=== PATIENT | female | born 1950 | race Caucasian/White ===

== ENCOUNTER → 2018-08-09 09:27 | Outpatient (CLI) | payer MEDICARE, OTHER, SELFPAY ==
--- NOTE | 2018-08-09 09:33 | BD_ITS ---
STUDY: DUAL ENERGY X-RAY ABSORPTIOMETRY / DXA REASON FOR EXAM: Female, 68 years old. The patient is postmenopausal. Loss of height. TECHNIQUE: Bone Mineral Density (BMD) measurements of lumbar spine and bilateral hips were obtained. COMPARISON: Comparison is made with prior study dated July 30, 2015. FINDINGS: Lumbar Spine (L1-L4): g/cm2 (0.764) / T-score (-3.5) / Z-score (-1.9) Findings are suggestive of osteoporosis with a high fracture risk. Left Femur Total: g/cm2 (0.790) / T-score (-1.7) / Z-score (-0.5) Left Femoral Neck: g/cm2 (0.792) / T-score (-1.8) / Z-score (-0.3) Right Femur Total: g/cm2 (0.821) / T-score (-1.5) / Z-score (-0.2) Right Femoral Neck: g/cm2 (0.826) / T-score (-1.5) / Z-score (0.0) The T-Scores on the most recent prior examination were: Lumbar Spine (L1-L4): There has been worsening of bone density since the previous examination. Left Femur Total: which represents a worsening of 5.5%. Right Femur Total: which represents an improvement of 0.6%. BD/Dexa Bone Density Study IMPRESSION: The patient is considered osteoporotic as outlined below according to World Neil Organization (WHO) criteria with a high fracture risk. There has been worsening of bone density since the previous examination. Reference Information: The T-score is the number of standard deviations above or below the standard which is normal for young adults at their peak bone mineral density. The World Health Organization (WHO) interprets the T-scores as follows: Above -1 Normal bone density Between -1 and -2.5 Osteopenia Equal to / or below -2.5 Osteoporosis As a practical clinical guideline, osteopenia may be graded as follows: Mild -1 through -1.5 Moderate -1.6 through -2.0 Severe -2.1 through -2.4 The Z-score is the number of standard deviations above or below age-matched controls. A Z-score of less than -1.5 would be considered abnormal. References: 1. NIH Osteoporosis and Related Bone Diseases http://www.osteo.org 2. International Society for Clinical Densitometry http://www.iscd.org 3. National Osteoporosis Foundation http://www.nof.org Electronically Signed: [place] MD at 8:45 EST Tel [phone], Service support ,
--- NOTE | 2018-08-09 09:34 | BI_ITS ---
MAMMOGRAPHY - BILATERAL SCREENING REASON FOR EXAM: Female, 68 years old. Routine annual screening examination. PERTINENT HISTORY: Sister with breast cancer. Grandmother with breast cancer. TECHNIQUE: Digital bilateral breast amelia (3D mammographic acquisition) in the CC and MLO projections. 2-D mediolateral oblique (MLO) and craniocaudad (CC) views of both breasts were obtained. CAD: Full Field Digital Mammography with Computer Added Detection was performed. COMPARISON: Comparison is made with prior study dated August 05, 2017 and August 04, 2016. FINDINGS: Breast Composition: The breasts are heterogeneously dense, which may obscure small masses. There are no dominant masses or suspicious calcifications. Stable appearance of the bilateral axillary lymph nodes. No other significant abnormalities are identified. There has been no significant change since the prior study. BI/SCREENING MAMM (CAD), BILAT IMPRESSION: Stable bilateral screening mammogram. Yearly follow-up mammogram recommended. (A) ASSESSMENT CATEGORY: BIRADS Category 2: Benign. A letter regarding these results will be sent to the patient by the facility within 30 days. Approximately 10% of breast cancers are not detected by mammography. A normal mammogram should not delay biopsy of a clinically suspicious abnormality. [id number] Electronically Signed: Mingo [place] MD at 10:55 EST Tel [phone], Service support ,
== END ==
PROVIDERS: Family Provider Internal Medicine; PCP Internal Medicine; Referring Provider Obstetrics & Gynecology; Visit Provider Obstetrics & Gynecology
DX: Z12.31 Encounter for screening mammogram for malignant neoplasm of breast (principal); M81.0 Age-related osteoporosis without current pathological fracture; Z78.0 Asymptomatic menopausal state
CPT/HCPCS: 77063; 77067; 77080

== ENCOUNTER → 2019-08-15 16:09 | Outpatient (CLI) | payer MEDICARE, OTHER, SELFPAY ==
[2019-08-15 17:29] LABS: Absolute Lymphocyte Count 1.09 X10^3/uL (0.83-4.51); Absolute Neutrophil Count 3.1 X10^3/uL (2.0-7.7); Basophil# 0.03 X10^3/uL; Basophil% 0.6 % (0-1); Eosinophil# 0.07 X10^3/uL; Eosinophils% 1.5 % (0-5); Hemoglobin 14.4 g/dL (12.0-15.0); Lymphocyte # 1.09 X10^3/ul (4.0); Lymphocyte % 22.9 % (19-41); Mean Corp Hgb Conc 33.5 g/dL (32-36); Mean Corpuscular Volume 92.5 fL (81-99); Mean Platelet Vol. 10.8 fl (6.2-12.0); Monocyte# 0.44 X10^3/uL; Monocyte% 9.2 % (0-10); NRBC Flagged by Analyzer 0 % (0-5); Neutrophil # 3.12 X10^3/uL (2.7-7.7); Neutrophil % 65.6 % (47-70); Platelet Count 207 K/mm3 (150-450); RBC Distribution Width CV 12.7 % (11.6-14.6); RBC Distribution Width SD 43.1 fl (35.1-43.9); Red Blood Count 4.65 M/mm3 (4.2-5.4); White Blood Count 4.8 K/mm3 (4.4-11.0)
[2019-08-15 17:41] LABS: Erythrocyte Sedimentation Rate 9 mm/hr (0-30)
[2019-08-15 17:49] LABS: Vitamin B12 531 pg/mL (211-911); Vitamin D,25 Hydroxy 44.4 ng/mL (29.95-100.01)
[2019-08-15 18:01] LABS: ALB/GLOB Ratio 0.8 RATIO (0.9-2.4); AST(SGOT) 82 U/L (15-37); Alanine Aminotransfer ALT/SGPT 144 U/L (13-56); Albumin, Serum 3.8 g/dL (3.2-5.0); Alkaline Phosphatase 58 U/L (45-117); Anion Gap 9 (5-15); BUN 17 mg/dL (7-18); BUN/Creat Ratio 15.6 RATIO (10-20); CRP < 2.90 mg/L (0.0-3.0); Chloride 107 mmol/L (98-107); Cholesterol 177 mg/dL (200); Creatinine, Serum 1.09 mg/dL (0.55-1.02); EST Glomerular Filtration Rate 53 mL/min (>60); Est Glom Filt Rate - Afr Amer 64 mL/min (>60); Ferritin 230 ng/mL (8-252); Globulin 4.6 g/dL (2.2-4.2); Glucose 89 mg/dL (74-106); High Density Lipoprotein 46 mg/dL; Iron 97 ug/dL (50-170); Protein, Total 8.4 g/dL (6.4-8.2); Sodium Level 142 mmol/L (136-145); Triglycerides 143 mg/dL; Very Low Density Lipoprotein 29 mg/dL (5-40)
[2019-08-17 20:50] LABS: ANTINUCLEAR ANTIBODIES DIRECT Negative (Negative)
== END ==
PROVIDERS: Family Provider Family Medicine; PCP Family Medicine; Referring Provider Family Medicine; Visit Provider Family Medicine
DX: R53.83 Other fatigue (principal); I10 Essential (primary) hypertension; L80 Vitiligo
CPT/HCPCS: 36415; 80053; 80061; 82306; 82607; 82728; 83540; 85025; 85652; 86038; 86140

== ENCOUNTER → 2019-08-23 08:04 | Outpatient (CLI) | payer MEDICARE, OTHER, SELFPAY ==
[2019-08-23 10:01] LABS: GGTP 22 U/L (5-55)
[2019-08-23 11:08] LABS: Hepatitis B Surface Antibody Non-Reactive; Hepatitis B Surface Antigen Non-Reactive (Nonreactive); Hepatitis C Antibody Non-Reactive (Nonreactive)
[2019-08-24 09:00] LABS: T4 Free Direct 1.35 ng/dL (0.76-1.46)
[2019-08-25 16:33] LABS: PROELU- Albumin, Urine 43.2 % (.); PROELU- Alpha-1-Globulin,Ur 4.6 % (.); PROELU- Alpha-2-Globulin,Ur 13.9 % (.); PROELU- Beta Globulin, Ur 22.4 % (.); PROELU- Gamma Globulin, Ur 15.9 % (.); Total Protein, Ur 7.9 mg/dL (Not Estab.)
[2019-08-26 12:54] LABS: C-Peptide 4.7 ng/mL (1.1-4.4)
== END ==
PROVIDERS: Family Provider Family Medicine; PCP Family Medicine; Referring Provider Family Medicine; Visit Provider Family Medicine
DX: R53.83 Other fatigue (principal); E03.9 Hypothyroidism, unspecified
CPT/HCPCS: 36415; 82977; 84166; 84439; 84443; 84681; 86706; 86803; 87340

== ENCOUNTER → 2019-09-16 07:36 | Outpatient (CLI) | payer MEDICARE, OTHER, SELFPAY ==
--- NOTE | 2019-09-16 08:03 | MRI_ITS ---
We are attempting to reach an attending provider to discuss findings. An addendum with communication details will be sent when the communication is complete. STUDY: MRI BRAIN WITH AND WITHOUT CONTRAST REASON FOR EXAM: Female, 69 years old. CHANGE IN MENTAL STATUS -- no pain. TECHNIQUE: Standardized multiplanar fat and water weighted pulse sequences were obtained. DOTAREM 13 ML IV was administered for the contrast portion of the examination. COMPARISON: None. FINDINGS: There is approximately 3.2 x 3.5 x 3.6 cm avidly enhancing mass along the olfactory groove involving yared kaden and surrounding the falx. There is dural tail. There is decreased T2 signal with mild restricted signal suggesting meningioma. There is large amount of surrounding vasogenic edema, greater on the right. There is compression of the bilateral anterior horns and posterior displacement of the corpus callosum and there is ventricle. There is midline shift to the left of approximately 1 cm. Normal flow voids within the major intracranial circulation suggesting patency by spin echo criteria. Normal sella turcica, pituitary gland, infundibular stalk, optic chiasm and hypothalamus. Normal tectal plate and pineal gland. Normal midbrain, manpreet and medulla. Normal cerebellum. Normal basal cisterns. 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 Electronically Signed: Mejia Sanchez MD at 9:21 EST Tel , Service support ,
--- NOTE | 2019-09-16 09:13 | US_ITS ---
STUDY: ABDOMINAL ULTRASOUND - RIGHT UPPER QUADRANT REASON FOR VISIT: Female, 69 years old elevated liver function tests TECHNIQUE: Ultrasound evaluation of the right upper quadrant was performed with real-time and static acevedo-scale imaging. TECHNICAL QUALITY: Adequate. COMPARISON: None. FINDINGS: Liver: The liver measures 15.9 cm. There is increased echogenicity of the liver. The bile ducts are within normal limits. There is hepatic color flow. The direction of portal flow is hepatopetal. There is no demonstrated mass lesion. Gallbladder: Normal distended gallbladder. The gallbladder wall measures 2.9 mm. There is a negative sonographic Blevins''s sign. There is no pericholecystic fluid. There are multiple echogenic structures within the gallbladder, consistent with multiple gallstones. Common Bile Duct (C.B.D.): The common bile duct measures 6-7 mm. Pancreas: There is normal echogenicity of the pancreas. There is no demonstrated pancreatic mass or cyst. Right Kidney: Normal size of the right kidney. The right kidney measures 10.0 x 4.0 x 4.0 cm. Normal renal cortex. The right cortex measures 1.2 cm. There is no demonstrated renal mass or cyst. There is no right hydronephrosis. US/Abdomen Limited IMPRESSION: 1. No hepatic mass or intrahepatic bile duct dilation. 2. Increased echogenicity of the liver is nonspecific but most commonly associated with hepatic steatosis. 3. Cholelithiasis. 4. Upper limits of normal CBD for age. Electronically Signed: Manuel Rico MD (Brooks) at 13:00 EST , Service support ,
== END ==
PROVIDERS: Family Provider Family Medicine; PCP Family Medicine; Referring Provider Family Medicine; Visit Provider Family Medicine
DX: R41.82 Altered mental status, unspecified (principal); R94.5 Abnormal results of liver function studies
CPT/HCPCS: 70553; 76705; A9575

== ENCOUNTER 2019-09-16 09:47 | Emergency (ER) | payer MEDICARE, OTHER, SELFPAY ==
[2019-09-16 09:47] VITALS: BP 152/97; PULSE 67; RESP 16; TEMP 37.1; O2SAT 98; BMI 27.6
[2019-09-16 10:31] LABS: Absolute Lymphocyte Count 1.27 X10^3/uL (0.83-4.51); Absolute Neutrophil Count 3.3 X10^3/uL (2.0-7.7); Basophil# 0.02 X10^3/uL; Basophil% 0.4 % (0-1); Eosinophil# 0.09 X10^3/uL; Eosinophils% 1.7 % (0-5); Hemoglobin 14.4 g/dL (12.0-15.0); Lymphocyte # 1.27 X10^3/ul (4.0); Lymphocyte % 24.5 % (19-41); Mean Corp Hgb Conc 34.3 g/dL (32-36); Mean Corpuscular Hgb 30.8 pg (27.0-32.0); Mean Corpuscular Volume 89.7 fL (81-99); Mean Platelet Vol. 9.8 fl (6.2-12.0); Monocyte# 0.51 X10^3/uL; Monocyte% 9.8 % (0-10); NRBC Flagged by Analyzer 0 % (0-5); Neutrophil # 3.28 X10^3/uL (2.7-7.7); Neutrophil % 63.2 % (47-70); Platelet Count 186 K/mm3 (150-450); RBC Distribution Width CV 12.3 % (11.6-14.6); RBC Distribution Width SD 40.5 fl (35.1-43.9); Red Blood Count 4.68 M/mm3 (4.2-5.4); White Blood Count 5.2 K/mm3 (4.4-11.0)
[2019-09-16 10:36] LABS: Prothrombin Time (Protime)PT. 13.4 SECONDS (11.7-14.9)
[2019-09-16 10:37] LABS: Partial Thromboplast Time 28.4 Seconds (24.1-36.2)
[2019-09-16 10:53] LABS: Anion Gap 4 (5-15); BUN 18 mg/dL (7-18); Calcium,Total 8.5 mg/dL (8.5-10.1); Chloride 110 mmol/L (98-107); EST Glomerular Filtration Rate 59 mL/min (>60); Est Glom Filt Rate - Afr Amer 71 mL/min (>60); Estimated Creatinine Clearance 41.19 ml/min; Glucose 92 mg/dL (74-106); Potassium 3.7 mmol/L (3.5-5.1); Sodium Level 141 mmol/L (136-145)
--- NOTE | 2019-09-16 12:00 | ED.DCSUM_ITS ---
History of Present Illness Chief Complaint: Confusion Detail of Chief Complaint: Mass on brain MRI Informant: Patient, Family Narrative: Patient was sent up to the ED from outpatient MRI study revealing a mass and vasogenic edema. Patient has had increased sleepiness for the past several months. states she will have some intermittent confusion such as forgetting where she puts things. Her primary care physician ordered an outpatient MRI today. Patient denies headache or vision change. She is had no nausea or vomiting. She denies seizures. - Past Medical History (1) Hypothyroid Status: Chronic (2) M?ni?re's disease Status: Chronic (3) Hypertension Status: Chronic Past Medical History - Allergies and Home Meds Allergies/Adverse Reactions: Allergies No Known Allergies Allergy (Verified 09/16/19 09:47) Primary Care Physician: Johnathon Delgado MD [Primary Care Provider] - Prior records reviewed: Yes Lives: Spouse/ Significant Other Smoking Status: Never smoker Review of Systems General: Denies: Chills Eyes: Denies: Visual changes - bilaterally ENT: Denies: Bilateral ear pain Cardiovascular: Denies: Chest pain Respiratory: Denies: Dyspnea, Cough Gastrointestinal: Denies: Abdominal pain, Nausea, Vomiting, Diarrhea Musculoskeletal: Denies: Neck pain, Back pain Skin: Denies: Rash Neurological: Denies: Headache Hematologic: Denies: Easy bruising Allergy: Denies: Uticaria Physical Exam Vital Signs/Narrative: Vital Signs Temp Pulse Resp BP Pulse Ox 09/16/19 09:47 98.8 F 67 16 152/97 H 98 Inital Vital Signs reviewed: Yes General: Well nourished, Well developed Head: Normocephalic ENT: Moist mucous membranes Neck: Supple Cardiovascular: Regular rate, Regular rhythm Respiratory: No distress, CTA bilaterally Abdomen: Soft, Nontender Back: Nontender Skin: Normal color, No rash Neurological: Alert, Oriented x3, Normal Strength, Normal Sensation Psychological: Normal affect Diagnostic/Tx/Re-eval MRI performed this morning reveals a 3.6 cm mass in the olfactory groove, likely meningioma with extensive surrounding vasogenic edema and compression along with midline shift of 1 cm. - Medical Decision Making Test results were discussed with patient and at bedside. I advised her that she needs follow-up with neurosurgery and we do not have that capability here. Patient has been accepted at [facility]. She is given 10 mg of IV Decadron. ED Disposition - Plan for ED Patient: Disposition: [facility] Diagnosis: Brain mass Referrals: Johnathon Delgado MD [Primary Care Provider] -
[2019-09-16 12:13] VITALS: BP 168/77; PULSE 71; RESP 16; O2SAT 97
[2019-09-16] MEDS: dexAMETHasone 10 MG/ML Vial IV (12:20)
== END 2019-09-16 12:45 | disposition short-term general hospital (02) ==
PROVIDERS: Emergency Provider Emergency Medicine; Family Provider Family Medicine; PCP Family Medicine
DX: G93.9 Disorder of brain, unspecified (principal); G93.6 Cerebral edema; I10 Essential (primary) hypertension; E03.9 Hypothyroidism, unspecified; R94.5 Abnormal results of liver function studies; Z79.899 Other long term (current) drug therapy
CPT/HCPCS: 70553; 76705; 80048; 85025; 85610; 85730; 96374; 99285; A9575

== ENCOUNTER 2019-09-26 14:47 | Inpatient (IN) | payer MEDICARE, OTHER, SELFPAY ==
[2019-09-26 15:00] VITALS: BP 102/61; PULSE 95; RESP 16; TEMP 36.4; O2SAT 96; BMI 27.5
[2019-09-26] MEDS: Phenytoin Na 100 MG Capsule PO (18:26)
[2019-09-26] MEDS: levETIRAcetam 750 MG Tablet 1500 MG PO (20:29)
[2019-09-26] MEDS: Docusate Sodium 100 MG Capsule PO (20:29)
[2019-09-26 22:00] VITALS: BP 100/56; PULSE 90; RESP 16; TEMP 36.8; O2SAT 95
[2019-09-27] MEDS: Alendronate Sodium 70 MG Tablet PO (05:45)
[2019-09-27] MEDS: Levothyroxine 50 MCG Tablet PO (05:45)
[2019-09-27 06:20] LABS: Absolute Lymphocyte Count 2.24 X10^3/uL (0.83-4.51); Absolute Neutrophil Count 6.3 X10^3/uL (2.0-7.7); Basophil# 0.01 X10^3/uL; Basophil% 0.1 % (0-1); Eosinophil# 0.27 X10^3/uL; Eosinophils% 2.8 % (0-5); Hematocrit 39.3 % (37-47); Hemoglobin 13.3 g/dL (12.0-15.0); Lymphocyte # 2.24 X10^3/ul (4.0); Mean Corp Hgb Conc 33.8 g/dL (32-36); Mean Corpuscular Hgb 31.1 pg (27.0-32.0); Mean Corpuscular Volume 91.8 fL (81-99); Mean Platelet Vol. 10.1 fl (6.2-12.0); Monocyte% 8.2 % (0-10); NRBC Flagged by Analyzer 0 % (0-5); Neutrophil # 6.33 X10^3/uL (2.7-7.7); Neutrophil % 64.9 % (47-70); Platelet Count 182 K/mm3 (150-450); RBC Distribution Width CV 13.4 % (11.6-14.6); RBC Distribution Width SD 44.3 fl (35.1-43.9); Red Blood Count 4.28 M/mm3 (4.2-5.4); White Blood Count 9.8 K/mm3 (4.4-11.0)
[2019-09-27 06:47] LABS: Phenytoin (Dilantin) Level 11.3 mL (10.0-20.0)
[2019-09-27 06:49] LABS: ALB/GLOB Ratio 0.7 RATIO (0.9-2.4); AST(SGOT) 23 U/L (15-37); Alanine Aminotransfer ALT/SGPT 51 U/L (13-56); Albumin, Serum 2.7 g/dL (3.2-5.0); Alkaline Phosphatase 59 U/L (45-117); Anion Gap 5 (5-15); BUN 19 mg/dL (7-18); Calcium,Total 8.3 mg/dL (8.5-10.1); Chloride 110 mmol/L (98-107); Creatinine, Serum 0.76 mg/dL (0.55-1.02); EST Glomerular Filtration Rate 81 mL/min (>60); Est Glom Filt Rate - Afr Amer 98 mL/min (>60); Estimated Creatinine Clearance 41.19 ml/min; Globulin 3.7 g/dL (2.2-4.2); Glucose 88 mg/dL (74-106); Magnesium 2.1 mg/dL (1.6-2.6); Phosphorus 3.7 mg/dL (2.5-4.9); Protein, Total 6.4 g/dL (6.4-8.2); Sodium Level 138 mmol/L (136-145)
[2019-09-27] MEDS: Polyethylene Glycol 3350 17 GM PACKET PO (08:48)
[2019-09-27] MEDS: Losartan Potassium 100 MG Tablet PO (08:49)
[2019-09-27] MEDS: levETIRAcetam 750 MG Tablet 1500 MG PO ×2 (08:49→21:27)
[2019-09-27] MEDS: Multivitamins,Ther W-Minerals Tablet 1 TABLET PO (08:49)
[2019-09-27] MEDS: Calcium Carb/Vitamin D 1 TABLET Tablet PO (08:49)
[2019-09-27] MEDS: Docusate Sodium 100 MG Capsule PO ×2 (08:49→21:30)
[2019-09-27] MEDS: Pantoprazole Sodium 40 MG Tablet PO (08:49)
[2019-09-27] MEDS: Phenytoin Na 100 MG Capsule PO ×3 (08:49→17:29)
[2019-09-27 08:56] VITALS: BP 133/72; PULSE 83; RESP 18; TEMP 36.8; O2SAT 97
[2019-09-27] MEDS: Calcium Carbonate 500 MG Tablet PO (12:23)
--- NOTE | 2019-09-27 13:05 | HP.PCM_ITS ---
Problem List (1) Physical debility Status: Acute (2) S/P resection of meningioma Status: Acute (3) Hypertension Status: Chronic (4) Hypothyroid Status: Chronic (5) M?ni?re's disease Status: Chronic History of Present Illness Date of Admission: 09/26/19 Chief Complaint: weakness due to recent resection of meningioma The pt is a 69-year-old female with a PMH of hypertension, hypothyroidism, M?ni?re's disease and recent resection of a meningioma at [facility] who is admitted to the Inpatient rehab unit at [facility] on 09/26/2019 for debility secondary to resent surgery for greater than 3 hours of therapy daily with a goal of returning home at or near prior level of independence. The patient lives at home with her spouse and has 6 steps to get into her house. It is a two-story house and the bedrooms are on the second floor with a staircase and a rail. She does have a full bathroom on the first floor. The patient was independent with ADL's, mobility and driving prior to hospitalization. She denies WAY, lightheadedness, CP, SOB. She denies dysuria and she had a BM today. She is c/o R calf pain. She was on SCD's and TEDS at [facility] and not anticoagulation to prevent DVT. No seizures since admission. she had status epilepticus at [facility] and is on Keppra and Dilantin. She feels a little disoriented but, this is clearing up. Afebrile since admission. Vital signs are stable She is maintaining appropriate oxygen saturation on room air. Fair oral intake. All lab was personally reviewed. The CBC is unremarkable. The BMP is remarkable for an increased BUN at 19 with a creatinine of 0.76. Potassium is 4.0. LFTs are unremarkable and the phenytoin level is 11.3 but when corrected for hypoalbuminemia the phenytoin level is 13.4 which is within therapeutic range. 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) Hypertension (Chronic) Allergies lisinopril Adverse Reaction (Verified 09/26/19 15:02) Other cough Home Medications: Ambulatory Orders Medication Instructions Recorded Levothyroxine Sodium 50 mcg PO DAILY 09/16/19 Acetaminophen [Tylenol] 650 mg PO Q4H PRN 09/26/19 Alendronate Sodium 1 tab PO WE 09/26/19 Bisacodyl [Dulcolax] 10 mg RECTAL DAILY PRN PRN 09/26/19 Calcium Carbonate 500 mg PO BID PRN 09/26/19 Calcium Carbonate/Vitamin D3 1 tab PO DAILY 09/26/19 [Calcium 600 + Vit D Tablet] Docusate Sodium [Colace] 100 mg PO BID 09/26/19 Levetiracetam [Keppra] 1,500 mg PO BID 09/26/19 Losartan Potassium [Cozaar] 100 mg PO DAILY 09/26/19 Minocycline HCl 50 mg PO DAILY 09/26/19 Multivitamin with Minerals 1 tab PO DAILY 09/26/19 [Multiple Vitamin] Pantoprazole Sodium [Protonix] 40 mg PO DAILY 09/26/19 Phenytoin Na [Dilantin] 100 mg PO TID 09/26/19 Polyethylene Glycol 3350 [Miralax] 17 gm PO DAILY 09/26/19 Senna/Docusate Sodium [Senokot-S, 1 tab PO DAILY PRN 09/26/19 Maame-Colace] Surgical History: - - craniotomy at [facility] 09/20/19 for olfactory groove meningioma Psychiatric History: No pertinent psych hx [employer] History: No pertinent [employer]ER history Lives: Spouse/ Significant Other Smoking Status: Never smoker Tobacco Use: Non-smoker Alcohol: None Drugs: None Review of Systems Constitutional: Reports: Weakness. Denies: Anorexia, Chills, Fever, Weight Change Eyes: Denies: Blurred vision, Eyelid Inflammation HEENT: Denies: Difficulty Swallowing, Eye Pain, Head Aches, Sinus Congestion, Sinus Drainage, Sore Throat Cardiovascular: Denies: Chest Pain, Edema, Light Headedness, Palpitations Respiratory: Denies: Cough, Pleuritic Pain, Shortness of Breath, Shortness of breath at rest, Sputum production Gastrointestinal: Denies: Abdominal Pain, Constipation, Diarrhea, Nausea, Vomiting Genitourinary: Denies: Dysuria Musculoskeletal: Denies: Joint Pain, Joint Tenderness Skin: Denies: Jaundice, Rash, Wounds Neurological: Reports: Balance problems, Seizures - she had status epilepticus while at [facility] but this resolved with Keppra and Dilantin. Denies: Double vision, Change in Speech, Slurred speech, Focal weakness, Numbness, Tingling, Tremor Psychiatric: Denies: Anxiety, Depression, Homicidal Ideations, Suicidal Ideations Endocrine: Denies: Change in Body Habitus Hematologic/ Lymphatic: Denies: Easy Bruising, Easy Bleeding, Hx of blood clot VTE Information - Inpt Only VTE Present on Admission: No VTE Mechan Device Prophylaxis: SCD's, Knee High CHERYL Hose VTE Pharm Prophylaxis ordered?: No Reason prophylaxis not ordered:: Treatment Not Indicated - pt had a recent craniotomy to resect a meningioma in the olfactory groove. Patient Problems: Active and Suspected Problems Physical debility (Acute) S/P resection of meningioma (Acute) - Physical Exam Vitals/I&O's: Vital Signs Temp Pulse Resp BP Pulse Ox 98.3 F 83 18 133/72 H 97 09/27/19 08:56 09/27/19 08:56 09/27/19 08:56 09/27/19 08:56 09/27/19 08:56 Oxygen Delivery Method Room Air Weight: 145 lb 11.609 oz Body Mass Index (BMI) 27.5 Intake and Output for Last 24 Hours 09/25/19 09/26/19 09/27/19 23:59 23:59 23:59 Intake Total 830 / 830 720 / 720 Balance 830 / 830 720 / 720 General: Alert, Oriented x3, Cooperative, No apparent distress, Well developed, Well nourished HEENT: PERRLA, EOMI, Normocephalic, - - She has a long staple line across the frontal bones extending from 1 side to the other from recent craniotomy to remove a meningioma in the olfactory groove. Oral: No Gingival or Mucosal Lesions/ Ulcerations, Dry Mucosa Neck: Supple, No JVD, Negative Carotid Bruits, No Nodes, Trachea Midline Lungs: Clear to auscultation, Normal air movement, No rhonchi, No wheeze, No rales Cardiovascular: Regular rate, Regular Rhythm, Normal S1, Normal S2, No murmurs, No Ectopic Activity, No rub noted, No Gallop Abdomen: Bowel Sounds Present, Soft, Non Tender, Non-Distended Extremities: No clubbing, No cyanosis, No edema, Peripheral Pulses Normal, - - She has calf tenderness on the R side. she has a + Dre sign and winced when I squeezed the R calf. The Radha's on the right was negative. There is no erythema and there is no increased warmth to touch. The left calf is not tender. Skin: No rashes, - - the incision on the skull is intact. There is some dried blood over the jagruti. No dehiscence and no purulent DC. No periwound erythema. Musculoskeletal: No Muscle Wasting Neurological: Cranial nerves II-XII grossly intact, Neuro grossly intact Psych/Mental Status: Normal Affect, Appropriate Laboratory Results 09/27/19 06:10: WBC 9.8, RBC 4.28, Hgb 13.3, Hct 39.3, MCV 91.8, MCH 31.1, MCHC 33.8, RDW Std Deviation 44.3 H, RDW Coeff of Chase 13.4, Plt Count 182, MPV 10.1, Immature Gran % (Auto) 1.000 H, Neut % (Auto) 64.9, Lymph % (Auto) 23.0, Tompkins % (Auto) 8.2, Eos % (Auto) 2.8, Baso % (Auto) 0.1, Absolute Neuts (auto) 6.3, Absolute Lymphs (auto) 2.24, Nucleated RBC % 0 09/27/19 06:10: Sodium 138, Potassium 4.0, Chloride 110 H, Carbon Dioxide 23.0, Anion Gap 5, BUN 19 H, Creatinine 0.76, Estim Creat Clear Calc 41.19, Est GFR (MDRD) Af Amer 98, Est GFR (MDRD) Non-Af 81, BUN/Creatinine Ratio 25.0 H, Glucose 88, Calcium 8.3 L, Phosphorus 3.7, Magnesium 2.1, Total Bilirubin 0.30, AST 23, ALT 51, Alkaline Phosphatase 59, Total Protein 6.4, Albumin 2.7 L, Globulin 3.7, Albumin/Globulin Ratio 0.7 L 09/27/19 06:10: Phenytoin 11.3 Current Medications Acetaminophen (Tylenol) 650 mg PO Q4H PRN PRN Reason: Pain or Fever Alendronate Sodium (Fosamax) 70 mg PO We@0600 [facility] Last Admin: 09/27/19 05:45 Dose: 70 mg Documented by: Bisacodyl (Dulcolax) 10 mg RECTAL .PRN X 1 PRN PRN Reason: Constipation Calcium Carbonate (Tums) 500 mg PO BID PRN PRN Reason: HEART[facility]URN Last Admin: 09/27/19 12:23 Dose: 500 mg Documented by: Calcium/Vitamin D (Os-King 500mg + D) 1 tablet PO DAILYCM [facility] Last Admin: 09/27/19 08:49 Dose: 1 tablet Documented by: Docusate Sodium (Colace) 100 mg PO BID [facility] Last Admin: 09/27/19 08:49 Dose: 100 mg Documented by: Levetiracetam (Keppra Tablet) 1,500 mg PO BID [facility] Last Admin: 09/27/19 08:49 Dose: 1,500 mg Documented by: Levothyroxine Sodium (Synthroid) 50 mcg PO DAILY@0600 [facility] Last Admin: 09/27/19 05:45 Dose: 50 mcg Documented by: Losartan Potassium (Cozaar) 100 mg PO DAILY [facility] Last Admin: 09/27/19 08:49 Dose: 100 mg Documented by: Magnesium Hydroxide (Milk Of Magnesia) 30 ml PO .PRN X 1 PRN PRN Reason: Constipation Minocycline HCl (Minocin) 50 mg PO DAILY [facility] Multivitamins/Minerals (Multivitamin With Minerals) 1 tablet PO DAILY@0800 [facility] Last Admin: 09/27/19 08:49 Dose: 1 tablet Documented by: Nutritional Formula (Lactose Free) (Ensure Enlive) 120 ml PO 4X/DAY [facility] Last Admin: 09/27/19 08:57 Dose: 120 ml Documented by: Pantoprazole Sodium (Protonix) 40 mg PO DAILY [facility] Last Admin: 09/27/19 08:49 Dose: 40 mg Documented by: Phenytoin Sodium (Dilantin) 100 mg PO TIDCM [facility] Last Admin: 09/27/19 12:22 Dose: 100 mg Documented by: Polyethylene Glycol (Miralax) 17 gm PO DAILY [facility] Last Admin: 09/27/19 08:48 Dose: 17 gm Documented by: Assessment/Plan All Active Problems Physical debility (Acute) S/P resection of meningioma (Acute) Impressions 1. 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 2. 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 R calf pain with a + Dre and negative Radha's on the R. No CP and no SOB. Not tachycardic. No services available to [facility] at this time due to the holiday. I suggested to the patient that we could either transfer her to another facility....they may also not have US available today OR we could do the US first thing in the AM. She elected to stay here. She was instructed to notify the nurse immediately if SOB or CP and a CTA of the chest would be ordered. 4. Hypothyroidism-continue home medication 5. Hypertension 6. 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 No seizures since admission. Patient is stable on Keppra and Dilantin. PLAN PT for gait stability OT for ADL's ST for evaluation Analgesics as needed Bowel protocol Fall precautions Assess for Anxiety/Depression GI prophylaxis not necessary DVT prophylaxis with SCDs and CHERYL hose. Hold the SCD on the right lower extremity tonight until an ultrasound can be obtained in the morning. Will apply SCDs to the left lower extremity. Continue CHERYL hose. Follow up with neurosurgery and her PCP following DC from [facility] Will call and speak to her neurosurgeon tomorrow and ask when she can be started on DVT prophylaxis or full dose anticoagulation if the US is positive Code Visit Inpatient E&M: 97581 Init Hosp L3
[2019-09-27 15:10] VITALS: O2SAT 96
--- NOTE | 2019-09-27 16:59 | REHABEVAL_ITS ---
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 Status Changes from Prescreening?: No changes Identified Actual Problem List:: Skin Intergrity, Cognitve Impr/Memory Loss, Mobility Impaired, Self Care Deficit, Alteration-Leisure Activ. Potential Problem List:: DVT, Bleeding, Infection, UTI, Aspiration, Falls, Skin Integrity, Depression Risk of Complications DVT: CHERYL Hose, Sequential Compression Device Bleeding: Monitor Lab Values, Wound, if applicable, to be assessed every shift. Infection: Clinical Staff to Monitor for S/S of infection:, S/S of infection include fever, redness, warmth, etc. Urinary Tract Infection: Monitor for frequency, burning, discomfort, or incontinence., Nursing will obtain urine sample for urinalysis and C&S when ordered. Aspiration: Clinical staff will monitor for coughing, drooling, congestion., Speech will evaluate swallowing and dsyphasia., Nursing will monitor patient swallowing during meals. Falls: Patient will be evaluated for Fall Precautions, Patient will be placed on Fall Precautions as indicated per protocol. Skin Breakdown: Nursing will assess skin daily using assessment tool., Nursing will place on Skin Breakdown Precautions as indicated. Pain: Clinical staff will assess patient's pain level per protocol., Medications will be given, if needed, and the pain level reassessed., Other methods: Massage, distraction, decrease stimulus, etc. used PRN. Plan of Care Patient requires physician specializing in physical medicine and rehab oversight to provide close medical supervision of rehab issues including: Pain Management, Sleep Problems, Bowel and Bladder, Medical and co-morbidity Management, DVT prophylaxis, Rehabilitation Leadership, Coordination of treatment team Patient needs Physical Therapy: For a minimum of 1 hour, At least 5 out of 7 days Patient needs Physical Therapy to improve:: Mobility, Mobility, Mobility, Strengthening, Transfers, Stretching, ROM, Endurance, Stairs, Gait, Balance Patient needs Occupational Therapy: For a minimum of 1 hour, At least 5 out of 7 days Patient needs Occupational Therapy to improve ADL's incl.: Eating, Grooming, Bathing, Dressing, Toileting, Toilet transfers, Community Reintegration, Higher functioning activities, Household tasks, Adaptive Equipment, Splinting, Other activities as determined Patient requires speech therapy: For a minimum of 1 hour, At least 5 out of 7 days Patient requires speech therapy for: Swallowing, Cognition, Language Skills, Compensatory Strategies Patient requires 24/7 Rehabilitation Nursing for: Pain Issues, Identifying and preventing risk factors, Monitoring and reporting current medical conditions, Assisting with ambulation, transfer, and all ADL's, Teaching patients about disease process and medications, Family teaching, Providing safe environment, Bowel and Bladder Issues, Skin integrity, Medication Management Patient needs Sex Offender Treatment Professional/ Case Management for: Discharge Planning, Arranging Home Equipment or Services, Family Interventions Patient needs Dietary and Nutrition Services for: Adequate Nutrition, Nutritional Supplements, Nutritional Education Goals Patient will remain: free from falls, or injury at time of discharge. Patient will perform bed mobility at: MOD I level of assist. Patient will complete transfers from bed to chair at: MOD I level of assist. Patient will ambulate: 100 feet, with MOD I assist, with LRD Patient will complete upper body dressing at: MOD I level of assist. Patient will complete lower body dressing at: MOD I level of assist. Patient will complete toileting at: MOD I level of assist. Patient will perform bathing at: MOD I level of assist. Patient will complete grooming at: MOD I level of assist. Patient will complete home management skills at: MOD I level of assist. Patient will achieve: 12 stairs, at MOD I assist Patient will have pain level of: of 3 or less Patient's skin will: remain intact, free from infection. Patient will receive: adequate nutrition. Discharge Planning Pt Prognosis for Sig. Practical Improv. w/in Reasonable Time: Good Estimated Length of stay (days): 14 Anticipated D/C Destination: Home Was Preadmission Assessment Accurate?: Yes
--- NOTE | 2019-09-27 17:45 | VDLE_ITS ---
Reason For Study: pain RIGHT LEFT GSV is normal. CFV is compressible, spontaneous, phasic, CFV is compressible, spontaneous, phasic, competent, and demonstrates normal competent and demonstrates normal augmentation. augmentation. FV is compressible, spontaneous, phasic, competent and demonstrates normal augmentation. PTV is compressible. POP V is partially compressible with decreased flow. DVT in POP V appears to be loosley attached. T/P Trunk, Peroneal V, and Soleus V are dilated and noncompressible. Procedure Exam performed portable in patient room. The exam was diagnostic. A preliminary report was called and/or faxed to the pt's RN. Interpretation Summary Acute deep vein thrombosis is noted in the right popliteal vein. Acute deep vein thrombosis is noted in the right tibio-peroneal trunk. Acute deep vein thrombosis is noted in the right peroneal vein. Acute deep vein thrombosis is noted in the right soleus vein. The remainder of the right lower extremity deep venous system is patent and compressible. The right common femoral vein and femoral vein are competent. The right great saphenous vein appears patent and compressible segmentally. Ordering Physician: Francy Denny Performed By: Logan Tran RVT
[2019-09-27 18:58] VITALS: BP 128/71; PULSE 105; RESP 18; TEMP 36.7; O2SAT 96
[2019-09-28] MEDS: Levothyroxine 50 MCG Tablet PO (05:17)
[2019-09-28 06:45] VITALS: O2SAT 96
[2019-09-28] MEDS: Multivitamins,Ther W-Minerals Tablet 1 TABLET PO (08:00)
[2019-09-28] MEDS: Phenytoin Na 100 MG Capsule PO ×2 (08:00→18:09)
[2019-09-28] MEDS: Losartan Potassium 100 MG Tablet PO (08:01)
[2019-09-28] MEDS: levETIRAcetam 750 MG Tablet 1500 MG PO ×2 (08:01→20:12)
[2019-09-28] MEDS: Calcium Carb/Vitamin D 1 TABLET Tablet PO (08:01)
[2019-09-28] MEDS: Polyethylene Glycol 3350 17 GM PACKET PO (08:02)
[2019-09-28] MEDS: Pantoprazole Sodium 40 MG Tablet PO (08:02)
[2019-09-28 08:11] VITALS: BP 112/71; PULSE 80; RESP 18; TEMP 36.8; O2SAT 96
--- NOTE | 2019-09-28 10:02 | PCM.PN.BLA ---
Progress Note The preliminary on the Venous US states the POP V on the R is partially compressible with decreased flow. The DVT in the POP V appears to be loosely attached. The T/P Trunk, Peroneal V and the Soleus V are dilated and noncompressible. Pt continues to deny CP or SOB. No hemoptysis. She is 96% saturated on RA and she is not tachypneic or tachycardic. Alert and oriented X 3, NAD Lungs - CTA Heart RRR, No MM, no gallop and no rub No edema of the LE's, TEDS in place, + Dre sign on the Right. Impressions 1. DVT RLE with mobile clot in the POP V which is partially compressible but, with decreased flow. Noncompressible T/P trunk, Peroneal V and Soleus V. I contacted Dr. Sara Dotson's office and explained the situation about the DVT and they do not want to anticoagulate since she is less than 10 days post-op Craniotomy. Dr. Byrd has been consulted and will place an IVC filter today. Pt was made NPO and the procedure has been explained to her. she is agreeable to the procedure. Will need to check with Dr. Dotson when it would be acceptable to start anticoagulation. STROKE Vital Signs/Narrative: Vital Signs Temp Pulse Resp BP Pulse Ox 09/28/19 08:11 98.2 F 80 18 112/71 96 Code Visit Inpatient E&M: 01655 Subs Hosp L2
--- NOTE | 2019-09-28 10:11 | EKG12_ITS ---
Test Reason : PRE-OP Blood Pressure : / mmHG Vent. Rate : 094 BPM Atrial Rate : 094 BPM P-R Int : 148 ms QRS Dur : 088 ms QT Int : 350 ms P-R-T Axes : 069 -07 044 degrees QTc Int : 437 ms Normal sinus rhythm Inferior infarct , age undetermined Abnormal ECG No previous ECGs available Confirmed by RICKEY GOMES ([id number]), writer editor GEENA PATTERSON ([id number]) on 10/03/2019 3:16:39 PM Referred By: ALICIA Confirmed By:RICKEY GOMES
--- NOTE | 2019-09-28 14:50 | NURSING ---
transferred to metallurgy laboratory technician to have IVC filter placement by Dr Byrd. will go to PCU for recovery. Will return to rehab after recovery is complete.
--- NOTE | 2019-09-28 15:28 | PCM.CONS.GEN ---
Problem List (1) Right leg DVT Status: Acute Qualifiers: Affected thrombotic vein of extremity: popliteal Chronicity: acute Qualified Code(s): I82.431 - Acute embolism and thrombosis of right popliteal vein Reason for Consult Date of Consultation: 09/28/19 History of Present Illness: The patient is a 69 year old F been asked to see by for an acute right lower extremity deep venous thrombosis with contraindication to anticoagulation. The patient is status post recent meningioma resection. Neurosurgery does not wish that anticoagulation be given. Patient had right leg swelling. A venous duplex exam suggests loosely adherent right popliteal vein DVT with DVT involving the right tibioperoneal trunk and peroneal vein and soleus vein. I have been asked to assist with placement of a retrievable vena cava filter. Her hemoglobin hematocrit are normal. BUN is 19 and creatinine 0.76 with a GFR of 98 She is on Keppra and levothyroxine and losartan and minocin and phenytoin. She is not allergic to any medications. She has not had a previous indwelling neck vein or subclavian vein device. Her last food was a full breakfast at 7:00 this morning. 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) Hypertension (Chronic) Allergies lisinopril Adverse Reaction (Verified 09/26/19 15:02) Other cough Home Medications: Ambulatory Orders Medication Instructions Recorded Levothyroxine Sodium 50 mcg PO DAILY 09/16/19 Acetaminophen [Tylenol] 650 mg PO Q4H PRN 09/26/19 Alendronate Sodium 1 tab PO WE 09/26/19 Bisacodyl [Dulcolax] 10 mg RECTAL DAILY PRN PRN 09/26/19 Calcium Carbonate 500 mg PO BID PRN 09/26/19 Calcium Carbonate/Vitamin D3 1 tab PO DAILY 09/26/19 [Calcium 600 + Vit D Tablet] Docusate Sodium [Colace] 100 mg PO BID 09/26/19 Levetiracetam [Keppra] 1,500 mg PO BID 09/26/19 Losartan Potassium [Cozaar] 100 mg PO DAILY 09/26/19 Minocycline HCl 50 mg PO DAILY 09/26/19 Multivitamin with Minerals 1 tab PO DAILY 09/26/19 [Multiple Vitamin] Pantoprazole Sodium [Protonix] 40 mg PO DAILY 09/26/19 Phenytoin Na [Dilantin] 100 mg PO TID 09/26/19 Polyethylene Glycol 3350 [Miralax] 17 gm PO DAILY 09/26/19 Senna/Docusate Sodium [Senokot-S, 1 tab PO DAILY PRN 09/26/19 Maame-Colace] Surgical History: - - craniotomy at [facility] 09/20/19 for olfactory groove meningioma Psychiatric History: No pertinent psych hx 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: No pertinent THREAT MONITORING ANALYST history Lives: Spouse/ Significant Other Smoking Status: Never smoker Tobacco Use: Non-smoker Alcohol: None Drugs: None Review of Systems Cardiovascular: Denies: Chest Pain Patient Problems: Active and Suspected Problems Physical debility (Acute) S/P resection of meningioma (Acute) Right leg DVT (Acute) - Physical Exam Vitals/I&O's: Vital Signs Temp Pulse Resp BP Pulse Ox 98.2 F 80 18 112/71 96 09/28/19 08:11 09/28/19 08:11 09/28/19 08:11 09/28/19 08:11 09/28/19 08:11 Oxygen Delivery Method Room Air Weight: 145 lb 11.609 oz Body Mass Index (BMI) 27.5 Intake and Output for Last 24 Hours 09/26/19 09/27/19 09/28/19 23:59 23:59 23:59 Intake Total 830 / 830 720 / 720 240 / 240 Output Total 650 / 650 Balance 830 / 830 70 / 70 240 / 240 General: Alert, No apparent distress Lungs: Clear to auscultation, Normal air movement Cardiovascular: Regular rate, Regular Rhythm Extremities: - - Swollen right lower extremity Current Medications Acetaminophen (Tylenol) 650 mg PO Q4H PRN PRN Reason: Pain or Fever Alendronate Sodium (Fosamax) 70 mg PO We@0600 [facility] Last Admin: 09/27/19 05:45 Dose: 70 mg Documented by: Bisacodyl (Dulcolax) 10 mg RECTAL .PRN X 1 PRN PRN Reason: Constipation Calcium Carbonate (Tums) 500 mg PO BID PRN PRN Reason: HEARTBURN Last Admin: 09/27/19 12:23 Dose: 500 mg Documented by: Calcium/Vitamin D (Os-King 500mg + D) 1 tablet PO DAILYCM [facility] Last Admin: 09/28/19 08:01 Dose: 1 tablet Documented by: Docusate Sodium (Colace) 100 mg PO BID [facility] Last Admin: 09/28/19 09:17 Dose: Not Given Documented by: Levetiracetam (Keppra Tablet) 1,500 mg PO BID [facility] Last Admin: 09/28/19 08:01 Dose: 1,500 mg Documented by: Levothyroxine Sodium (Synthroid) 50 mcg PO DAILY@0600 [facility] Last Admin: 09/28/19 05:17 Dose: 50 mcg Documented by: Losartan Potassium (Cozaar) 100 mg PO DAILY [facility] Last Admin: 09/28/19 08:01 Dose: 100 mg Documented by: Magnesium Hydroxide (Milk Of Magnesia) 30 ml PO .PRN X 1 PRN PRN Reason: Constipation Minocycline HCl (Minocin) 50 mg PO DAILY [facility] Last Admin: 09/28/19 08:01 Dose: 50 mg Documented by: Multivitamins/Minerals (Multivitamin With Minerals) 1 tablet PO DAILY@0800 [facility] Last Admin: 09/28/19 08:00 Dose: 1 tablet Documented by: Nutritional Formula (Lactose Free) (Ensure Enlive) 120 ml PO 4X/DAY [facility] Last Admin: 09/28/19 11:37 Dose: Not Given Documented by: Pantoprazole Sodium (Protonix) 40 mg PO DAILY [facility] Last Admin: 09/28/19 08:02 Dose: 40 mg Documented by: Phenytoin Sodium (Dilantin) 100 mg PO TIDCM [facility] Last Admin: 09/28/19 11:37 Dose: Not Given Documented by: Polyethylene Glycol (Miralax) 17 gm PO DAILY [facility] Last Admin: 09/28/19 08:02 Dose: 17 gm Documented by: Assessment/Plan All Active Problems Physical debility (Acute) S/P resection of meningioma (Acute) Right leg DVT (Acute) I recommended the patient a temporary placement of a inferior vena cava filter. I anticipate a inferior venacavogram with placement of a retrievable filter. In detail I have discussed the technique, benefit, risks, alternatives. I have strongly advised that this is a retrievable filter and that the patient and family members need to be compliant and patient return for removal once cleared by primary care. She has had an opportunity to ask and have questions answered. I anticipate a right internal jugular approach. I otherwise recommend thigh-high support hose for the right lower extremity Scott Byrd M.D., F.A.C.S.
--- NOTE | 2019-09-28 15:57 | PCM.OPRPT ---
Problem List (1) Right leg DVT Status: Acute Qualifiers: Affected thrombotic vein of extremity: popliteal Chronicity: acute Qualified Code(s): I82.431 - Acute embolism and thrombosis of right popliteal vein Report of Operation Date of Procedure: 09/28/19 Pre-Operative Diagnosis: Contraindication to anticoagulation. Right popliteal tibioperoneal trunk peroneal deep venous thrombosis loose clot in the popliteal Post-Operative Diagnosis: Same with normal inferior venacavogram Surgery/Procedure Performed:: Inferior venacavogram with inferior vena cava [facility] filter placement Description of Surgical Findings:: Timeout and informed consent was obtained. 69-year-old female was taken to the special procedure lab placed upon the table in a slight Trendelenburg position. The right neck was sterilely prepped and draped. Because of her history of cerebral meningioma resection I did not give any central acting medications. Under ultrasound I utilized a 30-gauge needle and injected 2% lidocaine. She tolerated that well. I used a micro puncture needle under ultrasound guidance accessed the right internal jugular vein. Seldinger wire technique was used to place a micropuncture sheath and 035 J-wire than of 5 Kisw[place]ili short sheath dilator. I used the J-wire to place a universal flush cath into the right common iliac. Using Visipaque contrast 3 to 15 cc a second with 20 cc I obtained an inferior venacavogram. The inferior venacavogram demonstrated widely patent common iliac on the right. Widely patent inferior vena cava with renal vein patency and position located. I then exchanged out for a 9 Kisw[place]ili sheath to dilate and then the 8 Kisw[place]ili deploying sheath under fluoroscopic control. I placed the jugular approach [facility] filter and positioned it so that the apex would be at the renal vein entrance. The filter deployed straight up with the hook on side view. There were no apparent complications. The deploying device was removed pressure was held for hemostasis. Telfa OpSite dressing applied. She was given activity and wound care instructions. As noted above the patient and family members are instructed on the importance of returning for removal of the device. Scott Byrd M.D., F.A.C.S.
--- NOTE | 2019-09-28 16:01 | DCINST_ITS ---
Additional Instructions: Please return to my office once you were released by your primary physician and neurosurgeon for retrieval of this inferior vena cava filter. I would anticipate a indwelling duration of 3 to 6 months. It is very important that we retrieve the filter at his is not deemed to be a permanent device. Scott Byrd M.D., F.A.C.S. Allergies/Adverse Reactions: Allergies lisinopril Adverse Reaction (Verified 09/26/19 15:02) Other cough Medications to take at Discharge Levothyroxine Sodium 50 mcg PO DAILY 09/16/19 Acetaminophen [Tylenol] 650 mg PO Q4H PRN 09/26/19 Alendronate Sodium 1 tab PO WE 09/26/19 Bisacodyl [Dulcolax] 10 mg RECTAL DAILY PRN PRN 09/26/19 Calcium Carbonate 500 mg PO BID PRN 09/26/19 Calcium Carbonate/Vitamin D3 [Calcium 600 + Vit D Tablet] 1 tab PO DAILY 09/26/19 Docusate Sodium [Colace] 100 mg PO BID 09/26/19 Levetiracetam [Keppra] 1,500 mg PO BID 09/26/19 Losartan Potassium [Cozaar] 100 mg PO DAILY 09/26/19 Minocycline HCl 50 mg PO DAILY 09/26/19 Multivitamin with Minerals [Multiple Vitamin] 1 tab PO DAILY 09/26/19 Pantoprazole Sodium [Protonix] 40 mg PO DAILY 09/26/19 Phenytoin Na [Dilantin] 100 mg PO TID 09/26/19 Polyethylene Glycol 3350 [Miralax] 17 gm PO DAILY 09/26/19 Senna/Docusate Sodium [Senokot-S, Maame-Colace] 1 tab PO DAILY PRN 09/26/19 Primary Care Physician: Johnathon Delgado MD [Primary Care Provider] - Test Results: Test results from this visit will be discussed in further detail at your follow- up appointment, if applicable. Please Follow Up With: Scott Byrd MD - [phone] When: Appointment for filter retrieval when appropriate
--- NOTE | 2019-09-28 18:00 | NURSING ---
returned to unit from PCU . IVC filter recovery competed. VS WNL. Dressing to rt side of neck C/D/I. denies pain or discomfort.
[2019-09-28 20:10] VITALS: BP 139/68; PULSE 109; RESP 18; TEMP 37.4; O2SAT 97
[2019-09-28] MEDS: Acetaminophen 325 MG Tablet 650 MG PO (20:44)
--- NOTE | 2019-09-28 20:47 | NURSING ---
temp earlier 99.4. Currently 99.3 po. c/o low back pain, tylenol given
[2019-09-28 22:42] VITALS: TEMP 37.4
--- NOTE | 2019-09-29 01:04 | NURSING ---
HOB up 45 degrees until 2099; Medicated with Tylenol earlier in jaxon for c/o pain in small of her back; Requested to transfer to chair to sleep- currently back to bed per request. States Tylenol helped the pain. C/O of stiff neck. Dressing to right neck D&I, sight without edema or drainage.
[2019-09-29] MEDS: Acetaminophen 325 MG Tablet 650 MG PO (05:55)
[2019-09-29] MEDS: Levothyroxine 50 MCG Tablet PO (05:56)
[2019-09-29 07:47] VITALS: BP 125/74; PULSE 85; RESP 18; TEMP 36.6; O2SAT 98
[2019-09-29] MEDS: Polyethylene Glycol 3350 17 GM PACKET PO (07:54)
[2019-09-29] MEDS: Losartan Potassium 100 MG Tablet PO (07:56)
[2019-09-29] MEDS: Pantoprazole Sodium 40 MG Tablet PO (07:56)
[2019-09-29] MEDS: levETIRAcetam 750 MG Tablet 1500 MG PO ×2 (07:56→22:35)
[2019-09-29] MEDS: Docusate Sodium 100 MG Capsule PO ×2 (07:56→22:36)
[2019-09-29] MEDS: Calcium Carb/Vitamin D 1 TABLET Tablet PO (07:56)
[2019-09-29] MEDS: Phenytoin Na 100 MG Capsule PO ×3 (07:56→16:32)
[2019-09-29] MEDS: Multivitamins,Ther W-Minerals Tablet 1 TABLET PO (07:56)
--- NOTE | 2019-09-29 14:12 | PN_ITS ---
Progress Note She is AF with stable VSS Maintaining an oxygen saturation of 97 to 98% on room air. No seizures Post operative day #1-status post IVC filter by Dr. Scott Byrd on 09/28/2019. She will follow up with Dr. Byrd in 3 - 6 months for retrieval of the IVC filter. Her only complaint today is she is not sleeping well.....she does not like the b ed and she is having some back discomfort. She is not on anything other than Tylenol for pain. She has no pain in the R neck. There is no redness at the puncture site in the R IJ and no purulent DC Lungs - CTA Heart RRR without MM or gallop or rub abd - soft, NT, ND, normal BS's all quadrants no ankle edema, pain in the R calf is a little better Impressions 1. 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 2. 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 DVT RLE in a pt who is post craniotomy and unable to be anticoagulated at this time. IVC filter inserted 09/28/[address] Byrd 4. Hypothyroidism-continue home medication 5. Hypertension 6. 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 No seizures since admission. Patient is stable on Keppra and Dilantin. Start 30 mg of Codeine at HS for back pain......if she is still unable to sleep will add Trazodone Will call Dr. Dotson's office next week and ask when it would be OK to start anticoagulation? Code Visit Inpatient E&M: 84188 Subs Hosp L2
--- NOTE | 2019-09-29 16:54 | CHAPLAIN ---
Type of Pastoral Visit _x__ Initial Visit ___ Follow-up Visit ___ On-call Visit ___ General Patient Visit ___ Spiritual Assessment ___ Family Conference ___ Bereavement ___ Rapid Response ___ Code Blue ___ Other (describe below) Pastoral Care Referral From _x__ Patient ___ Family ___ Nurse ___ Physician ___ Consulting Practice Manager ___ Renewable Energy Consultant ___ Other (describe below) Sacrament/Intervention _x__ Active listening ___ Anointing ___ Mormonism ___ Bereavement ___ Communion ___ Soni exploration ___ ___ Life review ___ Prayer ___ Reconciliation ___ Sacrament of Sick ___ Supportive presence ___ Wedding ___ Other (describe below) Pastoral Comments patient is open to future visits; at this time spouse of pt was on phone and actively involved in conversation so this solution developer kept this visit brief
[2019-09-29 19:34] VITALS: BP 131/73; PULSE 96; RESP 18; TEMP 36.6; O2SAT 97
[2019-09-30] MEDS: Acetaminophen 325 MG Tablet 650 MG PO (05:59)
[2019-09-30] MEDS: Levothyroxine 50 MCG Tablet PO (06:00)
[2019-09-30] MEDS: Docusate Sodium 100 MG Capsule PO (07:47)
[2019-09-30] MEDS: Polyethylene Glycol 3350 17 GM PACKET PO (07:47)
[2019-09-30] MEDS: Pantoprazole Sodium 40 MG Tablet PO (07:47)
[2019-09-30] MEDS: Calcium Carb/Vitamin D 1 TABLET Tablet PO (07:47)
[2019-09-30] MEDS: Phenytoin Na 100 MG Capsule PO ×3 (07:48→17:38)
[2019-09-30] MEDS: Multivitamins,Ther W-Minerals Tablet 1 TABLET PO (07:48)
[2019-09-30] MEDS: Losartan Potassium 100 MG Tablet PO (07:48)
[2019-09-30 08:12] VITALS: BP 111/66; PULSE 95; RESP 16; TEMP 37.3; O2SAT 95
[2019-09-30 08:50] VITALS: O2SAT 97
[2019-09-30] MEDS: levETIRAcetam 750 MG Tablet 1500 MG PO ×2 (09:35→21:23)
--- NOTE | 2019-09-30 17:50 | PCM.PN.HOSP ---
Patient Problems: Active and Suspected Problems Physical debility (Acute) S/P resection of meningioma (Acute) Right leg DVT (Acute) Reason for Visit: F/U DVT Subjective: No new complaints. Still with swelling in RLE. Vitals/I&O's: Vital Signs Temp Pulse Resp BP Pulse Ox 37.3 C 95 16 111/66 97 09/30/19 08:12 09/30/19 08:12 09/30/19 08:12 09/30/19 08:12 09/30/19 08:50 Oxygen Delivery Method Room Air Weight: 66.1 kg Body Mass Index (BMI) 27.5 Intake and Output for Last 24 Hours 09/28/19 09/29/19 09/30/19 23:59 23:59 23:59 Intake Total 480 / 480 480 / 480 640 / 640 Balance 480 / 480 480 / 480 640 / 640 General: Alert, Cooperative, No apparent distress HEENT: Atraumatic, Normocephalic Extremities: No Calf Tenderness, Edema - RLE Skin: No rashes, No breakdown Psych/Mental Status: Normal Affect, Appropriate Current Medications Acetaminophen (Tylenol) 650 mg PO Q4H PRN PRN Reason: Pain or Fever Last Admin: 09/30/19 05:59 Dose: 650 mg Documented by: Alendronate Sodium (Fosamax) 70 mg PO We@0600 [facility] Last Admin: 09/27/19 05:45 Dose: 70 mg Documented by: Bisacodyl (Dulcolax) 10 mg RECTAL .PRN X 1 PRN PRN Reason: Constipation Calcium Carbonate (Tums) 500 mg PO BID PRN PRN Reason: HEARTBURN Last Admin: 09/27/19 12:23 Dose: 500 mg Documented by: Calcium/Vitamin D (Os-King 500mg + D) [facility] Last Admin: 09/30/19 07:47 Dose: 1 tablet Documented by: Codeine Sulfate (Codeine) 30 mg PO QHS [facility] Last Admin: 09/29/19 22:36 Dose: 30 mg Documented by: Docusate Sodium (Colace) 100 mg PO BID [facility] Last Admin: 09/30/19 07:47 Dose: 100 mg Documented by: Levetiracetam (Keppra Tablet) 1,500 mg PO BID [facility] Last Admin: 09/30/19 09:35 Dose: 1,500 mg Documented by: Levothyroxine Sodium (Synthroid) 50 mcg PO DAILY@0600 [facility] Last Admin: 09/30/19 06:00 Dose: 50 mcg Documented by: Losartan Potassium (Cozaar) 100 mg PO DAILY [facility] Last Admin: 09/30/19 07:48 Dose: 100 mg Documented by: Magnesium Hydroxide (Milk Of Magnesia) 30 ml PO .PRN X 1 PRN PRN Reason: Constipation Minocycline HCl (Minocin) 50 mg PO DAILY [facility] Last Admin: 09/30/19 09:35 Dose: 50 mg Documented by: Multivitamins/Minerals (Multivitamin With Minerals) 1 tablet PO DAILY@0800 [facility] Last Admin: 09/30/19 07:48 Dose: 1 tablet Documented by: Nutritional Formula (Lactose Free) (Ensure Enlive) 120 ml PO 4X/DAY [facility] Last Admin: 09/30/19 17:39 Dose: Not Given Documented by: Pantoprazole Sodium (Protonix) 40 mg PO DAILY [facility] Last Admin: 09/30/19 07:47 Dose: 40 mg Documented by: Phenytoin Sodium (Dilantin) 100 mg PO TIDCM [facility] Last Admin: 09/30/19 17:38 Dose: 100 mg Documented by: Polyethylene Glycol (Miralax) 17 gm PO DAILY [facility] Last Admin: 09/30/19 07:47 Dose: 17 gm Documented by: Medical Necessity - Tobacco Use Smoking Status: Never smoker Tobacco Use: Non-smoker Assessment/Plan All Active Problems Physical debility (Acute) S/P resection of meningioma (Acute) Right leg DVT (Acute) Assessment 1. RLE DVT 2. s/p Meningioma resection 3. Debility Plan 1. Continue IVC filter for 3-6 months, remove during this time 2. Ok for compression stocking on RLE (no SCDs on RLE) Patient's asked me about patient having a compression stocking on her right lower extremity. Totals none aware of any guidelines at supported that treatment but the did not do review and there was some not evidence-based guidelines to support that but just some expert opinion that recommends compression sock stockings with people with DVTs to help with swelling but to avoid any kind of mechanism that may massage the leg as it may cause a clot to propagate. Greater than 35 minutes of which greater than 50% of time was discussing with the patient and her about DVT treatment, SCDs, compression stockings, lack of guideline support for the use of compression stockings in patients with DVTs. Code Visit Inpatient E&M: 46011 Subs Hosp L3
[2019-09-30 18:42] VITALS: BP 112/64; PULSE 102; RESP 16; TEMP 37.1; O2SAT 97
[2019-09-30 22:00] VITALS: PULSE 96; RESP 16; O2SAT 97
[2019-10-01] MEDS: Levothyroxine 50 MCG Tablet PO (05:19)
[2019-10-01] MEDS: Acetaminophen 325 MG Tablet 650 MG PO (05:39)
[2019-10-01] MEDS: Phenytoin Na 100 MG Capsule PO ×3 (08:16→17:04)
[2019-10-01] MEDS: Multivitamins,Ther W-Minerals Tablet 1 TABLET PO (08:16)
[2019-10-01] MEDS: Losartan Potassium 100 MG Tablet PO (08:16)
[2019-10-01] MEDS: Pantoprazole Sodium 40 MG Tablet PO (08:16)
[2019-10-01] MEDS: Calcium Carb/Vitamin D 1 TABLET Tablet PO (08:16)
[2019-10-01 10:00] VITALS: BP 124/82; PULSE 99; RESP 17; TEMP 36.9; O2SAT 98
[2019-10-01] MEDS: levETIRAcetam 750 MG Tablet 1500 MG PO ×2 (10:22→21:10)
[2019-10-01 16:00] VITALS: O2SAT 97
[2019-10-01] MEDS: Calcium Carbonate 500 MG Tablet PO (17:03)
[2019-10-01 18:53] VITALS: BP 154/84; PULSE 112; RESP 18; TEMP 37.1; O2SAT 96
[2019-10-01] MEDS: Docusate Sodium 100 MG Capsule PO (21:10)
[2019-10-01 22:00] VITALS: PULSE 100; RESP 18; O2SAT 96
[2019-10-02] MEDS: Levothyroxine 50 MCG Tablet PO (06:39)
[2019-10-02] MEDS: Acetaminophen 325 MG Tablet 650 MG PO (06:39)
[2019-10-02 07:17] VITALS: BP 140/84; PULSE 99; RESP 17; TEMP 37.1; O2SAT 98
[2019-10-02] MEDS: Pantoprazole Sodium 40 MG Tablet PO (08:38)
[2019-10-02] MEDS: Losartan Potassium 100 MG Tablet PO (08:38)
[2019-10-02] MEDS: Docusate Sodium 100 MG Capsule PO ×2 (08:38→22:09)
[2019-10-02] MEDS: levETIRAcetam 750 MG Tablet 1500 MG PO ×2 (08:38→22:09)
[2019-10-02] MEDS: Multivitamins,Ther W-Minerals Tablet 1 TABLET PO (08:38)
[2019-10-02] MEDS: Calcium Carb/Vitamin D 1 TABLET Tablet PO (08:39)
[2019-10-02] MEDS: Phenytoin Na 100 MG Capsule PO ×3 (08:39→17:03)
--- NOTE | 2019-10-02 12:35 | PCM.PROGNOTE ---
Patient Problems: Active and Suspected Problems Physical debility (Acute) S/P resection of meningioma (Acute) Right leg DVT (Acute) Subjective: Afebrile Vital signs are stable. She has an increased resting heart rate. Blood pressures are stable. She is maintaining an oxygen saturation of 96 to 98% on room air today. Oral intake recorded is poor.....not sure this is accurate. No weight since the She was seen on rounds today with the TEAM and her Ronal was present. She states that the pain in the right leg is intermittent and mild. She has an occasional WAY but they are relieved with Tylenol. She denies any pain in the right neck and denies CP or SOB. - Physical Exam Vitals/I&O's: Vital Signs Temp Pulse Resp BP Pulse Ox 98.7 F 99 17 140/84 H 98 10/02/19 07:17 10/02/19 07:17 10/02/19 07:17 10/02/19 07:17 10/02/19 07:17 Oxygen Delivery Method Room Air Weight: 145 lb 11.609 oz Body Mass Index (BMI) 27.5 Intake and Output for Last 24 Hours 09/30/19 10/01/19 10/02/19 23:59 23:59 23:59 Intake Total 840 / 840 260 / 260 Balance 840 / 840 260 / 260 General: Alert, Oriented x3, Cooperative, No apparent distress, - - Sitting in the recliner at the bedside HEENT: PERRLA, EOMI, - Oral: Dry Mucosa Neck: Supple, No JVD, Trachea Midline Lungs: Clear to auscultation Cardiovascular: Regular Rhythm, Normal S1, Normal S2, No murmurs, No Gallop, Tachycardic - increased resting HR Abdomen: Bowel Sounds Present, Soft, Non Tender, Non-Distended Extremities: No clubbing, No edema - at the ankle, - - calf tenderness on the right, not on the left. No ankle edema on the right. Skin: No rashes, - - The incision/jagruti are intact and there is no carlos-wound erythema and there is no purulent discharge Neurological: Cranial nerves II-XII grossly intact, Neuro grossly intact Psych/Mental Status: Normal Affect, Appropriate Current Medications Acetaminophen (Tylenol) 650 mg PO Q4H PRN PRN Reason: Pain or Fever Last Admin: 10/02/19 06:39 Dose: 650 mg Documented by: Alendronate Sodium (Fosamax) 70 mg PO We@0600 [facility] Last Admin: 09/27/19 05:45 Dose: 70 mg Documented by: Bisacodyl (Dulcolax) 10 mg RECTAL .PRN X 1 PRN PRN Reason: Constipation Calcium Carbonate (Tums) 500 mg PO BID PRN PRN Reason: HEARTBURN Last Admin: 10/01/19 17:03 Dose: 500 mg Documented by: Calcium/Vitamin D (Os-King 500mg + D) 1 tablet PO DAILYCM [facility] Last Admin: 10/02/19 08:39 Dose: 1 tablet Documented by: Codeine Sulfate (Codeine) 30 mg PO QHS [facility] Last Admin: 10/01/19 21:10 Dose: 30 mg Documented by: Docusate Sodium (Colace) 100 mg PO BID [facility] Last Admin: 10/02/19 08:38 Dose: 100 mg Documented by: Levetiracetam (Keppra Tablet) 1,500 mg PO BID [facility] Last Admin: 10/02/19 08:38 Dose: 1,500 mg Documented by: Levothyroxine Sodium (Synthroid) 50 mcg PO DAILY@0600 [facility] Last Admin: 10/02/19 06:39 Dose: 50 mcg Documented by: Losartan Potassium (Cozaar) 100 mg PO DAILY [facility] Last Admin: 10/02/19 08:38 Dose: 100 mg Documented by: Magnesium Hydroxide (Milk Of Magnesia) 30 ml PO .PRN X 1 PRN PRN Reason: Constipation Minocycline HCl (Minocin) 50 mg PO DAILY [facility] Last Admin: 10/02/19 08:39 Dose: 50 mg Documented by: Multivitamins/Minerals (Multivitamin With Minerals) 1 tablet PO DAILY@0800 [facility] Last Admin: 10/02/19 08:38 Dose: 1 tablet Documented by: Nutritional Formula (Lactose Free) (Ensure Enlive) 120 ml PO 4X/DAY [facility] Last Admin: 10/02/19 08:38 Dose: 120 ml Documented by: Pantoprazole Sodium (Protonix) 40 mg PO DAILY [facility] Last Admin: 10/02/19 08:38 Dose: 40 mg Documented by: Phenytoin Sodium (Dilantin) 100 mg PO TIDCM [facility] Last Admin: 10/02/19 12:31 Dose: 100 mg Documented by: Polyethylene Glycol (Miralax) 17 gm PO DAILY [facility] Last Admin: 10/02/19 08:39 Dose: Not Given Documented by: Medical Necessity - Tobacco Use Smoking Status: Never smoker Tobacco Use: Non-smoker Assessment/Plan All Active Problems Physical debility (Acute) S/P resection of meningioma (Acute) Right leg DVT (Acute) Impressions 1. 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 Please see the therapy note 2. 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 RLE DVT - S/P IVC filter. She has an appt with the neurosurgeon on October 11 and will discuss at that time when it would be OK to start anticoagulation. I am concerned with the increased resting HR that she may have had a PE.......this would affect the duration of the anticoagulation so will order a CTA of the chest today. 4. Hypothyroidism-continue home medication 5. Hypertension - adequately controlled 6. 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 No seizures since admission. Patient is stable on Keppra and Dilantin. She is due to be discharged on Wednesday per Medicare. Will recheck lab tomorrow, including a Dilantin level. CHERYL WU continue the SCD's to the LLE No anticoagulation per Neurosurgery Code Visit Inpatient E&M: 70957 Subs Hosp L2
--- NOTE | 2019-10-02 15:45 | NURSING ---
Received call for Dr Dotson's office. OK to started pt on low dose Lovenox. If Pt has any Neuro changes send her to ER. Message left for Dr Denny
--- NOTE | 2019-10-02 16:33 | CASEMGMT ---
Team meeting held on this date with pt and spouse in attendance. Pt is receiving PT/OT/ST and progressing well. Pt plans to return home with her spouse at time of discharge and spouse will be available to assist pt with transportation and with ADLs as needed. Pt made aware that insurance approved 12 days and LCD is 10/07/18 with d/c on 10/08/18. Pt and express understanding and therapy is recommending [facility] PT/OT/ST and pt will need a wheeled walker. SW will follow up to assist with d/c planning. VIRIDIANA Dc
--- NOTE | 2019-10-02 16:35 | CASEMGMT ---
Team meeting held today with pt, son and daughter present. Pt continues to progress with PT/OT/ST. Pt insurance update is due tomorrow and pt and family aware that continued stay is not guaranteed. Family states they plan to speak with the business development recruiter at [facility] today and will call SW after this conversation to discuss terminal press operator placement for pt. Will continue with treatment plan at this time and reteam next week. SW will follow for discharge planning. VIRIDIANA Dc
--- NOTE | 2019-10-02 16:40 | NURSING ---
CT attempted CTA Chest via 20G IV in left AC. Extravasation of Isovue 370 in left AC. JANEL Massey and Janel Landry attempted to obtain 20G IV access in AC, but both attempts in Right AC were unsuccessful. Accuvein was used with no success. Ultrasound obtained from ER to evaluate veins. JANEL Reeves used ultrasound as well and could only find same vein that extravasated which was determined unwise to use. JANEL Landry called Dr. Denny to make her aware and see if there were any further orders that could be put in. Dr. Denny cancelled CTA, no other imaging in it's place. Pt denies pain in L AC. Extravasation paperwork completed.
[2019-10-02 19:43] VITALS: BP 138/78; PULSE 100; RESP 17; TEMP 37; O2SAT 97
[2019-10-02 22:00] VITALS: PULSE 100; RESP 17; O2SAT 95
[2019-10-03 05:52] LABS: Hematocrit 34.9 % (37-47); Hemoglobin 11.8 g/dL (12.0-15.0); Mean Corp Hgb Conc 33.8 g/dL (32-36); Mean Corpuscular Hgb 31.6 pg (27.0-32.0); Mean Corpuscular Volume 93.6 fL (81-99); Mean Platelet Vol. 9.5 fl (6.2-12.0); Platelet Count 143 K/mm3 (150-450); RBC Distribution Width CV 13.7 % (11.6-14.6); RBC Distribution Width SD 46.4 fl (35.1-43.9); Red Blood Count 3.73 M/mm3 (4.2-5.4); White Blood Count 4.5 K/mm3 (4.4-11.0)
[2019-10-03] MEDS: Acetaminophen 325 MG Tablet 650 MG PO (06:19)
[2019-10-03] MEDS: Enoxaparin 40 MG/0.4 ML Syringe SC (06:19)
[2019-10-03] MEDS: Levothyroxine 50 MCG Tablet PO (06:19)
[2019-10-03 06:27] LABS: Anion Gap 6 (5-15); BUN 14 mg/dL (7-18); BUN/Creat Ratio 18.4 RATIO (10-20); Calcium,Total 8.1 mg/dL (8.5-10.1); Chloride 107 mmol/L (98-107); Creatinine, Serum 0.76 mg/dL (0.55-1.02); EST Glomerular Filtration Rate 80 mL/min (>60); Est Glom Filt Rate - Afr Amer 97 mL/min (>60); Estimated Creatinine Clearance 41.19 ml/min; Glucose 85 mg/dL (74-106); Sodium Level 140 mmol/L (136-145)
[2019-10-03 06:33] LABS: Phenytoin (Dilantin) Level 6.7 mL (10.0-20.0)
[2019-10-03 07:50] VITALS: BP 110/65; PULSE 99; RESP 17; TEMP 36.9; O2SAT 96
[2019-10-03] MEDS: Multivitamins,Ther W-Minerals Tablet 1 TABLET PO (08:02)
[2019-10-03] MEDS: Phenytoin Na 100 MG Capsule PO ×2 (08:02→11:22)
[2019-10-03] MEDS: Losartan Potassium 100 MG Tablet PO (08:02)
[2019-10-03] MEDS: Docusate Sodium 100 MG Capsule PO ×2 (08:02→21:11)
[2019-10-03] MEDS: levETIRAcetam 750 MG Tablet 1500 MG PO ×2 (08:02→21:11)
[2019-10-03] MEDS: Calcium Carb/Vitamin D 1 TABLET Tablet PO (08:02)
[2019-10-03] MEDS: Polyethylene Glycol 3350 17 GM PACKET PO (08:02)
[2019-10-03] MEDS: Pantoprazole Sodium 40 MG Tablet PO (08:02)
--- NOTE | 2019-10-03 08:54 | PN_ITS ---
Progress Note Afebrile HR is creeping up and for the past 24 hours has been 99-100. BP is stable. Oxygen saturation is 95 to 97% on room air. Unfortunately radiology was unable to do the CTA because an adequate IV could not be established. All lab was personally reviewed today. BUN has improved and is 14 today, down from 19 at admission. Creatinine is stable at 0.76. Electrolytes are within normal limits. Corrected calcium for hypoalbuminemia is within normal limits. Phenytoin level is 6.7 and the albumin is pending. HGB is 11.8 down from 13.3 at admission but, she is much better hydrated. Denies chest pain or SOB. She is c/o lightheadedness today. Denies WAY. Hydration is better. Alert, oriented, NAD MM are moist Heart - Regular but, tachycardic at rest. no gallop Lungs - CTA today.......no crackles in the bases today and no wheezes Abd - Soft, NT, ND, BS's heard in all four quadrants No ankle edema Impressions 1. resting tachycardia - despite being better hydrated the HR has increased. She is c/o lightheadedness today. HGB is good. No CTA yesterday because radiology was unsuccessful in establishing an IV. I personally examined her today and she has some large veins in the hands and the wrist area faviola look as though they can be accessed with a 20 gauge catheter. I have asked the Nursing tank storage supervisor to assist. If an IV can be established will reorder the CTA and if can not will consider a midline or order a VQ,.......but she would need an IV for this as well. Will also check a TSH and a T4 now. check orthostatics. STROKE Vital Signs/Narrative: Vital Signs Temp Pulse Resp BP Pulse Ox 10/03/19 07:50 98.5 F 99 17 110/65 96 Code Visit Inpatient E&M: 62033 Subs Hosp L2
[2019-10-03 09:55] LABS: Albumin, Serum 2.8 g/dL (3.2-5.0); T4 Free Direct 1.02 ng/dL (0.76-1.46); Thyroid Stim Hormone (TSH) 4.59 uIU/mL (0.358-3.74)
--- NOTE | 2019-10-03 10:25 | CT_ITS ---
STUDY: CTA CHEST REASON FOR EXAM: Female, 69 years old. SUSPECTED PE RADIATION DOSAGE (If Supplied By Facility): CTDIvol = ( 8.04 ) mGy, DLP = ( 284.83 ) mGycm TECHNIQUE: The examination was performed with the intravenous administration of 100ML ISOVUE 370. Post-processing of the angiographic images was performed, with multiplanar reformation and 3D reconstruction. Individualized dose optimization techniques were used for this CT. COMPARISON: None. FINDINGS: Normal enhancement of the main pulmonary artery and right and left pulmonary arteries. Normal enhancement of the bilateral peripheral pulmonary arteries. There is no demonstrated pulmonary embolism. Normal thoracic aorta and visualized great vessels. There is no demonstrated aortic dissection. Normal heart and pericardium. Normal mediastinum. Normal hilar regions. Normal visualized trachea and bronchi. The lungs are well expanded. Scattered small groundglass density throughout both lungs consistent with subsegmental atelectasis or pneumonitis. Normal pleura. Normal chest wall structures. Normal osseous structures. 6 cm exophytic cyst of the midsection of the left kidney. CT/CTA Chest W/WO Contrast IMPRESSION: Normal CTA chest examination, without a demonstrated pulmonary embolism or arterial dissection. Electronically Signed: Kenny Gillespie MD at 11:23 EST Tel , Service support ,
[2019-10-03 11:33] VITALS: BP 123/78; BP 124/60; BP 125/66; PULSE 102; PULSE 103; PULSE 105
[2019-10-03] MEDS: Phenytoin Na 100 MG Capsule 200 MG PO (17:15)
--- NOTE | 2019-10-03 17:28 | CHAPLAIN ---
Type of Pastoral Visit ___ Initial Visit _x__ Follow-up Visit ___ On-call Visit ___ General Patient Visit ___ Spiritual Assessment ___ Family Conference ___ Bereavement ___ Rapid Response ___ Code Blue ___ Other (describe below) Pastoral Care Referral From _x__ Patient ___ Family ___ Nurse ___ Physician ___ Stock And Station Agent ___ Cardiology Teacher ___ Other (describe below) Sacrament/Intervention _x__ Active listening ___ Anointing ___ Oriental Orthodox ___ Bereavement ___ Communion ___ Soni exploration ___ _x__ Life review _x__ Prayer ___ Reconciliation ___ Sacrament of Sick ___ Supportive presence ___ Wedding ___ Other (describe below) Pastoral Comments
[2019-10-03 19:07] VITALS: BP 155/85; PULSE 100; RESP 18; TEMP 36.7; O2SAT 97
[2019-10-03] MEDS: 0.9% NaCl Peripheral Flush Adult/Peds IV (21:19)
[2019-10-04] MEDS: Alendronate Sodium 70 MG Tablet PO (05:56)
[2019-10-04] MEDS: Enoxaparin 40 MG/0.4 ML Syringe SC (05:56)
[2019-10-04] MEDS: Acetaminophen 325 MG Tablet 650 MG PO (06:53)
[2019-10-04] MEDS: Levothyroxine 50 MCG Tablet PO (06:54)
[2019-10-04] MEDS: Docusate Sodium 100 MG Capsule PO (07:46)
[2019-10-04] MEDS: Phenytoin Na 100 MG Capsule 200 MG PO ×2 (07:46→17:15)
[2019-10-04] MEDS: Losartan Potassium 100 MG Tablet PO (07:46)
[2019-10-04] MEDS: Calcium Carb/Vitamin D 1 TABLET Tablet PO (07:46)
[2019-10-04] MEDS: Pantoprazole Sodium 40 MG Tablet PO (07:46)
[2019-10-04] MEDS: levETIRAcetam 750 MG Tablet 1500 MG PO ×2 (07:46→21:41)
[2019-10-04] MEDS: Multivitamins,Ther W-Minerals Tablet 1 TABLET PO (07:46)
[2019-10-04] MEDS: Polyethylene Glycol 3350 17 GM PACKET PO (07:47)
[2019-10-04 08:01] VITALS: BP 139/74; PULSE 108; RESP 18; TEMP 36.6; O2SAT 98
[2019-10-04 22:00] VITALS: BP 143/96; PULSE 105; RESP 18; TEMP 37.2; O2SAT 96
--- NOTE | 2019-10-05 01:39 | NURSING ---
REVIEWED AND AGREE WITH TEST LEAD'S FUNCTIONAL ASSESSMENT AND HANDOFF CHARTING.
[2019-10-05] MEDS: Levothyroxine 50 MCG Tablet PO (06:37)
[2019-10-05] MEDS: Enoxaparin 40 MG/0.4 ML Syringe SC (06:37)
[2019-10-05] MEDS: levETIRAcetam 750 MG Tablet 1500 MG PO ×2 (07:45→21:38)
[2019-10-05] MEDS: Calcium Carb/Vitamin D 1 TABLET Tablet PO (07:46)
[2019-10-05] MEDS: Pantoprazole Sodium 40 MG Tablet PO (07:46)
[2019-10-05] MEDS: Multivitamins,Ther W-Minerals Tablet 1 TABLET PO (07:46)
[2019-10-05] MEDS: Losartan Potassium 100 MG Tablet PO (07:46)
[2019-10-05] MEDS: Phenytoin Na 100 MG Capsule 200 MG PO ×2 (07:47→16:50)
[2019-10-05 07:49] VITALS: BP 113/67; PULSE 92; RESP 16; TEMP 37.1; O2SAT 94
[2019-10-05 10:00] VITALS: PULSE 92
--- NOTE | 2019-10-05 11:14 | PCM.PROGNOTE ---
Patient Problems: Active and Suspected Problems Physical debility (Acute) S/P resection of meningioma (Acute) Right leg DVT (Acute) Subjective: Afebrile Resting heart rate remains elevated in the high 90s and low 100s. Blood pressures are stable She is maintaining an appropriate oxygen saturation of 94 to 96% on room air with a respiratory rate of 16-18. CT of the chest was negative for pulmonary emboli There were small groundglass opacities in both lungs that are more likely than not due to atelectasis......she is AF with a normal WBC and diff. PT/ST/OT notes were reviewed. She gets frustrated when she can not complete a task requiring higher level of cognitive thinking. She is walking well with no assistive devices. - Physical Exam Vitals/I&O's: Vital Signs Temp Pulse Resp BP Pulse Ox 98.8 F 92 16 113/67 94 10/05/19 07:49 10/05/19 07:49 10/05/19 07:49 10/05/19 07:49 10/05/19 07:49 Oxygen Delivery Method Room Air Weight: 145 lb Body Mass Index (BMI) 27.5 Orthostatic Vital Signs Start: 10/03/19 11:33 Freq: Status: Active Protocol: Activity Type Activity Date Activity User E-Sign Co-Sign Detail Recorded Client Recorded Date Recorded By Document 10/03/19 11:33 ALLEN [id number] 10/03/19 11:35 ALLEN 10/03/19 11:33 Orthostatic Vitals Lying -Blood Pressure (90/60-120/80 mm Hg) 124/60 H -Extremity Use Right Arm -Pulse Rate (60-100 beats/min) 102 H Sitting -Blood Pressure (90/60-120/80 mm Hg) 125/66 H -Extremity Use Right Arm -Pulse Rate (60-100 beats/min) 103 H Standing -Blood Pressure (90/60-120/80 mm Hg) 123/78 H -Extremity Use Right Arm -Pulse Rate (60-100 beats/min) 105 H Intake and Output for Last 24 Hours 10/03/19 10/04/19 10/05/19 23:59 23:59 23:59 Intake Total 240 / 240 240 / 240 Balance 240 / 240 240 / 240 General: Alert, Cooperative, No apparent distress, Well developed, Well nourished HEENT: PERRLA, EOMI, Normocephalic Oral: Dry Mucosa Neck: Supple, No Nodes, Trachea Midline Lungs: Clear to auscultation, Normal air movement Cardiovascular: Regular rate, Regular Rhythm, Normal S1, Normal S2, No Gallop Abdomen: Bowel Sounds Present, Soft, Non Tender, Non-Distended Extremities: No clubbing, No cyanosis, No edema Skin: No rashes, No breakdown, - - staple line on the cranium is intact and without erythema or purulent DC Musculoskeletal: No Muscle Wasting Neurological: Cranial nerves II-XII grossly intact, Neuro grossly intact Psych/Mental Status: Normal Affect, Appropriate Current Medications Acetaminophen (Tylenol) 650 mg PO Q4H PRN PRN Reason: Pain or Fever Last Admin: 10/04/19 06:53 Dose: 650 mg Documented by: Alendronate Sodium (Fosamax) 70 mg PO We@0600 [facility] Last Admin: 10/04/19 05:56 Dose: 70 mg Documented by: Bisacodyl (Dulcolax) 10 mg RECTAL .PRN X 1 PRN PRN Reason: Constipation Calcium Carbonate (Tums) 500 mg PO BID PRN PRN Reason: HEARTBURN Last Admin: 10/01/19 17:03 Dose: 500 mg Documented by: Calcium/Vitamin D (Os-King 500mg + D) [facility] Last Admin: 10/05/19 07:46 Dose: 1 tablet Documented by: Codeine Sulfate (Codeine) 30 mg PO QHS [facility] Last Admin: 10/04/19 21:40 Dose: Not Given Documented by: Docusate Sodium (Colace) 100 mg PO BID [facility] Last Admin: 10/05/19 07:43 Dose: Not Given Documented by: Enoxaparin Sodium (Lovenox) 40 mg SC DAILY@0600 [facility] Last Admin: 10/05/19 06:37 Dose: 40 mg Documented by: Levetiracetam (Keppra Tablet) 1,500 mg PO BID [facility] Last Admin: 10/05/19 07:45 Dose: 1,500 mg Documented by: Levothyroxine Sodium (Synthroid) 50 mcg PO DAILY@0600 [facility] Last Admin: 10/05/19 06:37 Dose: 50 mcg Documented by: Losartan Potassium (Cozaar) 100 mg PO DAILY [facility] Last Admin: 10/05/19 07:46 Dose: 100 mg Documented by: Magnesium Hydroxide (Milk Of Magnesia) 30 ml PO .PRN X 1 PRN PRN Reason: Constipation Minocycline HCl (Minocin) 50 mg PO DAILY [facility] Last Admin: 10/05/19 07:45 Dose: 50 mg Documented by: Multivitamins/Minerals (Multivitamin With Minerals) 1 tablet PO DAILY@0800 [facility] Last Admin: 10/05/19 07:46 Dose: 1 tablet Documented by: Nutritional Formula (Lactose Free) (Ensure Enlive) 120 ml PO 4X/DAY [facility] Last Admin: 10/05/19 07:48 Dose: 120 ml Documented by: Pantoprazole Sodium (Protonix) 40 mg PO DAILY [facility] Last Admin: 10/05/19 07:46 Dose: 40 mg Documented by: Phenytoin Sodium (Dilantin) 200 mg PO BIDCM [facility] Last Admin: 10/05/19 07:47 Dose: 200 mg Documented by: Polyethylene Glycol (Miralax) 17 gm PO DAILY [facility] Last Admin: 10/05/19 07:45 Dose: Not Given Documented by: Sodium Chloride () 5 - 15 ml IV UD PRN PRN Reason: SALINE FLUSH Last Admin: 10/03/19 21:19 Dose: 10 ml Documented by: Medical Necessity - Tobacco Use Smoking Status: Never smoker Tobacco Use: Non-smoker Assessment/Plan All Active Problems Physical debility (Acute) S/P resection of meningioma (Acute) Right leg DVT (Acute) Impressions 1. 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 Please see the therapy note 2. 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 RLE DVT - S/P IVC filter. She has an appt with the neurosurgeon on October 11 and will discuss at that time when it would be OK to start full dose anticoagulation. CTA of the chest was negative for PE's. Dr. Dotson OK'd starting DVT prophylactic dose 4. Hypothyroidism-continue home medication 5. Hypertension - adequately controlled 6. 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 No seizures since admission. Patient is stable on Keppra and Dilantin. Recheck the phenytoin level tomorrow Plan DC on Wednesday with [facility] Code Visit Inpatient E&M: 34525 Subs Hosp L2
--- NOTE | 2019-10-05 14:00 | CASEMGMT ---
Addendum entered by Chayo Webber 10/06/19 09:29: Pt chooses to not have FWW - IDT agreeable. Cancelled referral to [employer]. Original Note: Social Work Spoke with patient and to discuss DC plans. Pt is ready to DC home 10/08 and requesting outpatient therapy at [facility]. Referral made for PT/OT/ST. Referral made to [facility] for [facility]WW. Plan: DC home with 10/08 with [facility] PT/OT/ST, FWW Chayo Webber, [employer]
[2019-10-05 19:48] VITALS: BP 140/70; RESP 18; TEMP 37.1; O2SAT 96
[2019-10-06] MEDS: Enoxaparin 40 MG/0.4 ML Syringe SC (05:57)
[2019-10-06] MEDS: Levothyroxine 50 MCG Tablet PO (05:57)
[2019-10-06 06:19] LABS: Phenytoin (Dilantin) Level 9.2 mL (10.0-20.0)
[2019-10-06 07:21] VITALS: BP 114/76; PULSE 98; RESP 20; TEMP 36.9; O2SAT 96
[2019-10-06] MEDS: Pantoprazole Sodium 40 MG Tablet PO (07:44)
[2019-10-06] MEDS: Calcium Carb/Vitamin D 1 TABLET Tablet PO (07:44)
[2019-10-06] MEDS: Multivitamins,Ther W-Minerals Tablet 1 TABLET PO (07:44)
[2019-10-06] MEDS: Losartan Potassium 100 MG Tablet PO (07:44)
[2019-10-06] MEDS: Phenytoin Na 100 MG Capsule 200 MG PO ×2 (07:45→17:07)
[2019-10-06] MEDS: levETIRAcetam 750 MG Tablet 1500 MG PO ×2 (09:32→21:21)
--- NOTE | 2019-10-06 10:40 | DCINST_ITS ---
- Discharge Diagnoses Current Active Problems: Current Active and Chronic Problems Physical debility (Acute) S/P resection of meningioma (Acute) Right leg DVT (Acute) You will use the following diet at home:: Other - low salt diet Your food should be the consistency of: Regular Your liquids should be the consistency of: Regular/Thin Discharge Activity: May Not Drive - You are not allowed to drive for 6 months after a seizure. You will need to follow up with a neurologist. Weight Bearing Status: Full weight bearing Lifting Restrictions: 5-10 lbs Call your doctor if your incision/area has: Continuous Slow Oozing, Sudden Increased Bleeding, Increased Pain/ Swelling, Increased Redness, Foul Smelling Discharge, Swelling at the incision site Call your doctor if you observe: Fever of 101 or Higher, Numbness or Tingling, Inability to urinate, Inability to have a bowel movement, Shortness of breath, Dizziness, Fainting spells, Chest pain, Increased palpitations (irregular heartbeat), Calf discomfort, Uncontrolled pain, - - Call Dr. Delgado and/or the neurosurgeon if you have a seizure Additional Instructions: When you see Dr. Dotson on October 11 make sure to ask her when you can start full dose anticoagulation for the blood clot in the right leg Pending Tests on Discharge: none Allergies/Adverse Reactions: Allergies lisinopril Adverse Reaction (Verified 09/26/19 15:02) Other cough Medications to take at Discharge Levothyroxine Sodium 50 mcg PO DAILY 09/16/19 Acetaminophen [Tylenol] 650 mg PO Q4H PRN 09/26/19 Alendronate Sodium 1 tab PO WE 09/26/19 Bisacodyl [Dulcolax] 10 mg RECTAL DAILY PRN PRN 09/26/19 Calcium Carbonate 500 mg PO BID PRN 09/26/19 Calcium Carbonate/Vitamin D3 [Calcium 600 + Vit D Tablet] 1 tab PO DAILY 09/26/19 Docusate Sodium [Colace] 100 mg PO BID 09/26/19 Losartan Potassium [Cozaar] 100 mg PO DAILY 09/26/19 Minocycline HCl 50 mg PO DAILY 09/26/19 Multivitamin with Minerals [Multiple Vitamin] 1 tab PO DAILY 09/26/19 Pantoprazole Sodium [Protonix] 40 mg PO DAILY 09/26/19 Polyethylene Glycol 3350 [Miralax] 17 gm PO DAILY 09/26/19 Senna/Docusate Sodium [Senokot-S] 1 tab PO DAILY PRN 09/26/19 Codeine 30 mg PO Q4H PRN PRN 7 Days #15 tab 10/06/19 Enoxaparin Sodium [Lovenox] 40 mg SQ DAILY #7 ml 10/06/19 Levetiracetam [Keppra] 1,500 mg PO BID #120 tab 10/06/19 Phenytoin Na [Dilantin] 200 mg PO BIDCM #120 cap 10/06/19 The following prescriptions were given: Codeine 30 mg PO Q4H PRN PRN 7 Days #15 tab PRN Reason: Pain Score 1-07/13 Prescription Printed Phenytoin Na [Dilantin] 200 mg PO BIDCM #120 cap Prescription Printed Levetiracetam [Keppra] 1,500 mg PO BID #120 tab Prescription Printed Primary Care Physician: Johnathon Delgado MD [Primary Care Provider] - Please follow up with your Primary Care Physician in: has an appt Test Results: Test results from this visit will be discussed in further detail at your follow- up appointment, if applicable. Please Follow Up With: Scott Byrd MD When: Appointment for filter retrieval when appropriate Please Follow Up With: Johnathon Delgado MD Please Follow Up With: Sara Dotson When: October 11 Please Follow Up With: Ned Frank MD Proposed Discharge Date: 10/08/19
--- NOTE | 2019-10-06 10:59 | PCM.DC.SUM ---
Discharge Date and Diagnosis - Problem List Patient Problems: Active and Suspected Problems Seizure disorder (Acute) Subtherapeutic serum dilantin level (Acute) DVT (deep venous thrombosis) (Acute) S/P craniotomy (Acute) Physical debility (Acute) S/P resection of meningioma (Acute) Right leg DVT (Acute) Date of Admission: 09/26/19 Date of Discharge: 10/08/19 - Primary Discharge Diagnosis Active and Suspected Problems S/P craniotomy (Acute) S/P resection of meningioma (Acute) Physical debility (Acute)due to craniotomy for meningioma Seizure disorder (Acute) - had status epilepticus post operatively at [facility] Subtherapeutic serum dilantin level (Acute) DVT (deep venous thrombosis) (Acute) - RLE Right leg DVT (Acute) - CTA negative for PE - Secondary Discharge Diagnosis Chronic Problems Hypothyroid (Chronic) M?ni?re's disease (Chronic) Hypertension (Chronic) Hospital Course and Treatment Imaging Results: Clinical Impression(s) from Imaging Studies Chest CTA 10/03/19 10:25 IMPRESSION: Normal CTA chest examination, without a demonstrated pulmonary embolism or arterial dissection. Electronically Signed: Kenny Gillespie MD at 11:23 EST Tel , Service support , Laboratory Tests 10/06/19 10/03/19 10/03/19 Range/Units 05:32 05:10 05:10 WBC (4.4-11.0) K/mm3 RBC (4.2-5.4) M/mm3 Hgb (12.0-15.0) g/dL Hct (37-47) % MCV (81-99) fL MCH (27.0-32.0) pg MCHC (32-36) g/dL RDW Std Deviation (35.1-43.9) fl RDW Coeff of Chase (11.6-14.6) % Plt Count (150-450) K/mm3 MPV (6.2-12.0) fl Immature Gran % (Auto) (0.0-0.9) % Neut % (Auto) (47-70) % Lymph % (Auto) (19-41) % Power % (Auto) (0-10) % Eos % (Auto) (0-5) % Baso % (Auto) (0-1) % Absolute Neuts (auto) (2.0-7.7) X10^3/uL Absolute Lymphs (auto) (0.83-4.51) X10^3/uL Nucleated RBC % (0-5) % Sodium (136-145) mmol/L Potassium (3.5-5.1) mmol/L Chloride (98-107) mmol/L Carbon Dioxide (21.0-32.0) mmol/L Anion Gap (5-15) BUN (7-18) mg/dL Creatinine (0.55-1.02) mg/dL Estim Creat Clear Calc ml/min Est GFR (MDRD) Af Amer (>60) mL/min Est GFR (MDRD) Non-Af (>60) mL/min BUN/Creatinine Ratio (10-20) RATIO Glucose (74-106) mg/dL Calcium (8.5-10.1) mg/dL Phosphorus (2.5-4.9) mg/dL Magnesium (1.6-2.6) mg/dL Total Bilirubin (0.20-1.00) mg/dL AST (15-37) U/L ALT (13-56) U/L Alkaline Phosphatase (45-117) U/L Total Protein (6.4-8.2) g/dL Albumin 2.8 L (3.2-5.0) g/dL Globulin (2.2-4.2) g/dL Albumin/Globulin Ratio (0.9-2.4) RATIO TSH 4.59 H (0.358-3.74) uIU/mL Free T4 1.02 (0.76-1.46) ng/dL Phenytoin 9.2 L 6.7 L (10.0-20.0) mL 10/03/19 10/03/19 09/27/19 Range/Units 05:10 05:10 06:10 WBC 4.5 (4.4-11.0) K/mm3 RBC 3.73 L (4.2-5.4) M/mm3 Hgb 11.8 L (12.0-15.0) g/dL Hct 34.9 L (37-47) % MCV 93.6 (81-99) fL MCH 31.6 (27.0-32.0) pg MCHC 33.8 (32-36) g/dL RDW Std Deviation 46.4 H (35.1-43.9) fl RDW Coeff of Chase 13.7 (11.6-14.6) % Plt Count 143 L (150-450) K/mm3 MPV 9.5 (6.2-12.0) fl Immature Gran % (Auto) (0.0-0.9) % Neut % (Auto) (47-70) % Lymph % (Auto) (19-41) % Power % (Auto) (0-10) % Eos % (Auto) (0-5) % Baso % (Auto) (0-1) % Absolute Neuts (auto) (2.0-7.7) X10^3/uL Absolute Lymphs (auto) (0.83-4.51) X10^3/uL Nucleated RBC % (0-5) % Sodium 140 (136-145) mmol/L Potassium 4.0 (3.5-5.1) mmol/L Chloride 107 (98-107) mmol/L Carbon Dioxide 27.0 (21.0-32.0) mmol/L Anion Gap 6 (5-15) BUN 14 (7-18) mg/dL Creatinine 0.76 (0.55-1.02) mg/dL Estim Creat Clear Calc 41.19 ml/min Est GFR (MDRD) Af Amer 97 (>60) mL/min Est GFR (MDRD) Non-Af 80 (>60) mL/min BUN/Creatinine Ratio 18.4 (10-20) RATIO Glucose 85 (74-106) mg/dL Calcium 8.1 L (8.5-10.1) mg/dL Phosphorus (2.5-4.9) mg/dL Magnesium (1.6-2.6) mg/dL Total Bilirubin (0.20-1.00) mg/dL AST (15-37) U/L ALT (13-56) U/L Alkaline Phosphatase (45-117) U/L Total Protein (6.4-8.2) g/dL Albumin (3.2-5.0) g/dL Globulin (2.2-4.2) g/dL Albumin/Globulin Ratio (0.9-2.4) RATIO TSH (0.358-3.74) uIU/mL Free T4 (0.76-1.46) ng/dL Phenytoin 11.3 (10.0-20.0) mL 09/27/19 09/27/19 Range/Units 06:10 06:10 WBC 9.8 (4.4-11.0) K/mm3 RBC 4.28 (4.2-5.4) M/mm3 Hgb 13.3 (12.0-15.0) g/dL Hct 39.3 (37-47) % MCV 91.8 (81-99) fL MCH 31.1 (27.0-32.0) pg MCHC 33.8 (32-36) g/dL RDW Std Deviation 44.3 H (35.1-43.9) fl RDW Coeff of Chase 13.4 (11.6-14.6) % Plt Count 182 (150-450) K/mm3 MPV 10.1 (6.2-12.0) fl Immature Gran % (Auto) 1.000 H (0.0-0.9) % Neut % (Auto) 64.9 (47-70) % Lymph % (Auto) 23.0 (19-41) % Power % (Auto) 8.2 (0-10) % Eos % (Auto) 2.8 (0-5) % Baso % (Auto) 0.1 (0-1) % Absolute Neuts (auto) 6.3 (2.0-7.7) X10^3/uL Absolute Lymphs (auto) 2.24 (0.83-4.51) X10^3/uL Nucleated RBC % 0 (0-5) % Sodium 138 (136-145) mmol/L Potassium 4.0 (3.5-5.1) mmol/L Chloride 110 H (98-107) mmol/L Carbon Dioxide 23.0 (21.0-32.0) mmol/L Anion Gap 5 (5-15) BUN 19 H (7-18) mg/dL Creatinine 0.76 (0.55-1.02) mg/dL Estim Creat Clear Calc 41.19 ml/min Est GFR (MDRD) Af Amer 98 (>60) mL/min Est GFR (MDRD) Non-Af 81 (>60) mL/min BUN/Creatinine Ratio 25.0 H (10-20) RATIO Glucose 88 (74-106) mg/dL Calcium 8.3 L (8.5-10.1) mg/dL Phosphorus 3.7 (2.5-4.9) mg/dL Magnesium 2.1 (1.6-2.6) mg/dL Total Bilirubin 0.30 (0.20-1.00) mg/dL AST 23 (15-37) U/L ALT 51 (13-56) U/L Alkaline Phosphatase 59 (45-117) U/L Total Protein 6.4 (6.4-8.2) g/dL Albumin 2.7 L (3.2-5.0) g/dL Globulin 3.7 (2.2-4.2) g/dL Albumin/Globulin Ratio 0.7 L (0.9-2.4) RATIO TSH (0.358-3.74) uIU/mL Free T4 (0.76-1.46) ng/dL Phenytoin (10.0-20.0) mL none Operations: None Procedures: None Summary of Care Provided: The pt is a 69-year-old female with a PMH of hypertension, hypothyroidism, M?ni?re's disease and recent resection of a meningioma at [facility] who was admitted to the Inpatient rehab unit at [facility] on 09/26/2019 for debility secondary to recent craniotomy for greater than 3 hours of therapy daily with a goal of returning home at or near prior level of independence. The patient lives at home with her spouse and has 6 steps to get into her house. It is a two-story house and the bedrooms are on the second floor with a staircase and a rail. She does have a full bathroom on the first floor. The patient was independent with ADL's, mobility and driving prior to hospitalization. Lab at admission revealed a normal CBC and the BMP showed an elevated BUN at 19 with a creatinine of 0.76. Calcium corrected for hypoalbuminemia was within normal limits. TSH was mildly increased at 4.59 but the free T4 was within normal limits. Phenytoin level was 11.3 and when corrected for hypoalbuminemia the phenytoin level was 13.4. On PE at admission she was noted to have a + Dre's sign on the right. A venous US showed acute DVT in the R tibio-peroneal trunk, the R peroneal vein, the Soleus vein and the R popliteal vein. We contacted Dr. Dotson's office and inquired about anticoagulation and they stated, no anticoagulants in light of recent craniotomy. Dr. Scott Byrd was consulted and inserted an IVC filter on 09/28/19. She continued to have resting tachycardia and a CTA of the chest was obtained and showed no PE's. It did show atelectasis and the pt was instructed to increase the use of the IS to hourly while awake. Coarse crackles in lungs resolved with more frequent use of the I spirometer. Lab was rechecked on 09/23 and the HGB was 11.8, down from 13.3 at admission but, she was better hydrated and the BUN had decreased to 14 with a creat of 0.76. The Phenytoin level on 09/23 was 6.7 and still subtherapeutic when corrected for hypoalbuminemia. Dilantin was increased from 300 mg daily to 200 mg BID and the level was rechecked on 10/06 and was 9.2 but when corrected for Hypoalbuminemia the level was 10.6. She had no seizures while in the inpt rehab unit. Enoxaparin 40 mg SQ daily was started on 09/23/[address] Dotson's approval. She has had no WAY's, mental status changes or focal neurologic deficits since starting Lovenox. She has an appt with Dr. Sara Dotson on 10/11/2019, an appt with Dr. Delgado on 10/12/2019 and will be scheduled with Dr. Denson to follow her for the seizure disorder. she was instructed that she would not be allowed to drive until she was seizure free for 6 months. She was discharged home on 10/08/2019 on medications previously listed. She was given a RX for Lovenox 40 mg daily for 7 days. She will discuss with Dr. Dotson on 10/11 when it will be safe to start full dose anticoagulation for the DVT in the RLE. She will need anticoagulated for at least 3months. 2 weeks after the anticoagulation is discontinued she should follow up with Dr. Scott Byrd to remove the temporary IVC filter. 10/06/2019 alert and oriented X 3. Ambulating in the halls with SBA only. Lungs after a few deep breaths were CTA, no cough Heart - HR is in the 90's. Normal S1 and S2, no MM's and no gallop abd - soft, NT, ND, normal BS's heard in all 4 quadrants. no peripheral edema CN's II - XII are grossly intact and she has no focal neurologic deficits Skin is warm and dry with no breakdown. This note was generated with Switchboardation software. It may contain incorrect words, spelling, and punctuation that were not noted in checking the note before signing. Patient Problems: Active and Suspected Problems Seizure disorder (Acute) Subtherapeutic serum dilantin level (Acute) DVT (deep venous thrombosis) (Acute) S/P craniotomy (Acute) Physical debility (Acute) S/P resection of meningioma (Acute) Right leg DVT (Acute) - Physical Exam Vitals/I&O's: Vital Signs Temp Pulse Resp BP Pulse Ox 98.5 F 98 20 H 114/76 96 10/06/19 07:21 10/06/19 07:21 10/06/19 07:21 10/06/19 07:21 10/06/19 07:21 Oxygen Delivery Method Room Air Weight: 143 lb 1.28 oz Body Mass Index (BMI) 27.5 Orthostatic Vital Signs Start: 10/03/19 11:33 Freq: Status: Active Protocol: Activity Type Activity Date Activity User E-Sign Co-Sign Detail Recorded Client Recorded Date Recorded By Document 10/03/19 11:33 ALLEN [id number] 10/03/19 11:35 ALLEN 10/03/19 11:33 Orthostatic Vitals Lying -Blood Pressure (90/60-120/80 mm Hg) 124/60 H -Extremity Use Right Arm -Pulse Rate (60-100 beats/min) 102 H Sitting -Blood Pressure (90/60-120/80 mm Hg) 125/66 H -Extremity Use Right Arm -Pulse Rate (60-100 beats/min) 103 H Standing -Blood Pressure (90/60-120/80 mm Hg) 123/78 H -Extremity Use Right Arm -Pulse Rate (60-100 beats/min) 105 H Intake and Output for Last 24 Hours 10/04/19 10/05/19 10/06/19 23:59 23:59 23:59 Intake Total 480 / 480 240 / 240 Balance 480 / 480 240 / 240 Laboratory Results 10/06/19 05:32: Phenytoin 9.2 L Current Medications Acetaminophen (Tylenol) 650 mg PO Q4H PRN PRN Reason: Pain or Fever Last Admin: 10/04/19 06:53 Dose: 650 mg Documented by: Alendronate Sodium (Fosamax) 70 mg PO We@0600 [facility] Last Admin: 10/04/19 05:56 Dose: 70 mg Documented by: Bisacodyl (Dulcolax) 10 mg RECTAL .PRN X 1 PRN PRN Reason: Constipation Calcium Carbonate (Tums) 500 mg PO BID PRN PRN Reason: HEARTBURN Last Admin: 10/01/19 17:03 Dose: 500 mg Documented by: Calcium/Vitamin D (Os-King 500mg + D) [facility] Last Admin: 10/06/19 07:44 Dose: 1 tablet Documented by: Codeine Sulfate (Codeine) 30 mg PO QHS PRN PRN PRN Reason: Pain Score 1-10/10 Docusate Sodium (Colace) 100 mg PO BID [facility] Last Admin: 10/06/19 07:42 Dose: Not Given Documented by: Enoxaparin Sodium (Lovenox) 40 mg SC DAILY@0600 [facility] Last Admin: 10/06/19 05:57 Dose: 40 mg Documented by: Levetiracetam (Keppra Tablet) 1,500 mg PO BID [facility] Last Admin: 10/06/19 09:32 Dose: 1,500 mg Documented by: Levothyroxine Sodium (Synthroid) 50 mcg PO DAILY@0600 [facility] Last Admin: 10/06/19 05:57 Dose: 50 mcg Documented by: Losartan Potassium (Cozaar) 100 mg PO DAILY [facility] Last Admin: 10/06/19 07:44 Dose: 100 mg Documented by: Magnesium Hydroxide (Milk Of Magnesia) 30 ml PO .PRN X 1 PRN PRN Reason: Constipation Minocycline HCl (Minocin) 50 mg PO DAILY [facility] Last Admin: 10/06/19 07:45 Dose: 50 mg Documented by: Multivitamins/Minerals (Multivitamin With Minerals) 1 tablet PO DAILY@0800 [facility] Last Admin: 10/06/19 07:44 Dose: 1 tablet Documented by: Nutritional Formula (Lactose Free) (Ensure Enlive) 120 ml PO 4X/DAY [facility] Last Admin: 10/06/19 07:45 Dose: 120 ml Documented by: Pantoprazole Sodium (Protonix) 40 mg PO DAILY [facility] Last Admin: 10/06/19 07:44 Dose: 40 mg Documented by: Phenytoin Sodium (Dilantin) 200 mg PO BIDCM [facility] Last Admin: 10/06/19 07:45 Dose: 200 mg Documented by: Polyethylene Glycol (Miralax) 17 gm PO DAILY [facility] Last Admin: 10/06/19 07:41 Dose: Not Given Documented by: Sodium Chloride () 5 - 15 ml IV UD PRN PRN Reason: SALINE FLUSH Last Admin: 10/03/19 21:19 Dose: 10 ml Documented by: Discharge Activity: May Not Drive - You are not allowed to drive for 6 months after a seizure. You will need to follow up with a neurologist. Weight Bearing Status: Full weight bearing Call your doctor if your incision/area has: Continuous Slow Oozing, Sudden Increased Bleeding, Increased Pain/ Swelling, Increased Redness, Foul Smelling Discharge, Swelling at the incision site Call your doctor if you observe: Fever of 101 or Higher, Numbness or Tingling, Inability to urinate, Inability to have a bowel movement, Shortness of breath, Dizziness, Fainting spells, Chest pain, Increased palpitations (irregular heartbeat), Calf discomfort, Uncontrolled pain, - - Call Dr. Delgado and/or the neurosurgeon if you have a seizure Home Medications: Medications to take at Discharge Levothyroxine Sodium 50 mcg PO DAILY 09/16/19 Acetaminophen [Tylenol] 650 mg PO Q4H PRN 09/26/19 Alendronate Sodium 1 tab PO WE 09/26/19 Bisacodyl [Dulcolax] 10 mg RECTAL DAILY PRN PRN 09/26/19 Calcium Carbonate 500 mg PO BID PRN 09/26/19 Calcium Carbonate/Vitamin D3 [Calcium 600 + Vit D Tablet] 1 tab PO DAILY 09/26/19 Docusate Sodium [Colace] 100 mg PO BID 09/26/19 Losartan Potassium [Cozaar] 100 mg PO DAILY 09/26/19 Minocycline HCl 50 mg PO DAILY 09/26/19 Multivitamin with Minerals [Multiple Vitamin] 1 tab PO DAILY 09/26/19 Pantoprazole Sodium [Protonix] 40 mg PO DAILY 09/26/19 Polyethylene Glycol 3350 [Miralax] 17 gm PO DAILY 09/26/19 Senna/Docusate Sodium [Senokot-S] 1 tab PO DAILY PRN 09/26/19 Codeine 30 mg PO Q4H PRN PRN 7 Days #15 tab 10/06/19 Enoxaparin Sodium [Lovenox] 40 mg SQ DAILY #7 ml 10/06/19 Levetiracetam [Keppra] 1,500 mg PO BID #120 tab 10/06/19 Phenytoin Na [Dilantin] 200 mg PO BIDCM #120 cap 10/06/19 Following Prescrptions Were Given to Patient: Codeine 30 mg PO Q4H PRN PRN 7 Days #15 tab PRN Reason: Pain Score 1-1010 Prescription Printed Phenytoin Na [Dilantin] 200 mg PO BIDCM #120 cap Prescription Printed Levetiracetam [Keppra] 1,500 mg PO BID #120 tab Prescription Printed Enoxaparin Sodium [Lovenox] 40 mg SQ DAILY #7 ml Prescription Printed Primary Care Physician: Johnathon Delgado MD [Primary Care Provider] - Please follow up with your Primary Care Physician in: has an appt Please Follow Up With: Scott Byrd MD When: Appointment for filter retrieval when appropriate Please Follow Up With: Johnathon Delgado MD Please Follow Up With: Sara Dotson When: October 11 Please Follow Up With: Ned Frank MD Additional Instructions: Please return to my office once you were released by your primary physician and neurosurgeon for retrieval of this inferior vena cava filter. I would anticipate a indwelling duration of 3 to 6 months. It is very important that we retrieve the filter at his is not deemed to be a permanent device. Scott Byrd M.D., F.A.C.S. Minutes spent on discharge:: 40 Medical Necessity - Tobacco Use Smoking Status: Never smoker Tobacco Use: Non-smoker Meaningful Use Info Meaningful Use Diagnoses (Choose all that apply): None applicable Code Visit Inpatient E&M: 05049 Disch Hosp
[2019-10-06] MEDS: Acetaminophen 325 MG Tablet 650 MG PO (14:57)
[2019-10-06] MEDS: 0.9% NaCl Peripheral Flush Adult/Peds IV (21:23)
[2019-10-06 21:41] VITALS: BP 143/74; PULSE 103; RESP 18; TEMP 36.7; O2SAT 93
--- NOTE | 2019-10-07 02:30 | NURSING ---
Reviewed and agree with [employer] documentation and charting.
[2019-10-07] MEDS: Levothyroxine 50 MCG Tablet PO (05:42)
[2019-10-07 07:39] VITALS: BP 117/68; PULSE 96; RESP 16; TEMP 36.8; O2SAT 98
[2019-10-07] MEDS: levETIRAcetam 750 MG Tablet 1500 MG PO ×2 (08:26→21:14)
[2019-10-07] MEDS: Pantoprazole Sodium 40 MG Tablet PO (08:26)
[2019-10-07] MEDS: Calcium Carb/Vitamin D 1 TABLET Tablet PO (08:26)
[2019-10-07] MEDS: Losartan Potassium 100 MG Tablet PO (08:26)
[2019-10-07] MEDS: Multivitamins,Ther W-Minerals Tablet 1 TABLET PO (08:27)
[2019-10-07] MEDS: Docusate Sodium 100 MG Capsule PO ×2 (08:27→21:14)
[2019-10-07] MEDS: Phenytoin Na 100 MG Capsule 200 MG PO ×2 (08:27→16:51)
[2019-10-07] MEDS: Enoxaparin 40 MG/0.4 ML Syringe SC (10:03)
--- NOTE | 2019-10-07 14:52 | PN_ITS ---
Progress Note Afebile VSS Maintaining appropriate oxygen saturation on RA Oral intake is good Discussed with nursing - no problems that need addressed Reviewed the PT/OT/ST notes Medication list reviewed. I met with the patient and her Bill in her room. We went over the discharge instructions and I answered their questions. I reviewed the signs and sx of depression and related that if depression is untreated it will delay progress in therapy. she does not feel that she is depressed and neither does her . She is frustrated with her inability to perform tasks requiring higher executive function like she was prior to the surgery. We talked about the fact that she had status epilepticus after the surgery and that she is now on 2 AED's. She had no recollection of this. I told her that she would need to follow up with a neurologist and she is willing to do this. I recommended Dr. Brian Denson and she is ok with this. I told her she must be seizure free for 6 months prior to being allowed to drive. she asked about anticoagulation and I told her it would be at least 3 months from the time Dr. Dotson feels it is OK to start full dose anticoagulation. After 3 months I would obtain a repeat venous US of the RLE and if it negative DC the anticoagulation and follow up with Dr. Byrd 2 weeks after that to remove the temporary IVC filter. She is going to follow up at [facility] for therapy. She is only doing the IS twice a day. No cough and no SOB. Alert and oriented X3, NAD, sitting in the recliner in her room Lungs - coarse crackles in the bases that cleared after several deep breaths....I reminded her she needs to do the IS every hour for 10 breaths while awake for at least 7 more days. Her says that he will remind her. Heart - still with increased resting HR, no gallop, regular abd-soft, NT, ND, normal BS's in all quadrants the jagruti in the scalp are intact and there is no erythema or DC present The RLE is swollen and it is painful with PT at times........still with a + David's sign. Await the OK from Dr. Dotson to start full dose anticoagulation. Impressions 1. atelectasis - reminded to continue sing the IS after DC 2. 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 Status Epilepticus post operatively - no seizures since admission to the rehab unit. Continue Keppra and Phenytoin. Follow up with Dr. Denson going forward. 4. Follow up with Dr. oDtson on 10/11/19.....ask about anticoagulation at that time. 5. DVT of the RLE present at admission to the RU. She is S/P temporary IVC filter and is now on a prophylactic dose of Lovenox and TEDS. Plan DC tomorrow. All questions were answered and the pt and her were instructed to call the rehab unit if they have additional questions post DC. Code Visit Inpatient E&M: 51396 Subs Hosp L2
[2019-10-07 21:45] VITALS: BP 143/71; PULSE 115; RESP 18; TEMP 36.7; O2SAT 96
[2019-10-08] MEDS: Levothyroxine 50 MCG Tablet PO (05:43)
[2019-10-08 07:43] VITALS: BP 145/80; PULSE 97; RESP 16; TEMP 36.7; O2SAT 99
[2019-10-08] MEDS: Calcium Carbonate 500 MG Tablet PO (09:12)
[2019-10-08] MEDS: Phenytoin Na 100 MG Capsule 200 MG PO (09:12)
[2019-10-08] MEDS: Multivitamins,Ther W-Minerals Tablet 1 TABLET PO (09:12)
[2019-10-08] MEDS: Calcium Carb/Vitamin D 1 TABLET Tablet PO (09:13)
[2019-10-08] MEDS: Losartan Potassium 100 MG Tablet PO (09:13)
[2019-10-08] MEDS: levETIRAcetam 750 MG Tablet 1500 MG PO (09:13)
[2019-10-08] MEDS: Pantoprazole Sodium 40 MG Tablet PO (09:13)
[2019-10-08 10:40] VITALS: BP 145/80; PULSE 97; RESP 16; TEMP 36.7; O2SAT 99
--- NOTE | 2019-10-08 10:40 | NURSING ---
Patient and family aware of discharge instructions and verbalized understanding. properly demonstrated Lovenox injection.
[2019-10-08] MEDS: Enoxaparin 40 MG/0.4 ML Syringe SC (10:52)
== END 2019-10-08 10:40 | disposition home or self-care (01) | DRG 940 ==
PROVIDERS: Admitting Provider Internal Medicine; Family Provider Family Medicine; PCP Family Medicine
DX: Z48.811 Encounter for surgical aftercare following surgery on the nervous system (principal); I82.431 Acute embolism and thrombosis of right popliteal vein; Z86.011 Personal history of benign neoplasm of the brain; E03.9 Hypothyroidism, unspecified; I10 Essential (primary) hypertension; G40.901 Epilepsy, unspecified, not intractable, with status epilepticus; H81.09 Meniere's disease, unspecified ear
CPT/HCPCS: 36415; 37191; 71275; 76937; 80048; 80053; 80185; 82040; 83735; 84100; 84439; 84443; 85025; 85027; 92507; 92523; 93005; 93971; 97110; 97116; 97162; 97165; 97530; 97535; 97802; Q9967; A4216; C1769; C1880

== ENCOUNTER 2019-09-28 16:15 | Day surgery (SDC) | payer MEDICARE, OTHER, SELFPAY ==
[2019-09-26 15:00] VITALS: BMI 27.5
[2019-09-28 16:15] VITALS: BP 122/66; PULSE 94; RESP 16; TEMP 36.8; O2SAT 100
[2019-09-28 16:30] VITALS: BP 117/72; PULSE 95; RESP 16; O2SAT 99
[2019-09-28 16:45] VITALS: BP 120/64; PULSE 94; RESP 16; O2SAT 99
[2019-09-28 17:00] VITALS: BP 107/76; PULSE 83; RESP 16; O2SAT 99
--- NOTE | 2019-09-28 17:08 | NURSING ---
Called report to Natasha MCCABE in rehab
== END 2019-09-28 17:20 | disposition skilled nursing facility (03) ==
LOC: PCU 09-29 07:22 → PCUOUT 09-29 07:22
PROVIDERS: Family Provider Family Medicine; PCP Family Medicine; Referring Provider Internal Medicine; Visit Provider Internal Medicine
DX: I82.431 Acute embolism and thrombosis of right popliteal vein (principal)

== ENCOUNTER → 2019-10-12 11:24 | Outpatient (CLI) | payer MEDICARE, OTHER, SELFPAY ==
[2019-09-26 15:00] VITALS: BMI 27.5
[2019-10-12 14:46] LABS: Phenytoin (Dilantin) Level 11.3 mL (10.0-20.0)
== END ==
PROVIDERS: Family Provider Family Medicine; PCP Family Medicine; Referring Provider Family Medicine; Visit Provider Nurse Practitioner Family
DX: R56.9 Unspecified convulsions (principal)
CPT/HCPCS: 36415; 80185

== ENCOUNTER → 2019-11-23 09:40 | Outpatient (CLI) | payer MEDICARE, OTHER, SELFPAY ==
[2019-09-26 15:00] VITALS: BMI 27.5
[2019-11-23 10:44] LABS: Hematocrit 42.1 % (37-47); Hemoglobin 14.3 g/dL (12.0-15.0); Mean Corpuscular Hgb 30.9 pg (27.0-32.0); Mean Corpuscular Volume 90.9 fL (81-99); Mean Platelet Vol. 10.1 fl (6.2-12.0); Platelet Count 274 K/mm3 (150-450); RBC Distribution Width CV 14.6 % (11.6-14.6); RBC Distribution Width SD 48.5 fl (35.1-43.9); Red Blood Count 4.63 M/mm3 (4.2-5.4); White Blood Count 8.2 K/mm3 (4.4-11.0)
[2019-11-23 11:12] LABS: Phenytoin (Dilantin) Level 9.9 mL (10.0-20.0)
[2019-11-23 11:14] LABS: AST(SGOT) 104 U/L (15-37); Alanine Aminotransfer ALT/SGPT 230 U/L (13-56); Albumin, Serum 3.6 g/dL (3.2-5.0); Alkaline Phosphatase 81 U/L (45-117); Anion Gap 10 (5-15); BUN 16 mg/dL (7-18); BUN/Creat Ratio 17.5 RATIO (10-20); Calcium,Total 8.6 mg/dL (8.5-10.1); Chloride 95 mmol/L (98-107); Creatinine, Serum 0.91 mg/dL (0.55-1.02); EST Glomerular Filtration Rate 65 mL/min (>60); Est Glom Filt Rate - Afr Amer 79 mL/min (>60); Globulin 3.7 g/dL (2.2-4.2); Glucose 108 mg/dL (74-106); Potassium 3.1 mmol/L (3.5-5.1); Protein, Total 7.3 g/dL (6.4-8.2); Sodium Level 128 mmol/L (136-145)
[2019-11-29 11:35] LABS: KEPPRA (LEVETIRACETAM) 84.8 ug/mL (10.0-40.0)
== END ==
PROVIDERS: PCP Family Medicine
DX: R56.9 Unspecified convulsions (principal); Z98.890 Other specified postprocedural states; Z86.018 Personal history of other benign neoplasm
CPT/HCPCS: 36415; 80053; 80177; 80185; 80186; 85027

== ENCOUNTER 2019-11-24 09:00 | Outpatient (RCR) | payer MEDICARE, OTHER, SELFPAY ==
[2019-09-26 15:00] VITALS: BMI 27.5
--- NOTE | 2019-10-16 15:03 | HP.PTEVAL_ITS ---
Patient's Visit Information JAMIN AU is a 69 year old F referred to Physical Therapy by Francy Denny DO with a diagnosis of DEBILITY. Date of Evaluation: 10/16/19 Physical Therapist: Paul Do, PT, Cert MDT, OCS - Visit Plan Frequency: 2x /Week Duration: 4 Weeks Plan: PT INTERVENTIONS PROGRESSIVE BALANCE PROGRAM,ENDURANCE PROGRAM,STRENGTH BLE,. FUNCTIONAL STRENGTHENING - Subjective Findings: This 69 y/o female presents to physical therapy with debility.Patient was c/o being fatgue tired ,sleeping alot. 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 Post surgery developed DVT ,brain seizures. Patient was transferred to Rehab on 10/27/18 ,then d/c 10/08/19 to home. D/C to home without device. Patient has some memory deficits. Pateint has no pain. Patient major c/o weakness and fatigue.Patient has endurance deficits. Patient condition affects function with ADL'S ,housework tasks ,stairs . Patient condition affects QOL. Home Situation: 1story 10/05 with stairs. Patient Independant with ADLS' ,dressing ,bathing,mu-ism friends bringing in food. SOCAIL: . VOCATION: - Objective POSTURE: mild foward posture. GAIT: reciprocal pattern mild unsteady few time dragged left foot. NEURO: denies parathesia/tingling ,reflexes L3-4,L4-5,L5-S1 2/3. SKIN: inscion well approximate top of cranium. BALANCE: good -. STAIRS: one step at time with rail. MMT: QUADS/HAMS/HIP 4-/5 ANKLE 4/5. FLEXABLITY: hams mild tight - Balance Scores Functional Gait Assessment Score: 15 % Disability: 50.0000 CATSIB Score (Max score 120 seconds): 65 - Goals Goal 1:: Independant with HEP. Goal Time Frame: 4-6 Weeks Goal 2:: Improve functional endurance for activity to good -. Goal Time Frame: 4-6 Weeks Goal 3:: Patient increase strength BLE/UE to 4/5 to improve function. Goal Time Frame: 4-6 Weeks Goal 4:: Patient improve functional gait assessment score by 5-10 points or > to improve QOL. Goal Time Frame: 4-6 Weeks Goal 5:: Patient to improve LFES acore by 5-10 points or > to improve QOL. Goal Time Frame: 4-6 Weeks - Rehabilitation Potential Physical Therapy Diagnosis: This 69 y/o female presents to physical therapy with craniotomy remove benign brain tumor with impairments with decrease strength ,balance and decrease endurance for ADL'S. Rehabilitation Potential: Good - Anticipated Interventions Patient/Client Instruction: Educate patient on: Condition, Plan of Care For the Purpose of:: To decrease pain, To increase ROM, To improve muscle performance and motor function, To improve ability to perform ADL's, To increase tolerance to activity/condition/position, To improve ability of physical actions for home/community/work/leisure, To improve health of tissue, To decrease soft tissue restriction, To increase flexibility/ROM, To improve ability to perform tasks related to life management Therapeutic Exercise to Include: Strength training, Endurance training, Balance training, Flexibilty training, Gait and locomotor training Comment: BLE For the Purpose of:: To decrease pain, To improve muscle performance and motor function, To improve ability to perform ADL's, To increase tolerance to activity/condition/position, To improve ability of physical actions for home/community/work/leisure, To improve gait and locomotor functions, To improve endurance, To improve balance, To improve safety with gait, To improve ability to perform tasks related to life management Thank you for the opportunity to evaluate your patient. For Medicare and Medicare HMO plans, please review the plan of care and approve it. It will need to be FAXED BACK to us at [phone] for Medicare purposes. For Medicare only, by signing this I certify the plan of care. Please let me know if there are questions or concerns regarding this plan of care. Physician Signature: ____Date:
--- NOTE | 2019-10-18 09:59 | HP.OTEVAL_ITS ---
Patient's Visit Information JAMIN AU is a 69 year old F, referred to Occupational Therapy by Francy Denny DO, with a diagnosis of Debility. Date of Evaluation: 10/16/19 Occupational Therapist: Bhavani Giron, SERENA/Zulma, CHT - Subjective Subjective: This 69 y/o female presents to OT with dx of debility.Patient was c/o being fatgue tired ,sleeping alot. 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 Post surgery developed DVT ,brain seizures. Patient was transferred to Rehab on 10/27/18 ,then d/c 10/08/19 to home. D/C to home without device. Patient has some memory deficits and was eval by speech therapy- Pateint has no pain. Patient major c/o weakness and fatigue.Patient has endurance deficits. Pt and spouse has friends assisting with meals at this time. Pt and spouse has concerns with functonal balance and ambulation for ADLs and IADLs. SOCAIL: . VOCATION: retired. pt and spouse state their main concern is balance and ambulation. PT and soupse states they are not having issues with pt performing ADLs or IADLs at this time. - ADLs Comments: Currently pt is MIKHAIL with ADLs (using shower chair) no other ad. eq. has done little IADLs at this time due to recent release from [facility] rehab. - ROM ROM Comments: pt demo all ROM WNL - Strength Shoulder: right 4/5 left 4/5 Elbow: right 4/5 left 4/5 Tool Maintenance Worker: right 30# left 50# Lateral Pinch: right 10# left 10# Tripod Pinch: right 10# left 9# Strength Comments: pt demo functional strength - Sensation Sensation Comments: denies - Quick DASH-Disab of Arm,Shoulder& Hand Quick DASH Score: 23.3325 - Rehabilitation General Assessment: This 69 year old female demo BUE ROM and strength WFL. ed. pt that her right hand was weaker than left- pt states she does not notice with daily tasks. Both pt and spouse report no concerns with ADLS or ad. eq. at this time. Pt and spouse have concerns with ambulation and balance- Pt was evaluated by Physical therapy and further discussion to address pts concerns pt will cont with physical therapy and speech therapy at this time. OT advised pt and spouse if any changes and they feel need OT to let us know and we will asses pt at that time. Both pt and spouse agree to POC. - Visit Plan General Plan: At this time pt does not demo need for skilled OT services- Pt will intitiate services with physical therapy to focus on pts main concerns of balance and ambulation. TEXT: Thank you for the opportunity to evaluate your patient. For Medicare and Medicare HMO plans, please review the plan of care and approve it. It will need to be FAXED BACK to us at [phone] for Medicare purposes. Please let me know if there are questions or concerns regarding this plan of care. Physician Sig nature: Date:
--- NOTE | 2019-10-18 15:36 | HP.SP.AD_ITS ---
History - History Date of Eval: 10/16/19 Other Relevant Medical History/Diagnoses/Surgery: Pt with MRI 09/16/19 which revealed a benign tumor resulting in craniotomy 09/19/19 followed by an inpatient rehabilitation stay at [facility]. 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 The CLQT is to assess strength and weaknesses in five cognitive domains. Severity ratings are within normal limits, mild, moderate, severe deficits. The subtests are as follows: Date: 10/18/19 - Attention Attention: Mild - Memory Memory: WNL - Executive Functions Executive Functions: Mild - Language Language: WNL - Visuospatial Skills Visuospatial Skills: Mild - Composite Severity Rating Composite Severity Rating: Mild - Clock Drawing Severity Rating Clock Drawing Severity Rating: WNL - CLQT Comments Previous Administration Xi was previously administered this test in the Rehabilitation Unit and achieved the following scores on 10/02/2019: Cognitive Domain Scores. ?Personal Facts (memory and language ability): 05/11. ?Symbol Cancellation (nonlinguistic task of visual attention and perception, integrity of the upper/lower quadrants of the left/right visual hernandez): 08/15. ?Confrontation Naming (aphasia, perseveration, verbosity): 07/13. ?Clock Drawing (screening of all cognitive domains): 09/15. ?Story Retelling (memory and comprehension, arousal, attention, storage capacity, narrative skills): 04/12. ?Symbol Trails (nonlinguistic task to assess planning, self-monitoring, working memory, and visual attention, and impulsivity): 07/13. ?Generative Naming (word retrieval skills, perseveration): 01/10 with a perseveration ratio of 0.06 %. ?Design Memory (nonlinguistic task to assess visual discrimination & analysis, attention, and visual memory, impulsivity, perseveration): 5/6. ?Mazes (planning, mental flexibility, self-monitoring, visual discrimination, and impulsivity): 0/8. ?Design Generation (nonlinguistic task of creativity and mental flexibility): 02/13. Severity Rating. ?Attention: Cognitive Domain Score = 158; MILD IMPAIRMENT. ?Memory: Cognitive Domain Score = 152; MILD IMPAIRMENT. ?Executive Functioning: Cognitive Domain Score = 19; MODERATE IMPAIRMENT. ?Language: Cognitive Domain Score = 29; WNL. ?Visuospatial Skills: Cognitive Domain Score = 67; MILD IMPAIRMENT. ?Clock Drawing: Score = 12; WNL. Composite Severity Ratin.0; MILD IMPAIRMENT. Pt therefore demonstrated minimal but present improvement in several domains. Other Impressions - Comments Cognitive-Linguistic Functioning -: Overall, pt presents with mild deficits in cognitive-linguistic functioning characterized by decreased processing speed/efficiency and intermittent anomia likely associated with impairments of attention. Deficits are further complica vale by reported increased intense fatigue following craniotomy, especially in sensory rich environments. The pt does demonstrate excellent insight into deficits as well as reports effective baseline compensatory/organizational strategies, which, paired with family support, suggest an excellent prognosis for improvement. Plan - Plan Plan: Skilled speech-language therapy is thereby warranted to improve the pt's cognitive-linguistic skills in order to achieve her highest level of safe, independent functioning across environments. - Recommendations Treatment Warranted: Yes - Frequency Frequency: 1x/Week Duration: 2 Months - Prognosis Prognosis: Excellent - Goals that are Established: Determination:: Goals will be added/modified as deemed necessary and appropriate. Therapy will be discontinued when results of re-evaluation indicate therapy is no longer needed or lack of progress has been documented. - Goal #1-5 Goal #1: The pt will independently utilize targeted attention/memory/executive functioning compensatory strategies to accurately complete cognitive tasks of increasing complexity with 90% accuracy across 3 consecutive sessions. Goal #2: The pt will independently complete medication administration tasks with 90% accuracy across 3 consecutive sessions. Goal #3: The pt will independently complete financial compliance examiner tasks with 90% accuracy across 3 consecutive sessions. Education - Patient has Indicated that the Following Identified Educational Needs: None The Patient has indicated that they have no educational or learning abilities that may effect their care.: Yes - Patient Instruction Patient Education: Diagnosis, Treatment Plan, Goals Person Taught: Patient, Significant Other
--- NOTE | 2019-11-17 10:10 | HP.PTREVAL ---
Johnathon Delgado MD, It has been my pleasure to treat JAMIN AU over the last 7 visits for DEBILITY. Please see the progress note below for an update on the physical therapy plan of care! Subjective: Patient conts to to have problem with faitigue and motIvation. Seen surgeon Darion Nichole happy with progress Objective/Function: POSTURE: mild foward posture. GAIT: reciprocal pattern impro jessica ryan. MMT: quads/hams/hip 4/5. BALANCE:good-. STAIRS: alterante with steps and rails Plan Plan: CONT WITH POC 2X FOR 4WEEKS PT INTERVENTIONS PROGRESSIVE BALANCE PROGRAM,ENDURANCE PROGRAM,STRENGTH BLE,. FUNCTIONAL STRENGTHENING Goals Goal 1:: Independant with HEP. Goal Time Frame: 4-6 Weeks Goal Progress: Progressing Goal 2:: Improve functional endurance for activity to good -. Goal Time Frame: 4-6 Weeks Goal Progress: Progressing Goal 3:: Patient increase strength BLE/UE to 4/5 to improve function. Goal Time Frame: 4-6 Weeks Goal Progress: Goal Met Goal 4:: Patient improve functional gait assessment score by 5-10 points or > to improve QOL. Goal Time Frame: 4-6 Weeks Goal Progress: Progressing Goal 5:: Patient to improve LFES acore by 5-10 points or > to improve QOL. Goal Time Frame: 4-6 Weeks Goal Progress: Progressing Anticipated Interventions Patient/Client Instruction: Educate patient on: Condition, Plan of Care For the Purpose of:: To decrease pain, To increase ROM, To improve muscle performance and motor function, To improve ability to perform ADL's, To increase tolerance to activity/condition/position, To improve ability of physical actions for home/community/work/leisure, To improve health of tissue, To decrease soft tissue restriction, To increase flexibility/ROM, To improve ability to perform tasks related to life management Therapeutic Exercise to Include: Strength training, Endurance training, Balance training, Flexibilty training, Gait and locomotor training Comment: BLE For the Purpose of:: To decrease pain, To improve muscle performance and motor function, To improve ability to perform ADL's, To increase tolerance to activity/condition/position, To improve ability of physical actions for home/community/work/leisure, To improve gait and locomotor functions, To improve endurance, To improve balance, To improve safety with gait, To improve ability to perform tasks related to life management Please do not hesitate to contact me at [phone] by phone or if you have questions or concerns regarding this new plan of care! Sincerely, Paul Do, PT, Cert MDT, OCS
--- NOTE | 2020-01-29 15:37 | HP.PTDCSUM ---
It has been my pleasure to treat JAMIN BAUTISTAER referred by Dr. Johnathon Delgado MD, with the diagnosis of DEBILITY for a total of 9 visit(s). Discharge Date: Please see the following information for a summary of their discharge status. Subjective: Feeling no motivated ,enegy is less. Spouse may call DR sleeps all day % Improvement: 70 Objective/Function: [place] WELL BUT SLOW TO MOVE FATIGUES EASY ,CHALLANGED WITH BALANCE ACTIVITEIS Goal 1:: Independant with HEP. Goal Progress: Progressing Goal 2:: Improve functional endurance for activity to good -. Goal Progress: Progressing Goal 3:: Patient increase strength BLE/UE to 4/5 to improve function. Goal Progress: Goal Met Goal 4:: Patient improve functional gait assessment score by 5-10 points or > to improve QOL. Goal Progress: Progressing Goal 5:: Patient to improve LFES acore by 5-10 points or > to improve QOL. Goal Progress: Progressing Plan: CONT WITH POC 2X FOR 4WEEKS PT INTERVENTIONS PROGRESSIVE BALANCE PROGRAM,ENDURANCE PROGRAM,STRENGTH BLE,. FUNCTIONAL STRENGTHENING If there are questions or concerns regarding this patient's physical therapy, please feel free to call me at [phone]. Thank you for the referral of this patient. Sincerely, Paul Do, PT, Cert MDT, OCS
== END 2019-11-24 19:00 | disposition home or self-care (01) ==
LOC: PT 09:00
PROVIDERS: Family Provider Family Medicine; PCP Family Medicine; Visit Provider Family Medicine
DX: R41.841 Cognitive communication deficit (principal); R53.81 Other malaise
CPT/HCPCS: 92507; 92523; 97110; 97162; 97166

== ENCOUNTER 2019-12-01 16:20 | Inpatient (IN) | payer MEDICARE, OTHER, SELFPAY ==
[2019-09-26 15:00] VITALS: BMI 27.5
[2019-12-01 16:43] VITALS: BMI 23.9; BMI 24.0
[2019-12-01 17:05] VITALS: BP 166/81; PULSE 122; RESP 24; TEMP 37.1; O2SAT 99
--- NOTE | 2019-12-01 18:23 | PCA ---
Asked pt at arrival of admission if pt had ate at the other hospital where she came from or if she would like dinner here on our unit, pt's informed me that she had eaten at other hospital and was not going to need dinner.
[2019-12-01] MEDS: Phenytoin Na 100 MG Capsule 200 MG PO (19:50)
[2019-12-01] MEDS: levETIRAcetam 750 MG Tablet 1500 MG PO (19:51)
[2019-12-01] MEDS: APIXABAN 5 MG TABLET PO (19:51)
--- NOTE | 2019-12-01 20:10 | PCM.HP.STD ---
Problem List (1) Debility Status: Acute (2) Encephalopathy Status: Acute (3) Dehydration Status: Acute (4) Hyponatremia Status: Acute (5) Atypical pneumonia Status: Acute (6) Cholelithiasis Status: Chronic (7) Osteoporosis Status: Chronic (8) Fatty liver Status: Chronic (9) Appetite loss Status: Acute (10) Meningioma Status: Chronic (11) Seizure disorder Status: Acute (12) DVT (deep venous thrombosis) Status: Chronic (13) Hypothyroid Status: Chronic (14) M?ni?re's disease Status: Chronic (15) Hypertension Status: Chronic History of Present Illness Date of Admission: 12/01/19 Chief Complaint: Here for rehabilitation, strengthening, prior to discharge home with . The patient is a 69 year old Female with below past medical history with followin11/26/2019 Admit to [facility]. Weakness, rhinorrhea, chills, confusion. Recent meningioma resection. Rapid flu test negative. IV Azithromycin, Duoneb for atypical pneumonia. Ceftriaxone stopped due to rash. PT/OT for debility. Hold diuretics for hyponatremia. CT head showed no acute abnormality. CTA chest negative for pulmonary embolism, but suboptimal test. 11/28/2019 Neurology consulted for possible side effect from Keppra suppressing appetite. Thought anorexia not related to Keppra. 11/28/2019 Marinol started for appetite stimulation. Hydrochlorothiazide stopped for risk of dehydration. Amlodipine increased to improve blood pressure control. 11/29/2019 [facility] Hyponatremia, Dehydration improved with IV fluids. Finish Zithromax 5 day course for atypical pneumonia. Encephalopathy not secondary to Keppra. 12/01/2019 Admit to TCU with debility, here for rehabilitation, strengthening, prior to discharge home with . Past Medical History Past Medical History (Chronic Problems): Chronic Problems Cholelithiasis (Chronic) Osteoporosis (Chronic) Fatty liver (Chronic) Meningioma (Chronic) DVT (deep venous thrombosis) (Chronic) Hypothyroid (Chronic) M?ni?re's disease (Chronic) Hypertension (Chronic) Allergies lisinopril Adverse Reaction (Verified 09/26/19 15:02) Other cough Home Medications: Ambulatory Orders Medication Instructions Recorded Levothyroxine Sodium 50 mcg PO DAILY 09/16/19 Acetaminophen [Tylenol] 650 mg PO Q4H PRN 09/26/19 Alendronate Sodium 1 tab PO WE 09/26/19 Losartan Potassium [Cozaar] 100 mg PO DAILY 09/26/19 Multivitamin with Minerals 1 tab PO DAILY 09/26/19 [Multiple Vitamin] Levetiracetam [Keppra] 1,500 mg PO BID #120 tab 10/06/19 Amlodipine [Norvasc] 10 mg PO DAILY 12/01/19 Apixaban [Eliquis] 5 mg PO BID 12/01/19 Azithromycin 500 mg PO DAILY 12/01/19 Guaifenesin Dm [Robitussin Dm] 5 ml PO Q12H PRN PRN 12/01/19 Lactobacillus Rhamnosus GG 1 ea PO BID 12/01/19 [Culturelle] Phenytoin Na [Dilantin] 200 mg PO BIDCM 12/01/19 Saliva Substitute Combo No.9 15 ml MM TID 12/01/19 [Biotene] Surgical History: - - 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 Paternal History Items: Heart Disease, - - Congestive heart failure. Review of Systems Constitutional: Denies: Chills, Fever, Weight Change HEENT: Denies: Head Aches, Sinus Congestion, Sinus Drainage Cardiovascular: Denies: Chest Pain, Palpitations Respiratory: Denies: Cough, Shortness of breath at rest, Sputum production Gastrointestinal: Denies: Abdominal Pain, Nausea, Vomiting Genitourinary: Denies: Dysuria Musculoskeletal: Denies: Joint Pain, Joint Tenderness Skin: Denies: Rash, Wounds Neurological: Denies: Numbness, Tingling, Focal weakness Psychiatric: Denies: Anxiety, Depression, Homicidal Ideations, Suicidal Ideations Hematologic/ Lymphatic: Denies: Easy Bruising, Easy Bleeding VTE Information - Inpt Only VTE Present on Admission: No VTE Mechan Device Prophylaxis: Knee High CHERYL Hose VTE Pharm Prophylaxis ordered?: No Reason prophylaxis not ordered:: Medical Contraindication Patient Problems: Active and Suspected Problems Debility (Acute) Encephalopathy (Acute) Dehydration (Acute) Hyponatremia (Acute) Atypical pneumonia (Acute) Appetite loss (Acute) - Physical Exam Vitals/I&O's: Vital Signs Temp Pulse Resp BP Pulse Ox 98.7 F 122 H 24 H 166/81 H 99 12/01/19 17:05 12/01/19 17:05 12/01/19 17:05 12/01/19 17:05 12/01/19 17:05 Oxygen Delivery Method Room Air Weight: 59.421 kg Body Mass Index (BMI) 23.9 General: Alert, Oriented x3, Cooperative HEENT: Atraumatic, PERRLA, EOMI, Normocephalic Neck: Supple, No JVD, Negative Carotid Bruits Lungs: Clear to auscultation, Normal air movement Cardiovascular: Regular rate, No murmurs Abdomen: Bowel Sounds Present, Soft, Non Tender Extremities: No edema, Capillary Refill Less than 3 Seconds Skin: No rashes, No breakdown Musculoskeletal: No Tenderness to Palpation of Joints or Extremities Neurological: Cranial nerves II-XII grossly intact Psych/Mental Status: Normal Affect, Appropriate Current Medications Acetaminophen (Tylenol) 650 mg PO Q4H PRN PRN Reason: Pain 1-10/10 or Fever Alendronate Sodium (Fosamax) 70 mg PO [facility] Amlodipine Besylate (Norvasc) 10 mg PO DAILY [facility] Apixaban (Eliquis) 5 mg PO BID [facility] Last Admin: 12/01/19 19:51 Dose: 5 mg Documented by: Azithromycin (Zithromax) 500 mg PO X1 ONE Stop: 12/02/19 06:01 Guaifenesin (Robitussin Dm) 5 ml PO Q12H PRN PRN PRN Reason: COUGH Lactobacillus Acidophilus (Acidophilus) 1 tablet PO BID [facility] Last Admin: 12/01/19 19:50 Dose: 1 tablet Documented by: Levetiracetam (Keppra Tablet) 1,500 mg PO BID [facility] Last Admin: 12/01/19 19:51 Dose: 1,500 mg Documented by: Levothyroxine Sodium (Synthroid) 50 mcg PO DAILY [facility] Losartan Potassium (Cozaar) 100 mg PO DAILY [facility] Multivitamins/Minerals (Multivitamin With Minerals (Bkc)) 1 tablet PO DAILY@0800 [facility]toin [facility]in) [facility] Last Admin: 12/01/19 19:50 Dose: 200 mg Documented by: Saliva Substitute (Biotene) 15 ml MM TID JUVENAL Tuberculin PPD (Tubersol, Aplisol, Ppd) 5 tu ID X1 ONE Stop: 12/02/19 10:01 Tuberculin PPD (Tubersol, Aplisol, Ppd) 5 tu ID [id number] ONE Stop: 12/09/19 10:01 Assessment/Plan All Active Problems Debility (Acute) Encephalopathy (Acute) Dehydration (Acute) Hyponatremia (Acute) Atypical pneumonia (Acute) Appetite loss (Acute) Seizure disorder (Acute) Subtherapeutic serum dilantin level (Acute) S/P craniotomy (Acute) Physical debility (Acute) S/P resection of meningioma (Acute) Right leg DVT (Acute) 69 year old female with below past medical history significant for recent craniotomy for olfactory groove meningioma, hospitalized for atypical pneumonia, complicated by hyponatremia, dehydration, encephalopathy, admitted to TCU with debility, here for rehabilitation, strengthening, prior to discharge home with . Debility - PT/OT. Pain - Tylenol 650MG Q4H PRN pain (1-10) Bowel - Miralax 17GM daily, Senna/colace 1 tablet BID, Dulcolax 10MG daily PRN. Adult immunization - Administer Prevnar 13, Pneumovax 23, Fluzone as appropriate. DVT prophylaxis - Not necessary, already on Eliquis. Osteoporosis - Fosamax 70MG every week. Hypertension - Losartan 100MG daily, Amlodipine 10MG daily. DVT - Eliquis 5MG BID. Atypical Pneumonia - Finish treatment Azithromycin 500MG PO x 1 dose. Cough - Robitussin DM 5ML Q12H PRN. GI prophylaxis - Lactobacillus 1 tablet twice daily. Seizure disorder - Keppra 1500MG twice daily, Dilantin 200MG twice daily with food, schedule appointment with Dr. Denson. would like resident on lower doses or off antiseizure medications. Hypothyroidism - Levothyroxine 50MCG daily. Nutrition - MVI daily. Dry Mouth - Biotene 15ML TID. Appetite loss - Mirtazapine 7.5MG at bedtime.
[2019-12-01] MEDS: Saliva Substitute 237 ML BOTTLE 15 ML MM (21:32)
[2019-12-01] MEDS: Mirtazapine 15 MG Tablet 7.5 MG PO (21:32)
[2019-12-02] MEDS: levETIRAcetam 750 MG Tablet 1500 MG PO ×2 (06:07→17:17)
[2019-12-02] MEDS: amLODIPine 10 MG Tablet PO (06:07)
[2019-12-02] MEDS: Azithromycin 250 MG Tablet 500 MG PO (06:07)
[2019-12-02] MEDS: APIXABAN 5 MG TABLET PO ×2 (06:07→17:18)
[2019-12-02] MEDS: Losartan Potassium 100 MG Tablet PO (06:07)
[2019-12-02] MEDS: Levothyroxine 50 MCG Tablet PO (06:07)
[2019-12-02] MEDS: Saliva Substitute 237 ML BOTTLE 15 ML MM ×3 (06:07→21:57)
[2019-12-02 07:38] LABS: Absolute Lymphocyte Count 0.61 X10^3/uL (0.83-4.51); Absolute Neutrophil Count 3.4 X10^3/uL (2.0-7.7); Basophil# 0.05 X10^3/uL; Basophil% 0.9 % (0-1); Eosinophils% 17.8 % (0-5); Hematocrit 35.1 % (37-47); Hemoglobin 11.8 g/dL (12.0-15.0); Lymphocyte # 0.61 X10^3/ul (4.0); Lymphocyte % 10.9 % (19-41); Mean Corp Hgb Conc 33.6 g/dL (32-36); Mean Corpuscular Hgb 30.3 pg (27.0-32.0); Mean Corpuscular Volume 90.2 fL (81-99); Monocyte# 0.54 X10^3/uL; Monocyte% 9.6 % (0-10); NRBC Flagged by Analyzer 0 % (0-5); Neutrophil # 3.41 X10^3/uL (2.7-7.7); Neutrophil % 60.6 % (47-70); Platelet Count 314 K/mm3 (150-450); RBC Distribution Width CV 14.9 % (11.6-14.6); RBC Distribution Width SD 49.1 fl (35.1-43.9); Red Blood Count 3.89 M/mm3 (4.2-5.4); White Blood Count 5.6 K/mm3 (4.4-11.0)
[2019-12-02 07:59] LABS: Anion Gap 6 (5-15); BUN 10 mg/dL (7-18); BUN/Creat Ratio 15.7 RATIO (10-20); Calcium,Total 8.2 mg/dL (8.5-10.1); Chloride 107 mmol/L (98-107); Creatinine, Serum 0.64 mg/dL (0.55-1.02); EST Glomerular Filtration Rate 99 mL/min (>60); Est Glom Filt Rate - Afr Amer 119 mL/min (>60); Estimated Creatinine Clearance 43.18 ml/min; Glucose 144 mg/dL (74-106); Potassium 3.4 mmol/L (3.5-5.1); Sodium Level 138 mmol/L (136-145)
[2019-12-02] MEDS: Multivitamins,Ther W-Minerals Tablet 1 TABLET PO (09:58)
[2019-12-02] MEDS: Phenytoin Na 100 MG Capsule 200 MG PO ×2 (09:58→17:16)
[2019-12-02] MEDS: Tuberculin,Purif.prot.deriv. 50 TU/ML Vial 5 ML ID (11:20)
[2019-12-02 14:38] VITALS: BP 152/77; PULSE 112; RESP 16; TEMP 36.9; O2SAT 98
[2019-12-02] MEDS: Mirtazapine 15 MG Tablet 7.5 MG PO (22:00)
[2019-12-03 00:16] VITALS: RESP 16
[2019-12-03] MEDS: amLODIPine 10 MG Tablet PO ×2 (05:31)
[2019-12-03] MEDS: Levothyroxine 50 MCG Tablet PO (05:31)
[2019-12-03] MEDS: Losartan Potassium 100 MG Tablet PO (05:31)
[2019-12-03] MEDS: levETIRAcetam 750 MG Tablet 1500 MG PO ×2 (05:31→17:46)
[2019-12-03] MEDS: APIXABAN 5 MG TABLET PO ×2 (05:32→17:46)
[2019-12-03] MEDS: Saliva Substitute 237 ML BOTTLE 15 ML MM ×3 (05:40→21:01)
[2019-12-03] MEDS: Phenytoin Na 100 MG Capsule 200 MG PO ×2 (09:23→17:46)
[2019-12-03] MEDS: Multivitamins,Ther W-Minerals Tablet 1 TABLET PO (09:23)
[2019-12-03 14:23] VITALS: BP 121/68; PULSE 112; RESP 18; TEMP 36.3; O2SAT 97
[2019-12-03] MEDS: Mirtazapine 15 MG Tablet 7.5 MG PO (21:00)
[2019-12-04 06:32] LABS: Anion Gap 8 (5-15); BUN 15 mg/dL (7-18); BUN/Creat Ratio 18.2 RATIO (10-20); Calcium,Total 8.7 mg/dL (8.5-10.1); Chloride 104 mmol/L (98-107); Creatinine, Serum 0.82 mg/dL (0.55-1.02); EST Glomerular Filtration Rate 74 mL/min (>60); Est Glom Filt Rate - Afr Amer 89 mL/min (>60); Estimated Creatinine Clearance 52.65 ml/min; Glucose 95 mg/dL (74-106); Potassium 4.2 mmol/L (3.5-5.1); Sodium Level 140 mmol/L (136-145)
[2019-12-04] MEDS: APIXABAN 5 MG TABLET PO ×2 (06:50→18:23)
[2019-12-04] MEDS: Losartan Potassium 100 MG Tablet PO (06:51)
[2019-12-04] MEDS: Levothyroxine 50 MCG Tablet PO (06:51)
[2019-12-04] MEDS: levETIRAcetam 750 MG Tablet 1500 MG PO (06:51)
[2019-12-04] MEDS: Saliva Substitute 237 ML BOTTLE 15 ML MM ×3 (06:53→20:21)
[2019-12-04] MEDS: Phenytoin Na 100 MG Capsule 200 MG PO (08:07)
[2019-12-04] MEDS: Multivitamins,Ther W-Minerals Tablet 1 TABLET PO (08:07)
[2019-12-04 09:03] LABS: AST(SGOT) 67 U/L (15-37); Alanine Aminotransfer ALT/SGPT 248 U/L (13-56); Albumin, Serum 3.3 g/dL (3.2-5.0); Alkaline Phosphatase 88 U/L (45-117); Bilirubin, Direct 0.15 mg/dL (0.00-0.30); Protein, Total 6.3 g/dL (6.4-8.2)
--- NOTE | 2019-12-04 13:09 | NURSING ---
Addendum entered by Francy Jewell 12/04/19 18:13: DR BAJWA SPOKE WITH REGARDING ANTISEIZURE MEDS. NEW ORDERS ENTERED. Original Note: AT DESK REQUESTING PT ADVOCATE, ASKED HIM IF I COULD HELP HIM WITH ANYTHING. HE STATED HE WOULD LIKE NEUROLOGIST NOTIFIED REGARDING SEIZURE MEDICATIONS. FEELS SHE IS ON TOO MUCH. MESSAGE LEFT AT [facility] FOR A RETURN CALL WITH NEW ORDERS. AWAITING RETURN CALL. UPDATED . WILL UPDATE DR BAJWA WELL. THERE IS A PT APPT SCHEDULED ON 12/11/19 9AM AT THAT OFFICE. CODY CLAYTON.
[2019-12-04 15:22] VITALS: BP 146/80; PULSE 102; RESP 18; TEMP 37.1; O2SAT 97
--- NOTE | 2019-12-04 16:21 | CASEMGMT ---
Social Work Reviewed and agreed with social work finance intern documentation on this date. Chayo Webber, MARKETING [employer] INTERN [employer] ASSEMBLER
[2019-12-04] MEDS: Phenytoin Na 100 MG Capsule PO (18:25)
--- NOTE | 2019-12-04 19:29 | PN_ITS ---
Subjective: Resident seen in room today, lying in bed. She is awake, alert, but appears mildly sedated. is present. Nursing staff concerned with jaundice, CMP was ordered today. Vitals/I&O's: Vital Signs Temp Pulse Resp BP Pulse Ox 98.8 F 102 H 18 146/80 H 97 12/04/19 15:22 12/04/19 15:22 12/04/19 15:22 12/04/19 15:22 12/04/19 15:22 Oxygen Delivery Method Room Air Weight: 59.421 kg Body Mass Index (BMI) 23.9 Intake and Output for Last 24 Hours 12/02/19 12/03/19 12/04/19 23:59 23:59 23:59 Intake Total 400 / 400 840 / 840 240 / 240 Balance 400 / 400 840 / 840 240 / 240 Laboratory Results 12/04/19 05:32: Total Bilirubin 0.40, Direct Bilirubin 0.15, AST 67 H, ALT 248 H , Alkaline Phosphatase 88, Total Protein 6.3 L, Albumin 3.3, Globulin 3.0 12/04/19 05:40: Sodium 140, Potassium 4.2, Chloride 104, Carbon Dioxide 28.0, Anion Gap 8, BUN 15, Creatinine 0.82, Estim Creat Clear Calc 52.65, Est GFR (MDRD) Af Amer 89, Est GFR (MDRD) Non-Af 74, BUN/Creatinine Ratio 18.2, Glucose 95, Calcium 8.7 Past Medical History Past Medical History (Chronic Problems): Chronic Problems Cholelithiasis (Chronic) Osteoporosis (Chronic) Fatty liver (Chronic) Meningioma (Chronic) DVT (deep venous thrombosis) (Chronic) Hypothyroid (Chronic) M?ni?re's disease (Chronic) Hypertension (Chronic) Allergies ceftriaxone Adverse Reaction (Verified 12/01/19 22:40) Rash cephalexin [From Keflex] Adverse Reaction (Verified 12/01/19 22:40) Rash lisinopril Adverse Reaction (Verified 09/26/19 15:02) Other cough Home Medications: Ambulatory Orders Medication Instructions Recorded Levothyroxine Sodium 50 mcg PO DAILY 09/16/19 Acetaminophen [Tylenol] 650 mg PO Q4H PRN 09/26/19 Alendronate Sodium 1 tab PO WE 09/26/19 Losartan Potassium [Cozaar] 100 mg PO DAILY 09/26/19 Multivitamin with Minerals 1 tab PO DAILY 09/26/19 [Multiple Vitamin] Levetiracetam [Keppra] 1,500 mg PO BID #120 tab 10/06/19 Amlodipine [Norvasc] 10 mg PO DAILY 12/01/19 Apixaban [Eliquis] 5 mg PO BID 12/01/19 Azithromycin 500 mg PO DAILY 12/01/19 Guaifenesin Dm [Robitussin Dm] 5 ml PO Q12H PRN PRN 12/01/19 Lactobacillus Rhamnosus GG 1 ea PO BID 12/01/19 [Culturelle] Phenytoin Na [Dilantin] 200 mg PO BIDCM 12/01/19 Saliva Substitute Combo No.9 15 ml MM TID 12/01/19 [Biotene] Surgical History: - - 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 Paternal History Items: Heart Disease, - - Congestive heart failure. Capacity - Capacity Assessment Tool Can the patient make a choice & communicate that choice?: No Can the patient understand benefits, risks and alternatives?: No Can the patient make a logical, rational choice?: No Is the choice the patient makes consistent w/ their values?: No Is there an impending, emergent risk to the patient?: No Does the patient have an Advance Directive?: No Is there a Surrogate Available?: Yes i.e. HCPOA: Yes i.e. close relative (spouse, child, parent, sibling)?: Yes Review of Systems Constitutional: Denies: Chills, Fever, Weight Change HEENT: Denies: Head Aches, Sinus Congestion, Sinus Drainage Cardiovascular: Denies: Chest Pain, Palpitations Respiratory: Denies: Cough, Shortness of breath at rest, Sputum production Gastrointestinal: Denies: Abdominal Pain, Nausea, Vomiting Genitourinary: Denies: Dysuria Musculoskeletal: Denies: Joint Pain, Joint Tenderness Skin: Denies: Rash, Wounds Neurological: Denies: Numbness, Tingling, Focal weakness Psychiatric: Denies: Anxiety, Depression, Homicidal Ideations, Suicidal Ideations Hematologic/ Lymphatic: Denies: Easy Bruising, Easy Bleeding Patient Problems: Active and Suspected Problems Debility (Acute) Encephalopathy (Acute) Dehydration (Acute) Hyponatremia (Acute) Atypical pneumonia (Acute) Appetite loss (Acute) - Physical Exam Vitals/I&O's: Vital Signs Temp Pulse Resp BP Pulse Ox 98.8 F 102 H 18 146/80 H 97 12/04/19 15:22 12/04/19 15:22 12/04/19 15:22 12/04/19 15:22 12/04/19 15:22 Oxygen Delivery Method Room Air Weight: 59.421 kg Body Mass Index (BMI) 23.9 Intake and Output for Last 24 Hours 12/02/19 12/03/19 12/04/19 23:59 23:59 23:59 Intake Total 400 / 400 840 / 840 240 / 240 Balance 400 / 400 840 / 840 240 / 240 General: Alert, Oriented x3, Cooperative HEENT: Atraumatic, PERRLA, EOMI, Normocephalic Neck: Supple, No JVD, Negative Carotid Bruits Lungs: Clear to auscultation, Normal air movement Cardiovascular: Regular rate, No murmurs Abdomen: Bowel Sounds Present, Soft, Non Tender Extremities: No edema, Capillary Refill Less than 3 Seconds Skin: No rashes, No breakdown Musculoskeletal: No Tenderness to Palpation of Joints or Extremities Neurological: Cranial nerves II-XII grossly intact Psych/Mental Status: Normal Affect, Appropriate Laboratory Results 12/04/19 05:32: Total Bilirubin 0.40, Direct Bilirubin 0.15, AST 67 H, ALT 248 H , Alkaline Phosphatase 88, Total Protein 6.3 L, Albumin 3.3, Globulin 3.0 12/04/19 05:40: Sodium 140, Potassium 4.2, Chloride 104, Carbon Dioxide 28.0, Anion Gap 8, BUN 15, Creatinine 0.82, Estim Creat Clear Calc 52.65, Est GFR (MDRD) Af Amer 89, Est GFR (MDRD) Non-Af 74, BUN/Creatinine Ratio 18.2, Glucose 95, Calcium 8.7 Current Medications Acetaminophen (Tylenol) 650 mg PO Q4H PRN PRN Reason: Pain 1-10/10 or Fever Alendronate Sodium (Fosamax) 70 mg PO WE JUVENAL Amlodipine Besylate (Norvasc) 10 mg PO DAILY [facility] Last Admin: 12/03/19 05:31 Dose: 10 mg Documented by: Apixaban (Eliquis) 5 mg PO BID [facility] Last Admin: 12/04/19 18:23 Dose: 5 mg Documented by: Bisacodyl (Dulcolax) 10 mg PO DAILY PRN PRN Reason: Constipation Emollient Ointment (Eucerin Intensive Repair) 1 applic TOPICAL 2200,0600 [facility]; Protocol Last Admin: 12/04/19 06:53 Dose: 1 applicatio Documented by: Guaifenesin (Robitussin Dm) 5 ml PO Q12H PRN PRN PRN Reason: COUGH Hydrocortisone (Hytone) 1 applic TOPICAL BID PRN PRN; Protocol PRN Reason: ITCHING Lactobacillus Acidophilus (Acidophilus) 1 tablet PO BID [facility] Last Admin: 12/04/19 18:23 Dose: 1 tablet Documented by: Levetiracetam (Keppra Tablet) 500 mg PO BID [facility] Levothyroxine Sodium (Synthroid) 50 mcg PO DAILY [facility] Last Admin: 12/04/19 06:51 Dose: 50 mcg Documented by: Losartan Potassium (Cozaar) 100 mg PO DAILY [facility] Last Admin: 12/04/19 06:51 Dose: 100 mg Documented by: Mirtazapine (Remeron) 7.5 mg PO QHS [facility] Last Admin: 12/03/19 21:00 Dose: 7.5 mg Documented by: Multivitamins/Minerals (Multivitamin With Minerals (Bkc)) 1 tablet PO DAILY@0800 [facility] Last Admin: 12/04/19 08:07 Dose: 1 tablet Documented by: Nutritional Formula (Lactose Free) (Ensure Enlive) 120 ml PO 4X/DAY [facility] Last Admin: 12/04/19 17:33 Dose: 120 ml Documented by: [facility]) [facility] Last Admin: 12/04/19 18:25 Dose: 100 mg Documented by: Polyethylene Glycol (Miralax) 17 gm PO DAILY [facility] Last Admin: 12/04/19 06:50 Dose: Not Given Documented by: Potassium Chloride (K-Dur) [facility] Last Admin: 12/04/19 08:12 Dose: 20 meq Documented by: Saliva Substitute (Biotene) 15 ml MM TID [facility] Last Admin: 12/04/19 14:09 Dose: 15 ml Documented by: Senna/Docusate Sodium (Senokot-S, Maame-Colace) 1 tablet PO BID [facility] Last Admin: 12/04/19 17:34 Dose: Not Given Documented by: Tuberculin PPD (Tubersol, Aplisol, Ppd) 5 tu ID [id number] Stop: 12/09/19 10:01 Assessment/Plan All Active Problems Debility (Acute) Encephalopathy (Acute) Dehydration (Acute) Hyponatremia (Acute) Atypical pneumonia (Acute) Appetite loss (Acute) Seizure disorder (Acute) Subtherapeutic serum dilantin level (Acute) S/P craniotomy (Acute) Physical debility (Acute) S/P resection of meningioma (Acute) Right leg DVT (Acute) 69 year old female with below past medical history significant for recent craniotomy for olfactory groove meningioma, hospitalized for atypical pneumonia, complicated by hyponatremia, dehydration, encephalopathy, admitted to TCU with debility, here for rehabilitation, strengthening, prior to discharge home with . * Encephalopathy - Slowly improving, continues to feel her personality is not at baseline. * Jaundice - CMP ordered. * LFT's abnormal - ALT, AST, Alkaline phosphatase all abnormal, I believe from her seizure medications. Repeat CMP in 1 week after lower doses of seizure medications. * Seizure prophylaxis - Due to her recent craniotomy, resident on seizure medications, she has appt with Dr. Denson in 1 week, lower Keppra from 1500MG twice daily to 500MG twice daily, Lower Dilantin 200MG twice daily to 100MG twice daily. * Hypertension - Blood pressure controlled, Losartan 100MG daily, Amlodipine 10MG daily. * Appetite loss - Mirtazapine 7.5MG daily, she ate breakfast, lunch fair, but refused dinner, should continue to improve as seizure medications lowered.
[2019-12-04] MEDS: levETIRAcetam 500 MG Tablet PO (20:15)
[2019-12-04] MEDS: Mirtazapine 15 MG Tablet 7.5 MG PO (20:18)
[2019-12-04] MEDS: Hydrocortisone 2.5% Crm 1 APPLIC TOPICAL (20:22)
[2019-12-05] MEDS: Saliva Substitute 237 ML BOTTLE 15 ML MM ×3 (05:08→19:59)
[2019-12-05] MEDS: Losartan Potassium 100 MG Tablet PO (05:08)
[2019-12-05] MEDS: Levothyroxine 50 MCG Tablet PO (05:08)
[2019-12-05] MEDS: amLODIPine 10 MG Tablet PO (05:08)
[2019-12-05] MEDS: APIXABAN 5 MG TABLET PO ×2 (05:08→17:35)
[2019-12-05] MEDS: levETIRAcetam 500 MG Tablet PO ×2 (05:08→17:35)
[2019-12-05] MEDS: Phenytoin Na 100 MG Capsule PO ×2 (08:07→17:35)
[2019-12-05] MEDS: Multivitamins,Ther W-Minerals Tablet 1 TABLET PO (08:07)
[2019-12-05 14:51] VITALS: BP 151/83; PULSE 115; RESP 18; TEMP 36.7; O2SAT 96
--- NOTE | 2019-12-05 15:03 | NURSING ---
speech therapy order placed d/t cognition. pt very flat affect, alert and oriented. states she is not herself.
--- NOTE | 2019-12-05 15:07 | NURSING ---
Addendum entered by Francy Jewell 12/05/19 16:32: here, updated him on appt date/time. He has directions that this nurse printed out for him per his request. Original Note: dr gomez office returned call today and wants pt to come in [place] for appt, appt rescheduled with TRUMAN Guerrero 12/05 @ 1:15. Tried reaching no answer and no return call yet.
[2019-12-05] MEDS: Mirtazapine 15 MG Tablet 7.5 MG PO (19:58)
[2019-12-05] MEDS: Hydrocortisone 2.5% Crm 1 APPLIC TOPICAL (21:35)
[2019-12-06] MEDS: Senna/Docusate Sodium 1 Tablet PO (05:04)
[2019-12-06] MEDS: levETIRAcetam 500 MG Tablet PO ×2 (05:04→16:37)
[2019-12-06] MEDS: Alendronate Sodium 70 MG Tablet PO (05:04)
[2019-12-06] MEDS: Polyethylene Glycol 3350 17 GM PACKET PO (05:05)
[2019-12-06] MEDS: Losartan Potassium 100 MG Tablet PO (05:05)
[2019-12-06] MEDS: amLODIPine 10 MG Tablet PO (05:05)
[2019-12-06] MEDS: Levothyroxine 50 MCG Tablet PO (05:05)
[2019-12-06] MEDS: Saliva Substitute 237 ML BOTTLE 15 ML MM ×3 (05:06→20:39)
[2019-12-06] MEDS: APIXABAN 5 MG TABLET PO ×2 (05:06→16:34)
[2019-12-06] MEDS: Multivitamins,Ther W-Minerals Tablet 1 TABLET PO (08:02)
[2019-12-06] MEDS: Phenytoin Na 100 MG Capsule PO ×2 (08:02→16:34)
--- NOTE | 2019-12-06 09:33 | CASEMGMT ---
Social Work IDT met with pt and for care plan meeting. Pt is CGA-min assist for walking and transfers, SBA-CGA all ADLs. Pt is walking 40ft with FWW, PT to work on steps as pt has 4 steps to enter and 5 inside the home. Therapy invited pt to come in for family training. Pt is on regular diet with smaller portions and is drinking ensure, but has lost a pound since admission. ST identified moderate severity of cognition issues and will work on memory, executive functioning, problem solving and recall. ST recommending OP therapy after DC. Explained medicare benefits and asked pt to bring POA paperwork in. Will continue to follow. Lindsey Ye, social work music intern Chayo Webber, [employer] PROGRAM SPECIALIST JEWELRY MAKING INSTRUCTOR
[2019-12-06 09:45] VITALS: PULSE 108; RESP 16
--- NOTE | 2019-12-06 14:56 | PHA.CONS_ITS ---
<EddieJustina - Last Filed: 12/06/19 14:56> Progress Note - Pharmacy Subjective: TCU Admission Objective: Allergies ceftriaxone Adverse Reaction (Verified 12/01/19 22:40) Rash cephalexin [From Keflex] Adverse Reaction (Verified 12/01/19 22:40) Rash lisinopril Adverse Reaction (Verified 09/26/19 15:02) Other cough Current Medications Generic Name Dose Route Start Last Admin Trade Name Freq PRN Reason Stop Dose Admin Acetaminophen 650 mg 12/01/19 16:56 Tylenol PO Q4H PRN Pain 1-07/13 or Fever Alendronate Sodium 70 mg 12/06/19 06:00 12/06/19 05:04 Fosamax PO 70 mg WE JUVENAL Administration Amlodipine Besylate 10 mg 12/02/19 06:00 12/06/19 05:05 Norvasc PO 10 mg DAILY JUVENAL Administration Apixaban 5 mg 12/01/19 18:00 12/06/19 05:06 Eliquis PO 5 mg BID JUVENAL Administration Bisacodyl 10 mg 12/01/19 20:28 Dulcolax PO DAILY PRN Constipation Emollient Ointment 1 applic 12/02/19 06:00 12/06/19 05:07 Eucerin Intensive Repair TOPICAL 1 applicatio 2200,0600 JUVENAL Administration Protocol Guaifenesin 5 ml 12/01/19 16:56 Robitussin Dm PO Q12H PRN PRN COUGH Hydrocortisone 1 applic 12/04/19 08:18 12/05/19 21:35 Hytone TOPICAL 1 applicatio BID PRN PRN Administration ITCHING Protocol Lactobacillus Acidophilus 1 tablet 12/01/19 18:00 12/06/19 05:04 Acidophilus PO 1 tablet BID JUVENAL Administration Levetiracetam 500 mg 12/04/19 18:00 12/06/19 05:04 Keppra Tablet PO 500 mg BID JUVENAL Administration Levothyroxine Sodium 50 mcg 12/02/19 06:00 12/06/19 05:05 Synthroid PO 50 mcg DAILY JUVENAL Administration Losartan Potassium 100 mg 12/02/19 06:00 12/06/19 05:05 Cozaar PO 100 mg DAILY JUVENAL Administration Mirtazapine 7.5 mg 12/01/19 22:00 12/05/19 19:58 Remeron PO 7.5 mg QHS JUVENAL Administration Multivitamins/Minerals 1 tablet 12/02/19 08:00 12/06/19 08:02 Multivitamin With Minerals (Bkc) PO 1 tablet DAILY@0800 JUVENAL Administration Nutritional Formula (Lactose Free) 120 ml 12/01/19 22:00 12/06/19 11:48 Ensure Enlive PO 120 ml 4X/DAY JUVENAL Administration Phenytoin Sodium 100 mg 12/05/19 08:00 12/06/19 08:02 Dilantin PO 100 mg BIDCM JUVENAL Administration Polyethylene Glycol 17 gm 12/02/19 06:00 12/06/19 05:05 Miralax PO 17 gm DAILY JUVENAL Administration Potassium Chloride 20 meq 12/03/19 08:00 12/06/19 08:02 K-Dur PO 20 meq DAILYCM JUVENAL Administration Saliva Substitute 15 ml 12/01/19 22:00 12/06/19 05:06 Biotene MM 15 ml TID JUVENAL Administration Senna/Docusate Sodium 1 tablet 12/02/19 06:00 12/06/19 05:04 Senokot-S, Maame-Colace PO 1 tablet BID JUVENAL Administration Tuberculin PPD 5 tu 12/09/19 10:00 Tubersol, Aplisol, Ppd ID 12/09/19 10:01 X1 ONE Problem List Debility (Acute) Encephalopathy (Acute) Dehydration (Acute) Hyponatremia (Acute) Atypical pneumonia (Acute) Cholelithiasis (Chronic) Osteoporosis (Chronic) Fatty liver (Chronic) Appetite loss (Acute) Meningioma (Chronic) Vital Signs Temp Pulse Resp BP Pulse Ox 98.1 F 108 H 16 151/83 H 96 12/05/19 14:51 12/06/19 09:45 12/06/19 09:45 12/05/19 14:51 12/05/19 14:51 Oxygen Delivery Method Room Air Weight: 58.967 kg Body Mass Index (BMI) 23.9 Sodium 140 mmol/L (136-145) 12/04/19 05:40 Potassium 4.2 mmol/L (3.5-5.1) 12/04/19 05:40 Chloride 104 mmol/L (98-107) 12/04/19 05:40 Carbon Dioxide 28.0 mmol/L (21.0-32.0) 12/04/19 05:40 Anion Gap 8 (5-15) 12/04/19 05:40 BUN 15 mg/dL (7-18) 12/04/19 05:40 Creatinine 0.82 mg/dL (0.55-1.02) 12/04/19 05:40 Est GFR (MDRD) Af Amer 89 mL/min (>60) 12/04/19 05:40 Est GFR (MDRD) Non-Af 74 mL/min (>60) 12/04/19 05:40 BUN/Creatinine Ratio 18.2 RATIO (10-20) 12/04/19 05:40 Glucose 95 mg/dL (74-106) 12/04/19 05:40 Assessment/Plan: 1. Pain: acetaminophen 650mg PO Q4H PRN pain -07/13 or fever. Please continue to monitor for increased pain, fever, and PRN usage. 2. Seizure disorder: levetiracetam 50mcg PO daily and phenytoin 100mg PO BIDCM. Please continue to monitor for S/S of toxicity and seizures. 3. Hypertension: losartan 100mg PO daily and amlodipine 10mg PO daily. Please continue to monitor blood pressure and renal function. 4. DVT: apixaban 5mg PO BID. Please continue to monitor for S/S of bleeding and renal function. 5. Hypothyroidism: levothyroxine 50mcg PO daily. TSH up to date. Please continue to monitor for S/S of hypo/hyperthyroidism. 6. Hypokalemia: potassium chloride 20mEq PO DAILYCM. Please continue to monitor potassium levels. 7. Osteoporosis: alendronate 70mg PO once weekly on Wednesdays. Please continue to monitor for GI side effects. Patient must remain upright for 30 mins after dose is given. Take on an empty stomach. 8. Cough: guaifenesin liquid 5mL PO Q12H PRN cough. Please continue to monitor for cough and PRN usage. 9. Overall nutrition/GI prophylaxis: lactobacillus 1T PO BID and multivitamin with minerals 1T PO DAILYCM. Please continue to monitor. Psychotropic Medications: 1. Appetite: mirtazapine 7.5mg PO QHS. GDR not appropriate. Patient recently started on medication. Please continue to monitor for improvement in appetite. Unnecessary Medications: None *Bowel Regimen: Miralax 17gm PO daily, senna/docusate 1T PO BID, and bisacodyl 10mg PO daily PRN. Patient has refused 4/5 Miralax doses and 8/9 senna/docusate doses. Please consider changing from scheduled to PRN constipation. Thanks. Please continue to monitor for constipation and PRN usage. Date of Note:: 12/06/19 - Provider Comments Provider responsibility: Provider responsible to enter orders to implement recommendations <Bernaeb Lao Chi - Last Filed: 12/06/19 17:07> Progress Note - Pharmacy Subjective: [] Objective: Allergies ceftriaxone Adverse Reaction (Verified 12/01/19 22:40) Rash cephalexin [From Keflex] Adverse Reaction (Verified 12/01/19 22:40) Rash lisinopril Adverse Reaction (Verified 09/26/19 15:02) Other cough Current Medications Generic Name Dose Route Start Last Admin Trade Name Freq PRN Reason Stop Dose Admin Acetaminophen 650 mg 12/01/19 16:56 Tylenol PO Q4H PRN Pain 1-1010 or Fever Alendronate Sodium 70 mg 12/06/19 06:00 12/06/19 05:04 Fosamax PO 70 mg WE JUVENAL Administration Amlodipine Besylate 10 mg 12/02/19 06:00 12/06/19 05:05 Norvasc PO 10 mg DAILY JUVENAL Administration Apixaban 5 mg 12/01/19 18:00 12/06/19 16:34 Eliquis PO 5 mg BID JUVENAL Administration Bisacodyl 10 mg 12/01/19 20:28 Dulcolax PO DAILY PRN Constipation Emollient Ointment 1 applic 12/02/19 06:00 12/06/19 05:07 Eucerin Intensive Repair TOPICAL 1 applicatio 2200,0600 JUVENAL Administration Protocol Guaifenesin 5 ml 12/01/19 16:56 Robitussin Dm PO Q12H PRN PRN COUGH Hydrocortisone 1 applic 12/04/19 08:18 12/05/19 21:35 Hytone TOPICAL 1 applicatio BID PRN PRN Administration ITCHING Protocol Lactobacillus Acidophilus 1 tablet 12/01/19 18:00 12/06/19 16:32 Acidophilus PO 1 tablet BID JUVENAL Administration Levetiracetam 500 mg 12/04/19 18:00 12/06/19 16:37 Keppra Tablet PO 500 mg BID JUVENAL Administration Levothyroxine Sodium 50 mcg 12/02/19 06:00 12/06/19 05:05 Synthroid PO 50 mcg DAILY JUVENAL Administration Losartan Potassium 100 mg 12/02/19 06:00 12/06/19 05:05 Cozaar PO 100 mg DAILY UJVENAL Administration Mirtazapine 7.5 mg 12/01/19 22:00 12/05/19 19:58 Remeron PO 7.5 mg QHS JUVENAL Administration Multivitamins/Minerals 1 tablet 12/02/19 08:00 12/06/19 08:02 Multivitamin With Minerals (Bkc) PO 1 tablet DAILY@0800 JUVENAL Administration Nutritional Formula (Lactose Free) 120 ml 12/01/19 22:00 12/06/19 16:31 Ensure Enlive PO 120 ml 4X/DAY JUVENAL Administration Phenytoin Sodium 100 mg 12/05/19 08:00 12/06/19 16:34 Dilantin PO 100 mg BIDCM JUVENAL Administration Polyethylene Glycol 17 gm 12/02/19 06:00 12/06/19 05:05 Miralax PO 17 gm DAILY JUVENAL Administration Potassium Chloride 20 meq 12/03/19 08:00 12/06/19 08:02 K-Dur PO 20 meq DAILYCM JUVENAL Administration Saliva Substitute 15 ml 12/01/19 22:00 12/06/19 16:30 Biotene MM 15 ml TID JUVENAL Administration Senna/Docusate Sodium 1 tablet 12/02/19 06:00 12/06/19 16:37 Senokot-S, Maame-Colace PO Not Given BID [facility] Tuberculin PPD 5 tu 12/09/19 10:00 Tubersol, Aplisol, Ppd ID 12/09/19 10:01 X1 ONE Problem List Debility (Acute) Encephalopathy (Acute) Dehydration (Acute) Hyponatremia (Acute) Atypical pneumonia (Acute) Cholelithiasis (Chronic) Osteoporosis (Chronic) Fatty liver (Chronic) Appetite loss (Acute) Meningioma (Chronic) Vital Signs Temp Pulse Resp BP Pulse Ox 98.1 F 108 H 16 151/83 H 96 12/05/19 14:51 12/06/19 09:45 12/06/19 09:45 12/05/19 14:51 12/05/19 14:51 Oxygen Delivery Method Room Air Weight: 58.967 kg Body Mass Index (BMI) 23.9 Sodium 140 mmol/L (136-145) 12/04/19 05:40 Potassium 4.2 mmol/L (3.5-5.1) 12/04/19 05:40 Chloride 104 mmol/L (98-107) 12/04/19 05:40 Carbon Dioxide 28.0 mmol/L (21.0-32.0) 12/04/19 05:40 Anion Gap 8 (5-15) 12/04/19 05:40 BUN 15 mg/dL (7-18) 12/04/19 05:40 Creatinine 0.82 mg/dL (0.55-1.02) 12/04/19 05:40 Est GFR (MDRD) Af Amer 89 mL/min (>60) 12/04/19 05:40 Est GFR (MDRD) Non-Af 74 mL/min (>60) 12/04/19 05:40 BUN/Creatinine Ratio 18.2 RATIO (10-20) 12/04/19 05:40 Glucose 95 mg/dL (74-106) 12/04/19 05:40 Assessment/Plan: Psychotropic Medications: Unnecessary Medications: Bowel Regimen: - Provider Comments Provider responsibility: Provider responsible to enter orders to implement recommendations Provider Comments to Recommendations by Pharmacy: Agree
--- NOTE | 2019-12-06 15:24 | NURSING ---
Addendum entered by Francy Jewell 12/07/19 16:29: return call & OK for labs on Wednesday as ordered. Original Note: Patient returned from Dr. oakley. New orders received, for labs. Called doctors office to see if CMP and CBC + DIFF ordered for Wednesday would be expectable. Waiting for return call.
[2019-12-06 16:00] VITALS: BP 148/79; PULSE 110; RESP 18; TEMP 36.8; O2SAT 98
[2019-12-06] MEDS: Mirtazapine 15 MG Tablet 7.5 MG PO (20:40)
[2019-12-07] MEDS: Polyethylene Glycol 3350 17 GM PACKET PO (06:16)
[2019-12-07] MEDS: APIXABAN 5 MG TABLET PO ×2 (06:17→17:37)
[2019-12-07] MEDS: Saliva Substitute 237 ML BOTTLE 15 ML MM ×3 (06:17→22:23)
[2019-12-07] MEDS: Senna/Docusate Sodium 1 Tablet PO ×2 (06:17→17:38)
[2019-12-07] MEDS: Levothyroxine 50 MCG Tablet PO (06:17)
[2019-12-07] MEDS: amLODIPine 10 MG Tablet PO (06:18)
[2019-12-07] MEDS: levETIRAcetam 500 MG Tablet PO ×2 (06:18→17:37)
[2019-12-07] MEDS: Losartan Potassium 100 MG Tablet PO (06:18)
[2019-12-07] MEDS: Phenytoin Na 100 MG Capsule PO ×2 (07:42→17:37)
[2019-12-07] MEDS: Multivitamins,Ther W-Minerals Tablet 1 TABLET PO (07:43)
--- NOTE | 2019-12-07 09:36 | MDS.RN ---
Pain interview for martha 12/08/19 completed.
[2019-12-07 10:36] VITALS: PULSE 98; RESP 16; O2SAT 99
[2019-12-07 15:13] VITALS: BP 150/71; PULSE 111; RESP 16; TEMP 36.6; O2SAT 99
[2019-12-07] MEDS: Mirtazapine 15 MG Tablet 7.5 MG PO (22:24)
[2019-12-08] MEDS: Saliva Substitute 237 ML BOTTLE 15 ML MM ×3 (05:13→20:22)
[2019-12-08] MEDS: APIXABAN 5 MG TABLET PO ×2 (05:14→17:00)
[2019-12-08] MEDS: Losartan Potassium 100 MG Tablet PO (05:14)
[2019-12-08 05:15] VITALS: BP 151/88; PULSE 98; RESP 18; O2SAT 98
[2019-12-08] MEDS: levETIRAcetam 500 MG Tablet PO ×2 (05:15→17:00)
[2019-12-08] MEDS: Levothyroxine 50 MCG Tablet PO (05:15)
[2019-12-08] MEDS: amLODIPine 10 MG Tablet PO (05:16)
[2019-12-08] MEDS: Multivitamins,Ther W-Minerals Tablet 1 TABLET PO (08:02)
[2019-12-08] MEDS: Phenytoin Na 100 MG Capsule PO ×2 (08:02→17:00)
--- NOTE | 2019-12-08 08:03 | NURSING ---
id band would not scan.
[2019-12-08 14:24] VITALS: BP 143/82; PULSE 120; RESP 18; TEMP 37; O2SAT 97
[2019-12-08] MEDS: Mirtazapine 15 MG Tablet 7.5 MG PO (20:22)
[2019-12-09] MEDS: amLODIPine 10 MG Tablet PO (05:39)
[2019-12-09] MEDS: Levothyroxine 50 MCG Tablet PO (05:39)
[2019-12-09] MEDS: Losartan Potassium 100 MG Tablet PO (05:39)
[2019-12-09] MEDS: levETIRAcetam 500 MG Tablet PO ×2 (05:39→17:26)
[2019-12-09] MEDS: Saliva Substitute 237 ML BOTTLE 15 ML MM ×3 (05:39→21:33)
[2019-12-09] MEDS: APIXABAN 5 MG TABLET PO ×2 (05:39→17:26)
[2019-12-09 07:45] LABS: Absolute Lymphocyte Count 0.91 X10^3/uL (0.83-4.51); Absolute Neutrophil Count 4.1 X10^3/uL (2.0-7.7); Basophil# 0.05 X10^3/uL; Basophil% 0.8 % (0-1); Eosinophil# 0.68 X10^3/uL; Eosinophils% 10.5 % (0-5); Hematocrit 37.4 % (37-47); Hemoglobin 12.3 g/dL (12.0-15.0); Lymphocyte # 0.91 X10^3/ul (4.0); Mean Corp Hgb Conc 32.9 g/dL (32-36); Mean Corpuscular Hgb 30.2 pg (27.0-32.0); Mean Corpuscular Volume 91.9 fL (81-99); Mean Platelet Vol. 9.1 fl (6.2-12.0); Monocyte# 0.69 X10^3/uL; Monocyte% 10.6 % (0-10); NRBC Flagged by Analyzer 0 % (0-5); Neutrophil # 4.14 X10^3/uL (2.7-7.7); Neutrophil % 63.8 % (47-70); Platelet Count 251 K/mm3 (150-450); RBC Distribution Width CV 15.2 % (11.6-14.6); RBC Distribution Width SD 50.9 fl (35.1-43.9); Red Blood Count 4.07 M/mm3 (4.2-5.4); White Blood Count 6.5 K/mm3 (4.4-11.0)
[2019-12-09 08:00] LABS: Anion Gap 5 (5-15); BUN 15 mg/dL (7-18); BUN/Creat Ratio 24.5 RATIO (10-20); Calcium,Total 8.4 mg/dL (8.5-10.1); Chloride 105 mmol/L (98-107); Creatinine, Serum 0.61 mg/dL (0.55-1.02); EST Glomerular Filtration Rate 103 mL/min (>60); Est Glom Filt Rate - Afr Amer 125 mL/min (>60); Estimated Creatinine Clearance 43.18 ml/min; Glucose 114 mg/dL (74-106); Sodium Level 138 mmol/L (136-145)
[2019-12-09] MEDS: Phenytoin Na 100 MG Capsule PO ×2 (08:18→17:27)
[2019-12-09] MEDS: Multivitamins,Ther W-Minerals Tablet 1 TABLET PO (08:18)
[2019-12-09] MEDS: Tuberculin,Purif.prot.deriv. 50 TU/ML Vial 5 ML ID (11:16)
[2019-12-09 13:51] VITALS: BP 132/62; PULSE 114; RESP 16; TEMP 35.8; O2SAT 98
[2019-12-09] MEDS: Mirtazapine 15 MG Tablet 7.5 MG PO (21:33)
[2019-12-10] MEDS: Losartan Potassium 100 MG Tablet PO (04:56)
[2019-12-10] MEDS: Levothyroxine 50 MCG Tablet PO (04:57)
[2019-12-10] MEDS: amLODIPine 10 MG Tablet PO (04:57)
[2019-12-10] MEDS: levETIRAcetam 500 MG Tablet PO ×2 (04:57→17:22)
[2019-12-10] MEDS: APIXABAN 5 MG TABLET PO ×2 (04:57→17:22)
[2019-12-10] MEDS: Saliva Substitute 237 ML BOTTLE 15 ML MM ×3 (04:58→20:04)
[2019-12-10] MEDS: Multivitamins,Ther W-Minerals Tablet 1 TABLET PO (07:42)
[2019-12-10] MEDS: Phenytoin Na 100 MG Capsule PO ×2 (07:42→17:22)
[2019-12-10 10:00] VITALS: PULSE 108; RESP 16; O2SAT 99
[2019-12-10 13:14] VITALS: BP 134/77; PULSE 113; RESP 16; TEMP 37.2; O2SAT 99
[2019-12-10] MEDS: Senna/Docusate Sodium 1 Tablet PO (17:22)
[2019-12-10] MEDS: Mirtazapine 15 MG Tablet 7.5 MG PO (20:05)
[2019-12-11] MEDS: APIXABAN 5 MG TABLET PO ×2 (04:06→17:42)
[2019-12-11] MEDS: Losartan Potassium 100 MG Tablet PO (04:06)
[2019-12-11] MEDS: levETIRAcetam 500 MG Tablet PO ×2 (04:06→17:41)
[2019-12-11] MEDS: amLODIPine 10 MG Tablet PO (04:06)
[2019-12-11] MEDS: Levothyroxine 50 MCG Tablet PO (04:06)
[2019-12-11] MEDS: Saliva Substitute 237 ML BOTTLE 15 ML MM ×3 (04:09→21:16)
[2019-12-11 06:49] LABS: Phenytoin (Dilantin) Level 2.7 mL (10.0-20.0)
[2019-12-11 06:54] LABS: ALB/GLOB Ratio 1.1 RATIO (0.9-2.4); AST(SGOT) 32 U/L (15-37); Alanine Aminotransfer ALT/SGPT 158 U/L (13-56); Albumin, Serum 2.9 g/dL (3.2-5.0); Alkaline Phosphatase 67 U/L (45-117); Anion Gap 5 (5-15); BUN 11 mg/dL (7-18); BUN/Creat Ratio 18.9 RATIO (10-20); Calcium,Total 8.7 mg/dL (8.5-10.1); Chloride 109 mmol/L (98-107); Creatinine, Serum 0.58 mg/dL (0.55-1.02); EST Glomerular Filtration Rate 110 mL/min (>60); Est Glom Filt Rate - Afr Amer 133 mL/min (>60); Estimated Creatinine Clearance 43.18 ml/min; Globulin 2.7 g/dL (2.2-4.2); Glucose 123 mg/dL (74-106); Potassium 3.8 mmol/L (3.5-5.1); Protein, Total 5.6 g/dL (6.4-8.2); Sodium Level 139 mmol/L (136-145)
[2019-12-11] MEDS: Phenytoin Na 100 MG Capsule PO ×2 (08:01→17:41)
[2019-12-11] MEDS: Multivitamins,Ther W-Minerals Tablet 1 TABLET PO (08:01)
--- NOTE | 2019-12-11 08:22 | RAD_ITS ---
STUDY: X-RAY CHEST REASON FOR EXAM: Female, 69 years old. PNEUMONIA, WEAKNESS TECHNIQUE: PA and lateral views of the chest. COMPARISON: None. FINDINGS: The lungs are clear and expanded. Scattered calcified granulomas. There is no demonstrated pleural abnormality. Normal size heart. Normal mediastinum and jarocho. Normal visualized pulmonary arteries. Normal visualized aortic arch and descending thoracic aorta. Normal visualized thoracic spine. Normal visualized ribs, clavicles, and shoulders. There is no demonstrated abnormality of the visualized soft tissue structures of the upper abdomen. RAD/Chest PA and Lateral IMPRESSION: Normal x-ray examination of the chest. Electronically Signed: [place], at 14:02 EDT , Service support ,
--- NOTE | 2019-12-11 12:24 | NURSING ---
second shift supervisor reported increased confusion, urinary frequency at times. Dr clarke updated, new order for UA & culture. sent via st cath, 450cc clear yellow urine w/out odor.
[2019-12-11 12:30] LABS: Bacteria 0 SEEN /hpf (None Seen); Mucous, Urine 0 SEEN /hpf (<or=2+); Red Blood Cells-Urine 0 SEEN /hpf (0-5); White Blood Cells 0 SEEN /hpf (0-5)
--- NOTE | 2019-12-11 12:36 | NURSING ---
pt more talkative today, last week not so much. pleasant and cooperative. no confusion noted today.
[2019-12-11 12:44] LABS: Color, Urine Yellow (Yellow); Glucose, Dipstick Normal (Normal); Ketone-Dipstick Negative (Negative); Leukocyte Esterase-Dipstick Negative /ul (Negative); Nitrite-Dipstick Negative (Negative); Occult Blood-Urine Negative /ul (Negative); Protein-Dipstick Negative (Negative); Urine Bilirubin Dipstick Negative (Negative); Urine Clarity Sl. Cloudy (Clear); Urine Urobilinogen Normal (Normal)
[2019-12-11 12:55] LABS: Squamous Epithelial Cells - UA 0-5 SEEN /hpf (5-10)
[2019-12-11 13:32] VITALS: BP 139/79; PULSE 109; RESP 16; TEMP 36.9; O2SAT 96
[2019-12-11] MEDS: Mirtazapine 15 MG Tablet 7.5 MG PO (21:16)
[2019-12-11 21:20] VITALS: BP 113/60; PULSE 106; RESP 16; TEMP 36.9; O2SAT 96
[2019-12-12] MEDS: Losartan Potassium 100 MG Tablet PO (04:41)
[2019-12-12] MEDS: levETIRAcetam 500 MG Tablet PO ×2 (04:41→17:10)
[2019-12-12] MEDS: amLODIPine 10 MG Tablet PO (04:42)
[2019-12-12] MEDS: Levothyroxine 50 MCG Tablet PO (04:42)
[2019-12-12] MEDS: APIXABAN 5 MG TABLET PO ×2 (04:42→17:10)
[2019-12-12] MEDS: Senna/Docusate Sodium 1 Tablet PO (04:42)
[2019-12-12] MEDS: Saliva Substitute 237 ML BOTTLE 15 ML MM ×3 (04:42→20:16)
[2019-12-12] MEDS: Polyethylene Glycol 3350 17 GM PACKET PO (04:51)
[2019-12-12] MEDS: Phenytoin Na 100 MG Capsule PO ×2 (08:10→17:10)
[2019-12-12] MEDS: Multivitamins,Ther W-Minerals Tablet 1 TABLET PO (08:10)
[2019-12-12 10:09] VITALS: PULSE 105; RESP 18; O2SAT 97
--- NOTE | 2019-12-12 13:53 | NURSING ---
Dr Lao aware of dilantin level 2.7, ketrentonra pending.
[2019-12-12 14:16] VITALS: BP 133/71; PULSE 85; RESP 17; TEMP 37.2; O2SAT 99
[2019-12-12] MEDS: Mirtazapine 15 MG Tablet 7.5 MG PO (20:16)
[2019-12-13] MEDS: amLODIPine 10 MG Tablet PO (05:04)
[2019-12-13] MEDS: APIXABAN 5 MG TABLET PO ×2 (05:04→17:57)
[2019-12-13] MEDS: levETIRAcetam 500 MG Tablet PO ×2 (05:04→17:57)
[2019-12-13] MEDS: Levothyroxine 50 MCG Tablet PO (05:04)
[2019-12-13] MEDS: Losartan Potassium 100 MG Tablet PO (05:04)
[2019-12-13] MEDS: Alendronate Sodium 70 MG Tablet PO (05:04)
[2019-12-13] MEDS: Saliva Substitute 237 ML BOTTLE 15 ML MM ×2 (05:05→19:43)
[2019-12-13] MEDS: Phenytoin Na 100 MG Capsule PO ×2 (09:38→17:57)
[2019-12-13] MEDS: Multivitamins,Ther W-Minerals Tablet 1 TABLET PO (09:38)
[2019-12-13 13:12] LABS: KEPPRA (LEVETIRACETAM) 25.9 ug/mL (10.0-40.0)
--- NOTE | 2019-12-13 13:26 | MDS.RN ---
Information for the mds was obtained from review of the clinical record, interview of resident, staff, and direct observation of resident's care.
[2019-12-13 13:51] VITALS: BP 138/74; PULSE 105; RESP 18; TEMP 36.6; O2SAT 100
[2019-12-13] MEDS: Mirtazapine 15 MG Tablet 7.5 MG PO (19:43)
[2019-12-13 22:41] VITALS: TEMP 37
[2019-12-14 06:23] VITALS: BP 130/75; PULSE 105; O2SAT 98
[2019-12-14] MEDS: APIXABAN 5 MG TABLET PO ×2 (06:26→16:45)
[2019-12-14] MEDS: levETIRAcetam 500 MG Tablet PO ×2 (06:26→16:45)
[2019-12-14] MEDS: amLODIPine 10 MG Tablet PO (06:26)
[2019-12-14] MEDS: Levothyroxine 50 MCG Tablet PO (06:27)
[2019-12-14] MEDS: Losartan Potassium 100 MG Tablet PO (06:27)
[2019-12-14] MEDS: Saliva Substitute 237 ML BOTTLE 15 ML MM ×3 (06:29→21:21)
[2019-12-14] MEDS: Phenytoin Na 100 MG Capsule PO ×2 (08:18→16:44)
[2019-12-14] MEDS: Multivitamins,Ther W-Minerals Tablet 1 TABLET PO (08:18)
--- NOTE | 2019-12-14 13:49 | NURSING ---
Back from appointment. Spouse at bedside. They state no new orders from appointment but the doctor would like them to follow up with a seizure specialist in regards to medication management.
[2019-12-14 14:06] VITALS: BP 132/70; PULSE 114; RESP 16; TEMP 37.1; O2SAT 99
[2019-12-14] MEDS: Mirtazapine 15 MG Tablet 7.5 MG PO (21:22)
[2019-12-15] MEDS: Saliva Substitute 237 ML BOTTLE 15 ML MM ×3 (05:37→21:01)
[2019-12-15] MEDS: Levothyroxine 50 MCG Tablet PO (05:37)
[2019-12-15] MEDS: Senna/Docusate Sodium 1 Tablet PO ×2 (05:37→18:17)
[2019-12-15] MEDS: APIXABAN 5 MG TABLET PO ×2 (05:37→18:17)
[2019-12-15] MEDS: Losartan Potassium 100 MG Tablet PO (05:37)
[2019-12-15] MEDS: amLODIPine 10 MG Tablet PO (05:38)
[2019-12-15] MEDS: levETIRAcetam 500 MG Tablet PO ×2 (05:38→18:17)
[2019-12-15] MEDS: Phenytoin Na 100 MG Capsule PO ×2 (08:02→18:17)
[2019-12-15] MEDS: Multivitamins,Ther W-Minerals Tablet 1 TABLET PO (08:02)
[2019-12-15 13:37] VITALS: BP 151/89; PULSE 101; RESP 18; TEMP 36.9; O2SAT 100
[2019-12-15] MEDS: Mirtazapine 15 MG Tablet 7.5 MG PO (21:00)
[2019-12-16 05:14] VITALS: BP 120/76; PULSE 89
[2019-12-16] MEDS: Levothyroxine 50 MCG Tablet PO (05:15)
[2019-12-16] MEDS: Senna/Docusate Sodium 1 Tablet PO ×2 (05:15→17:02)
[2019-12-16] MEDS: APIXABAN 5 MG TABLET PO ×2 (05:15→17:02)
[2019-12-16] MEDS: levETIRAcetam 500 MG Tablet PO ×2 (05:16→17:02)
[2019-12-16] MEDS: Losartan Potassium 100 MG Tablet PO (05:17)
[2019-12-16] MEDS: amLODIPine 10 MG Tablet PO (05:18)
[2019-12-16] MEDS: Saliva Substitute 237 ML BOTTLE 15 ML MM ×3 (05:22→22:21)
[2019-12-16 07:56] LABS: Absolute Neutrophil Count 3.4 X10^3/uL (2.0-7.7); Basophil# 0.04 X10^3/uL; Basophil% 0.7 % (0-1); Eosinophil# 0.35 X10^3/uL; Eosinophils% 6.3 % (0-5); Hematocrit 39.9 % (37-47); Hemoglobin 13.2 g/dL (12.0-15.0); Lymphocyte % 18.1 % (19-41); Mean Corp Hgb Conc 33.1 g/dL (32-36); Mean Corpuscular Volume 93.7 fL (81-99); Mean Platelet Vol. 9.9 fl (6.2-12.0); Monocyte# 0.73 X10^3/uL; Monocyte% 13.2 % (0-10); NRBC Flagged by Analyzer 0 % (0-5); Neutrophil # 3.41 X10^3/uL (2.7-7.7); Neutrophil % 61.5 % (47-70); Platelet Count 229 K/mm3 (150-450); RBC Distribution Width CV 15.5 % (11.6-14.6); RBC Distribution Width SD 53.2 fl (35.1-43.9); Red Blood Count 4.26 M/mm3 (4.2-5.4); White Blood Count 5.5 K/mm3 (4.4-11.0)
[2019-12-16] MEDS: Phenytoin Na 100 MG Capsule PO ×2 (08:01→16:59)
[2019-12-16] MEDS: Multivitamins,Ther W-Minerals Tablet 1 TABLET PO (08:01)
[2019-12-16 08:11] LABS: Anion Gap 6 (5-15); BUN 12 mg/dL (7-18); BUN/Creat Ratio 17.3 RATIO (10-20); Calcium,Total 8.9 mg/dL (8.5-10.1); Chloride 108 mmol/L (98-107); Creatinine, Serum 0.69 mg/dL (0.55-1.02); EST Glomerular Filtration Rate 90 mL/min (>60); Est Glom Filt Rate - Afr Amer 108 mL/min (>60); Estimated Creatinine Clearance 43.18 ml/min; Glucose 92 mg/dL (74-106); Potassium 3.8 mmol/L (3.5-5.1); Sodium Level 140 mmol/L (136-145)
[2019-12-16 13:40] VITALS: BP 135/75; PULSE 100; RESP 16; TEMP 36.9; O2SAT 97
[2019-12-16] MEDS: Menthol/Lanolin/Calamine/Znox 113 GM Tube 1 APPLIC TOPICAL (22:20)
[2019-12-16] MEDS: Mirtazapine 15 MG Tablet 7.5 MG PO (22:21)
[2019-12-17] MEDS: APIXABAN 5 MG TABLET PO ×2 (05:53→17:15)
[2019-12-17] MEDS: Saliva Substitute 237 ML BOTTLE 15 ML MM ×3 (05:54→19:39)
[2019-12-17] MEDS: Levothyroxine 50 MCG Tablet PO (05:54)
[2019-12-17] MEDS: Menthol/Lanolin/Calamine/Znox 113 GM Tube 1 APPLIC TOPICAL ×2 (05:54→19:40)
[2019-12-17] MEDS: levETIRAcetam 500 MG Tablet PO ×2 (05:54→17:14)
[2019-12-17] MEDS: Losartan Potassium 100 MG Tablet PO (05:54)
[2019-12-17] MEDS: amLODIPine 10 MG Tablet PO (05:54)
[2019-12-17] MEDS: Senna/Docusate Sodium 1 Tablet PO ×2 (05:54→17:17)
[2019-12-17] MEDS: Multivitamins,Ther W-Minerals Tablet 1 TABLET PO (07:58)
[2019-12-17] MEDS: Phenytoin Na 100 MG Capsule PO ×2 (07:58→17:14)
[2019-12-17 13:54] VITALS: BP 141/75; PULSE 104; RESP 16; TEMP 36.6; O2SAT 99
--- NOTE | 2019-12-17 15:19 | NURSING ---
Awware of Vital Signs that were taken today at 1354.
[2019-12-17] MEDS: Mirtazapine 15 MG Tablet 7.5 MG PO (19:41)
[2019-12-18] MEDS: Levothyroxine 50 MCG Tablet PO (05:59)
[2019-12-18] MEDS: Saliva Substitute 237 ML BOTTLE 15 ML MM ×3 (05:59→21:04)
[2019-12-18] MEDS: levETIRAcetam 500 MG Tablet PO ×2 (05:59→18:06)
[2019-12-18] MEDS: APIXABAN 5 MG TABLET PO ×2 (05:59→18:06)
[2019-12-18] MEDS: Senna/Docusate Sodium 1 Tablet PO ×2 (05:59→18:07)
[2019-12-18] MEDS: Losartan Potassium 100 MG Tablet PO (05:59)
[2019-12-18] MEDS: amLODIPine 10 MG Tablet PO (05:59)
[2019-12-18] MEDS: Menthol/Lanolin/Calamine/Znox 113 GM Tube 1 APPLIC TOPICAL ×2 (06:01→21:08)
[2019-12-18] MEDS: Multivitamins,Ther W-Minerals Tablet 1 TABLET PO (07:52)
[2019-12-18] MEDS: Phenytoin Na 100 MG Capsule PO ×2 (11:38→18:05)
[2019-12-18 14:31] VITALS: BP 119/68; PULSE 111; RESP 16; TEMP 36.9; O2SAT 99
--- NOTE | 2019-12-18 15:15 | CASEMGMT ---
Social Work Spoke with patient about DC plans. Pt requesting to DC home with 12/19 with outpatient therapy at [facility]. Referral made for PT/OT/ST. NO DME needs. Chayo Webber MSW PLASTICS SCIENTIST
--- NOTE | 2019-12-18 20:01 | DCINST_ITS ---
- Discharge Diagnoses Current Active Problems: Current Active and Chronic Problems Debility (Acute) Encephalopathy (Acute) Dehydration (Acute) Hyponatremia (Acute) Atypical pneumonia (Acute) Cholelithiasis (Chronic) Osteoporosis (Chronic) Fatty liver (Chronic) Appetite loss (Acute) Meningioma (Chronic) You will use the following diet at home:: No restrictions, Regular Your food should be the consistency of: Regular Your liquids should be the consistency of: Regular/Thin Discharge Activity: Return to Normal Activity, May Shower, Use Walker Weight Bearing Status: Weight bearing as tolerated Call your doctor if you observe: Fever of 101 or Higher, Inability to urinate, Inability to have a bowel movement, Shortness of breath, Chest pain, Uncontrolled pain Allergies/Adverse Reactions: Allergies ceftriaxone Adverse Reaction (Verified 12/01/19 22:40) Rash cephalexin [From Keflex] Adverse Reaction (Verified 12/01/19 22:40) Rash lisinopril Adverse Reaction (Verified 09/26/19 15:02) Other cough Medications to take at Discharge Levothyroxine Sodium 50 mcg PO DAILY 09/16/19 Acetaminophen [Tylenol] 650 mg PO Q4H PRN 09/26/19 Losartan Potassium [Cozaar] 100 mg PO DAILY 09/26/19 Multivitamin with Minerals [Multiple Vitamin] 1 tab PO DAILY 09/26/19 Lactobacillus Rhamnosus GG [Culturelle] 1 ea PO BID 12/01/19 Saliva Substitute Combo No.9 [Biotene] 15 ml MM TID 12/01/19 Alendronate Sodium 1 tab PO WE #4 tab 12/18/19 Amlodipine [Norvasc] 10 mg PO DAILY #30 tab 12/18/19 Apixaban [Eliquis] 5 mg PO BID #60 tab 12/18/19 Emollient Combination No.72 [Eucerin Intensive Repair] 1 applic TOPICAL 2200,0600 lotion 12/18/19 Menthol/Lanolin/Calamine/Znox [Calmoseptine Ointment] 1 applic TOPICAL BID@0600,2200 tube 12/18/19 Mirtazapine [Remeron] 7.5 mg PO QHS #30 tab 12/18/19 Phenytoin Na [Dilantin] 100 mg PO BIDCM #60 cap 12/18/19 Potassium Chloride [K-Dur] 20 meq PO DAILYCM #30 tab 12/18/19 levETIRAcetam tablet [Keppra tablet] 500 mg PO BID #60 tab 12/18/19 The following prescriptions were given: Alendronate Sodium 1 tab PO WE #4 tab Transmission Status: [facility] Phenytoin Na [Dilantin] 100 mg PO BIDCM #60 cap Transmission Status: [facility] Apixaban [Eliquis] 5 mg PO BID #60 tab Transmission Status: [facility] Potassium Chloride [K-Dur] 20 meq PO DAILYCM #30 tab Transmission Status: [facility] levETIRAcetam tablet [Keppra tablet] 500 mg PO BID #60 tab Transmission Status: [facility] Amlodipine [Norvasc] 10 mg PO DAILY #30 tab Transmission Status: [facility] Mirtazapine [Remeron] 7.5 mg PO QHS #30 tab Transmission Status: [facility] Primary Care Physician: Johnathon Delgado MD [Primary Care Provider] - Please follow up with your Primary Care Physician in: 1 week. Test Results: Test results from this visit will be discussed in further detail at your follow- up appointment, if applicable. Please Follow Up With: TRUMAN Guerrero to Dr Denson (neurologist) When: SEEing Yolanda LAUGHLIN 12/10 Please Follow Up With: Johnathon Delgado MD When: after DC from [facility] Please Follow Up With: Brian Denson When: [phone] Please Follow Up With: JUAN C Allen Neur/spine- Sara Dotson Please Follow Up With: Sara Dotson Proposed Discharge Date: 12/20/19
--- NOTE | 2019-12-18 20:02 | DS.PCM_ITS ---
Discharge Date and Diagnosis - Problem List Patient Problems: Active and Suspected Problems Debility (Acute) Encephalopathy (Acute) Dehydration (Acute) Hyponatremia (Acute) Atypical pneumonia (Acute) Appetite loss (Acute) Date of Admission: 12/01/19 Date of Discharge: 12/20/19 - Primary Discharge Diagnosis Active and Suspected Problems Debility (Acute) Encephalopathy (Acute) Dehydration (Acute) Hyponatremia (Acute) Atypical pneumonia (Acute) Appetite loss (Acute) - Secondary Discharge Diagnosis Chronic Problems Cholelithiasis (Chronic) Osteoporosis (Chronic) Fatty liver (Chronic) Meningioma (Chronic) DVT (deep venous thrombosis) (Chronic) Hypothyroid (Chronic) 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 Electronically Signed: [place], at 14:02 EDT , Service support , Operations: None Procedures: None Summary of Care Provided: The patient is a 69 year old Female with below past medical history significant for recent craniotomy for olfactory groove meningioma, hospitalized for atypical pneumonia, complicated by hyponatremia, dehydration, encephalopathy, admitted to TCU with debility, here for rehabilitation, strengthening, prior to discharge home with . Seizures controlled with Keppra, Dilantin. Potassium added for hypokalemia, monitor and stop as outpatient. Eliquis added for DVT, consider discontinuation 03/2020. Mirtazapine added for appetite loss, consider stopping as outpatient. Discharge home with , outpatient PT/OT/ST at [facility]. Patient Problems: Active and Suspected Problems Debility (Acute) Encephalopathy (Acute) Dehydration (Acute) Hyponatremia (Acute) Atypical pneumonia (Acute) Appetite loss (Acute) - Physical Exam Vitals/I&O's: Vital Signs Temp Pulse Resp BP Pulse Ox 98.5 F 111 H 16 119/68 99 12/18/19 14:31 12/18/19 14:31 12/18/19 14:31 12/18/19 14:31 12/18/19 14:31 Oxygen Delivery Method Room Air Weight: 58.655 kg Body Mass Index (BMI) 23.9 Intake and Output for Last 24 Hours 12/16/19 12/17/19 12/18/19 23:59 23:59 23:59 Intake Total 840 / 840 720 / 720 480 / 480 Balance 840 / 840 720 / 720 480 / 480 Current Medications Acetaminophen (Tylenol) 650 mg PO Q4H PRN PRN Reason: Pain -07/13 or Fever Alendronate Sodium (Fosamax) 70 mg PO WE [facility] Last Admin: 12/13/19 05:04 Dose: 70 mg Documented by: Amlodipine Besylate (Norvasc) 10 mg PO DAILY [facility] Last Admin: 12/18/19 05:59 Dose: 10 mg Documented by: Apixaban (Eliquis) 5 mg PO BID [facility] Last Admin: 12/18/19 18:06 Dose: 5 mg Documented by: Bisacodyl (Dulcolax) 10 mg PO DAILY PRN PRN Reason: Constipation Calamine/Phenol (Calmoseptine Ointment) 1 applic TOPICAL BID@0600,2200 [facility]; Protocol Last Admin: 12/18/19 06:01 Dose: 1 applicatio Documented by: Emollient Ointment (Eucerin Intensive Repair) 1 applic TOPICAL 2200,0600 [facility]; Protocol Last Admin: 12/18/19 06:01 Dose: 1 applicatio Documented by: Guaifenesin (Robitussin Dm) 5 ml PO Q12H PRN PRN PRN Reason: COUGH Hydrocortisone (Hytone) 1 applic TOPICAL BID PRN PRN; Protocol PRN Reason: ITCHING Last Admin: 12/05/19 21:35 Dose: 1 applicatio Documented by: Lactobacillus Acidophilus (Acidophilus) 1 tablet PO BID [facility] Last Admin: 12/18/19 18:06 Dose: 1 tablet Documented by: Levetiracetam (Keppra Tablet) 500 mg PO BID [facility] Last Admin: 12/18/19 18:06 Dose: 500 mg Documented by: Levothyroxine Sodium (Synthroid) 50 mcg PO DAILY [facility] Last Admin: 12/18/19 05:59 Dose: 50 mcg Documented by: Losartan Potassium (Cozaar) 100 mg PO DAILY [facility] Last Admin: 12/18/19 05:59 Dose: 100 mg Documented by: Mirtazapine (Remeron) 7.5 mg PO QHS [facility] Last Admin: 12/17/19 19:41 Dose: 7.5 mg Documented by: Multivitamins/Minerals (Multivitamin With Minerals (Bkc)) 1 tablet PO DAILY@0800 [facility] Last Admin: 12/18/19 07:52 Dose: 1 tablet Documented by: Nutritional Formula (Lactose Free) (Ensure Enlive) 120 ml PO 4X/DAY [facility] Last Admin: 12/18/19 18:08 Dose: 120 ml Documented by: [facility]in) [facility] Admin: 12/18/19 18:05 Dose: 100 mg Documented by: Polyethylene Glycol (Miralax) 17 gm PO DAILY [facility] Last Admin: 12/18/19 06:02 Dose: Not Given Documented by: Potassium Chloride (K-Dur) [facility] Admin: 12/18/19 07:52 Dose: 20 meq Documented by: Saliva Substitute (Biotene) 15 ml MM TID [facility] Last Admin: 12/18/19 14:33 Dose: 15 ml Documented by: Senna/Docusate Sodium (Senokot-S, Maame-Colace) 1 tablet PO BID [facility] Last Admin: 12/18/19 18:07 Dose: 1 tablet Documented by: Discharge Diet: No Restrictions Discharge Activity: Return to Normal Activity, May Shower, Use Walker Weight Bearing Status: Weight bearing as tolerated Call your doctor if you observe: Fever of 101 or Higher, Inability to urinate, Inability to have a bowel movement, Shortness of breath, Chest pain, Uncontrolled pain Home Medications: Medications to take at Discharge Levothyroxine Sodium 50 mcg PO DAILY 09/16/19 Acetaminophen [Tylenol] 650 mg PO Q4H PRN 09/26/19 Losartan Potassium [Cozaar] 100 mg PO DAILY 09/26/19 Multivitamin with Minerals [Multiple Vitamin] 1 tab PO DAILY 09/26/19 Lactobacillus Rhamnosus GG [Culturelle] 1 ea PO BID 12/01/19 Saliva Substitute Combo No.9 [Biotene] 15 ml MM TID 12/01/19 Alendronate Sodium 1 tab PO WE #4 tab 12/18/19 Amlodipine [Norvasc] 10 mg PO DAILY #30 tab 12/18/19 Apixaban [Eliquis] 5 mg PO BID #60 tab 12/18/19 Emollient Combination No.72 [Eucerin Intensive Repair] 1 applic TOPICAL 2200,0600 lotion 12/18/19 Menthol/Lanolin/Calamine/Znox [Calmoseptine Ointment] 1 applic TOPICAL BID@0600,2200 tube 12/18/19 Mirtazapine [Remeron] 7.5 mg PO QHS #30 tab 12/18/19 Phenytoin Na [Dilantin] 100 mg PO BIDCM #60 cap 12/18/19 Potassium Chloride [K-Dur] 20 meq PO DAILYCM #30 tab 12/18/19 levETIRAcetam tablet [Keppra tablet] 500 mg PO BID #60 tab 12/18/19 Following Prescrptions Were Given to Patient: Alendronate Sodium 1 tab PO WE #4 tab Transmission Status: [facility] Phenytoin Na [Dilantin] 100 mg PO BIDCM #60 cap Transmission Status: [facility] Apixaban [Eliquis] 5 mg PO BID #60 tab Transmission Status: [facility] Potassium Chloride [K-Dur] 20 meq PO DAILYCM #30 tab Transmission Status: [facility] levETIRAcetam tablet [Keppra tablet] 500 mg PO BID #60 tab Transmission Status: [facility] Amlodipine [Norvasc] 10 mg PO DAILY #30 tab Transmission Status: [facility] Mirtazapine [Remeron] 7.5 mg PO QHS #30 tab Transmission Status: [facility] Primary Care Physician: Johnathon Delgado MD [Primary Care Provider] - Please follow up with your Primary Care Physician in: 1 week. Please Follow Up With: TRUMAN Guerrero to Dr Denson (neurologist) When: SEEing Yolanda LAUGHLIN 12/10 Please Follow Up With: Johnathon Delgado MD When: after DC from [facility] Please Follow Up With: Brian Denson When: [phone] Please Follow Up With: [facility] [place] Neur/spine- Sara Dotson Please Follow Up With: Sara Dotson Disposition: Home Minutes spent on discharge:: 30 Patient Condition:: Stable Medical Necessity - Tobacco Use Smoking Status: Never smoker Tobacco Use: Non-smoker Meaningful Use Info Meaningful Use Diagnoses (Choose all that apply): None applicable
[2019-12-18] MEDS: Mirtazapine 15 MG Tablet 7.5 MG PO (21:04)
[2019-12-19] MEDS: Losartan Potassium 100 MG Tablet PO (05:42)
[2019-12-19] MEDS: levETIRAcetam 500 MG Tablet PO ×2 (05:42→17:16)
[2019-12-19] MEDS: APIXABAN 5 MG TABLET PO ×2 (05:42→17:16)
[2019-12-19] MEDS: amLODIPine 10 MG Tablet PO (05:43)
[2019-12-19] MEDS: Levothyroxine 50 MCG Tablet PO (05:43)
[2019-12-19] MEDS: Menthol/Lanolin/Calamine/Znox 113 GM Tube 1 APPLIC TOPICAL ×2 (05:43→20:28)
[2019-12-19] MEDS: Senna/Docusate Sodium 1 Tablet PO (05:43)
[2019-12-19] MEDS: Multivitamins,Ther W-Minerals Tablet 1 TABLET PO (08:14)
[2019-12-19] MEDS: Phenytoin Na 100 MG Capsule PO ×2 (08:14→17:15)
[2019-12-19 14:06] VITALS: BP 139/65; PULSE 107; RESP 14; TEMP 36.7; O2SAT 96
[2019-12-20] MEDS: Levothyroxine 50 MCG Tablet PO (05:09)
[2019-12-20] MEDS: amLODIPine 10 MG Tablet PO (05:09)
[2019-12-20] MEDS: Losartan Potassium 100 MG Tablet PO (05:09)
[2019-12-20] MEDS: APIXABAN 5 MG TABLET PO (05:09)
[2019-12-20] MEDS: levETIRAcetam 500 MG Tablet PO (05:09)
[2019-12-20] MEDS: Alendronate Sodium 70 MG Tablet PO (05:10)
[2019-12-20] MEDS: Menthol/Lanolin/Calamine/Znox 113 GM Tube 1 APPLIC TOPICAL (05:13)
[2019-12-20] MEDS: Multivitamins,Ther W-Minerals Tablet 1 TABLET PO (07:51)
[2019-12-20] MEDS: Phenytoin Na 100 MG Capsule PO (07:51)
[2019-12-20 07:54] VITALS: PULSE 98; RESP 16; O2SAT 98
[2019-12-20 11:08] VITALS: BP 131/71; PULSE 102; RESP 16; TEMP 36.8; O2SAT 98
--- NOTE | 2019-12-20 16:19 | CASEMGMT ---
Social Work Reviewed and agreed with social work quality assurance intern documentation on this date. Chayo Webber, EMISSION SPECIALIST ARMATURE TESTER
--- NOTE | 2019-12-21 16:13 | CASEMGMT ---
Social Work Reviewed and agreed with social work journalism internship documentation on this date. Chayo Webber, PORTER BATH TRANSVERSE ABDOMINAL MUSCLE SURGEON
== END 2019-12-20 13:00 | disposition home or self-care (01) | DRG 949 ==
PROVIDERS: Admitting Provider Family Medicine Geriatric Medicine; PCP Family Medicine; Referring Provider Family Medicine Geriatric Medicine; Visit Provider Family Medicine Geriatric Medicine
DX: Z48.3 Aftercare following surgery for neoplasm (principal); J18.9 Pneumonia, unspecified organism; G93.40 Encephalopathy, unspecified; I10 Essential (primary) hypertension; M81.0 Age-related osteoporosis without current pathological fracture; E03.9 Hypothyroidism, unspecified; G40.909 Epilepsy, unspecified, not intractable, without status epilepticus; Z86.718 Personal history of other venous thrombosis and embolism; Z86.011 Personal history of benign neoplasm of the brain
CPT/HCPCS: 36415; 71046; 80048; 80053; 80076; 80177; 80185; 81001; 85025; 87086; 92507; 92523; 97110; 97116; 97162; 97166; 97530; 97535; 97802

== ENCOUNTER → 2019-12-22 07:20 | Outpatient (CLI) | payer MEDICARE, OTHER, SELFPAY ==
[2019-09-26 15:00] VITALS: BMI 27.5
[2019-12-01 16:43] VITALS: BMI 23.9
== END ==
PROVIDERS: PCP Family Medicine
DX: R56.9 Unspecified convulsions (principal); Z98.890 Other specified postprocedural states; Z86.018 Personal history of other benign neoplasm
CPT/HCPCS: 95819

== ENCOUNTER → 2019-12-25 15:41 | Outpatient (CLI) | payer MEDICARE, OTHER, SELFPAY ==
[2019-12-01 16:43] VITALS: BMI 23.9
[2019-12-25 18:15] LABS: ALB/GLOB Ratio 1.2 RATIO (0.9-2.4); AST(SGOT) 19 U/L (15-37); Alanine Aminotransfer ALT/SGPT 48 U/L (13-56); Albumin, Serum 3.9 g/dL (3.2-5.0); Alkaline Phosphatase 79 U/L (45-117); Anion Gap 9 (5-15); BUN 10 mg/dL (7-18); BUN/Creat Ratio 12.6 RATIO (10-20); Calcium,Total 9.2 mg/dL (8.5-10.1); Chloride 103 mmol/L (98-107); Creatinine, Serum 0.79 mg/dL (0.55-1.02); EST Glomerular Filtration Rate 77 mL/min (>60); Est Glom Filt Rate - Afr Amer 93 mL/min (>60); Globulin 3.3 g/dL (2.2-4.2); Glucose 83 mg/dL (74-106); Potassium 3.7 mmol/L (3.5-5.1); Protein, Total 7.2 g/dL (6.4-8.2); Sodium Level 140 mmol/L (136-145)
== END ==
PROVIDERS: PCP Family Medicine; Referring Provider Family Medicine; Visit Provider Family Medicine
DX: R94.5 Abnormal results of liver function studies (principal)
CPT/HCPCS: 36415; 80053

== ENCOUNTER → 2020-02-23 08:44 | Outpatient (CLI) | payer MEDICARE, OTHER, SELFPAY ==
[2020-02-15 09:05] VITALS: BMI 24.4
[2020-02-23 10:20] LABS: T4 Free Direct 1.06 ng/dL (0.76-1.46); Thyroid Stim Hormone (TSH) 2.06 uIU/mL (0.358-3.74)
== END ==
PROVIDERS: PCP Family Medicine; Referring Provider Family Medicine; Visit Provider Family Medicine
DX: E03.9 Hypothyroidism, unspecified (principal)
CPT/HCPCS: 36415; 80048; 84439; 84443; 85027

== ENCOUNTER 2020-02-29 09:24 | Day surgery (SDC) | payer MEDICARE, OTHER, SELFPAY ==
[2020-02-15 09:05] VITALS: BMI 24.4
--- NOTE | 2020-02-15 09:31 | HP_ITS ---
Intake Vital Signs 02/15/20 Height 5 ft 1 in 02/15/20 Weight: 129 lb 4 oz 02/15/20 BMI 24.4 02/15/20 BP 153/79 H 02/15/20 Blood Pressure Location Rt brachial 02/15/20 Position Sitting 02/15/20 Respiration 18 02/15/20 Pulse 86 02/15/20 Pulse Oximetry (%) 99 Intake Visit Reasons: IVC REMOVAL Chief Complaint: IVC removal Wheel Worker Required: No Is patient in pain?: No Allergies ceftriaxone Adverse Reaction (Verified 02/15/20 09:03) Rash cephalexin [From Keflex] Adverse Reaction (Verified 02/15/20 09:03) Rash lisinopril Adverse Reaction (Verified 02/15/20 09:03) Other Medications Levothyroxine Sodium 50 mcg PO DAILY 09/16/19 [History Confirmed 02/15/20] Acetaminophen [Tylenol] 650 mg PO Q4H PRN 09/26/19 [History Confirmed 02/15/20] Losartan Potassium [Cozaar] 100 mg PO DAILY 09/26/19 [History Confirmed 02/15/20] Multivitamin with Minerals [Multiple Vitamin] 1 tab PO DAILY 09/26/19 [History Confirmed 02/15/20] Lactobacillus Rhamnosus GG [Culturelle] 1 ea PO BID 12/01/19 [History Confirmed 02/15/20] Saliva Substitute Combo No.9 [Biotene] 15 ml MM TID 12/01/19 [History Confirmed 02/15/20] Alendronate Sodium 1 tab PO WE #4 tab 12/18/19 [Rx Confirmed 02/15/20] Amlodipine [Norvasc] 10 mg PO DAILY #30 tab 12/18/19 [Rx Confirmed 02/15/20] Phenytoin Na [Dilantin] 100 mg PO BIDCM #60 cap 12/18/19 [Rx Confirmed 02/15/20] levETIRAcetam tablet [Keppra tablet] 500 mg PO BID #60 tab 12/18/19 [Rx Confirmed 02/15/20] Is last menstrual period known: No Post menopausal: Yes Patient : No PFSH Medical History (Updated 02/15/20 @ 09:[address] 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 Scott Byrd MD) Smoking Status: Never smoker HPI HPI HPI: JAMIN AU, is a 69 F who presents to the office today for HPI HPI Surgical H&P: Yes HPI: JAMIN AU, is a 69 F who presents to the office today for surgical consultation for removal of an inferior vena cava filter. It is of note that on September 28, 2019 I placed a right internal jugular [place] vena cava filter because of patient's right lower extremity deep venous thrombosis and contraindication to anticoagulation because of a recent stroke. She has now been cleared by her technical sales advisor Dr. Serrano for removal of her filter. She has 4 days of Eliquis remaining. She had a recent duplex exam of the right lower extremity on January 19, 2020 at the [facility] which was negative for DVT. She does have some mild swelling of the right lower extremity but she is going to reinstitute wearing support hose. She otherwise has been in stable health since her discharge. ROS General General: Yes weight change; no appetite, fatigue, colon cancer, breast cancer or weakness HEENT HEENT: No difficulty swallowing, eye injury, eye surgery, swollen glands or hoarseness Endo Endocrine: Yes thyroid disease; no diabetes mellitus, thyroid cancer, Hair loss, heat intolerance or cold intolerance Musc Musculoskeletal: Yes arthritis; no back problems, rheumatoid arthritis, gout or joint pain Cardio Cardiovascular: Yes high blood pressure; no murmur, pacemaker, heart disease, atrial fibrillation, heart attack, heart stent, palpitations, shortness of breat with exertion or chest pain Psych Psychiatric: No depression, anxiety or hearing voices Resp Respiratory: No shortness of breath, No sleep apnea, No cough, No COPD, No asthma, No emphysema, No wheezing Gastro Gastrointestinal: No abdominal pain, No nausea or vomiting, No diarrhea, No constipation, No blood in stool, No acid reflux, No hemorrhoids, No ulcers, No gallbladder problem, No black,tarry stools [place] Hematologic: Yes blood thinners, No blood disorders, No bleeding, No anemia, No blood clots Neuro Neurologic: No weakness Exam Const General: cooperative, comfortable, no acute distress Nutritional Appearance: average body habitus Orientation: alert, awake HENMA Head: normal to inspection Neck Neck: normal visual inspection Other: Supple, well-healed access site for placement of the filter. Chest Chest palpation & inspection: normal inspection of the chest Resp Effort & Inspection: normal respiratory effort Auscultation: clear to auscultation bilaterally Cardio Rate: regular rate Rhythm: regular rhythm Heart Sounds: no murmurs GI Palpation: soft Extrem Other: Mild swelling right lower extremity. Nontender. No pitting. Psych Affect: normal affect Assessment & Plan Problems 1. Presence of vena cava filter Z95.828 Plan The patient is in the office today with her present. I propose for her a inferior vena cava filter retrieval with inferior venacavogram via a right internal jugular approach performed under mild IV sedation and local anesthetic. In detail I discussed the technique, benefit, risk and alternatives. No guarantees of success have been offered. She is aware that additional efforts at removal including right femoral approach could be required. She has had an opportunity to ask and have questions answered. She does remember pressure at the placement of the filter but no actual pain. We also discussed the current Covid-19 pandemic. The [facility] administration has advised as of a low local incidence. The patient and have had an opportunity to ask and have questions answered. Risk benefits would suggest appropriateness of removing the filter for her. As noted she has 4 more days of Eliquis. We will schedule and proceed at her discretion. I very much appreciate the kind opportunity of continue to assist with her surgical care. Cc: Dr. Ramakrishna Moseley and Dr. Faisal Byrd M.D., F.A.C.S. Coding Level of Care Code Off vis,est,level 2 Diagnoses Presence of vena cava filter [id number] <Electronically signed by Scott west MD> Date _ Scott Byrd MD
[2020-02-23 10:00] LABS: Hematocrit 41.3 % (37-47); Hemoglobin 13.9 g/dL (12.0-15.0); Mean Corp Hgb Conc 33.7 g/dL (32-36); Mean Corpuscular Hgb 31.6 pg (27.0-32.0); Mean Corpuscular Volume 93.9 fL (81-99); Mean Platelet Vol. 10.1 fl (6.2-12.0); Platelet Count 245 K/mm3 (150-450); RBC Distribution Width CV 12.2 % (11.6-14.6); RBC Distribution Width SD 42.2 fl (35.1-43.9); White Blood Count 4.4 K/mm3 (4.4-11.0)
[2020-02-23 13:13] LABS: Anion Gap 6 (5-15); BUN 14 mg/dL (7-18); BUN/Creat Ratio 17.2 RATIO (10-20); Calcium,Total 9.1 mg/dL (8.5-10.1); Chloride 111 mmol/L (98-107); Creatinine, Serum 0.82 mg/dL (0.55-1.02); EST Glomerular Filtration Rate 74 mL/min (>60); Est Glom Filt Rate - Afr Amer 90 mL/min (>60); Glucose 78 mg/dL (74-106); Potassium 3.9 mmol/L (3.5-5.1); Sodium Level 143 mmol/L (136-145)
[2020-02-28 10:42] VITALS: BMI 24.3
--- NOTE | 2020-02-29 10:51 | HP.PCM_ITS ---
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: No Is patient in pain?: No Allergies ceftriaxone Adverse Reaction (Verified 02/15/20 09:03) Rash cephalexin [From Keflex] Adverse Reaction (Verified 02/15/20 09:03) Rash lisinopril Adverse Reaction (Verified 02/15/20 09:03) Other Medications Levothyroxine Sodium 50 mcg PO DAILY 09/16/19 [History Confirmed 02/15/20] Acetaminophen [Tylenol] 650 mg PO Q4H PRN 09/26/19 [History Confirmed 02/15/20] Losartan Potassium [Cozaar] 100 mg PO DAILY 09/26/19 [History Confirmed 02/15/20] Multivitamin with Minerals [Multiple Vitamin] 1 tab PO DAILY 09/26/19 [History Confirmed 02/15/20] Lactobacillus Rhamnosus GG [Culturelle] 1 ea PO BID 12/01/19 [History Confirmed 02/15/20] Saliva Substitute Combo No.9 [Biotene] 15 ml MM TID 12/01/19 [History Confirmed 02/15/20] Alendronate Sodium 1 tab PO WE #4 tab 12/18/19 [Rx Confirmed 02/15/20] Amlodipine [Norvasc] 10 mg PO DAILY #30 tab 12/18/19 [Rx Confirmed 02/15/20] Phenytoin Na [Dilantin] 100 mg PO BIDCM #60 cap 12/18/19 [Rx Confirmed 02/15/20] levETIRAcetam tablet [Keppra tablet] 500 mg PO BID #60 tab 12/18/19 [Rx Confirmed 02/15/20] Is last menstrual period known: No Post menopausal: Yes Patient : No PFSH Medical History (Updated 02/15/20 @ 09:[address] 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 Scott Byrd MD) Smoking Status: Never smoker HPI HPI HPI: JAMIN AU, is a 69 F who presents to the office today for HPI HPI Surgical H&P: Yes HPI: JAMIN AU, is a 69 F who presents to the office today for surgical consultation for removal of an inferior vena cava filter. It is of note that on September 28, 2019 I placed a right internal jugular Ghazal vena cava filter because of patient's right lower extremity deep venous thrombosis and contraindication to anticoagulation because of a recent stroke. She has now been cleared by her statistics professor Dr. Serrano for removal of her filter. She has 4 days of Eliquis remaining. She had a recent duplex exam of the right lower extremity on January 19, 2020 at the [facility] which was negative for DVT. She does have some mild swelling of the right lower extremity but she is going to reinstitute wearing support hose. She otherwise has been in stable health since her discharge. ROS General General: Yes weight change; no appetite, fatigue, colon cancer, breast cancer or weakness HEENT HEENT: No difficulty swallowing, eye injury, eye surgery, swollen glands or hoarseness Endo Endocrine: Yes thyroid disease; no diabetes mellitus, thyroid cancer, Hair loss, heat intolerance or cold in tolerance Musc Musculoskeletal: Yes arthritis; no back problems, rheumatoid arthritis, gout or joint pain Cardio Cardiovascular: Yes high blood pressure; no murmur, pacemaker, heart disease, atrial fibrillation, heart attack, heart stent, palpitations, shortness of breat with exertion or chest pain Psych Psychiatric: No depression, anxiety or hearing voices Resp Respiratory: No shortness of breath, No sleep apnea, No cough, No COPD, No asthma, No emphysema, No wheezing Gastro Gastrointestinal: No abdominal pain, No nausea or vomiting, No diarrhea, No constipation, No blood in stool, No acid reflux, No hemorrhoids, No ulcers, No gallbladder problem, No black,tarry stools [place] Hematologic: Yes blood thinners, No blood disorders, No bleeding, No anemia, No blood clots Neuro Neurologic: No weakness Exam Const General: cooperative, comfortable, no acute distress Nutritional Appearance: average body habitus Orientation: alert, awake [facility] Head: normal to inspection Neck Neck: normal visual inspection Other: Supple, well-healed access site for placement of the filter. Chest Chest palpation & inspection: normal inspection of the chest Resp Effort & Inspection: normal respiratory effort Auscultation: clear to auscultation bilaterally Cardio Rate: regular rate Rhythm: regular rhythm Heart Sounds: no murmurs GI Palpation: soft Extrem Other: Mild swelling right lower extremity. Nontender. No pitting. Psych Affect: normal affect Assessment & Plan Problems 1. Presence of vena cava filter Z95.828 Plan The patient is in the office today with her present. I propose for her a inferior vena cava filter retrieval with inferior venacavogram via a right internal jugular approach performed under mild IV sedation and local anesthetic. In detail I discussed the technique, benefit, risk and alternatives. No guarantees of success have been offered. She is aware that additional efforts at removal including right femoral approach could be required. She has had an opportunity to ask and have questions answered. She does remember pressure at the placement of the filter but no actual pain. We also discussed the current Covid-19 pandemic. The [facility] administration has advised as of a low local incidence. The patient and have had an opportunity to ask and have questions answered. Risk benefits would suggest appropriateness of removing the filter for her. As noted she has 4 more days of Eliquis. We will schedule and proceed at her discretion. I very much appreciate the kind opportunity of continue to assist with her surgical care. Cc: Dr. Ramakrishna Moseley and Dr. Faisal Byrd M.D., F.A.C.S. Coding Level of Care Code Off vis,est,level 2 Diagnoses Presence of vena cava filter Z95.828 I have re-examined the patient. There are no clinical changes since date of exam. Procedure Criteria Procedure Type: Elective COVID Risk Discussion: The surgeon/proceduralist and patient have discussed in detail the risk of exposure to and/or potential harm posed by the COVID-19 virus with having a surgery/procedure at this time versus the risk of delaying the surgery/procedure. It is not possible to know either the risk of delaying the surgery or procedure or chance of getting an infection with perfect accuracy, but a joint decision was made between the patient and the surgeon/proceduralist to proceed at this time with the scheduled surgery/procedure as indicated on the consent form.
--- NOTE | 2020-02-29 11:38 | OP.PCM_ITS ---
Problem List (1) Presence of vena cava filter Status: Acute Report of Operation Date of Procedure: 02/29/20 Pre-Operative Diagnosis: Presence of inferior vena cava Ghazal filter Post-Operative Diagnosis: Correctly positioned inferior vena cava Lehigh filter with no evidence of vena caval thrombus. Successful retrieval Surgery/Procedure Performed:: Inferior venacavogram with inferior vena cava filter retrieval Description of Surgical Findings:: Timeout and informed consent was obtained. 69-year-old female was taken to the special procedures lab and placed supine on the table. Slight Trendelenburg position was utilized. The right neck was sterilely prepped and draped. 50 mcg of fentanyl and 1 mg Versed were given see intravenous sedation. The right neck was sterilely prepped draped. Ultrasound was used to identify the right internal jugular vein. Under ultrasound guidance 2% lidocaine was instilled as a local anesthetic. A total of 6 cc was used. Under ultrasound guidance a micropuncture needle was inserted into the right internal jugular vein followed by Seldinger wire advancement. Micropuncture sheath inserted. 035 J-wire was inserted. A 5 Upper Sorbian short sheath was inserted. Using an 035 J-wire a 5 Upper Sorbian universal flush catheter was placed in the left common iliac vein distal to the filter. Using Isovue contrast at the rate of 15 cc a second for 20 cc an inferior venacavogram was obtained. This demonstrated that the inferior vena cava appeared to be widely patent. The filter was in position distal to the renal veins. There was no evidence of thrombus. Subsequently over a J-wire the flush catheter was removed and I predilated with a 9 Upper Sorbian sheath and then placed the 8 Upper Sorbian retrieval system. A single snare was used to secure the apical Hawk and the external sheath and internal sheath were both used in combination to help collapse the filter. After two thirds collapse the filter was carefully withdrawn from the vena cava. It was then withdrawn back through the external sheath. The filter was inspected and had a slight amount of vena cava intima but otherwise was completely intact. The patient had remained completely asymptomatic during the entire retrieval. No current complaints. The external sheath was removed pressure was held for hemostasis sterile dressings were applied blood loss was minimal there were no apparent com plications and she was taken back to holding area in satisfactory condition. Impression normal inferior vena cava with presence of filter. Successful filter retrieval. Scott Byrd M.D., F.A.C.S. Type of Anesthesia:: IV Sedation, Local
== END 2020-02-29 12:39 | disposition home or self-care (01) ==
LOC: CLSP 09:27
PROVIDERS: PCP Family Medicine; Referring Provider Surgery; Visit Provider Surgery
DX: Z45.2 Encounter for adjustment and management of vascular access device (principal); Z86.718 Personal history of other venous thrombosis and embolism; Z95.828 Presence of other vascular implants and grafts; G40.909 Epilepsy, unspecified, not intractable, without status epilepticus; I10 Essential (primary) hypertension; E03.9 Hypothyroidism, unspecified; Z78.0 Asymptomatic menopausal state; Z88.1 Allergy status to other antibiotic agents; Z79.899 Other long term (current) drug therapy; Z86.73 Personal history of transient ischemic attack (TIA), and cerebral infarction without residual deficits
CPT/HCPCS: 36415; 37193; 76937; 80048; 85027; 99152; C1773; J7040; Q9967; C1769

== ENCOUNTER → 2020-05-27 08:59 | Outpatient (CLI) | payer MEDICARE, OTHER, SELFPAY ==
[2020-02-28 10:42] VITALS: BMI 24.3
[2020-05-27 09:44] LABS: Absolute Lymphocyte Count 1.07 X10^3/uL (0.83-4.51); Absolute Neutrophil Count 3.1 X10^3/uL (2.0-7.7); Basophil# 0.03 X10^3/uL; Basophil% 0.6 % (0-1); Eosinophil# 0.13 X10^3/uL; Eosinophils% 2.7 % (0-5); Hematocrit 40.8 % (37-47); Hemoglobin 13.9 g/dL (12.0-15.0); Lymphocyte # 1.07 X10^3/ul (4.0); Lymphocyte % 22.1 % (19-41); Mean Corp Hgb Conc 34.1 g/dL (32-36); Mean Corpuscular Hgb 31.7 pg (27.0-32.0); Mean Corpuscular Volume 93.2 fL (81-99); Mean Platelet Vol. 10.3 fl (6.2-12.0); Monocyte# 0.52 X10^3/uL; Monocyte% 10.7 % (0-10); NRBC Flagged by Analyzer 0 % (0-5); Neutrophil # 3.08 X10^3/uL (2.7-7.7); Neutrophil % 63.7 % (47-70); Platelet Count 218 K/mm3 (150-450); RBC Distribution Width CV 12.6 % (11.6-14.6); RBC Distribution Width SD 42.8 fl (35.1-43.9); Red Blood Count 4.38 M/mm3 (4.2-5.4); White Blood Count 4.8 K/mm3 (4.4-11.0)
[2020-05-27 10:07] LABS: ALB/GLOB Ratio 1.1 RATIO (0.9-2.4); AST(SGOT) 22 U/L (15-37); Alanine Aminotransfer ALT/SGPT 29 U/L (13-56); Alkaline Phosphatase 65 U/L (45-117); Anion Gap 5 (5-15); BUN 15 mg/dL (7-18); BUN/Creat Ratio 17.4 RATIO (10-20); Calcium,Total 9.4 mg/dL (8.5-10.1); Chloride 107 mmol/L (98-107); Cholesterol 208 mg/dL (200); Creatinine, Serum 0.86 mg/dL (0.55-1.02); EST Glomerular Filtration Rate 69 mL/min (>60); Est Glom Filt Rate - Afr Amer 84 mL/min (>60); Globulin 3.6 g/dL (2.2-4.2); Glucose 93 mg/dL (74-106); High Density Lipoprotein 78 mg/dL; Potassium 4.3 mmol/L (3.5-5.1); Protein, Total 7.6 g/dL (6.4-8.2); Sodium Level 141 mmol/L (136-145); T4 Free Direct 1.33 ng/dL (0.76-1.46); Thyroid Stim Hormone (TSH) 1.41 uIU/mL (0.358-3.74); Triglycerides 120 mg/dL; Very Low Density Lipoprotein 24 mg/dL (5-40)
[2020-05-27 11:10] LABS: Vitamin D,25 Hydroxy 63.4 ng/mL
== END ==
PROVIDERS: PCP Family Medicine; Referring Provider Family Medicine; Visit Provider Family Medicine
DX: G40.909 Epilepsy, unspecified, not intractable, without status epilepticus (principal); E03.9 Hypothyroidism, unspecified; M81.0 Age-related osteoporosis without current pathological fracture; I10 Essential (primary) hypertension
CPT/HCPCS: 36415; 80053; 80061; 82306; 84439; 84443; 85025

== ENCOUNTER → 2020-08-13 14:33 | Outpatient (CLI) | payer MEDICARE, OTHER, SELFPAY ==
[2020-02-28 10:42] VITALS: BMI 24.3
--- NOTE | 2020-08-13 14:35 | BI_ITS ---
MAMMOGRAPHY - BILATERAL SCREENING REASON FOR EXAM: Female, 70 years old. Routine annual screening examination. PERTINENT HISTORY: Sister with breast cancer. Grandmother with breast cancer. TECHNIQUE: Digital bilateral breast raudel (3D mammographic acquisition) in the CC and MLO projections. 2-D mediolateral oblique (MLO) and craniocaudad (CC) views of both breasts were obtained. CAD: Full Field Digital Mammography with Computer Added Detection was performed. COMPARISON: Comparison is made with prior study dated 08/09/2018 and 08/05/2017. FINDINGS: Breast Composition: The breasts are heterogeneously dense, which may obscure small masses. There are no dominant masses or suspicious calcifications. Stable benign appearing small bilateral axillary lymph nodes. No other significant abnormalities are identified. There has been no significant change since the prior study. BI/SCREEN MAMM (CAD) W/RAUDEL BILAT IMPRESSION: Stable bilateral screening mammogram. Yearly follow-up mammogram recommended. (A) ASSESSMENT CATEGORY: BIRADS Category 2: Benign. A letter regarding these results will be sent to the patient by the facility within 30 days. Approximately 10% of breast cancers are not detected by mammography. A normal mammogram should not delay biopsy of a clinically suspicious abnormality. [id number] Electronically Signed: [place], at 15:45 EST , Service support ,
== END ==
PROVIDERS: PCP Family Medicine; Referring Provider Family Medicine; Visit Provider Family Medicine
DX: Z12.31 Encounter for screening mammogram for malignant neoplasm of breast (principal); Z80.3 Family history of malignant neoplasm of breast
CPT/HCPCS: 77063; 77067

== ENCOUNTER → 2021-05-28 09:22 | Outpatient (CLI) | payer MEDICARE, OTHER, SELFPAY ==
[2021-05-28 12:11] LABS: Absolute Lymphocyte Count 1.19 X10^3/uL (0.83-4.51); Absolute Neutrophil Count 2.7 X10^3/uL (2.0-7.7); Basophil# 0.03 X10^3/uL; Basophil% 0.7 % (0-1); Eosinophil# 0.12 X10^3/uL; Eosinophils% 2.7 % (0-5); Hematocrit 38.3 % (37-47); Lymphocyte # 1.19 X10^3/ul (0.83-4.51); Lymphocyte % 26.7 % (19-41); Mean Corp Hgb Conc 33.9 g/dL (32-36); Mean Corpuscular Hgb 30.2 pg (27.0-32.0); Mean Corpuscular Volume 89.1 fL (81-99); Mean Platelet Vol. 10.8 fl (6.2-12.0); Monocyte# 0.44 X10^3/uL; Monocyte% 9.9 % (0-10); NRBC Flagged by Analyzer 0 % (0-5); Neutrophil # 2.67 X10^3/uL (2.7-7.7); Neutrophil % 59.8 % (47-70); Platelet Count 223 K/mm3 (150-450); RBC Distribution Width SD 42.5 fl (35.1-43.9); White Blood Count 4.5 K/mm3 (4.4-11.0)
[2021-05-28 12:42] LABS: ALB/GLOB Ratio 1.1 RATIO (0.9-2.4); AST(SGOT) 19 U/L (15-37); Alanine Aminotransfer ALT/SGPT 29 U/L (13-56); Albumin, Serum 3.9 g/dL (3.2-5.0); Alkaline Phosphatase 64 U/L (45-117); Anion Gap 3 (5-15); BUN 18 mg/dL (7-18); BUN/Creat Ratio 22.8 RATIO (10-20); Calcium,Total 8.9 mg/dL (8.5-10.1); Chloride 111 mmol/L (98-107); Cholesterol 177 mg/dL (200); Creatinine, Serum 0.79 mg/dL (0.55-1.02); EST Glomerular Filtration Rate 77 mL/min (>60); Est Glom Filt Rate - Afr Amer 93 mL/min (>60); Globulin 3.6 g/dL (2.2-4.2); Glucose 86 mg/dL (74-106); High Density Lipoprotein 71 mg/dL; Potassium 3.9 mmol/L (3.5-5.1); Protein, Total 7.5 g/dL (6.4-8.2); Sodium Level 141 mmol/L (136-145); T4 Free Direct 1.23 ng/dL (0.76-1.46); Thyroid Stim Hormone (TSH) 1.79 uIU/mL (0.358-3.74); Triglycerides 108 mg/dL; Very Low Density Lipoprotein 22 mg/dL (5-40)
== END ==
PROVIDERS: PCP Family Medicine; Referring Provider Family Medicine; Visit Provider Family Medicine
DX: E03.9 Hypothyroidism, unspecified (principal); I10 Essential (primary) hypertension; R56.9 Unspecified convulsions
CPT/HCPCS: 36415; 80053; 80061; 84439; 84443; 85025

== ENCOUNTER → 2021-08-22 08:29 | Outpatient (CLI) | payer MEDICARE, OTHER, SELFPAY ==
--- NOTE | 2021-08-22 08:40 | BI_ITS ---
MAMMOGRAPHY - BILATERAL SCREENING REASON FOR EXAM: Female, 71 years old. Routine annual screening examination. PERTINENT HISTORY: Sister with breast cancer. Grandmother with breast cancer. TECHNIQUE: Digital bilateral breast raudel (3D mammographic acquisition) in the CC and MLO projections. 2-D mediolateral oblique (MLO) and craniocaudad (CC) views of both breasts were obtained. CAD: Full Field Digital Mammography with Computer Added Detection was performed. COMPARISON: Comparison is made with prior study dated 08/13/2020 and 08/09/2018. FINDINGS: Breast Composition: The breasts are heterogeneously dense, which may obscure small masses. There are no dominant masses or suspicious calcifications. Stable benign-appearing left axillary lymph nodes. No other significant abnormalities are identified. There has been no significant change since the prior study. BI/SCRN MAMM (CAD)W/RAUDEL BILAT IMPRESSION: Stable bilateral screening mammogram. Yearly follow-up mammogram recommended. (A) ASSESSMENT CATEGORY: BIRADS Category 2: Benign. A letter regarding these results will be sent to the patient by the facility within 30 days. Approximately 10% of breast cancers are not detected by mammography. A normal mammogram should not delay biopsy of a clinically suspicious abnormality. [id number] Electronically Signed: [place] MD at 9:18 EST , Service support ,
== END ==
PROVIDERS: PCP Family Medicine; Referring Provider Family Medicine; Visit Provider Family Medicine
DX: Z12.31 Encounter for screening mammogram for malignant neoplasm of breast (principal); Z80.3 Family history of malignant neoplasm of breast
CPT/HCPCS: 77063; 77067

== ENCOUNTER 2022-05-26 09:51 | Outpatient (CLI) | payer MEDICARE, OTHER, SELFPAY | END 2022-05-26 23:59 | disposition home or self-care (01) | PROVIDERS: PCP Family Medicine; Referring Provider Family Medicine; Visit Provider Family Medicine | DX: Z00.00 Encounter for general adult medical examination without abnormal findings (principal) ==

== ENCOUNTER → 2022-05-26 | Outpatient (CLI) | payer MEDICARE, OTHER, SELFPAY ==
[2022-05-26 12:15] LABS: Absolute Lymphocyte Count 1.11 X10^3/uL (0.83-4.51); Absolute Neutrophil Count 2.6 X10^3/uL (2.0-7.7); Basophil# 0.03 X10^3/uL; Basophil% 0.7 % (0-1); Eosinophils% 2.4 % (0-5); Hematocrit 39.1 % (37-47); Hemoglobin 13.6 g/dL (12.0-15.0); Lymphocyte # 1.11 X10^3/ul (0.83-4.51); Lymphocyte % 26.3 % (19-41); Mean Corp Hgb Conc 34.8 g/dL (32-36); Mean Corpuscular Hgb 31.5 pg (27.0-32.0); Mean Corpuscular Volume 90.5 fL (81-99); Mean Platelet Vol. 10.4 fl (6.2-12.0); Monocyte# 0.36 X10^3/uL; Monocyte% 8.5 % (0-10); NRBC Flagged by Analyzer 0 % (0-5); Neutrophil # 2.61 X10^3/uL (2.7-7.7); Neutrophil % 61.9 % (47-70); Platelet Count 245 K/mm3 (150-450); RBC Distribution Width CV 12.8 % (11.6-14.6); RBC Distribution Width SD 41.9 fl (35.1-43.9); Red Blood Count 4.32 M/mm3 (4.2-5.4); White Blood Count 4.2 K/mm3 (4.4-11.0)
[2022-05-26 13:05] LABS: PTHIN 33.6 pg/mL (18.4-80.1)
[2022-05-26 13:08] LABS: Vitamin D,25 Hydroxy 55.1 ng/mL
[2022-05-26 13:30] LABS: ALB/GLOB Ratio 0.9 RATIO (0.9-2.4); AST(SGOT) 22 U/L (15-37); Alanine Aminotransfer ALT/SGPT 25 U/L (13-56); Albumin, Serum 3.7 g/dL (3.2-5.0); Alkaline Phosphatase 62 U/L (45-117); Anion Gap 6 (5-15); BUN 17 mg/dL (7-18); BUN/Creat Ratio 19.3 RATIO (10-20); Calcium,Total 8.8 mg/dL (8.5-10.1); Chloride 110 mmol/L (98-107); Cholesterol 177 mg/dL (200); Creatinine, Serum 0.88 mg/dL (0.55-1.02); EST Glomerular Filtration Rate 68 mL/min (>60); Est Glom Filt Rate - Afr Amer 82 mL/min (>60); Glucose 83 mg/dL (74-106); High Density Lipoprotein 68 mg/dL; Protein, Total 7.7 g/dL (6.4-8.2); Sodium Level 142 mmol/L (136-145); Thyroid Stim Hormone (TSH) 1.98 uIU/mL (0.358-3.74); Triglycerides 95 mg/dL; Very Low Density Lipoprotein 19 mg/dL (5-40)
== END | disposition home or self-care (01) ==
PROVIDERS: PCP Family Medicine; Visit Provider Family Medicine
DX: I10 Essential (primary) hypertension (principal); M81.0 Age-related osteoporosis without current pathological fracture; E03.9 Hypothyroidism, unspecified
CPT/HCPCS: 36415; 80053; 80061; 82306; 82330; 83970; 84443; 85025

== ENCOUNTER → 2022-08-24 | Outpatient (CLI) | payer MEDICARE, OTHER, SELFPAY ==
--- NOTE | 2022-08-24 10:38 | BI_ITS ---
MAMMOGRAPHY - BILATERAL SCREENING REASON FOR EXAM: Female, 72 years old. Routine annual screening examination. PERTINENT HISTORY: Sister with breast cancer. Grandmother with breast cancer. TECHNIQUE: Digital bilateral breast raudel (3D mammographic acquisition) in the CC and MLO projections. 2-D mediolateral oblique (MLO) and craniocaudad (CC) views of both breasts were obtained. CAD: Full Field Digital Mammography with Computer Added Detection was performed. COMPARISON: 08/22/2021, 08/13/2020. FINDINGS: Breast Composition: The breasts are heterogeneously dense, which may obscure small masses. There are no dominant masses or suspicious calcifications. Small benign-appearing axillary lymph nodes. No other significant abnormalities are identified. There has been no significant change since the prior study. BI/SCRN MAMM (CAD)W/RAUDEL BILAT IMPRESSION: Stable bilateral screening mammogram. Yearly follow-up mammogram recommended. (A) ASSESSMENT CATEGORY: BIRADS Category 2: Benign. A letter regarding these results will be sent to the patient by the facility within 30 days. Approximately 10% of breast cancers are not detected by mammography. A normal mammogram should not delay biopsy of a clinically suspicious abnormality. Electronically Signed: Tj Lao, at 8:59 EST ,
== END | disposition home or self-care (01) ==
LOC: OPBI 10:37
PROVIDERS: PCP Family Medicine; Visit Provider Family Medicine
DX: Z12.31 Encounter for screening mammogram for malignant neoplasm of breast (principal); Z80.3 Family history of malignant neoplasm of breast
CPT/HCPCS: 77063; 77067

== ENCOUNTER → 2023-08-31 | Outpatient (CLI) | payer MEDICARE, OTHER, SELFPAY ==
--- NOTE | 2023-08-31 09:09 | BI_ITS ---
MAMMOGRAPHY - BILATERAL SCREENING REASON FOR EXAM: Female, 73 years old. Routine annual screening examination. PERTINENT HISTORY: Sister with breast cancer. Grandmother with breast cancer. TECHNIQUE: Digital bilateral breast raudel (3D mammographic acquisition) in the CC and MLO projections. 2-D mediolateral oblique (MLO) and craniocaudad (CC) views of both breasts were obtained. CAD: Full Field Digital Mammography with Computer Added Detection was performed. COMPARISON: Comparison is made with prior study of August 24, 2022 and August 22, 2021. FINDINGS: Breast Composition: The breasts are heterogeneously dense, which may obscure small masses. There are no dominant masses or suspicious calcifications. Stable small bilateral axillary lymph nodes. No other significant abnormalities are identified. There has been no significant change since the prior study. BI/SCRN MAMM (CAD)W/RAUDEL BILAT IMPRESSION: Stable bilateral screening mammogram. Yearly follow-up mammogram recommended. (A) ASSESSMENT CATEGORY: BIRADS Category 2: Benign. A letter regarding these results will be sent to the patient by the facility within 30 days. Approximately 10% of breast cancers are not detected by mammography. A normal mammogram should not delay biopsy of a clinically suspicious abnormality. [id number] Electronically Signed: [place] MD at 14:37 EST ,
--- NOTE | 2023-08-31 09:14 | BD_ITS ---
STUDY: DUAL ENERGY X-RAY ABSORPTIOMETRY / DXA REASON FOR EXAM: Female, 73 years old. [id number] TECHNIQUE: Bone Mineral Density (BMD) measurements of lumbar spine and bilateral hips were obtained. COMPARISON: Comparison is made with prior study dated August 09, 2018. FINDINGS: Lumbar Spine (L1-L4): g/cm2 (0.556) / T-score (-5.0) / Z-score (-2.7) Findings are suggestive of osteoporosis with a high fracture risk. Left Femur Total: g/cm2 (0.700) / T-score (-2.0) / Z-score (-0.4) Left Femoral Neck: g/cm2 (0.598) / T-score (-2.3) / Z-score (-0.4) Right Femur Total: g/cm2 (0.721) / T-score (-1.8) / Z-score (-0.2) Right Femoral Neck: g/cm2 (0.638) / T-score (-1.9) / Z-score (0.0) The T-Scores on the most recent prior examination were: Lumbar Spine (L1-L4): There has been worsening of bone density since the previous examination. Left Femur Total: which represents a worsening of 4.1%. Right Femur Total: which represents a worsening of 5.1%. BD/Dexa Bone Density Study IMPRESSION: The patient is considered osteoporotic as outlined below according to World Neil Organization (WHO) criteria with a high fracture risk. There has been worsening of bone density since the previous examination. Reference Information: The T-score is the number of standard deviations above or below the standard which is normal for young adults at their peak bone mineral density. The World Health Organization (WHO) interprets the T-scores as follows: Above -1 Normal bone density Between -1 and -2.5 Osteopenia Equal to / or below -2.5 Osteoporosis As a practical clinical guideline, osteopenia may be graded as follows: Mild -1 through -1.5 Moderate -1.6 through -2.0 Severe -2.1 through -2.4 The Z-score is the number of standard deviations above or below age-matched controls. A Z-score of less than -1.5 would be considered abnormal. References: 1. NIH Osteoporosis and Related Bone Diseases www osteo.org 2. International Society for Clinical Densitometry www iscd.org 3. National Osteoporosis Foundation www nof.org Electronically Signed: [place] MD at 10:09 EST ,
== END | disposition home or self-care (01) ==
LOC: OPBD 09:07
PROVIDERS: PCP Family Medicine; Referring Provider Family Medicine; Visit Provider Family Medicine
DX: Z12.31 Encounter for screening mammogram for malignant neoplasm of breast (principal); Z80.3 Family history of malignant neoplasm of breast; M81.0 Age-related osteoporosis without current pathological fracture
CPT/HCPCS: 77063; 77067; 77080

== ENCOUNTER → 2023-09-21 | Outpatient (CLI) | payer MEDICARE, OTHER, SELFPAY ==
[2023-09-21 18:01] LABS: Ionized Calcium 5.13 mg/dL (4.36-5.20)
[2023-09-21 18:05] LABS: Vitamin D,25 Hydroxy 60.5 ng/mL
[2023-09-21 18:06] LABS: Anion Gap 7 (5-15); BUN 15 mg/dL (7-18); Calcium,Total 9.6 mg/dL (8.5-10.1); Chloride 109 mmol/L (98-107); Creatinine, Serum 0.83 mg/dL (0.55-1.02); EST Glomerular Filtration Rate 72 mL/min (>60); Est Glom Filt Rate - Afr Amer 87 mL/min (>60); Glucose 79 mg/dL (74-106); Magnesium 2.5 mg/dL (1.6-2.6); Phosphorus 3.4 mg/dL (2.5-4.9); Sodium Level 143 mmol/L (136-145); Thyroid Stim Hormone (TSH) 1.69 uIU/mL (0.358-3.74)
[2023-09-21 22:50] LABS: Ionized Calcium Order ORDER TUBE
[2023-09-22 08:29] LABS: PTHIN 22.8 pg/mL (18.4-80.1)
== END | disposition home or self-care (01) ==
LOC: MFPLAB 14:43
PROVIDERS: PCP Family Medicine; Visit Provider Family Medicine
DX: M81.0 Age-related osteoporosis without current pathological fracture (principal); E03.9 Hypothyroidism, unspecified
CPT/HCPCS: 36415; 80048; 82306; 82330; 83735; 83970; 84100; 84443

== ENCOUNTER → 2023-12-09 | Outpatient (CLI) | payer MEDICARE, OTHER, SELFPAY ==
--- NOTE | 2023-12-09 12:41 | US_ITS ---
INDICATION: AUB EXAMINATION: Ultrasound US Pelvis Non OB Complete With Transvaginal Imaging TECHNIQUE: Transabdominal and transvaginal pelvic ultrasound was performed. Grayscale, spectral waveform, and color flow Doppler evaluation of the adnexa. COMPARISON: No relevant prior comparison study available FINDINGS: UTERUS: Retroverted. The uterus measures 7.8 x 4.7 x 4.9 cm. There is no uterine mass. The endometrial stripe measures 25 mm in AP diameter which is thickened for postmenopausal patient. There is a complex cystic solid components structure/mass within the endometrial cavity. RIGHT OVARY: 1.6 x 1.3 x 0.8 cm. Non-enlarged, normal echogenicity. There is normal arterial inflow and venous outflow present in the right ovary. LEFT OVARY: Not visualized. FREE FLUID: None. US/Pelvic w/ Transvaginal IMPRESSION: Abnormal thickening of the endometrium with probable complex cystic mass within the endometrial cavity. KICK PRESS OPERATOR consult is recommended. Electronically Signed: Daryn Parra MD at 14:24 EST ,
--- OUTSIDE RECORDS SUMMARY | 2023-12-09 13:41 | XMS RPT_ITS | CCD ---
Author Name Unknown Address [address] [place] [address] Organization [facility] Care Team Providers Care Trim Setter Name Role Phone Krista Delgado MD Primary Care Provider LAURA BOWMAN Attending Unavailable KRISTA DELGADO Primary Care ALIVIA Montiel Attending Unavailable PAULA DOTSON Referring Unavailable KRISTA DELGADO Primary Care ALIVIA Montiel Referring Unavailable KRISTA DELGADO Primary Care Unavailjanine Almanza MD, Leticia Primary Care Provider [phone] Loree Ramos RN Unavailable Krista Delgado MD Primary Care Provider Allergies Allergy Classification Reported Allergen(s) Allergy Type Date of Onset Reaction(s) Facility (8 sources) cefTRIAXone; Translations: [CEFTRIAXONE] Drug Allergy 11-27-[address] [facility] Work Phone: (8 sources) Cephalexin; Translations: [CEPHALEXIN] Drug Allergy 11-10-2019 [facility] Work Phone: (8 sources) Lisinopril; Translations: [LISINOPRIL] Drug Allergy 08-08-2013 C[facility] Work Phone: (8 sources) Seasonal allergy; Translations: [SEASONAL ALLERGIES] Propensity to adverse reactions 03-22-2009 [facility] Work Phone: Medications Current Medications Medication Drug Class(es) Dates Sig (Normalized) Sig (Original) iv contrast (will be provided with radiology test) (7 sources) Start: 07-12-2023 End: 07-13-2023 inject 1 dose intravenously once iv contrast (will be provided with radiology test) MRI Brain Inject, intravenously, once for 1 dose.No IV access, insert saline lock prior to beginning of sedation, infusion, injection of imaging exam.Discontinue saline lock post exam. If Pt. has a central line or IVAD, may access for administration according to line specific nursing protocol.Once exam is complete flush line and de-access according to line specific nursing protocol in the MR contrast administration guidelines link 1 Each 0 07/12/2023 07/13/2023 Active Completed/Discontinued Medications Medication Drug Class(es) Dates Sig (Normalized) Sig (Original) alendronic acid 70 mg oral tablet (1 source) Bisphosphonate Start: 08-21-2016 End: 08-28-2019 take 1 tablet by mouth every week alendronate (FOSAMAX) 70 mg tablet Indications: Osteoporosis Take 1 tablet by mouth once each week. Take with a full glass of water, on an empty stomach; do NOT lie down for 30minutes. 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] Onset: 11-27-2019 11-29-2019 Chronic Nutritional deficiencies (6 sources) Malnutrition (calorie); Translations: [Moderate protein-calorie malnutrition] Onset: 12-01-2019 12-01-2019 Chronic Osteoporosis (6 sources) Osteoporosis; Translations: [Age-related osteoporosis without current pathological fracture] 09-29-2021 Chronic Other and unspecified benign neoplasm (6 sources) Neoplasm of meninges; Translations: [Benign neoplasm of meninges, unspecified] Onset: 09-20-2019 12-14-2019 Chronic Other and unspecified benign neoplasm (3 sources) Benign neoplasm of meninges; Translations: [Benign neoplasm of meninges, unspecified] 07-12-2023 Chronic Other and unspecified benign neoplasm (1 source) Benign neoplasm of meninges, unspecified; Translations: [Benign neoplasm of meninges (HCC)] Onset: 08-02-2023 Chronic Other liver diseases (6 sources) Steatosis of liver; Translations: [Fatty (change of) liver, not elsewhere classified] Onset: 09-25-2009 09-29-2021 Chronic Other nervous system disorders (6 sources) Bilateral carpal tunnel syndrome; Translations: [Carpal tunnel syndrome, bilateral upper limbs] Onset: 07-02-2016 09-30-2021 Chronic Other nervous system disorders (6 sources) Mass lesion of brain; Translations: [Other specified disorders of brain] Onset: 09-16-2019 09-26-2019 Chronic Other nervous system disorders (6 sources) Edema; Translations: [Cerebral edema] Onset: 09-20-2019 09-20-2019 Chronic Phlebitis; thrombophlebitis and thromboembolism (18 sources) H/O: Deep vein thrombosis; Translations: [Personal history of other venous thrombosis and embolism] Onset: 11-26-2019 11-29-2019 Episodic Retinal detachments; defects; vascular occlusion; and retinopathy (6 sources) Retinal disorder; Translations: [Unspecified retinal disorder] Onset: 03-09-2018 03-09-2018 Chronic Thyroid disorders (7 sources) Hypothyroidism; Translations: [Hypothyroidism, unspecified] Onset: 11-26-2019 11-29-2019 Chronic Past or Other Problems Problem Classification Problem Date Documented Date Episodic/Chronic Anxiety disorders (6 sources) Indifference; Translations: [Demoralization and apathy] Onset: 11-27-2019 11-29-2019 Episodic Epilepsy; convulsions (7 sources) Seizure; Translations: [Unspecified convulsions] Onset: 11-26-2019 Episodic Hemorrhoids (6 sources) Internal hemorrhoids; Translations: [Other hemorrhoids] Onset: 02-22-2012 02-22-2012 Episodic Inflammation; infection of eye (except that caused by tuberculosis or sexually transmitteddisease) (6 sources) Blepharitis of left eyelid; Translations: [Unspecified blepharitis left eye, unspecified eyelid] Onset: 09-08-2017 09-08-2017 Episodic Malaise and fatigue (12 sources) Asthenia; Translations: [Weakness] Onset: 10-21-2019 11-29-2019 Episodic Other aftercare (6 sources) Drug therapy finding; Translations: [Encounter for therapeutic drug level monitoring] Onset: 03-09-2018 03-09-2018 Episodic Other and unspecified benign neoplasm (6 sources) Hemangioma of liver; Translations: [Hemangioma of intra-abdominal structures] Onset: 09-26-2009 11-29-2019 Episodic Other and unspecified benign neoplasm (6 sources) Polyp of colon; Translations: [Polyp of colon] Onset: 08-08-2013 09-29-2021 Episodic Other nervous system disorders (6 sources) Reduced mobility; Translations: [Other abnormalities of gait and mobility] Onset: 11-27-2019 11-29-2019 Episodic Other nutritional; endocrine; and metabolic disorders (6 sources) Loss of appetite; Translations: [Anorexia] Onset: 11-27-2019 11-29-2019 Episodic Pneumonia (except that caused by tuberculosis or sexually transmitted disease) (12 sources) Pneumonia; Translations: [Pneumonia, unspecified organism] Onset: 11-26-2019 11-29-2019 Episodic Spondylosis; intervertebral disc disorders; other back problems (6 sources) Thoracic and lumbosacral neuritis; Translations: [Thoracic or lumbosacral neuritis or radiculitis, unspecified] Onset: 08-21-2014 08-21-2014 Episodic Results Test Name Value Interpretation Reference Range Facil ity Vital Signs Date Time Vital Sign Value Performing Clinician Avril valiente 08-02-2023 12:08-0400 Body weight 59.8 kg Alivia Natarajan MD Work Phone: [facility] 08-02-2023 12:08-0400 Diastolic blood pressure 70 mm[Hg] Alivia Natarajan MD Work Phone: [facility] 08-02-2023 12:08-0400 Heart rate 73 /min Alivia Natarajan MD Work Phone: [facility] 08-02-2023 12:08-0400 Respiratory rate 16 /min Alivia Natarjaan MD Work Phone: [facility] 08-02-2023 12:08-0400 SaO2% (BldA) [Mass fraction] 99 % Alivia Natarajan MD Work Phone: [facility] 08-02-2023 12:08-0400 Systolic blood pressure 118 mm[Hg] Alivia Natarajan MD Work Phone: [facility] Encounters Encounter Date Encounter Type Care Provider Facility Start: 08-05-2023 End: 08-05-2023 ambulatory LAURA BOWMAN Facility:[facility] Start: 08-02-2023 End: 08-02-2023 ambulatory ALIVIA NATARAJAN Facility:[facility] Start: 08-02-2023 End: 08-02-2023 Patient encounter procedure Alivia Natarajan MD Work Phone: [facility] Procedures Date Procedure Procedure Detail Performing Clinician Start: 08-09-2018 Mammography Paola Guillermo DO Work Phone: Start: 07-17-2016 Lipid 1996 panel - S alexandria or Plasma Alivia Natarajan MD Work Phone: Start: 07-01-2015 Colonoscopy Paola Guillermo DO Work Phone: Plan of Treatment Date Care Activity Detail Author Start: 06-04-2032 Urine microalbumin profile DTaP,Tdap,Td Vaccine (3 - Td or Tdap) [facility] Start: 08-02-2024 BP Controlled (<130/80) BP Controlled (<130/80) [facility] Start: 10-04-2023 Advance Directive Discussion Advance Directive Discussion [facility] Start: 10-04-2023 Depression Assessment Depression Assessment [facility] Start: 06-04-2023 Covid-19 Vaccine ( season) Covid-19 Vaccine ( season) [facility] Start: 06-04-2023 Influenza vaccination Influenza Vaccine (#1) [facility] Start: 11-30-2022 DIABETES SCREEN DIABETES SCREEN [facility] Start: 11-30-2022 Diabetes Screening Diabetes Screening [facility] Start: 10-04-2022 ADVANCE DIRECTIVE DISCUSSION ADVANCE DIRECTIVE DISCUSSION [facility] Start: 10-04-2022 DEPRESSION ASSESSMENT DEPRESSION ASSESSMENT [facility] Start: 06-04-2022 Influenza vaccination INFLUENZA (#1) [facility] Start: 12-12-2021 COVID-19 VACCINE (4 - Booster for Pfizer series) COVID-19 VACCINE (4 - Booster for Pfizer series) [facility] Start: 12-12-2021 Covid-19 Vaccine (4 - Pfizer series) Covid-19 Vaccine (4 - Pfizer series) [facility] Start: 07-17-2021 Lipid 1996 panel - Serum or Plasma Lipid Screening [facility] Start: 07-17-2021 Lipid panel Lipid Screening [facility] Start: 07-17-2021 LIPID SCREEN LIPID SCREEN [facility] Start: 03-10-2021 Urine microalbumin profile [facility] Start: 07-01-2020 Colonoscopy COLONOSCOPY [facility] Start: 07-01-2020 COLORECTAL CANCER SCREENING COLORECTAL CANCER SCREENING [facility] Start: 07-01-2020 Screening for malignant neoplasm of colon [facility] Start: 05-28-2020 PAP TESTING PAP TESTING [facility] Start: 05-28-2020 Screening for malignant neoplasm of cervix Pap Testing [facility] Start: 11-15-2019 ANNUAL PCP TEAM CHRONIC DISEASE VISIT ANNUAL PCP TEAM CHRONIC DISEASE VISIT [facility] Start: 08-09-2019 Mammography [facility] Start: 08-09-2019 Screening for malignant neoplasm of breast Mammogram Screening [facility] Start: 03-09-2019 Pneumococcal Vaccine: 65+ (2 - PPSV23 or PCV20) Pneumococcal Vaccine: 65+ (2 - PPSV23 or PCV20) [facility] Start: 03-09-2019 PNEUMOCOCCAL: 65+ (2 - PPSV23 if available, else PCV20) PNEUMOCOCCAL: 65+ (2 - PPSV23 if available, else PCV20) [facility] Start: 2012 RSV Vaccine (1 - 1-dose 60+ series) RSV Vaccine (1 - 1-dose 60+ series) [facility] Start: 2002 SHINGRIX VACCINE (1 of 2) SHINGRIX VACCINE (1 of 2) [facility] Start: 1997 COLOGUARD (FIT-DNA) COLOGUARD (FIT-DNA) [facility] Start: [address] COLONOGRAPHY [facility] Start: 1997 FECAL OCCULT BLOOD FECAL OCCULT BLOOD [facility] Start: 1997 Screening for malignant neoplasm of colon [facility] Start: 1997 SIGMOIDOSCOPY SIGMOIDOSCOPY [facility] Start: 1970 Annual PCP Team Chronic Disease Visit Annual PCP Team Chronic Disease Visit [facility] Start: 1970 BP CONTROLLED (<130/80) BP CONTROLLED (<130/80) [facility] End: 08-10-2024 Mri brain brain stem w/o w/contrast material MRI BRAIN WO/W IVCON Radiology Routine Benign neoplasm of meninges (HCC) 1 Occurrences starting 07/12/2023 until 08/10/2024 [facility] Work Phone: Immunizations Immunization Date Immunization Notes Care Provider Fa cility 08-01-2021 influenza virus vaccine, unspecified formulation Alivia Natarajan MD Work Phone: [facility] 03-09-2018 pneumococcal conjuga te vaccine, 13 valent Paola Foldvary Guillermo DO Work Phone: [facility] Work Phone: 07-19-2013 influenza virus vaccine, unspecified formulation Paola Foldvary Guillermo DO Work Phone: [facility] Work Phone: 08-02-2012 influenza virus vaccine, unspecified formulation Paola Foldvary Guillermo DO Work Phone: [facility] Work Phone: 03-10-2011 tetanus toxoid, reduced diphtheria toxoid, and acellular pertussis vaccine, adsorbed Paoal Foldvary Guillermo DO Work Phone: [facility] 07-29-2007 influenza virus vaccine, unspecified formulation Paola Foldvary Guillermo DO Work Phone: [facility] 07-30-2006 influenza virus vaccine, unspecified formulation Paola Foldvary Guillermo DO Work Phone: [facility] Work Phone: Payers Date Payer Category Payer Medicare [id number] 2018 Medicare MEDICARE MEDICAR E A AND B [id number] 2018-Present [phone] [place] [address] Medicare [id number] 2018 Medicare [id number] 2018 Unknown [id number] Social History Date Type Detail Facility [facility]: [facility] Start: 03-10-2011 Tobacco use and exposure Smokeless tobacco non-user [facility] Start: 03-09-2018 End: 09-08-2021 Alcohol intake Current non-drinker of alcohol (finding) [facility] Start: 11-27-2019 History SDOH Financial 5 [facility] Start: 11-27-2019 History SDOH Food Worry 1 [facility] Start: 11-27-2019 History SDOH Transpo rt Med 2 [facility] Start: 1950 Sex Assigned At Female [facility] Start: 09-08-2021 End: 08-02-2023 History of Social function [facility] Work Phone: Start: 09-08-2021 End: 08-02-2023 Tobacco use panel [facility] Work Phone: How hard is it for y ou to pay for the very basics like food, housing, medical care, and heating Not hard at all [facility] Work Phone: (I/We) worried wheth er (my/our) food would run out before (I/we) got money to buy more. Never true [facility] Work Phone: Start: 09-03-2020 Gender identity Identifies as female gender (finding) [facility] Start: 06-13-2020 Sexual orientation Heterosexual (ryan duron) [facility] Start: 08-09-2021 End: 09-08-2021 Exposure to SARS-CoV-2 (event) Not sure [facility] Medical Equipment Procedure Code Equipment Code Equipment Origin al Text Equipment Identifier Dates Cover Orlin Hole Craniofacial 14mmx.6mm Dome Nonsterile - [id number] Start: 09-19-2019 Screw Bone Unive rsal Neuro 3 4mm 1.5mm Self Drill Axial Stability Latex - [id number] Start: 09-19-2019 Clinical Notes 07-25-2018 to 08-05-2023 Alivia Natarajan MD - 08/02/2023 1:00 PM Graciela Erazo RT(R) - 08/02/2023 11:15 AM EDTTelephone Encounter - Karen Reyes MA - 07/12/2023 12:00 PM EDT Note Date & Type Note Facility 08-05-2023 Note HNO ID: [id number] Author: Laura Bowman APRN.RV SERVICER Service: ? Author Type: Nurse Practitioner Type: Progress Notes Filed: 08/05/2023 5:42 PM Note Text: [facility] VIRTUAL VISIT I have communicated my name and active licensure. The patient's identity and physical location were verified at the time of this visit. Either the patient or their legal novelties sales representative has been informed of the risks and benefits of -- and alternatives to -- treatment through a remote evaluation and consents to proceed with the evaluation remotely. Patient on video by herself. Lives in [place], [place]. HISTORY OF PRESENT ILLNESS: Xi Oconnor is a 73 year old RHF who is diagnosed with seizures, and presents today for annual visit. They are an established patient of Dr. Mcclellan and was last seen on 12/10/2021. 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 AED's: Keppra 500mg, 1 BID None. In other health, Covid in May. Occupation: retired. Lives with . Driving: yes Mood: good Memory: good CURRENT OUTPATIENT MEDICATIONS: Current Outpatient Medications Medication Sig gabapentin (NEURONTIN) 100 mg capsule PLEASE SEE ATTACHED FOR DETAILED DIRECTIONS doxycycline (VIBRAMYCIN) 50 mg capsule Take 1 capsule by mouth every afternoon. levETIRAcetam (KEPPRA) 500 mg tablet Take 1 tablet by mouth two times a day. iv contrast (will be provided with radiology test) MRI Brain Inject, intravenously, once for 1 dose.No IV access, insert saline lock prior to beginning of sedation, infusion, injection of imaging exam.Discontinue saline lock post exam. If Pt. has a central line or IVAD, may access for administration according to line specific nursing protocol.Once exam is complete flush line and de-access according to line specific nursing protocol in the MR contrast administration guidelines link calcium carbonate/vitamin D3 (CALTRATE-600 PLUS VITAMIN D3 ORAL) amLODIPine (NORVASC) 10 mg tablet Take 1 tablet by mouth once daily. levothyroxine (LEVOXYL) 50 mcg tablet Take 1 tablet by mouth once daily. Take on empty stomach. For Thyroid losartan (COZAAR) 100 mg tablet Take 1 tablet by mouth once daily. multivitamin ORAL tablet Take 1 tablet by mouth once daily. No current facility-administered medications for this visit. PAST MEDICAL HISTORY Diagnosis Date Acute deep vein thrombosis (DVT) of femoral vein of right lower extremity (HCC) Acute deep vein thrombosis (DVT) of right lower extremity (HCC) Benign neoplasm of colon 02/22/2012 Cholelithiasis 09/17/2009 Diverticulosis of colon (without mention of hemorrhage) Osteoporosis, unspecified Personality change 11/27/2019 Scapula fracture 03/2012 left - Dr. Antoine, [facility] Unspecified essential hypertension 2007 PAST SURGICAL HISTORY Procedure Laterality Date COLONOSCOPY FLX DX W/COLLJ SPEC WHEN PFRMD 02/22/2012 Colonoscopy repeat 3 years COLONOSCOPY FLX DX W/COLLJ SPEC WHEN PFRMD 07/01/15 Colonoscopy FAMILY HISTORY Problem Relation Age of Onset Coronary Artery Disease Father ? 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 Seizure free. Remains on Keppra. Driving and doing well.. Recent MRI was negative. No other health issues. Continue plan on meds. PLAN: - LABS: LEV - Medications: -Keppra 500mg BID -continue with all other daily medications Follow all seizure precautions - Consults: none - Follow up: August 2024 I spent 15 minutes during this encounter counseling on risks of recurrent events, medications, safety, lifestyle change, documentaion.. Laura Bowman, LACE ROLLER OPERATOR.RV SERVICER August 05, 2023 [facility] 08-02-2023 Note HNO ID: [id number] Author: Alivia Natarajan MD Service: ? Author Type: Physician Type: Progress Notes Filed: 08/06/2023 8:24 AM Note Text: NEUROSURGERY FOLLOW UP OFFICE NOTE Alivia Natarajan MD Date of visit: August 02, 2023 Patient Name: Ms.Phyllis Chilango Oconnor Date of : 1950 Current Age: [age] year old Sex: female MRN/E# [id number] Last Office Visit: September 08, 2021 CLINICAL SUMMARY: * S/p olfactory groove meningioma resection with Dr Dotson on 08/20/2019 - path: meningioma, transitional type with psammoma bodies, WHO Grade 1 * Seizures on EEG monitoring, on Keppra 750 mg BID Epilepsy: Foldvary Guillermo, Paola DO HPI: The patient presents for a follow up with imaging (MRI B) for evaluation. This is a 73-year-old female with a PMHx of DVT, HTN, and meningioma. She was initially seen for consult on 09/16/[address] Paula Dotson after presenting with a 2-month history of increasing lethargy and confusion. 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 MRI was completed and showed significant brain edema. She was placed on oral steroids with recommendation to undergo surgical resection. This was completed on 09/19/2019 as noted below. Pathology demonstrated a meningioma WHO gr 1. Following surgical resection she was diagnosed with pneumonia and a right lower extremity DVT for which a [place] IVC filter was placed. (Removed February 2020) and was placed on Eliquis. She was seen in the office routinely for evaluation with imaging and overall did well. She was last seen on 09/08/[address] Paula Dotson. At that time she was overall doing well and reported no new neurological symptoms. She had lost her sense of smell and taste but this was gradually improving. She also had episodes of intermittent forgetfulness and some recall difficulties remembering names but this was stable. Otherwise she denied any headache, dizziness, seizure activity, visual changes, speech deficits, motor or sensory deficits. MRI was reviewed and showed postsurgical changes. There was note of dural thickening and enhancement at the surgical site which was unchanged from 11/08/2019 likely representing postsurgical changes and/or small volume of residual meningioma tissue. Given that there were no signs of growth and MRI appeared stable recommendation was to follow-up in 2 years with repeat MRI prompting her visit today. She presents today with MRI imaging. She states that since last visit she states that she has been doing well. She continues with some decreased smell. This had improved since surgery, but she continues to struggle to smell sweet things. Her taste is back to normal. She still has issues with short term memory and recalling names, stable since surgery. Denies headaches, vision changes, weakness, numbness, tingling, dizziness, nausea, and vomiting. She continues to take Keppra 500 mg BID. She presents for image review, evaluation and plan of care. SYMPTOMS: Decreased sense of smell, memory issues PREVIOUS CONSERVATIVE TREATMENTS: Keppra 500 mg PO BID PREVIOUS SURGERY: SURGERY #1: Bicoronal craniotomy for resection of olfactory groove tumor on 09/19/[address] Paula Dotson and Dr. Richardson. FINAL DIAGNOSIS: A AND B) EXCISIONAL BIOPSY OF BRAIN - MENINGIOMA, WHO GRADE 1. SURGICAL RISK: Smoker: Never Diabetic: No Anticoagulants / Antiplatelets: No PAIN EVALUATION No data found in the last 1 encounters. PAST MEDICAL HISTORY Diagnosis Date Acute deep vein thrombosis (DVT) of femoral vein of right lower extremity (HCC) Acute deep vein thrombosis (DVT) of right lower extremity (HCC) Benign neoplasm of colon 02/22/2012 Cholelithiasis 09/17/2009 Diverticulosis of colon (without mention of hemorrhage) Osteoporosis, unspecified Personality change 11/27/2019 Scapula fracture 03/2012 left - Dr. Antoine, [facility] Unspecified essential hypertension 2007 PAST SURGICAL HISTORY Procedure Laterality Date COLONOSCOPY FLX DX W/COLLJ SPEC WHEN PFRMD 02/22/2012 Colonoscopy repeat 3 years COLONOSCOPY FLX DX W/COLLJ SPEC WHEN PFRMD 07/01/15 Colonoscopy FAMILY HISTORY Problem Relation Age of Onset Coronary Artery Disease Father ? CHF 60s Thyroid Mother Hypertension Mother ALLERGIES Allergen Reactions Ceftriaxone Rash Keflex [Cephalexin] Rash Lisinopril Cough Seasonal Allergies Current Outpatient Medications Medication Sig Dispense Refill gabapentin (NEURONTIN) 100 mg capsule PLEASE SEE ATTACHED FOR DETAILED DIRECTIONS doxycycline (VIBRAMYCIN) 50 mg capsule Take 1 capsule by mouth every afternoon. levETIRAcetam (KEPPRA) 500 mg tablet Take 1 tablet by mouth two times a day. 180 tablet 0 iv contrast (will be provided with radiology test) MRI Brain Inject, intravenously, once for 1 dose.No IV access, insert saline lock prior to beginning of sedation, infusion, injection of imaging exam.Discontinue saline lock post (more content not included)... [facility] 08-02-2023 Note HNO ID: [id number] Author: Graciela Moore RT(R) Service: Radiology Author Type: Technologist Type: Progress Notes Filed: 08/02/2023 11:47 AM Note Text: Radiology Service Progress Note DATE OF SERVICE: August 02, 2023 TIME: 11:47 AM PATIENT IDENTITY VERIFICATION COMPLETED USING TWO (2) STANDARD IDENTIFIERS: Name and Date of confirmed by patient verbally. FALL SCREENING: Has the patient had 2 falls in the last year or 1 fall with injury or currently using an Ambulatory Assistive Device (Walker, Cane, Wheelchair, Crutches, etc.)? No PATIENT GENDER DATA: Female. status: : No status: NO. PATIENT RELEVANT IMPLANT DATA REVIEWED: Not Applicable ALLERGIES: Reviewed and unchanged CONTRAST ALLERGY: NO. EXAM: MRI - CONTRAST TYPE: GROUP II PERIPHERAL IV DATA: Ambulatory: A peripheral IV was started in the Left antecubital site with a Butterfly: 25 gauge. 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 This is a 73-year-old female with a PMHx of DVT, HTN, and meningioma. She was initially seen for consult on 09/16/[address] Paula Dotson after presenting with a 2-month history of increasing lethargy and confusion. 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 MRI was completed and showed significant brain edema. She was placed on oral steroids with recommendation to undergo surgical resection. This was completed on 09/19/2019 as noted below. Pathology demonstrated a meningioma WHO gr 1. Following surgical resection she was diagnosed with pneumonia and a right lower extremity DVT for which a Geri IVC filter was placed. (Removed February 2020) and was placed on Eliquis. She was seen in the office routinely for evaluation with imaging and overall did well. She was last seen on 09/08/[address] Paula Dotson. At that time she was overall doing well and reported no new neurological symptoms. She had lost her sense of smell and taste but this was gradually improving. She also had episodes of intermittent forgetfulness and some recall difficulties remembering names but this was stable. Otherwise she denied any headache, dizziness, seizure activity, visual changes, speech deficits, motor or sensory deficits. MRI was reviewed and showed postsurgical changes. There was note of dural thickening and enhancement at the surgical site which was unchanged from 11/08/2019 likely representing postsurgical changes and/or small volume of residual meningioma tissue. Given that there were no signs of growth and MRI appeared stable recommendation was to follow-up in 2 years with repeat MRI prompting her visit today. She presents today with MRI imaging. She states that since last visit she states that she has been doing well. She continues with some decreased smell. This had improved since surgery, but she continues to struggle to smell sweet things. Her taste is back to normal. She still has issues with short term memory and recalling names, stable since surgery. Denies headaches, vision changes, weakness, numbness, tingling, dizziness, nausea, and vomiting. She continues to take Keppra 500 mg BID. She presents for image review, evaluation and plan of care. SYMPTOMS: Decreased sense of smell, memory issues PREVIOUS CONSERVATIVE TREATMENTS: Keppra 500 mg PO BID PREVIOUS SURGERY: SURGERY #1: Bicoronal craniotomy for resection of olfactory groove tumor on 09/19/[address] Paula Dotson and Dr. Richardson. FINAL DIAGNOSIS: A & B) EXCISIONAL BIOPSY OF BRAIN - MENINGIOMA, WHO GRADE 1. SURGICAL RISK: Smoker: Never Diabetic: No Anticoagulants / Antiplatelets: No PAIN EVALUATION No data found in the last 1 encounters. PAST MEDICAL HISTORY Diagnosis Date Acute deep vein thrombosis (DVT) of femoral vein of right lower extremity (HCC) Acute deep vein thrombosis (DVT) of right lower extremity (HCC) Benign neoplasm of colon 02/22/2012 Cholelithiasis 09/17/2009 Diverticulosis of colon (without mention of hemorrhage) Osteoporosis, unspecified Personality change 11/27/2019 Scapula fracture 03/2012 left - [facility] Unspecified essential hypertension 2007 PAST SURGICAL HISTORY Procedure Laterality Date COLONOSCOPY FLX DX W/COLLJ SPEC WHEN PFRMD 02/22/2012 Colonoscopy repeat 3 years COLONOSCOPY FLX DX W/COLLJ SPEC WHEN PFRMD 07/01/15 Colonoscopy FAMILY HISTORY Problem Relation Age of Onset Coronary Artery Disease Father ? CHF 60s Thyroid Mother Hypertension Mother ALLERGIES Allergen Reactions Ceftriaxone Rash Keflex [Cephalexin] Rash Lisinopril Cough Seasonal Allergies Current Outpatient Medications Medication Sig Dispense Refill gabapentin (NEURONTIN) 100 mg capsule PLEASE SEE ATTACHED FOR DETAILED DIRECTIONS doxycycline (VIBRAMYCIN) 50 mg capsule Take 1 capsule by mouth every afternoon. levETIRAcetam (KEPPRA) 500 mg tablet Take 1 tablet by mouth two times a day. 180 tablet 0 iv contrast (will be provided with radiology test) MRI Brain Inject, intravenously, once for 1 dose.No IV access, insert saline lock prior to beginning of sedation, infusion, injection of imaging exam.Discontinue saline lock post exam. If Pt. has a central line or IVAD, may access for administration according to line specific nursing protocol.Once exam is complete flush line and de-access according to line specific nursing protocol in the MR contrast administration guidelines link 1 Each 0 calcium carbonate/vitamin D3 (CALTRATE-600 PLUS VITAMIN D3 ORAL) amLODIPine (NORVASC) 10 mg tablet Take 1 tablet by mouth once daily. levothyroxine (LEVOXYL) 50 mcg tablet Take 1 tablet by mouth once daily. Take on empty stomach. For Thyroid 30 tablet 11 losartan (COZAAR) 100 mg tablet Take 1 tablet by mouth once daily. 90 tablet 3 multivitamin ORAL tablet Take 1 tablet by mouth once daily. 0 No current facility-administered medications for this visit. REVIEW OF SYSTEMS: Review of Systems Constitutional: Negative for chills, diaphoresis and fever. HENT: Negative for sinus pressure, sinus pain and trouble swallowing. Eyes: Negative for pain, redness and visual disturbance. Respiratory: Negative for cough, shortness of breath and wheezing. Cardiovascular: Negative for chest pain, palpitations and leg swelling. Gastrointestinal: Negative for constipation, diarrhea and nausea. Endocrine: Negative for cold intolerance and heat intolerance. Genitourinary: Negative for difficulty urinating, frequency and urgency. Musculoskeletal: Negative for back pain, gait problem and neck pain. Skin: Negative for color change, pallor and rash. Allergic/Immunologic: Negative for environmental allergies, food allergies and immunocompromised state. Neurological: Negative for weakness, numbness and headaches. Hematological: Does not bruise/bleed easily. Psychiatric/Behavioral: Negative for agitation, behavioral problems and confusion. OBJECTIVE: BP 118/70 Pulse 73 Resp 16 Wt 131 lb 13.4 oz (59.8kg) SpO2 99% PHYSICAL EXAM: Mental Status Awake, alert and oriented to person, place and time. Speech is normal. Language is fluent with no aphasia. Attention and concentration are normal. Cranial Nerves CN II: Visual acuity is normal. Visual hernandez full to confrontation. CN III, IV, : Extraocular movements intact bilaterally. Normal lids and orbits bilaterally. Pupils equal round and reactive to light bilaterally. CN V: Facial sensation is normal. CN VII: Full and symmetric facial movement. CN XI: Shoulder shrug strength is normal. Sensory: Normal sensation in upper and lower extremities and trunk to touch Motor: Normal muscle tone. No spasticity or tremor. No evidence of pronator drift. Full strength in upper and lower extremities Coordination: [id number] normal. Rapid alternating movement normal. Gait: Normal casual gait. Normal toe walking. Normal heel walking. Normal tandem gait. Romberg is absent. DATA REVIEW: IMAGING STUDIES: MRI Brain WO/W IVCON performed today 08/02/23 demonstrates: Report pending Images independently reviewed The following portions of the patient's history were reviewed, confirmed, updated as necessary: allergies, current medications, past family history, past medical history, past social history, past surgical history, problem list, HPI and ROS obtained by others. The clinical and radiographic findings as well as the risks, benefits, and alternatives of treatment have been reviewed in detail with the patient. ASSESSMENT/PLAN 1. Benign neoplasm of meninges (HCC) Doing well. Fills the incision is thinned out. MRI brain reviewed today - Stable postoperative changes - will continue to monitor with repeat MRI brain in 2 yrs - f/up in office to review results - Encouraged patient to contact our office should there be any further questions, concerns, or change in symptoms. Addendum 08/06/23: - reviewed MRI report: Minimally increased thickness of small enhancing planum sphenoidale mass, currently measuring 10 x 3. - images reviewed, the difference with the prior MRI is too negligible to justify earlier f/up - no change in plan with f/up MRI brain in 2 yrs Patient expressed understanding and is in agreement with plan. Some elements may have been copied from a previous note and have been updated/reviewed where appropriate. All portions reflect current medical decision making from today. Alivia Natarajan MD I spent a total of 30 minutes on the date of the service which included preparing to see the patient, [id number] patient care, completing clinical documentation, obtaining and/or reviewing separately obtained history, performing a medically appropriate examination, counseling and educating the patient/family/caregiver, ordering medications, tests, or procedures, independently interpreting results (not separately reported), and communicating results to the patient/family/caregiver. documented in this encounter [facility] 08-02-2023 History of Presen t illness Narrative Radiology Service Progress Note DATE OF SERVICE: August 02, 2023 TIME: 11:47 AM PATIENT IDENTITY VERIFICATION COMPLETED USING TWO (2) STANDARD IDENTIFIERS: Name and Date of confirmed by patient verbally. FALL SCREENING: Has the patient had 2 falls in the last year or 1 fall with injury or currently using an Ambulatory Assistive Device (Walker, Cane, Wheelchair, Crutches, etc.)? No PATIENT GENDER DATA: Female. status: : No status: NO. PATIENT RELEVANT IMPLANT DATA REVIEWED: Not Applicable ALLERGIES: Reviewed and unchanged CONTRAST ALLERGY: NO. EXAM: MRI - CONTRAST TYPE: GROUP II PERIPHERAL IV DATA: Ambulatory: A peripheral IV was started in the Left antecubital site with a Butterfly: 25 gauge. RADIOLOGY DEPARTMENT: MR; Exam(s) Completed: Head: Routine Brain SIGNATURE: RT Bennett(R) PATIENT NAME: Xi Oconnor DATE: August 02, 2023 TIME: 11:47 AM documented in this encounter [facility] 07-12-2023 Miscellaneous Notes Spoke with patient informed her that Dr. Paula Dotson is only seeing patient in [place], she is no longer at the [place] location. So I scheduled the patient for an MRI Brain w/wo in office and than she will follow up with Dr. Natarajan. Scheduled on 08/02/2023 @ 11:15 MRI and appt. At 1:00pm. She was ok with this date and time. Patient is calling, ended up with the [facility] phone line. Requesting a repeat MRI and a follow up visit with Dr. Paula Dotson. The f/u appt can be in person if done on the same day as the MRI test, if the mri is on a separate day a virtual visit would be fine per the patient. Please call the patient back per her request with an update. Tumor removal in 2019 was mentioned. P: [phone] documented in this encounter [facility] 12-10-2022 Miscellaneous Notes The following approved medication requests have been transmitted electronically. Requested Prescriptions Signed Prescriptions Disp Refills levETIRAcetam (KEPPRA) 500 mg tablet 180 tablet 0 Sig: Take 1 tablet by mouth twice daily. Authorizing Provider: JT REAL PA-C Prescription Refill: Requested by: pharmacy Please E-Scribe Caller Contact Number: Pharmacy Name: [facility] Pharmacy Number: [phone] Generic/ brand: 30 or 90 day supply requested: 90 Last appointment: 12/10/21 Next Appointment: none Patient of Dr. Worley documented in this encounter [facility] documented as of this encounter (statuses as of 12/10/2022) [facility] History of Past illness Narrative* Problem Noted Date Diagnosed Date Resolved Date Hypokalemia 11/27/2019 11/29/2019 Dehydration 11/27/2019 11/29/2019 Drug rash 11/27/2019 11/29/2019 Hyponatremia 11/26/2019 11/29/2019 Deep vein thrombosis (DVT) o f femoral vein of right lower extremity 10/28/2019 01/19/2020 Overview: Eliquis x 3 months No thrombophilia workup indicated Weakness 10/21/2019 10/27/2019 Allergic rhinitis 08/08/2013 11/29/2019 Overview: Allergy injections per Benign neoplasm of colon 02/22/201202/2013 Cholelithiasis 09/17/2009 08/08/2013 documented as of this encounter (statuses as of 07/12/2023) [facility] History of Past illness Narrative* Problem Noted Date Diagnosed Date Resolved Date Hypokalemia 11/27/2019 11/29/2019 Dehydration 11/27/2019 11/29/2019 Drug rash 11/27/2019 11/29/2019 Hyponatremia 11/26/2019 11/29/2019 Deep vein thrombosis (DVT) o f femoral vein of right lower extremity 10/28/2019 01/19/2020 Overview: Eliquis x 3 months No thrombophilia workup indicated Weakness 10/21/2019 10/27/2019 Allergic rhinitis 08/08/2013 11/29/2019 Overview: Allergy injections per Benign neoplasm of colon 02/22/201202/2013 Cholelithiasis 09/17/2009 08/08/2013 documented as of this encounter (statuses as of 07/13/2023) [facility] History of Past illness Narrative* Problem Noted Date Diagnosed Date Resolved Date Hypokalemia 11/27/2019 11/29/2019 Dehydration 11/27/2019 11/29/2019 Drug rash 11/27/2019 11/29/2019 Hyponatremia 11/26/2019 11/29/2019 Deep vein thrombosis (DVT) o f femoral vein of right lower extremity 10/28/2019 01/19/2020 Overview: Eliquis x 3 months No thrombophilia workup indicated Weakness 10/21/2019 10/27/2019 Allergic rhinitis 08/08/2013 11/29/2019 Overview: Allergy injections per Benign neoplasm of colon 02/22/201202/2013 Cholelithiasis 09/17/2009 08/08/2013 documented as of this encounter (statuses as of 08/03/2023) [facility] of Past illness Narrative* Problem Noted Date Diagnosed Date Resolved Date Hypokalemia 11/27/2019 11/29/2019 Dehydration 11/27/2019 11/29/2019 Drug rash 11/27/2019 11/29/2019 Hyponatremia 11/26/2019 11/29/2019 Deep vein thrombosis (DVT) o f femoral vein of right lower extremity 10/28/2019 01/19/2020 Overview: Eliquis x 3 months No thrombophilia workup indicated Weakness 10/21/2019 10/27/2019 Allergic rhinitis 08/08/2013 11/29/2019 Overview: Allergy injections per Benign neoplasm of colon 02/22/201202/2013 Cholelithiasis 09/17/2009 08/08/2013 documented as of this encounter (statuses as of 08/06/2023) [facility] of Past [facility] Narrative* Problem Noted Date Diagnosed Date Resolved Date Hypokalemia 11/27/2019 11/29/2019 Dehydration 11/27/2019 11/29/2019 Drug rash 11/27/2019 11/29/2019 Hyponatremia 11/26/2019 11/29/2019 Deep vein thrombosis (DVT) o f femoral vein of right lower extremity 10/28/2019 01/19/2020 Overview: Eliquis x 3 months No thrombophilia workup indicated Weakness 10/21/2019 10/27/2019 Allergic rhinitis 08/08/2013 11/29/2019 Overview: Allergy injections per Benign neoplasm of colon 02/22/201202/2013 Cholelithiasis 09/17/2009 08/08/2013 documented as of this encounter (statuses as of 11/19/2023) [facility] Miscellaneous Notes* Telephone Encounter - Emily Sandoval Ma - 07/25/2018 1:21 PM EDT Patient notified. * Telephone Encounter - Leticia Almanza - 07/25/2018 1:03 PM EDT The patient was started on levothyroxine at 50 mcgs, will recheck in [address] titrate order place please ask patient to come in to get lab work done. Needs to take on any empty stomach. Will discuss further in the upcoming appointment * Telephone Encounter - Ramirez Jackson (Rn), RN - 07/21/2018 12:02 PM EDT Patient returned call and states she does not take thyroid medication, but is willing to start. Symptoms fatigue, weight gain, hair loss. [facility] if pcp wants to prescribe medication. Advised if prescribed med, will need to recheck labs 6 to 8 weeks after starting. * Telephone Encounter - Elizabeth Medel (Den) - 07/21/2018 10:51 AM EDT Images from the original note were not included. Results TSH BLD (Order [id number]) Patient Info Patient Name Sex Xi Peng ([id number]) Female 1950 07/19/2018 5:07 PM - [facility], [facility] In Component Results Component Value Range & Units Status Performing Lab TSH 6.660 (H) 0.400 - 5.500 uU/mL Final CCM Lab and Collection TSH BLD (Order #[id number]) on 07/19/2018 - Lab and Collection Information Result History TSH BLD (Order #[id number]) on 07/19/2018 - Order Result History Report Collection Information BLOOD Collected: 07/19/2018 7:41 AM Resulting Agency: [facility] Result Information Flag: Abnormal Status: Final result (Resulted: 07/19/2018 5:07 PM) Provider Status: Reviewed Result Notes Notes recorded by Leticia Almanza on 07/21/2018 at 7:26 AM EDT Please tell him that thyroid is a little high. Is she taking the her medication on a regular basis? If so we need to increase the medication Phoned patient and left message to return call and ask to speak to a nurse. [facility] [place] [facility]* Diagnosis Seizure (HCC)- Primary Other convulsions documented in this encounter [facility]* Diagnosis Benign neoplasm of meninges (HCC)- Primary Benign neoplasm of cerebral meninges documented in this encounter [facility] note* Diagnosis Benign neoplasm of meninges (HCC) Benign neoplasm of cerebral meninges documented in this encounter [facility] note* Diagnosis Benign neoplasm of meninges (HCC)- Primary Benign neoplasm of cerebral meninges documented in this encounter [facility] note* Diagnosis Acquired hypothyroidism- Primary Unspecified hypothyroidism documented in this [facility] Summary Purpose Family History No Family History Records FoundNo Family History Records FoundNo Family History Records Found Advance Directives No Advanced Directives Records FoundNo Advanced Directives Records FoundNo Advanced Directives Records Found Reason for Referral Specialty Diagnoses / Procedures Referred By Contac t Referred To Contact MR IMAGING Diagnoses Benign neoplasm of meninges (HCC) Procedures MRI BRAIN WO/W IVCON MRI BRAIN BRAIN STEM W/O W/CONTRAST MATERIAL Alivia Natarajan MD [address] [facility] [place] [address] [place] [address] Referral ID Status Reason Start Date Expiration Date Visits Requested Visits Authorized [id number] Authorized Auto-Generat ed Referral 07/12/2023 08/10/2024 1 1 Additional Source Comments INFORMATION SOURCE (unrecogn ized section and content) DATE CREATED AUTHOR AUTHOR'S ORGANIZ ATION 08/07/2023 [facility] DATE CREATED AUTHOR AUTHOR'S ORGANIZ ATION 08/07/2023 [facility] Source Comments (unrecognize d section and content) In the event this informatio n is protected by the Federal Confidentiality of Alcohol and Drug Abuse Patient Records regulations: The Federal rules restrict any use of the information to criminally investigate or prosecute any alcohol or drug abuse patient.[facility] Hospital[facility] the event this information is protected by the Federal Confidentiality of Alcohol and Drug Abuse Patient Records regulations: The Federal rules restrict any use of the information to criminally investigate or prosecute any alcohol or drug abuse patient.[facility] HospitalIn the event this information is protected by the Federal Confidentiality of Alcohol and Drug Abuse Patient Records regulations: The Federal rules restrict any use of the information to criminally investigate or prosecute any alcohol or drug abuse patient.[facility] HospitalIn the event this information is protected by the Federal Confidentiality of Alcohol and Drug Abuse Patient Records regulations: The Federal rules restrict any use of the information to criminally investigate or prosecute any alcohol or drug abuse patient.[facility] Hospital[facility] the event this information is protected by the Federal Confidentiality of Alcohol and Drug Abuse Patient Records regulations: The Federal rules restrict any use of the information to criminally investigate or prosecute any alcohol or drug abuse patient.[facility] HospitalIn the event this information is protected by the Federal Confidentiality of Alcohol and Drug Abuse Patient Records regulations: The Federal rules restrict any use of the information to criminally investigate or prosecute any alcohol or drug abuse patient.[facility] Reason for Visit (unrecogniz ed section and content) Reason Comments Orders Specialty Diagnoses / Procedures Referred By Contac t Referred To Contact MR IMAGING Diagnoses Benign neoplasm of meninges (HCC) Procedures MRI BRAIN WO/W IVCON MRI BRAIN BRAIN STEM W/O W/CONTRAST MATERIAL Alivia Natarajan MD [address] [place] [address] [place] [address] Referral ID Status Reason Start Date Expiration Date V isits Requested Visits Authorized [id number] Closed Auto-Generate d Referral 07/12/2023 08/10/2024 1 1 Reason Comments Established Patient Care Teams (unrecognized sec tion and content) Trim Setter Relationship Specialty Start Date End Date Krista Delgado MD [address] [place] [address] PCP - General Family Medicine 10/30/19 Trim Setter Relationship Specialty Start Date End Date Krista Delgado MD [address], [place] [address] PCP - General Family Medicine 10/30/19 Trim Setter Relationship Specialty Start Date End Date Leticia Almanza MD [address], [place] [id number] PCP - General Internal Medicine 07/07/16 10/29/19 Krista Delgado MD [address], [place] [address] PCP - General Family Medicine 10/30/19 Loree Ramos, ESTELLE [address] [id number] Primary Care [employer] Production Supervisor Internal Medicine 10/30/19 10/30/19 FOR RECORDS PERTAINING TO PATIENTS WHO ARE OR HAVE BEEN ENROLLED IN A CHEMICAL DEPENDENCY/SUBSTANCEABUSE PROGRAM, SOME INFORMATION MAY BE OMITTED. This clinical summary was aggregated from multiple sources. Caution should be exercised in using it in the provision of clinical care. This summary normalizes information from multiple sources, and as a consequence, information in this document may materially change the coding, format and clinical context of patient data. In addition, data may be omitted in some cases. CLINICAL DECISIONS SHOULD BE BASED ON THE PRIMARY CLINICAL RECORDS. [facility]. provides no warranty or guarantee of the accuracy or completeness of information in this document.
== END | disposition home or self-care (01) ==
LOC: US 12:40
PROVIDERS: PCP Family Medicine; Referring Provider Family Medicine; Visit Provider Family Medicine
DX: N93.8 Other specified abnormal uterine and vaginal bleeding (principal)
CPT/HCPCS: 76830; 76856

== ENCOUNTER → 2024-01-05 | Outpatient (CLI) | payer MEDICARE, OTHER, SELFPAY ==
--- NOTE | 2024-01-05 | IMM_PTH ---
PATIENT: JAMIN AU LOC: BI U#:[id number] AGE/SX: 73/F ROOM: RE01/05/[address]: KADEEM Ross : 1950 BED: DIS: 01/05/2024 SPEC #: [id number] RECD: 01/06/24 16:08 STATUS: CARY REQ #: [id number] CORKY: 01/05/24 00:[address]: Mitzi Childs NP DEPT: IMMUNOHISTOCHEMISTRY RECD BY: Ryan Eldridge ENTERED: 01/06/24 16:09 SP TYPE: IMMUNO OTHR DR: Dr. Ramakrishna Delgado MD Tissues: Endometrium, NOS Procedures: MSH2 (add) MLH-1 (add) MSH6 (add) Anti-PMS2 (add) KI-67 (add) P53 (add) HER-2-BRIT (initial) PHYSICIAN & INSTITUTION [place] [id number] SPECIMEN INFORMATION: Tissue Source: Endometrial lining Clinical Info: Abnormal uterine bleeding Specimen Number: [id number] CPT code: 86900,43102h5 METHODOLOGY: Deparaffinized sections of prefer/formalin-fixed tissue or PAP/DQ stained slides are incubated with monoclonal/polyclonal antibodies/oligonucleotide probes. Localization is made via biotin free immunoperoxidase method. Appropriate controls are performed and reacted as expected. Results on target cell population are indicated in the following table: RESULTS: ANTIBODY / CLONE RESULT Her-2neu (CB11) negative, (0) MLH-1 (M1) positive MSH2 (25D12) positive MSH6 (44) positive PMS2 (OCK4548) positive Ki-67 (30-9) positive, high P53 (DO-7) positive, ( Missense mutation pattern) These tests were developed and their performance characteristics determined by [facility]. They may not have been cleared or approved by the [place]. Food and Drug Administration. The FDA has determined that such clearance or approval is not necessary. The above immunohistochemical/dualISH markers are ordered and reviewed by the Pathologist. INTERPRETATION: Endometrial biopsy: Papillary serous carcinoma Result of Microsatellite Instability Study: Negative (no loss of mismatch protein; no microsatellite instability detected). BRAYAN/mr 01/07/24
--- NOTE | 2024-01-05 11:25 | EMB_PTH ---
PATIENT: JAMIN AU LOC: BI U#:[id number] AGE/SX: 73/F ROOM: RE01/05/[address]: KADEEM Ross : 1950 BED: DIS: 01/05/2024 SPEC #: [id number] RECD: 01/05/24 12:05 STATUS: CARY RERyan #: [id number] CORKY: 01/05/24 11:[address]: Mitzi Childs NP DEPT: SURGICAL PATHOLOGY RECD BY: Evelina Noe ENTERED: 01/05/24 14:01 SP TYPE: ENDOM BX/C SHLOMO DR: Dr. Ramakrishna Delgado MD Tissues: Endometrium, NOS Procedures: Surgery Specimen Level IV HEADER OPERATION: Endometrial biopsy PRE-OP DIAGNOSIS: Abnormal uterine bleeding TISSUE SUBMITTED: Endometrial lining MICROSCOPIC DIAGNOSIS Endometrial biopsy: Papillary serous adenocarcinoma, FIGO grade III. See comment. BRAYAN/ 01/06/24 COMMENT Immunohistochemistry ([id number]) for microsatellite instability (mismatch repair of protein) will be performed and the results will be reported separately. Case has been reviewed in consultation with Dr. Bhatia who concurs with the above diagnosis. IDC:AM MICROSCOPIC DESCRIPTION Slides are reviewed. GROSS DESCRIPTION Received is one container labeled with the patient's name and not further designated. The specimen consists of multiple irregular fragments of polanco-pink soft tissue mixed with blood clot that in aggregate measure 5.0 x 3.0 x 0.6 cm. The entire specimen is submitted in four cassettes. BRAYAN/ 01/05/24 TC:0 CPT: 26662
[2024-01-11 19:15] LABS: HPV Reflexed? NOT INDICATED
== END | disposition home or self-care (01) ==
PROVIDERS: PCP Family Medicine; Referring Provider Nurse Practitioner Women's Health; Visit Provider Nurse Practitioner Women's Health
DX: Z12.4 Encounter for screening for malignant neoplasm of cervix (principal); C54.1 Malignant neoplasm of endometrium
CPT/HCPCS: 88175; 88305; 88341; 88342; G0145

== ENCOUNTER → 2024-01-27 | Outpatient (CLI) | payer MEDICARE, OTHER, SELFPAY ==
--- NOTE | 2024-01-27 14:21 | CT_ITS ---
STUDY: CT CHEST, ABDOMEN T PELVIS WITH CONTRAST REASON FOR EXAM: Female, 73 years old. UTERINE/CERVICAL CA STAGING. The patient is status post total abdominal hysterectomy and bilateral salpingooophorectomy. RADIATION DOSAGE (If Supplied By Facility): CTDIvol = ( 10.31 ) mGy, DLP = ( 804.60 ) mGycm TECHNIQUE: Transaxial imaging was performed following intravenous administration of Oral and amp;amp;amp; IV Readi-CAT and amp;amp;amp; 100mL Isovue-300. Multiplanar coronal and sagittal images were reformatted. Individualized dose optimization techniques were used for this CT. COMPARISON: Comparison is made with prior CT of the thorax dated October 03, 2019. FINDINGS: CHEST The lungs are normal. There is no demonstrated pleural abnormality. Normal heart and pericardium. No coronary calcification is seen. Normal mediastinum. Normal hilar regions. Normal unenhanced pulmonary arteries. Normal aorta arch and descending thoracic aorta. There are multi-level degenerative changes of the thoracic spine. ABDOMEN There is decreased attenuation of the liver consistent with steatosis. There is a 1.6 x 1.2 cm well-defined hypodensity in the anterior aspect of the left lobe of the liver. This is not a typical cyst. This is essentially unchanged from prior examination. There is a 1.3 cm x 0.7 cm focal area of enhancement in the inferior lateral aspect of the right lobe of the liver. Correlation with ultrasound is recommended for further evaluation. There are multiple gallstones. Normal spleen. Normal pancreas. Normal bilateral adrenal glands. Normal right kidney. Left renal cyst. This measures 6.8 cm x 5.9 cm. There is a small hiatal hernia. Normal small intestine. Moderate amount of fecal material is seen in the colon. There is non-visualization of the appendix. Normal abdominal aorta. Normal inferior vena cava. Normal retroperitoneum. Normal abdominal wall. 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 PELVIS Normal urinary bladder. Patient is status post hysterectomy. A small amount of free fluid is seen in the pelvis most likely secondary to the recent surgical procedure. There is no pelvic lymphadenopathy or mass lesion. Normal visualized pelvic arteries. CT/CT Chest, Abd, Pel w/Contrast IMPRESSION: 1.6 cm x 1.2 cm well-defined hypodensity in the anterior aspect of the left lobe of liver. There is also evidence of a 1.3 cm x 0.7 cm focal area of enhancement in the inferior lateral aspect of the right lobe of the liver. Correlation with ultrasound is recommended. Left renal cyst. Electronically Signed: [place] MD at 15:47 EDT ,
[2024-01-27 14:50] LABS: CREATININE FINGERSTICK < 1.0 mg/dL (0.55-1.02)
== END | disposition home or self-care (01) ==
PROVIDERS: PCP Family Medicine; Referring Provider Obstetrics & Gynecology; Visit Provider Obstetrics & Gynecology
DX: C54.1 Malignant neoplasm of endometrium (principal)
CPT/HCPCS: 71260; 74177; Q9967; A4216

== ENCOUNTER → 2024-02-14 | Outpatient (CLI) | payer MEDICARE, OTHER, SELFPAY ==
--- NOTE | 2024-02-14 09:17 | US_ITS ---
INDICATION: LIVER CYST EXAMINATION: Ultrasound US Abdomen Limited (quadrant) TECHNIQUE: Gray scale and color doppler imaging was performed of the right upper quadrant. COMPARISON: CT scan of the chest, abdomen and pelvis of 01/27/2024. FINDINGS: LIVER: There is moderate increased echogenicity. There is a hypoechoic lesion in the left lobe of the liver measuring about 1.5 x 1.8 x 1.5 cm corresponding to the CT abnormality most consistent with hemangioma. There is a small hyperechoic lesion in the posterior segment of the right lobe of the liver corresponding to the CT abnormality measuring about 9 x 9 x 8 mm again likely due to hemangioma. There is no free fluid. GALLBLADDER AND BILIARY TREE: Multiple gallstones are seen, the largest measures about 2 cm. The gallbladder wall measures about 3 mm. The proximal common bile duct measures 10 mm, which is dilated. Sonographic Blevins''s sign: Negative. PANCREAS: No focal abnormality is demonstrated in the pancreas. No pancreatic ductal dilatation. Right kidney: The right kidney measures about 10 cm in length. The renal cortex measures 1.2 cm. No evidence of hydronephrosis. US/Liver IMPRESSION: 1. Liver lesions as described above likely due to hemangiomas. Repeat liver ultrasound in 6 months is recommended. 2. Hepatic steatosis. 3. Multiple gallstones with dilated common bile duct. MRCP might be further value. Electronically Signed: Daryn Parra MD at 11:37 EDT ,
== END | disposition home or self-care (01) ==
LOC: US 09:12
PROVIDERS: PCP Family Medicine; Referring Provider Nurse Practitioner Gerontology; Visit Provider Nurse Practitioner Gerontology
DX: K76.89 Other specified diseases of liver (principal)
CPT/HCPCS: 76705

== ENCOUNTER → 2024-05-15 | Outpatient (CLI) | payer MEDICARE, OTHER, SELFPAY ==
[2024-05-17 04:07] LABS: Cancer Antigen 125 12.5 U/mL (0.0-38.1)
== END | disposition home or self-care (01) ==
LOC: LAB 14:12
PROVIDERS: PCP Family Medicine; Referring Provider Nurse Practitioner Primary Care; Visit Provider Nurse Practitioner Primary Care
DX: C54.1 Malignant neoplasm of endometrium (principal)
CPT/HCPCS: 36415; 86304

== ENCOUNTER → 2024-09-01 | Outpatient (CLI) | payer MEDICARE, OTHER, SELFPAY | END | disposition home or self-care (01) | LOC: OPBI 09:00 | PROVIDERS: PCP Family Medicine; Referring Provider Family Medicine; Visit Provider Family Medicine | DX: Z12.31 Encounter for screening mammogram for malignant neoplasm of breast (principal) | CPT/HCPCS: 77063; 77067 ==

== ENCOUNTER → 2024-09-11 | Outpatient (CLI) | payer MEDICARE, OTHER, SELFPAY | END | disposition home or self-care (01) | LOC: LAB 11:13 | PROVIDERS: PCP Family Medicine; Referring Provider Obstetrics & Gynecology; Visit Provider Obstetrics & Gynecology | DX: C54.1 Malignant neoplasm of endometrium (principal) | CPT/HCPCS: 36415; 86304 ==

== ENCOUNTER → 2024-12-11 | Outpatient (CLI) | payer MEDICARE, OTHER, SELFPAY ==
[2024-12-11 11:40] LABS: PTHIN 49 pg/mL (11-61)
[2024-12-11 15:34] LABS: EST Glomerular Filtration Rate 69 (>60)
[2024-12-11 19:55] LABS: Cholesterol 191 mg/dL (<=200); High Density Lipoprotein 66 mg/dL; Low Density Lipoprotein Calc. 94 mg/dL; Triglycerides 157 mg/dL; Very Low Density Lipoprotein 31 mg/dL (5-40); Vitamin D,25 Hydroxy 51.4 ng/mL (30-100)
[2024-12-11 19:58] LABS: ALB/GLOB Ratio 1.2 RATIO (0.9-2.4); AST(SGOT) 30 U/L (<=31); Alanine Aminotransfer ALT/SGPT 27 U/L (<=34); Albumin, Serum 4.3 g/dL (3.4-4.8); Alkaline Phosphatase 48 U/L (35-104); Anion Gap 14 (5-15); BUN 20 mg/dL (4-19); BUN/Creat Ratio 22.4 RATIO (10-20); Calcium,Total 9.2 mg/dL (7.6-11.0); Carbon Dioxide 20.3 mmol/L (21.0-32.0); Chloride 105 mmol/L (98-108); Creatinine, Serum 0.89 mg/dL (0.70-1.20); Globulin 3.6 g/dL (2.2-4.2); Glucose 89 mg/dL (70-99); Protein, Total 7.9 g/dL (5.9-8.4); Sodium Level 140 mmol/L (133-145); Total Bilirubin 0.46 mg/dL (0.00-1.30)
== END | disposition home or self-care (01) ==
LOC: MFPLAB 08:20
PROVIDERS: PCP Family Medicine; Visit Provider Family Medicine
DX: I10 Essential (primary) hypertension (principal); M81.0 Age-related osteoporosis without current pathological fracture; E03.9 Hypothyroidism, unspecified
CPT/HCPCS: 36415; 80053; 80061; 82306; 83970; 84439; 84443

== ENCOUNTER → 2024-12-19 | Outpatient (CLI) | payer MEDICARE, OTHER, SELFPAY ==
[2024-12-20 06:20] LABS: Cancer Antigen 125 13.2 U/mL (0.0-38.1)
== END | disposition home or self-care (01) ==
LOC: LAB 10:40
PROVIDERS: PCP Family Medicine; Referring Provider Obstetrics & Gynecology; Visit Provider Obstetrics & Gynecology
DX: C54.1 Malignant neoplasm of endometrium (principal)
CPT/HCPCS: 36415; 86304

== ENCOUNTER → 2025-03-06 | Outpatient (CLI) | payer MEDICARE, OTHER, SELFPAY ==
--- OUTSIDE RECORDS SUMMARY | 2025-03-06 19:58 | XMS RPT_ITS | CCD ---
Author Organization [facility] Care Team Providers Care Bobcat Operator Name Role Phone Krista Delgado MD Primary Care Provider WALKER HERNANDEZ Attending Unavailable KRISTA DELGADO Primary Care UnavailALIVIA Dupree Attending Unavailable SARA MARTÍNEZ Referring Unavailable KRISTA DELGADO Primary Care UnavailALIVIA Dupree Referring Unavailable KRISTA DELGADO Primary Care Unavailjanine Almanza MD, Leticia Primary Care Provider Loree Ramos RN Unavailable Krista Delgado MD Primary Care Provider Dr. Krista Delgado Primary Care Provider [phone] Dr. Krista Delgado Referring Provider [phone] Naz DIGITAL STRATEGY DIRECTOR, KADEEM Cartagena Attending Provider Costa ABEL, Katya A Unavailable Krista Delgado Primary Care Provider Rogerio FINANCIAL AID OFFICER - CREATIVE DIRECTORDioniYaritza Unavailable [phone] Lolly FINANCIAL AID OFFICER - CREATIVE DIRECTOR, Serena Unavailable Krista Delgado Primary Care Unavailable Katya Gorman Attending Unavailable Vern Gormanin Referring Unavailable Krista Delgado Attending Unavailable Krista Delgado Referring Unavailable Krista Delgado Primary Care Unavailable Krista Delgado Primary Care Unavailable Serena Harris Attending Unavailable Goran Harrisen Referring Unavailable YARITZA LY Attending Unavailable DIONI LYIMEE Referring Unavailable Krista Delgado Primary Care Unavailable Vern Gormanin Attending Unavailable Laskey, Katya Referring Unavailable [facility] [place] [place] [facility] Un[facility] Naz DIGITAL STRATEGY DIRECTOR, Joe Attending Unavailable Naz DIGITAL STRATEGY DIRECTOR, Joe Referring Unavailable [facility], [facility] Unavailable Laskey, Katya Attending Unavailable Laskey, Katya Referring Unavailable [place], [facility] [place] Primary [facility] Unavailable Naz DIGITAL STRATEGY DIRECTOR, Joe Attending Unavailable Ranney, Christopher Referring Unavailable Ranney, Christopher Attending Unavailable [place], [facility] Unavailable Danny ABEL, Dr. Durbin Primary Care Provider Danny ABEL, Dr. Durbin Attending Provider Danny ABEL, Dr. Durbin Referring Provider Vita ABEL, Dr. Mejía Attending Provider Vita ABEL, Dr. Mejía Referring Provider [phone] LASKEY-JOBKAR, KATYA Attending Unavailable LASKEY-JOBKAR, KATYA Admitting Unavailable [facility] [place] Primary Care Unavailable LASKEY-JOBKAR, KATYA Attending Unavailable [facility], [facility] Primary [facility] Unavailable LASKEY-JOBKAR, KATYA Attending Unavailable RANARCO, [facility] Primary Care Unavailable SERENA HARRIS Attending Unavailable [place], [place] Primary Care Unavailable LASKEY-JOBKAR, KATYA Attending Unavailable NAZ, JOE Referring Unavailable RANNEY, [facility] Primary Care Unavailable LASKEY-JOBKAR, KATYA Attending Unavailable [place]AN[place], [place] Primary Care Unavailable RANNEY, [facility] Primary Care Unavailable LASKEY-JOBKAR, KATYA Attending Unavailable [place], [place] Primary Care Unavailable Allergies Allergy Classification Reported Allergen(s) Allergy Type Date of Onset Reaction(s) Facility (20 sources) cefTRIAXone; Translations: [CEFTRIAXONE] Drug Allergy 0 Rash [facility] Work Phone: (20 sources) Cephalexin; Translations: [CEPHALEXIN] Drug Allergy 0 Rash [facility] Work Phone: (15 sources) Lisinopril; Translations: [LISINOPRIL] Drug Allergy 3 Cough [facility] Work Phone: Comment on above: cough (8 sources) Seasonal allergy; Translations: [SEASONAL ALLERGIES] Propensity to adverse reactions 9 [facility] Work Phone: (16 sources) Lisinopril Propensity to adverse reactions 4 Other [facility] (1 source) cefTRIAXone Drug Allergy 4 [facility] (1 source) Cephalexin Drug Allergy 4 [facility] (1 source) Lisinopril Drug Allergy 4 [facility] Medications Current Medications Medication Drug Class(es) Dates Sig (Normalized) Sig (Original) acetaminophen 500 mg oral tablet (15 sources) Start: 01-18-2024 End: 01-28-2024 take 2 tablets by mouth every six hours as needed for pain acetaminophen (Tylenol Extra Strength) 500 MG tablet Take 2 tablets (1,000 mg) by mouth every 6 hours as needed for mild pain (1-3) for up to 10 days. 60 tablet 0 01/18/2024 01/28/2024 Active Start: 01-17-2024 End: 01-18-2024 take 1 tablet by mouth every eight hours 1,000 mg, Oral, Every 8 hours, First dose on Wed01/17/24 at 1800, Phase II/On Unit, Maximum dose of acetaminophen is 4000 mg from all sources in 24 hours. Alternate ibuprofen and acetaminophen every 4 hours. Start: 09-26-2019 take 2 tablets by mo uth every four hours as needed for pain Acetaminophen 325 MG tablet Active 650 mg PO Q4H as needed for Pain Or Fever September 26, 2019 1:00am Start: 09-26-2019 take 650 mg by mouth every four hours Acetaminophen Active 650 MG PO Q4H September 26, 2019 1:00am End: 01-14-2024 acetaminophen (Tylenol) 325 MG capsule Take by mouth every 6 hours as needed for mild pain (1-3). 0 01/14/2024 Discontinued alendronic acid 70 mg oral tablet (16 sources) Bisphosphonate Start: 12-18-2019 Alendronate 70 MG tablet Active 1 {tbl} PO WE December 18, 2019 8:00pm Start: 09-26-2019 End: 12-18-2019 Alendronate 70 MG tablet Discontinued 1 NMA PO WE September 26, 2019 1:00am December 18, 2019 8:00pm Start: 09-26-2019 End: 12-18-2019 Alendronate Active 1 TABLET PO WE 4 December 18, 2019 8:00pm Start: 08-21-2016 End: 08-28-2019 take 1 tablet by mouth every week alendronate (FOSAMAX) 70 mg tablet Indications: Osteoporosis Take 1 tablet by mouth once each week. Take with a full glass of water, on an empty stomach; do NOT lie down for 30minutes. 12 tablet 3 08/21/2016 08/28/2019 Discontinued (Course of therapy completed) End: 01-13-2024 take 1 tablet by mouth in the morning alendronate (Fosamax) 70 MG tablet Take 70 mg by mouth every 7 days. Take in the morning with a full glass of water, on an empty stomach, and do not take anything else by mouth or lie down for the next 30 min. 0 01/13/2024 Discontinued (Therapy completed) Comment on above: Take 1 tablet by adrien once each week. Take with a full glass of water, on an empty stomach; do NOT lie down for 30minutes. calcium carbonate 500 mg oral tablet (14 sources) calcium carbonat e (Os-King) 1250 (500 Ca) MG tablet Take by mouth daily. Active denosumab (16 sources) RANK Ligand Inhibitor Denosumab (PROLIA SC) Inject 1 Dose under the skin every 6 (six) months. Due in April Active Denosumab (PROLI A SC) Inject 1 Dose under the skin every 6 (six) months. Due in April 0 Active doxycycline hyclate 100 mg oral capsule (20 sources) Tetracycline-class Drug Start: 01-05-2024 take 1 capsule by mouth once daily Doxycycline Hyclate 100 mg capsule Active 100 mg PO DAILY January 05, 2024 12:00am Start: 07-09-2023 take 1 capsule by mouth once d oxycycline (VIBRAMYCIN) 50 mg capsule Take 1 capsule by mouth every afternoon. 0 07/09/2023 Active take 1 tablet by adrien once daily doxycycline (Adoxa) 100 MG tablet Take 100 mg by mouth daily. Take with a full glass of water and do not lie down for at least 30 minutes after Active Comment on above: Take 1 capsule by mo [facility] every afternoon. hydroCHLOROthiazide 25 mg / losartan potassium 100 mg oral tablet (16 sources) Thiazide Diuretic, Angiotensin 2 Receptor Malathi take 1 tablet by mouth once daily losartan-hydroCHLOR Othiazide (Hyzaar) 100-25 MG tablet Take 1 tablet by mouth daily. Active iv contrast (will be provided with radiology test) (7 sources) Start: 2022 End: 2022 inject 1 dose intravenously once iv contrast [...] link 1 Each 0 07/12/2023 07/13/2023 Active Start: 09-08-2021 inject 1 dose intravenously on ce iv contrast (will be provided with radiology [...] contrast administration guidelines link 1 Each 0 09/08/2021 Active Comment on above: MRI Brain Inject, in travenously, once for 1 dose.No IV access, insert saline lock prior to beginning of sedation, infusion, injection of imaging exam.Discontinue saline lock post exam. If Pt. has a central line or IVAD, may access for administration according to line specific nursing protocol.Once exam is complete flush line and de-access according to line specific nursing protocol in the MR contrast administration guidelines link lactobacillus rhamnosus gg [id number] unt oral capsule (7 sources) Start: 12-01-2019 Lactobacillus Rhamnosus Gg 1 EACH capsule Active 1 NMA PO TWICE A DAY December 01, 2019 1:00am Start: 12-01-2019 Lactobacillus Rhamnosus Gg Active 1 EACH PO TWICE A DAY December 01, 2019 1:00am levothyroxine sodium 0.05 mg oral tablet (20 sources) l-Thyroxine Start: 01-24-2019 End: 01-18-2024 take 1 tablet by mouth once daily Levothyroxine 50 MCG tablet Active 50 ug PO DAILY September 16, 2019 1:00am Start: 07-25-2018 End: 10-19-2018 take 1 tablet by mouth once daily for thyroid dysfunction levothyroxine (LEVOXYL) 50 mcg tablet Take 1 tablet by mouth once daily. Take on empty stomach. For Thyroid 30 tablet 2 07/25/2018 10/19/2018 Discontinued Comment on above: Take 1 tablet by adrien th once daily. Take on empty stomach. For Thyroid losartan potassium 100 mg oral tablet (13 sources) Angiotensin 2 Receptor Malathi Start: 09-26-2019 take 1 tablet by mouth once daily Losartan 100 MG tablet Active 100 mg PO DAILY September 26, 2019 1:00am Start: 08-17-2017 End: 09-08-2018 take 100 mg by mouth once daily Losartan Active 100 MG PO DAILY September 26, 2019 12:00am Comment on above: Take 1 tablet by adrien th once daily. Take 1 tablet by adrien th once daily. Patient needs appointment meloxicam 7.5 mg oral tablet (3 sources) Nonsteroidal Anti-inflammatory Drug Start: 4 take 1 tablet by mouth once daily at mealtime meloxicam (Mobic) 7.5 MG tablet Take 7.5 mg by mouth daily. Take with food 09/13/2024 Active End: 08-28-2019 take 1 tablet by mouth once daily meloxicam (MOBIC) 15 mg tablet Indications: Carpal tunnel syndrome, bilateral Take 15 mg by mouth once daily. 0 08/28/2019 Discontinued (Course of therapy completed) Comment on above: Take 15 mg by mouth once daily. multivitamin (Theragran) tablet (16 sources) take 1 tablet by mouth once daily multivitamin (Theragran) tablet Take 1 tablet by mouth daily. Active take 1 tablet by mouth once guerda y multivitamin (Theragran) tablet Take 1 tablet by mouth daily. 0 Active Multivitamin With Minerals (5 sources) Start: 09-26-2019 take 1 tablet by mouth once daily Multivitamin With Minerals Active 1 TABLET PO DAILY September 26, 2019 12:00am Start: 09-26-2019 take 1 tablet by adrien th once daily Multivitamin With Minerals Active 1 TABLET PO DAILY September 26, 2019 1:00am Multivitamin With Minerals 1 EACH tablet (2 sources) Start: 09-26-2019 take 1 tablet by mouth once daily Multivitamin With Minerals 1 EACH tablet Active 1 {tbl} PO DAILY September 26, 2019 1:00am oxyCODONE hydrochloride 5 mg oral tablet (4 sources) Opioid Agonist Start: 01-18-2024 End: 01-23-2024 take 1 tablet by mouth every six hours as needed for pain oxyCODONE (Roxicodone) 5 MG immediate release tablet Indications: Postoperative pain Take 1 tablet (5 mg) by mouth every 6 hours as needed for severe pain (7-10) for up to 5 days. 15 tablet 0 01/18/2024 01/23/2024 Active Start: 01-17-2024 End: 01-18-2024 take 1 tablet by mouth every four hours as needed for pain oxyCODONE (Roxicodone) immediate release tablet 5 mg phenytoin sodium 100 mg extended release oral capsule (20 sources) Anti-epileptic Agent Start: 12-18-2019 take 1 capsule by mouth twice daily at mealtime Phenytoin Sodium Extended 100 MG capsule Active 100 mg PO TWICE DAILY WITH MEALS 60 December 18, 2019 12:00am Start: 10-06-2019 End: 12-18-2019 take 2 capsules by mouth twice daily at mealtime Phenytoin Sodium Extended 100 MG capsule Discontinued 200 mg PO TWICE DAILY WITH MEALS December 01, 2019 5:55pm December 18, 2019 7:59pm Start: 10-06-2019 End: 12-18-2019 take 200 mg by mouth twice daily at mealtime Phenytoin Sodium Extended Discontinued 200 MG PO TWICE DAILY WITH MEALS December 01, 2019 5:55pm December 18, 2019 7:59pm Start: 09-26-2019 End: 01-14-2024 take 1 capsule by mouth three times daily Phenytoin Sodium Extended 100 MG capsule Discontinued 100 mg PO THREE TIMES A DAY September 26, 2019 1:00am October 06, 2019 11:38am Saliva Substitute Combo No.9 (5 sources) Start: 12-01-2019 Saliva Substit standing rock Combo No.9 Active 15 ML MM THREE TIMES A DAY December 01, 2019 12:00am Start: 12-01-2019 Saliva Substit standing rock Combo No.9 Active 15 ML MM THREE TIMES A DAY December 01, 2019 1:00am Saliva Substitute Combo No.9 473 ML mouthwash (2 sources) Start: 12-01-2019 Saliva Substit standing rock Combo No.9 473 ML mouthwash Active 15 mL MM THREE TIMES A DAY December 01, 2019 1:00am Completed/Discontinued Medications Medication Drug Class(es) Dates Sig (Normalized) Sig (Original) amLODIPine 10 mg oral tablet (20 sources) Dihydropyridine Calcium Channel Malathi Start: 11-30-2019 End: 01-18-2024 take 1 tablet by mouth once daily Amlodipine 10 MG tablet Discontinued 10 mg PO DAILY December 01, 2019 1:00am December 18, 2019 8:00pm Comment on above: Take 1 tablet by adrien th once daily. apixaban 2.5 mg oral tablet (20 sources) Factor Xa Inhibitor Start: 01-18-2024 End: 07-06-2024 take 1 tablet by mouth twice daily apixaban (Eliquis) 2.5 MG tablet Take 1 tablet (2.5 mg) by mouth 2 times daily for 14 days. 28 tablet 01/18/2024 07/06/2024 Discontinued (Therapy completed) Start: 12-01-2019 End: 02-15-2020 take 1 tablet by mouth twice daily Apixaban 5 MG tablet Discontinued 5 mg PO TWICE A DAY 60 December 18, 2019 8:00pm February 15, 2020 9:05am azithromycin 500 mg oral tablet (7 sources) Macrolide Antimicrobial Start: 12-01-2019 End: 12-18-2019 take 1 tablet by mouth once daily Azithromycin 500 MG tablet Discontinued 500 mg PO DAILY December 01, 2019 1:00am December 18, 2019 8:00pm x1 dose only calcium carbonate 1500 mg / cholecalciferol 200 unt oral tablet (1 source) Vitamin D Start: 07-30-2006 End: 11-10-2019 CALCIUM + D 600 MG-200 UNIT TAB Take one(1) tablet daily. 0 07/30/2006 11/10/2019 Discontinued (Changing Therapy/Dosage Form) Comment on above: Take one(1) tablet d aily. Calcium Carbonate / vitamin D3 (5 sources) calcium carbonate/vitamin D3 (CALTRATE-600 PLUS VITAMIN D3 ORAL) calcium chloride 0.0014 meq/ml / potassium chloride 0.004 meq/ml / sodium chloride 0.103 meq/ml / sodium lactate 0.028 meq/ml injectable solution (2 sources) Start: 01-17-2024 End: 01-17-2024 lactated Ringer's (LR) infusion codeine sulfate 30 mg oral tablet (7 sources) Opioid Agonist Start: 10-06-2019 End: 10-13-2019 take 1 tablet by mouth every four hours as needed for pain Codeine Sulfate 30 MG tablet Discontinued 30 mg PO EVERY 4 HOURS NEEDED as needed for Pain Score 1-10/10 15 7 October 06, 2019 October 12, 2019 1:00am October 13, 2019 1:09am dextromethorphan hydrobromide 2 mg/ml / guaiFENesin 20 mg/ml oral solution (7 sources) Uncompetitive M-viknpx-E-aspartat e Receptor Antagonist, Sigma-1 Agonist Start: 12-01-2019 End: 12-18-2019 take 1 mL by mouth every twelve hours as needed for cough Dextromethorphan- Guaifenesin 10 ML syrup Discontinued 5 mL PO EVERY 12 HOURS NEEDED as needed for Cough December 01, 2019 1:00am December 18, 2019 7:59pm Start: 12-01-2019 End: 12-18-2019 take 1 mL by mouth every twelve hours as needed Dextromethorphan-Guaifenesin Discontinue d 5 ML PO EVERY 12 HOURS NEEDED December 01, 2019 1:00am December 18, 2019 7:59pm docusate sodium 50 mg / sennosides, retirement 8.6 mg oral tablet (10 sources) Start: 01-18-2024 End: 01-17-2025 take 1 tablet by mouth once daily senna-docusate sodium (Senokot-S) 8.6-50 MG tablet Take 1 tablet by mouth daily. 30 tablet 11 01/18/2024 07/06/2024 Discontinued (Therapy completed) Emollient Combination No.72 (Eucerin Intensive Repair) 1 APPLIC lotion (7 sources) Start: 12-18-2019 End: 02-15-2020 Emollient Combination No.72 (Eucerin Intensive Repair) 1 APPLIC lotion Discontinued 1 NMA TOPICAL 2200,0600 December 18, 2019 12:00am February 15, 2020 9:04am Please contact the information source for Protocol details. Start: 12-18-2019 End: 02-15-2020 Emollient Combination No.72 (Eucerin Intensive Repair) 1 APPLIC lotion Discontinued 1 APPLIC TOPICAL 2200,0600 December 17, 2019 11:00pm February 15, 2020 8:04am Start: 12-18-2019 End: 02-15-2020 Emollient Combination No.72 (Eucerin Intensive Repair) 1 APPLIC lotion Discontinued 1 APPLIC TOPICAL 2200,0600 December 18, 2019 12:00am February 15, 2020 9:04am gabapentin 100 mg oral capsule (18 sources) Anti-epileptic Agent Start: 07-23-2023 End: 01-18-2024 take 1 capsule by mouth every twenty-four hours as needed 100 mg, Oral, Daily PRN, nerve pain, Starting on Wed01/17/24 at 1748 Start: 05-12-2018 End: 09-20-2019 take 1 capsule by mouth once daily at bedtime gabapentin (NEURONTIN) 300 mg capsule Take 1 capsule by mouth daily at bedtime for 90 days. 90 capsule 2 05/12/2018 09/20/2019 Discontinued Comment on above: PLEASE SEE ATTACHED FOR DETAILED DIRECTIONS Take 1 capsule by mo [facility] daily at bedtime for 90 days. hydroCHLOROthiazide 25 mg oral tablet (1 source) Thiazide Diuretic Star t: 10-23 17 End: 03-23 18 take 1 tablet by mouth once daily hydroCHLOROthiazide (HYDRODIURIL, ESIDRIX) 25 mg tablet Take 1 tablet by mouth once daily. 90 tablet 3 09/03/2017 09/08/2018 Discontinued Comment on above: Take 1 tablet by [facility] once daily. 1 ml HYDROmorphone hydrochloride 1 mg/ml cartridge (2 sources) Opioid Agonist Star t: 01-02 End: 01-02 HYDROmorphone (Dilaudid) injection 0.5 mg 1 ml ketorolac tromethamine 30 mg/ml cartridge (2 sources) Nonsteroidal Anti-inflammatory Drug, Cyclooxygenase Inhibitor Star t: 01-02 End: 01-02 take 30 mg intravenously every six hours 30 mg, IntraVENous, Every 6 hours, First dose on Wed01/17/24 at 1800, For 4 doses, Phase II/On Unit, Discontinue when able to take PO ibuprofen. Lactobacillus (2 sources) End: 01-02 LACTOBACILLUS PO Take by mouth. 0 01/14/2024 Discontinued levETIRAcetam 500 mg oral tablet (20 sources) Star t: 01-02 End: 01-02 take 500 mg by mouth once daily 500 mg, Oral, Daily, First dose on Wed01/18/24 at 0900, Do not crush or chew. Start: 12-18-2019 End: 10-07-2023 take 1 tablet by mouth twice daily Levetiracetam 500 MG tablet Active 500 mg PO TWICE A DAY 60 December 18, 2019 12:00am Start: 09-26-2019 End: 12-18-2019 take 2 tablets by mouth twice daily Levetiracetam 750 MG tablet Discontinued 1500 mg PO TWICE A DAY 120 October 06, 2019 11:39am December 18, 2019 7:59pm Start: 09-26-2019 End: 12-18-2019 take 1500 mg by mouth twice daily Levetiracetam Discontinued 1500 MG PO TWICE A DAY 120 October 06, 2019 11:39am December 18, 2019 7:59pm Comment on above: Take 1 tablet by adrien th twice daily. Take 1 tablet by adrien th two times a day. menthol 0.0044 mg/mg / zinc oxide 0.206 mg/mg topical ointment (7 sources) Start: 12-18-2019 End: 02-15-2020 Menthol-Zinc Oxide 1 APPLIC ointment Discontinued 1 NMA TOPICAL BID@0600,0 December 18, 2019 12:00am February 15, 2020 9:04am Please contact the information source for Protocol details. Start: 12-18-2019 End: 02-15-2020 Menthol-Zinc Oxide Discontin ued 1 APPLIC TOPICAL BID@0600,0 December 18, 2019 12:00am February 15, 2020 9:04am minocycline 50 mg oral tablet (1 source) Tetracycline-class Drug Start: 09-20-2015 End: 10-29-2019 take 1 tablet by mouth once daily Minocycline HCl 50 mg tablet Indications: Rosacea Take 50 mg by mouth once daily. 0 09/20/2015 10/29/2019 Discontinued Comment on above: Take 50 mg by mouth once daily. mirtazapine 15 mg oral tablet (7 sources) Start: 12-18-2019 End: 02-15-2020 take 7.5 mg by mouth at bedtime Mirtazapine 15 MG tablet Discontinued 7.5 mg PO AT BEDTIME December 18, 2019 12:00am February 15, 2020 9:04am Start: 12-18-2019 End: 02-15-2020 take 7.5 mg by mouth at bedtime Mirtazapine Discontinu ed 7.5 MG PO AT BEDTIME December 18, 2019 12:00am February 15, 2020 9:04am multivitamin ORAL tablet (6 sources) Start: 12-21-2011 take 1 tablet by mouth once daily multivitamin ORAL tablet Take 1 tablet by mouth once daily. 0 12/21/2011 Active Comment on above: Take 1 tablet by adrien th once daily. 1 ml naloxone hydrochloride 0.4 mg/ml injection (2 sources) Opioid Antagonist Start: 01-18-2024 End: 01-18-2024 naloxone (Narcan) injection 0.4 mg ondansetron ODT (Zofran-ODT) disintegrating tablet 4 mg (2 sources) Start: 01-17-2024 End: 01-18-2024 take 1 tablet by mouth every eight hours as needed for nausea and vomiting ondansetron ODT (Zofran-ODT) disintegrating tablet 4 mg polyethylene glycol [id number] mg powder for oral solution (2 sources) Osmotic Laxative Start: 01-17-2024 End: 01-18-2024 take 17 g by mouth every twenty-four hours as needed for constipation 17 g, Oral, Daily PRN, constipation, Starting on Wed01/17/24 at 1748, Phase II/On Unit, 1st line for treatment of constipation - give scheduled if no bowel movement in past 24 hours. microencapsulated potassium chloride 20 meq extended release oral tablet (7 sources) Start: 12-18-2019 End: 02-15-2020 take 1 tablet by mouth once daily at mealtime Potassium Chloride 20 MEQ tablet Discontinued 20 meq PO DAILY WITH MEALS December 18, 2019 12:00am February 15, 2020 9:04am Prochlorperazine (2 sources) Phenothiazine Start: 01-17-2024 End: 01-18-2024 take 1 tablet by mouth every six hours as needed for nausea and vomiting prochlorperazine (Compazine) tablet 10 mg 5 ml sodium chloride 9 mg/ml injection (6 sources) Start: 01-17-2024 End: 01-18-2024 10 mL, IntraVENous, Every 12 hours scheduled (2 times per day), First dose on Wed01/17/24 at 2100, Phase II/On Unit Start: 01-17-2024 End: 01-18-2024 take 100 mL intravenously every hour as needed, then take 20 mL intravenously every hour as needed 5-250 mL/hr, IntraVENous, PRN, if patient receiving piggyback infusions and maintenance fluids are not ordered OR KVO fluids to protect IV site / prevent frequent line interruptions/ long duration, Starting on Wed01/17/24 at 1748, Phase II/On Unit, For piggyback infusion, administer at same rate as piggyback for a total of 25 mL. Enter 25 mL into dose field and piggyback rate into rate field of order. If piggyback is infusing at a rate less than 100 mL/hr, enter 25 mL into dose field and 100 mL/hr into rate field of order. For KVO fluids, enter rate of 20 mL/hr or less into rate field of order. Start: 01-17-2024 End: 01-18-2024 take 10 mL intravenously once as needed 10 mL, IntraVENous, PRN, line care, Starting on Wed01/17/24 at 1748, Phase II/On Unit, After every IV line use Problems Active Problems Problem Classification Problem Date Documented Da te Episodic/Chronic Biliary tract disease (7 sources) Biliary calculus; Translations: [Calculus of gallbladder without cholecystitis without obstruction] 02-29-2020 Episodic Cancer of uterus (19 sources) Adenocarcinoma of endometrium; Translations: [Malignant neoplasm of endometrium] Onset: 01-17-2024 01-13-2024 Chronic Comment on above: Planned robotic hyst erectomy, BSO at [facility] w/Dr Gorman Conditions associated with dizziness or vertigo (7 sources) Meniere's disease; Translations: [Meniere's disease, unspecified ear] 02-15-2020 Chronic Epilepsy; convulsions (13 sources) Seizure disorder; Translations: [Epilepsy, unspecified, not intractable, without status epilepticus] Onset: 09-22-2019 09-22-2019 Chronic Essential hypertension (14 sources) Hypertensive disorder; Translations: [Essential (primary) hypertension] Onset: 12-20-2024 11-29-2019 Chronic Fluid and electrolyte disorders (14 sources) Hyponatremia; Translations: [Hypo-osmolality and hyponatremia] 02-29-2020 Episodic Malaise and fatigue (20 sources) Asthenia; Translations: [Other malaise] Onset: 10-21-2019 11-29-2019 Episodic Menopausal disorders (3 sources) Postmenopausal bleeding; Translations: [Postmenopausal bleeding] Onset: 01-05-2024 01-05-2024 Chronic Miscellaneous mental health disorders (6 sources) 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; 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] Onset: 11-27-2019 11-29-2019 Chronic Nutritional deficiencies (6 sources) Malnutrition (calorie); Translations: [Moderate protein-calorie malnutrition] Onset: 12-01-2019 12-01-2019 Chronic Osteoporosis (13 sources) Osteoporosis; Translations: [Age-related osteoporosis without current pathological fracture] 09-29-2021 Chronic Other and unspecified benign neoplasm (13 sources) Neoplasm of meninges; Translations: [Benign neoplasm of meninges, unspecified] Onset: 09-20-2019 12-14-2019 Chronic Other and unspecified benign neoplasm (3 sources) Benign neoplasm of meninges; Translations: [Benign neoplasm of meninges, unspecified] 07-12-2023 Chronic Other and unspecified benign neoplasm (1 source) Benign neoplasm of meninges, unspecified; Translations: [Benign neoplasm of meninges (HCC)] Onset: 08-02-2023 Chronic Other circulatory disease (7 sources) Device in situ; Translations: [Presence of other vascular implants and grafts] 02-15-2020 Chronic Other female genital disorders (1 source) Abnormal uterine and vaginal bleeding, unspecified; Translations: [Abnormal uterine and vaginal bleeding, unspecified] Onset: 01-05-2024 Chronic Other liver diseases (13 sources) Steatosis of liver; Translations: [Fatty (change of) liver, not elsewhere classified] Onset: 09-25-2009 09-29-2021 Chronic Other liver diseases (2 sources) Liver cyst; Translations: [Other specified diseases of liver] 01-28-2024 Chronic Other liver diseases (1 source) Other specified diseases of liver; Translations: [Other specified diseases of liver] Onset: 02-23-2024 Chronic Other nervous system disorders (7 sources) Disorder of brain; Translations: [Encephalopathy, unspecified] 02-29-2020 Chronic Other nervous system disorders (13 sources) Mass lesion of brain; Translations: [Other specified disorders of brain] Onset: 09-16-2019 09-26-2019 Chronic Other nervous system disorders (6 sources) Bilateral carpal tunnel syndrome; Translations: [Carpal tunnel syndrome, bilateral upper limbs] Onset: 07-02-2016 09-30-2021 Chronic Other nervous system disorders (6 sources) Edema; Translations: [Cerebral edema] Onset: 09-20-2019 09-20-2019 Chronic Other nervous system disorders (2 sources) Postoperative pain ; Translations: [Other acute postprocedural pain] 01-18-2024 Episodic Other nutritional; endocrine; and metabolic disorders (13 sources) Loss of appetite; Translations: [Anorexia] Onset: 11-27-2019 11-29-2019 Episodic Other screening for suspected conditions (not mental disorders or infectious disease) (5 sources) Endometrium thickened; Translations: [Abnormal findings on diagnostic imaging of other specified body structures] Onset: 01-05-2024 01-05-2024 Chronic Comment on above: 25mm Phlebitis; thrombophlebitis and thromboembolism (20 sources) Deep venous thrombosis; Translations: [Acute embolism and thrombosis of unspecified deep veins of unspecified lower extremity] Onset: 11-26-2019 11-29-2019 Episodic Pneumonia (except that caused by tuberculosis or sexually transmitted disease) (19 sources) Atypical pneumonia; Translations: [Pneumonia, unspecified organism] Onset: 11-26-2019 11-29-2019 Episodic Residual codes; unclassified (7 sources) History of craniotomy; Translations: [Other specified postprocedural states] 02-15-2020 Episodic Retinal detachments; defects; vascular occlusion; and retinopathy (6 sources) Retinal disorder; Translations: [Unspecified retinal disorder] Onset: 03-09-2018 03-09-2018 Chronic Thyroid disorders (14 sources) Hypothyroidism; Translations: [Hypothyroidism, unspecified] Onset: 11-26-2019 [...] eye, unspecified eyelid] Onset: 09-08-2017 09-08-2017 Episodic Other aftercare (6 sources) Drug therapy [...] and mobility] Onset: 11-27-2019 11-29-2019 Episodic Other nervous system disorders (2 sources) Other acute postprocedural pain; Translations: [Other acute postprocedural pain] Onset: 01-17-2024 Episodic Other screening for suspected conditions (not mental disorders or infectious disease) (9 sources) Finding of other specified substances, not normally found in blood; Translations: [Subtherapeutic serum phenytoin level] Onset: 01-10-2024 02-15-2020 Episodic Residual codes; unclassified (20 sources) Postoperative state; Translations: [Other specified postprocedural states] Onset: 01-17-2024 01-17-2024 Episodic Residual codes; unclassified (2 sources) Other specified postprocedural states; Translations: [Other specified postprocedural states] Onset: 01-17-2024 Episodic Spondylosis; intervertebral disc disorders; other back problems (6 sources) Thoracic and lumbosacral neuritis; Translations: [Thoracic or lumbosacral neuritis or radiculitis, unspecified] Onset: 08-21-2014 08-21-2014 Episodic Results Test Name Value Interpretation Reference Range Facility Office Visiton 01-05-2025 Follow-up visit [id number] Mattie Au 1950 F Date Provider Department Center 01/05/2025 [id number] SKELTON*[facility] None Family History Problem Relation Age of Onset Hypertension Mother Coronary artery disease Father Family Status - Relation Status Age at Mother Father Level of Service:[id number] ID OFFICE/OUTPATIENT ESTABLISHED [facility] 10 MIN Reason for Visit and Comments: Endometrial Cancer [562] - Uterine serous carcinoma-surveillance of disease [facility] Progress Noteon 01-05-2025 Progress Note Chief Complaint Patient presents with Endometrial Cancer Uterine serous carcinoma-surveillance of disease History of the Present Illness: Xi Au is a 74 y.o. 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 Pelvic washings were negative. Proficient mismatch repair protein, HER2 negative. She underwent robotic endometrial cancer staging on 01/17/2024. We discussed NCCN guidelines which would include vaginal brachytherapy plus or minus systemic therapy versus observation. The risks and benefits of each option were discussed. The patient declined adjuvant treatment. CA125 was normal. A CT of the chest, abdomen and pelvis showed a 1.6 x 1.2 cm well-defined hypodensity in the anterior aspect of the left lobe of the liver that was not a typical cyst. It was essentially unchanged from prior examination. Additionally, there was a 1.3 x 0.7 cm focal area of enhancement in the inferior lateral aspect of the right lobe of the liver. Interval History: Since her last visit, the patient has been doing well and is without complaints. She denies headache, vision changes, chest pain, shortness of breath, nausea, vomiting, bloating, abdominal distension. Denies vaginal bleeding or discharge. Signed up for [employer]. 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 Encephalopathy Hypertension Hypothyroid Meniere's disease Meningioma (HCC) Osteoporosis Pneumonia Seizure (HCC) Past Surgical History: Procedure Laterality Date COLONOSCOPY 2015 CRANIOTOMY 2019 IR INTERVENTION FILTER PLACEMENT IVC FILTER REMOVAL (HISTORICAL) Social History Tobacco Use Smoking status: Never Smokeless tobacco: Never Vaping Use Vaping status: Never Used Substance Use Topics Alcohol use: Never Drug use: Never Family History Problem Relation Name Age of Onset Hypertension Mother Coronary artery disease Father Current Outpatient Medications on File Prior to Visit Medication Sig Dispense Refill amLODIPine (Norvasc) 10 MG tablet Take by mouth daily. calcium carbonate (Os-King) 1250 (500 Ca) MG tablet Take by mouth daily. Denosumab (PROLIA SC) Inject 1 Dose under the skin every 6 (six) months. Due in April doxycycline (Adoxa) 100 MG tablet Take 100 mg by mouth daily. Take with a full glass of water and do not lie down for at least 30 minutes after gabapentin (Neurontin) 100 MG capsule Take by mouth as needed. levETIRAcetam (Keppra) 500 MG tablet Take by mouth. levothyroxine (Synthroid, Levoxyl) 50 MCG tablet Take by mouth every morning (before breakfast). losartan-hydroCHLOROthiazid e (Hyzaar) 100-25 MG tablet Take 1 tablet by mouth daily. meloxicam (Mobic) 7.5 MG tablet Take 7.5 mg by mouth daily. Take with food multivitamin (Theragran) tablet Take 1 tablet by mouth daily. No current facility-administered medications on file prior to visit. Allergies Allergen Reactions Lisinopril Other Developed cough Ceftriaxone Rash Cephalexin Rash Review of Systems: A 12 point review of systems was performed and is as per the history of the present illness, all other systems were reviewed and are negative. Vitals: 01/05/25 1306 BP: 134/85 Pulse: 71 Body mass index is 25.7 kg/m?. Physical Exam Vitals reviewed. Constitutional: General: She is not in acute distress. Appearance: Normal appearance. She is not ill-appearing, toxic-appearing or diaphoretic. HENT: Head: Normocephalic and atraumatic. Eyes: General: No scleral icterus. Extraocular Movements: Extraocular movements intact. Cardiovascular: Rate and Rhythm: Normal rate. Pulmonary: Effort: Pulmonary effort is normal. No respiratory distress. Abdominal: General: There is no distension. Palpations: Abdomen is soft. There is no mass. Tenderness: There is no abdominal tenderness. There is no guarding or rebound. Comments: Incision well healed without hernia or recurrence. Genitourinary: Comments: Uterus, cervix, bilateral adnexa surgically absent. No lesions or nodularity of the vaginal cuff or rectovaginal septum. Musculoskeletal: General: Normal range of motion. Right lower leg: No edema. Left lower leg: No edema. Skin: General: Skin is warm and dry. Coloration: Skin is not jaundiced or pale. Neurological: General: No focal deficit present. Mental Status: She is alert. Motor: No weakness. Coordination: Coordination normal. Psychiatric: Mood and Affect: Mood normal. Behavior: Behavior normal. Assessment/Plan: Diagnosis Plan 1. Papillary serous endometrial adenocarcinoma (HCC) Xi Au is a 74 y.o. 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 We discussed NCCN guidelines which would include vaginal brachytherapy plus or minus systemic therapy versus observation. The risks and benefits of each option were discussed. The patient declin (more content not included)... Normal [facility] 36on 12-21-2024 36 Spoke with patient chilango nd gave her CA results Normal [facility] Cancer Antigen 125on 025 CA 125 13.2 U/mL Normal 0.0-38.1 [facility] Comment on above: Result Comment: [employer] [employer] Electrochemiluminescence Immunoassay (ECLIA) Values obtained with different assay methods or kits cannot be used interchangeably. Results cannot be interpreted as absolute evidence of the presence or absence of malignant disease. Performed at: [facility] [address], [place] [id number] Hospice Plan Administrator: Jorge Babcock PhD, Phone: [phone] Performed By: #### L 3100.5000 ####[facility] [address] [place], [address] Cancer antigen 125 (CA-125) measurementOrdered By: Katya Gorman on 12-19-2024 CA 125 Antigen 13.2 U/mL 0.0-38.1 [facility] Comment on above: [facility] [employer] El ectrochemiluminescence Immunoassay(ECLIA)Values obtained with different assay methods or kits cannotbe used interchangeably. Results cannot be interpreted asabsolute evidence of the presence or absence of malignantdisease.Performed at: [facility] [id number] Director: Jorge Babcock PhD, Phone: [phone] Anion gap in Serum or Plasma Ordered By: Krista Delgado on 12-11-2024 Anion gap [Moles/Vol] 14 mmol/L - [facility] Comment on above: Previous reported re sult: 12 Edited by: TWAN on 12/11/24:1957 AMENDED REPORT 12/11/241957 GAP previously reported as: 12 BUN/creatinine ratioOrdered By: Krista Delgado on 12-11-2024 Urea nitrogen/Creatinine [Mass ratio] 22.4 mg/mg High 07-23 [facility] Comment on above: Previous reported re sult: 23.6 RATIOEdited by: TWAN on 12/11/24:1957 AMENDED REPORT 12/11/241957 BUN/CRE previously reported as: 23.6 H RATIO Bilirubin, totalOrdered By: Krista Delgado on 12-11-2024 Bilirubin [Mass/Vol] 0.46 mg/dL 0.00-1.30 [facility] Comment on above: Previous reported re sult: 0.48 mg/dLEdited by: TWAN on 12/11/24:1957 AMENDED REPORT 12/11/241957 T BILI previously reported as: 0.48 mg/dL Calculated very low density lipoprotein (VLDL) cholesterol measurementOrdered By: Krista Delgado on 12-11-2024 VLDL Cholesterol 31 mg/dL [facility] Carbon dioxide, total [Moles /volume] in Central venous bloodOrdered By: Krista Delgado on 12-11-2024 CO2 [Moles/Vol] 20.3 mmol/L Low 21.0-32.0 [facility] Comment on above: Previous reported re sult: 23.0 mmol/LEdited by: TWAN on 12/11/24:1957 AMENDED REPORT 12/11/241957 CO2 previously reported as: 23.0 mmol/L Chloride assayOrdered By: Rubio Delgado on 12-11-2024 Chloride [Moles/Vol] 105 mmol/L 98-108 [facility] Comment on above: Previous reported re sult: 107 mmol/LEdited by: TWAN on 12/11/24:1957 AMENDED REPORT 12/11/241957 CL previously reported as: 107 mmol/L Comprehensive Metabolic Prof ilon 12-11-2024 Albumin [Mass/Vol] 4.3 g/dL Normal 3.4-4.8 [facility] Comment on above: Order Comment: Order Date: 06/12/24 Order Info: 86-1 - CMP Order Info: 10203-0 - LIPID Order Info: 3015-3 - TSH Order Info: 3024-7 - T4F Performed By: #### L 506.0400, L509.1000, L500.4050, L500.4100, L501.9520 #### [facility] [address] [place], [address] Albumin/Globulin [Mass ratio] 1.2 {ratio} Normal 0.9-2.4 [facility] Comment on above: Order Comment: Order Date: 06/12/24 Order Info: 785- - CMP Order Info: - LIPID Order Info: 3 - TSH Order Info: 3024-7 - T4F Performed By: #### L 506.0400, L509.1000, L500.4050, L500.4100, L501.9520 #### [facility] [address] [place], [address] ALK PHOS 48 U/L Normal 35-104 [facility] Comment on above: Order Comment: Order Date: 06/12/24 Order Info: 785- - CMP Order Info: - LIPID Order Info: 3 - TSH Order Info: 3024-7 - T4F Performed By: #### L 506.0400, L509.1000, L500.4050, L500.4100, L501.9520 #### [facility] [address] [place], [address] ALT [Catalytic activity/Vol] 27 U/L Normal <=34 [facility] Comment on above: Order Comment: Order Date: 06/12/24 Order Info: 785-1 - CMP Order Info: [id number] - LIPID Order Info: 3 - TSH Order Info: 3024-7 - T4F Result Comment: AMENDED REPORT 12/11/241957 ALT previously reported as: 26 U/L Performed By: #### L 506.0400, L509.1000, L500.4050, L500.4100, L501.9520 #### [facility] [address] [place], [address] AST [Catalytic activity/Vol] 30 U/L Normal <=31 [facility] Comment on above: Order Comment: Order Date: 06/12/24 Order Info: 86-1 - CMP Order Info: [id number] - LIPID Order Info: 3016-3 - TSH Order Info: 3023-7 - T4F Result Comment: AMENDED REPORT 12/11/241957 AST previously reported as: 27 U/L Performed By: #### L 506.0400, L509.1000, L500.4050, L500.4100, L501.9520 #### [facility] [address] [place], [address] Bilirubin [Mass/Vol] 0.46 mg/dL Normal 0.00-1.30 [facility] Comment on above: Order Comment: Order Date: 06/12/24 Order Info: 86-1 - CMP Order Info: 84626-1 - LIPID Order Info: 3016-3 - TSH Order Info: 3023-7 - T4F Result Comment: AMENDED REPORT 12/11/241957 T BILI previously reported as: 0.48 mg/dL Performed By: #### L 506.0400, L509.1000, L500.4050, L500.4100, L501.9520 #### [facility] [address] [place], [address] BUN/CRE 22.4 RATIO High 10-20 [facility] Comment on above: Order Comment: Order Date: 06/12/24 Order Info: 86-1 - CMP Order Info: 60947-5 - LIPID Order Info: 3016-3 - TSH Order Info: 3024-7 - T4F Result Comment: AMENDED REPORT 12/11/241957 BUN/CRE previously reported as: 23.6 H RATIO Performed By: #### L 506.0400, L509.1000, L500.4050, L500.4100, L501.9520 #### [facility] [address] [place], [address] Calcium [Mass/Vol] 9.2 mg/dL Normal 7.6-11.0 [facility] Comment on above: Order Comment: Order Date: 06/12/24 Order Info: 86-1 - CMP Order Info: [id number] - LIPID Order Info: 3015-3 - TSH Order Info: 7 - T4F Performed By: #### L 506.0400, L509.1000, L500.4050, L500.4100, L501.9520 #### [facility] [address] [place], [address] Chloride [Moles/Vol] 105 mmol/L Normal 98-108 [facility] Comment on above: Order Comment: Order Date: 06/12/24 Order Info: 785-1 - CMP Order Info: 60328-4 - LIPID Order Info: 3 - TSH Order Info: 7 - T4F Result Comment: AMENDED REPORT 12/11/241957 CL previously reported as: 107 mmol/L Performed By: #### L 506.0400, L509.1000, L500.4050, L500.4100, L501.9520 #### [facility] [address] [place], [address] CO2 [Moles/Vol] 20.3 mmol/L Low 21.0-32.0 [facility] Comment on above: Order Comment: Order Date: 06/12/24 Order Info: 0786-1 - CMP Order Info: 70013-4 - LIPID Order Info: 3016-3 - TSH Order Info: 3027 - T4F Result Comment: AMENDED REPORT 12/11/241957 CO2 previously reported as: 23.0 mmol/L Performed By: #### L 506.0400, L509.1000, L500.4050, L500.4100, L501.9520 #### [facility] [address] [place], [address] Creatinine [Mass/Vol] 0.89 mg/dL Normal 0.70-1.20 [facility] Comment on above: Order Comment: Order Date: 06/12/24 Order Info: 86-1 - CMP Order Info: [id number] - LIPID Order Info: 3015-3 - TSH Order Info: 7 - T4F Performed By: #### L 506.0400, L509.1000, L500.4050, L500.4100, L501.9520 #### [facility] [address] [place], [address] GAP 14 Normal 5-15 [facility] Comment on above: Order Comment: Order Date: 06/12/24 Order Info: 785-10 - CMP Order Info: [id number] - LIPID Order Info: 3 - TSH Order Info: 7 - T4F Result Comment: AMENDED REPORT 12/11/241957 GAP previously reported as: 12 Performed By: #### L 506.0400, L509.1000, L500.4050, L500.4100, L501.9520 #### [facility] [address] [place], [address] Globulin (S) [Mass/Vol] 3.6 g/dL Normal 2.2-4.2 [facility] Comment on above: Order Comment: Order Date: 06/12/24 Order Info: 0786-1 - CMP Order Info: [id number] - LIPID Order Info: 3016-3 - TSH Order Info: 3024-7 - T4F Performed By: #### L 506.0400, L509.1000, L500.4050, L500.4100, L501.9520 #### [facility] [address] [place], [address] Glucose [Mass/Vol] 89 mg/dL Normal 70-99 [facility] Comment on above: Order Comment: Order Date: 06/12/24 Order Info: 0786-1 - CMP Order Info: [id number] - LIPID Order Info: 3016-3 - TSH Order Info: 3024-7 - T4F Result Comment: AMENDED REPORT 12/11/241957 GLU previously reported as: 91 mg/dL Performed By: #### L 506.0400, L509.1000, L500.4050, L500.4100, L501.9520 #### [facility] [address] [place], [address] Potassium [Moles/Vol] 4.0 mmol/L Normal 3.3-5.1 [facility] Comment on above: Order Comment: Order Date: 06/12/24 Order Info: 0786-1 - CMP Order Info: [id number] - LIPID Order Info: 6-3 - TSH Order Info: 4-7 - T4F Performed By: #### L 506.0400, L509.1000, L500.4050, L500.4100, L501.9520 #### [facility] [address] [place], [address] Sodium [Moles/Vol] 140 mmol/L Normal 133-145 [facility] Comment on above: Order Comment: Order Date: 06/12/24 Order Info: 0786-1 - CMP Order Info: 38956-8 - LIPID Order Info: 3016-3 - TSH Order Info: 3024-7 - T4F Result Comment: AMENDED REPORT 12/11/241957 NA previously reported as: 141 mmol/L Performed By: #### L 506.0400, L509.1000, L500.4050, L500.4100, L501.9520 #### [facility] [address] [place], [address] T PROT 7.9 g/dL Normal 5.9-8.4 [facility] Comment on above: Order Comment: Order Date: 06/12/24 Order Info: 785- - CMP Order Info: - LIPID Order Info: 3015-12 - TSH Order Info: 3024-04 - T4F Performed By: #### L 506.0400, L509.1000, L500.4050, L500.4100, L501.9520 #### [facility] [address] [place], [address] Urea nitrogen [Mass/Vol] 20 mg/dL High 4-19 [facility] Comment on above: Order Comment: Order Date: 06/12/24 Order Info: 785-10 - CMP Order Info: - LIPID Order Info: 3015-12 - TSH Order Info: 3024-04 - T4F Result Comment: AMENDED REPORT 12/11/241957 BUN previously reported as: 21 H mg/dL Performed By: #### L 506.0400, L509.1000, L500.4050, L500.4100, L501.9520 #### [facility] [address] [place], [address] GFR/1.73 sq M.predicted astrid g non-blacks MDRD (S/P/Bld) [Vol rate/Area]Ordered By: Krista Delgado on 12-11-2024 Estimated GFR (MDRD) Non-Af Amer 69 >60 [facility] Comment on above: mL/min/1.73m2 CKD-EP I Creatinine Equation (2020) L506.1001on 12-11-2024 Vitamin D 25-OH 51.4 ng/mL Normal 30-100 [facility] Comment on above: Order Comment: Order Date: 06/12/24 Order Info: 07 - CMP Order Info: - LIPID Order Info: 3015-12 - TSH Order Info: 3024-04 - T4F Result Comment: Inocencia min D Status Deficiency: <20 ng/mL (50nmol/L) Insufficiency: 20-30 ng/mL (50-75 nmol/L) Sufficiency: 30-100 ng/mL (75-250 nmol/L) Toxicity: >100 ng/mL (>250 nmol/L) Performed By: #### L 506.1001 #### [facility] [address] [place], [place], [address] LDL calc ser/plasOrdered By: Krista Delgado on 12-11-2024 LDL Cholesterol, Calculated 94 mg/dL [facility] Comment on above: Vdwhqxeoem=826-836 m g/dL & Higher Ghxv=540 mg/dL or greater Laboratory - Chemistry and C hemistry - challengeOrdered By: Krista Delgado on 12-11-2024 AST [Catalytic activity/Vol] 30 U/L <32 [facility] Comment on above: Previous reported re sult: 27 U/LEdited by: TWAN on 12/11/24:1957 AMENDED REPORT 12/11/241957 AST previously reported as: 27 U/L Lipid Profileon 12-11-2024 CHOL:HDL 2.90 Normal [facility] Comment on above: Order Comment: Order Date: 06/12/24 Order Info: 0786-1 - CMP Order Info: [id number] - LIPID Order Info: 3016-3 - TSH Order Info: 3024-7 - T4F Performed By: #### L 506.0400, L509.1000, L500.4050, L500.4100, L501.9520 #### [facility] [address] [place], [place], [address] Cholesterol [Mass/Vol] 191 mg/dL Normal <=200 [facility] Comment on above: Order Comment: Order Date: 06/12/24 Order Info: 0786-1 - CMP Order Info: 73975-8 - LIPID Order Info: 3016-3 - TSH Order Info: 3024-7 - T4F Result Comment: Chol esterol level, Desirable <200 mg/dL Borderline high cholesterol 200-239 mg/dL High cholesterol >=240 mg/dL Recommendations of the NCEP Adult Treatment Panel for the following risk-cutoff thresholds for the [place] population. Performed By: #### L 506.0400, L509.1000, L500.4050, L500.4100, L501.9520 #### [facility] [address] [place], [address] Cholesterol in HDL [Mass/Vol] 66 mg/dL Normal [facility] Comment on above: Order Comment: Order Date: 06/12/24 Order Info: 785- - CMP Order Info: - LIPID Order Info: 3015-12 - TSH Order Info: 3024-04 - T4F Result Comment: Aaliyah onal Cholesterol Education Program (NCEP) guidelines: <40 mg/dL: Low HDL-cholesterol (major risk factor for CHD) >= 60 mg/dL: High HDL-cholesterol (negative risk factor for CHD) HDL-cholesterol is affected by a number of factors, e.g. smoking, exercise, hormones, sex and age. Performed By: #### L 506.0400, L509.1000, L500.4050, L500.4100, L501.9520 #### [facility] [address] [place], [address] Cholesterol in LDL [Mass/Vol] 94 mg/dL Normal [facility] Comment on above: Order Comment: Order Date: 06/12/24 Order Info: 785-10 - CMP Order Info: - LIPID Order Info: 3015-12 - TSH Order Info: 3024-04 - T4F Result Comment: Bord ottsht=111-467 mg/dL Higher Orvh=015 mg/dL or greater Performed By: #### L 506.0400, L509.1000, L500.4050, L500.4100, L501.9520 #### [facility] [address] [place], [address] Cholesterol in VLDL [Mass/Vol] 31 mg/dL Normal 5-40 [facility] Comment on above: Order Comment: Order Date: 06/12/24 Order Info: 785-10 - CMP Order Info: - LIPID Order Info: 3015-12 - TSH Order Info: 3024-04 - T4F Performed By: #### L 506.0400, L509.1000, L500.4050, L500.4100, L501.9520 #### [facility] [address] [place], [address] Triglyceride [Mass/Vol] 157 mg/dL Normal [facility] Comment on above: Order Comment: Order Date: 06/12/24 Order Info: 0786-1 - CMP Order Info: [id number] - LIPID Order Info: [id number] - TSH Order Info: 3024-7 - T4F Result Comment: The drugs N-Acetylcysteine and Metamizole may falsely depress this assay. Normal range: <150 mg/dL Borderline High: 150-199 mg/dL High: 200-499 mg/dL Very High: >500 mg/dL Performed By: #### L 506.0400, L509.1000, L500.4050, L500.4100, L501.9520 #### [facility] [address] [place], [address] PTH intactOrdered By: Jeyson Delgado on 12-11-2024 Parathyroid Hormone (Intact) 49 pg/mL [facility] PTHINon 12-11-2024 PTH 49 pg/mL Normal [facility] Comment on above: Order Comment: Order Date: 06/12/24 Order Info: [id number] - PTHIN Performed By: #### L 506.0400, L509.1000, L500.4050, L500.4100, L501.9520 #### [facility] [address] [place], [address] Potassium (Unsp spec) [Mass/ Vol]Ordered By: Krista Delgado on 12-11-2024 Potassium [Moles/Vol] 4.0 mmol/L 3.3-5.1 [facility] Screening total cholesterol/ high density lipoprotein (HDL) cholesterol ratioOrdered By: Krista Delgado on 12-11-2024 Cholesterol.total/Cho lesterol in HDL [Mass ratio] 2.90 {ratio} [facility] Serum creatinine measurement (mass/volume)Ordered By: Krista Delgado on 12-11-2024 Creatinine [Mass/Vol] 0.89 mg/dL 0.70-1.20 [facility] Serum globulin measurementOr dered By: Krista Delgado on 12-11-2024 Globulin (S) [Mass/Vol] 3.6 g/dL 2.2-4.2 [facility] Serum glucose measurement (m ass/volume)Ordered By: Krista Delgado on 12-11-2024 Glucose [Mass/Vol] 89 mg/dL 70-99 [facility] Comment on above: Previous reported re sult: 91 mg/dLEdited by: TWAN on 12/11/24:1957 AMENDED REPORT 12/11/241957 GLU previously reported as: 91 mg/dL Serum or plasma alanine de leon otransferase (ALT) measurementOrdered By: Krista Delgado on 12-11-2024 ALT [Catalytic activity/Vol] 27 U/L <35 [facility] Comment on above: Previous reported re sult: 26 U/LEdited by: TWAN on 12/11/24:1957 AMENDED REPORT 12/11/241957 ALT previously reported as: 26 U/L Serum or plasma albumin kavitha urement (mass/volume)Ordered By: Krista Delgado on 12-11-2024 Albumin [Mass/Vol] 4.3 g/dL 3.4-4.8 [facility] Serum or plasma albumin/glob ulin mass ratioOrdered By: Krista Delgado on 12-11-2024 Albumin/Globulin [Mass ratio] 1.2 {ratio} 0.9-2.4 [facility] Serum or plasma alkaline nick sphatase measurementOrdered By: Krista Delgado on 12-11-2024 ALP [Catalytic activity/Vol] 48 U/L 35-104 [facility] Serum or plasma calcium kavitha urement (mass/volume)Ordered By: Krista Delgado on 12-11-2024 Calcium [Mass/Vol] 9.2 mg/dL 7.6-11.0 [facility] Serum or plasma cholesterol in HDL measurement (mass/volume)Ordered By: Krista Delgado on 12-11-2024 Cholesterol in HDL [Mass/Vol] 66 mg/dL >40 [facility] Comment on above: National Cholesterol Education Program (NCEP) guidelines:<40 mg/dL: Low HDL-cholesterol (major risk factor for CHD)>= 60 mg/dL: High HDL-cholesterol (negative risk factor for CHD)HDL-cholesterol is affected by a number of factors, e.g. smoking, exercise, hormones, sex and age. Serum or plasma cholesterol measurement (mass/volume)Ordered By: Krista Delgado on 12-11-2024 Cholesterol [Mass/Vol] 191 mg/dL <201 [facility] Comment on above: Cholesterol level, D esirable <200 mg/dLBorderline high cholesterol 200-239 mg/dLHigh cholesterol >=240 mg/dLRecommendations of the NCEP Adult Treatment Panel for the following risk-cutoff thresholds for the [place] population. Serum or plasma urea nitroge n measurement (mass/volume)Ordered By: Krista Delgado on 12-11-2024 Urea nitrogen [Mass/Vol] 20 mg/dL High 4-19 [facility] Comment on above: Previous reported re sult: 21 mg/dLEdited by: TWAN on 12/11/24:1957 AMENDED REPORT 12/11/241957 BUN previously reported as: 21 H mg/dL Sodium levelOrdered By: Cecille Delgado on 12-11-2024 Sodium [Moles/Vol] 140 mmol/L 133-145 [facility] Comment on above: Previous reported re sult: 141 mmol/LEdited by: TWAN on 12/11/24:1957 AMENDED REPORT 12/11/241957 NA previously reported as: 141 mmol/L T4 Free Directon 12-11-2024 T4 FREE DIRECT 1.50 ng/dL High 0.76-1.46 [facility] Comment on above: Order Comment: Order Date: 06/12/24 Order Info: [id number] - CMP Order Info: [id number] - LIPID Order Info: [id number] - TSH Order Info: 3024-7 - T4F Performed By: #### L 506.0400, L509.1000, L500.4050, L500.4100, L501.9520 #### [facility] [address] [place], [address] T4 freeOrdered By: Desmond Delgado on 12-11-2024 Free T4 [Mass/Vol] 1.50 ng/dL High 0.76-1.46 [facility] TSH DL <= 0.005 mIU/L QnOrde red By: Krista Delgado on 12-11-2024 Thyroid Stimulating Hormone (TSH) 3.410 uIU/mL 0.300-4.200 [facility] Thyroid Stim Hormone (TSH)on 12-11-2024 TSH 3.410 uIU/mL Normal 0.300-4.200 [facility] Comment on above: Order Comment: Order Date: 06/12/24 Order Info: [id number] - CMP Order Info: [id number] - LIPID Order Info: [id number] - TSH Order Info: [id number] - T4F Performed By: #### L 506.0400, L509.1000, L500.4050, L500.4100, L501.9520 #### [facility] [address] [place], [place], [address] Total proteinOrdered By: Suma Delgado on 12-11-2024 Protein [Mass/Vol] 7.9 g/dL 5.9-8.4 [facility] Triglycerides measurementOrd ered By: Krista Delgado on 12-11-2024 Triglyceride [Mass/Vol] 157 mg/dL <199 [facility] Comment on above: The drugs N-Acetylcy steine and Metamizole may falsely depress this assay. Normal range: <150 mg/dLBorderline High: 150-199 mg/dLHigh: 200-499 mg/dLVery High: >500 mg/dL Vitamin D, 25-hydroxyOrdered By: Krista Delgado on 12-11-2024 Vitamin D 25-Hydroxy 51.4 ng/mL 30-100 [facility] Comment on above: Vitamin D StatusDefi ciency: <20 ng/mL (50nmol/L)Insufficiency: 20-30 ng/mL (50-75 nmol/L)Sufficiency: 30-100 ng/mL (75-250 nmol/L)Toxicity: >100 ng/mL (>250 nmol/L) Office Visiton 10-06-2024 Follow-up visit [id number] Mattie Au 1950 F Date Provider Department Center 10/06/2024 [id number] SKELTON*[facility] [employer] None Family History Problem Relation Age of Onset Hypertension Mother Coronary artery disease Father Family Status - Relation Status Age at Mother Father Level of Service:40108 ID OFFICE/OUTPATIENT ESTABLISHED [facility] 10 MIN Reason for Visit and Comments: Endometrial Cancer [562] - Uterine serous carcinoma Normal [facility] Progress Noteon 10-06-2024 Progress Note Chief Complaint Patient presents with Endometrial Cancer Uterine serous carcinoma History of the Present Illness: Xi Au is a 74 y.o. 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 Pelvic washings were negative. Proficient mismatch repair protein, HER2 negative. She underwent robotic endometrial cancer staging on 01/17/2024. We discussed NCCN guidelines which would include vaginal brachytherapy plus or minus systemic therapy versus observation. The risks and benefits of each option were discussed. The patient declined adjuvant treatment. CA125 was normal. A CT of the chest, abdomen and pelvis showed a 1.6 x 1.2 cm well-defined hypodensity in the anterior aspect of the left lobe of the liver that was not a typical cyst. It was essentially unchanged from prior examination. Additionally, there was a 1.3 x 0.7 cm focal area of enhancement in the inferior lateral aspect of the right lobe of the liver. Interval History: Since her last visit, the patient has been doing well and is without complaints. She denies headache, vision changes, chest pain, shortness of breath, nausea, vomiting, bloating, abdominal distension. Denies vaginal bleeding or discharge. Normal CA125 in 09/2024 - (scanned into media). 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 Encephalopathy Hypertension Hypothyroid Meniere's disease Meningioma (HCC) Osteoporosis Pneumonia Seizure (HCC) Past Surgical History: Procedure Laterality Date COLONOSCOPY 2015 CRANIOTOMY 2019 IR INTERVENTION FILTER PLACEMENT IVC FILTER REMOVAL (HISTORICAL) Social History Tobacco Use Smoking status: Never Smokeless tobacco: Never Vaping Use Vaping status: Never Used Substance Use Topics Alcohol use: Never Drug use: Never Family History Problem Relation Name Age of Onset Hypertension Mother Coronary artery disease Father Current Outpatient Medications on File Prior to Visit Medication Sig Dispense Refill amLODIPine (Norvasc) 10 MG tablet Take by mouth daily. calcium carbonate (Os-King) 1250 (500 Ca) MG tablet Take by mouth daily. Denosumab (PROLIA SC) Inject 1 Dose under the skin every 6 (six) months. Due in April doxycycline (Adoxa) 100 MG tablet Take 100 mg by mouth daily. Take with a full glass of water and do not lie down for at least 30 minutes after gabapentin (Neurontin) 100 MG capsule Take by mouth as needed. levETIRAcetam (Keppra) 500 MG tablet Take by mouth. levothyroxine (Synthroid, Levoxyl) 50 MCG tablet Take by mouth every morning (before breakfast). losartan-hydroCHLOROthiazid e (Hyzaar) 100-25 MG tablet Take 1 tablet by mouth daily. meloxicam (Mobic) 7.5 MG tablet Take 7.5 mg by mouth daily. Take with food multivitamin (Theragran) tablet Take 1 tablet by mouth daily. No current facility-administered medications on file prior to visit. Allergies Allergen Reactions Lisinopril Other Developed cough Ceftriaxone Rash Cephalexin Rash Review of Systems: A 12 point review of systems was performed and is as per the history of the present illness, all other systems were reviewed and are negative. Vitals: 10/06/24 1217 BP: 131/65 Pulse: 70 Body mass index is 24.79 kg/m?. Physical Exam Vitals reviewed. Constitutional: General: She is not in acute distress. Appearance: Normal appearance. She is not ill-appearing, toxic-appearing or diaphoretic. HENT: Head: Normocephalic and atraumatic. Eyes: General: No scleral icterus. Extraocular Movements: Extraocular movements intact. Cardiovascular: Rate and Rhythm: Normal rate. Pulmonary: Effort: Pulmonary effort is normal. No respiratory distress. Abdominal: General: There is no distension. Palpations: Abdomen is soft. There is no mass. Tenderness: There is no abdominal tenderness. There is no guarding or rebound. Comments: Incision well healed without hernia or recurrence. Genitourinary: Comments: Uterus, cervix, bilateral adnexa surgically absent. No lesions or nodularity of the vaginal cuff or rectovaginal septum. Musculoskeletal: General: Normal range of motion. Right lower leg: No edema. Left lower leg: No edema. Skin: General: Skin is warm and dry. Coloration: Skin is not jaundiced or pale. Neurological: General: No focal deficit present. Mental Status: She is alert. Motor: No weakness. Coordination: Coordination normal. Psychiatric: Mood and Affect: Mood normal. Behavior: Behavior normal. Assessment/Plan: Diagnosis Plan 1. Papillary serous endometrial adenocarcinoma (HCC) CA 125 CA 125 Xi Au is a 74 y.o. 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 We discussed NCCN guidelines which would include vaginal brachytherapy plus or minus systemic therapy versus observation. The risks and benefits of each option were discussed. The p (more content not included)... Normal [facility] 36on 09-13-2024 36 Pt called with CA 12 5 results. Pt verbalized understanding. Normal [facility] Cancer Antigen 125on 024 CA 125 12.0 U/mL Normal 0.0-38.1 [facility] Comment on above: Result Comment: [employer] Electrochemiluminescence Immunoassay (ECLIA) Values obtained with different assay methods or kits cannot be used interchangeably. Results cannot be interpreted as absolute evidence of the presence or absence of malignant disease. Performed at: [facility] [id number] Hospice Plan Administrator: Jorge Babcock PhD, Phone: [phone] Performed By: #### L 3100.5000 ####[facility] [place], [address] Cancer antigen 125 (CA-125) measurementOrdered By: Katya Gorman on 09-11-2024 CA 125 Antigen 12.0 U/mL 0.0-38.1 [facility] Comment on above: [employer] El ectrochemiluminescence Immunoassay(ECLIA)Values obtained with different assay methods or kits cannotbe used interchangeably. Results cannot be interpreted asabsolute evidence of the presence or absence of malignantdisease.Performed at: [facility] [place] [id number] Director: Jorge Babcock PhD, Phone: [phone] SCRN MAMM (CAD)W/RAUDEL BILATo n 09-01-2024 SCRN MAMM (CAD)W/RAUDEL BILAT [facility] [address] [place], [place] [id number] SCRN MAMM (CAD)W/RAUDEL BILAT MR#: [id number] Acct: [id number] Name: XI AU Rep #: [id number] : 1950 F 74 From: Mingo osborne MD PCP: Dr. Krista Delgado MD Status: [facility] Study: SCRN MAMM (CAD)W/RAUDEL BILAT Date of Exam: 08/05 06/27 Exam# [id number] Ordering Dr: Krista Delgado [id number] MAMMOGRAPHY - BILATERAL SCREENING REASON FOR EXAM: Female, 74 years old. Routine annual screening examination. PERTINENT HISTORY: Sister with breast cancer. Grandmother with breast cancer. TECHNIQUE: Digital bilateral breast raudel (3D mammographic acquisition) in the CC and MLO projections. 2-D mediolateral oblique (MLO) and craniocaudad (CC) views of both breasts were obtained. CAD: Full Field Digital Mammography with Computer Added Detection was performed. COMPARISON: Comparison is made with prior study dated August 31, 2023 and August 24, 2022. FINDINGS: Breast Composition: The breasts are heterogeneously dense, which may obscure small masses. There are no dominant masses or suspicious calcifications. Stable small bilateral benign-appearing axillary lymph nodes. No other significant abnormalities are identified. There has been no significant change since the prior study. BI/SCRN MAMM (CAD)W/RAUDEL BILAT IMPRESSION: Stable bilateral screening mammogram. Yearly follow-up mammogram recommended. (A) ASSESSMENT CATEGORY: BIRADS Category 2: Benign. A letter regarding these results will be sent to the patient by the facility within 30 days. Approximately 10% of breast cancers are not detected by mammography. A normal mammogram should not delay biopsy of a clinically suspicious abnormality. [id number] Electronically Signed: Mingo Bay MD at 8:33 EST , CC: Dr. Krista Delgado MD [employer]: Signed [facility] 36on 07-06-2024 36 Patient would like t o know if she would need a CA125 completed before every appointment, please contact when able, thank you [facility] Office Visiton 07-06-2024 Follow-up visit [id number] Mattie Au 1950 F Date Provider Department Center 07/06/2024 [id number] SKELTON*[facility] [employer] None Family History Problem Relation Age of Onset Hypertension Mother Coronary artery disease Father Family Status - Relation Status Age at Mother Father Level of Service:24302 ID OFFICE/OUTPATIENT ESTABLISHED MDM 10 MIN Reason for Visit and Comments: Follow-up [461016] - Pt has no concerns. Endometrial Cancer [562] [facility] Progress Noteon 07-06-2024 Progress Note Chief Complaint Patient presents with Follow-up Pt has no concerns. Endometrial Cancer History of the Present Illness: Xi Au is a 74 y.o. 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 Pelvic washings were negative. Proficient mismatch repair protein, HER2 negative. We discussed NCCN guidelines which would include vaginal brachytherapy plus or minus systemic therapy versus observation. The risks and benefits of each option were discussed. The patient declined adjuvant treatment. She underwent robotic endometrial cancer staging on 01/17/2024. CA125 was normal. A CT of the chest, abdomen and pelvis showed a 1.6 x 1.2 cm well-defined hypodensity in the anterior aspect of the left lobe of the liver that was not a typical cyst. It was essentially unchanged from prior examination. Additionally, there was a 1.3 x 0.7 cm focal area of enhancement in the inferior lateral aspect of the right lobe of the liver. Interval History: Since her last visit, the patient has been doing well and is without complaints. She denies head ache, vision changes, chest pain, shortness of breath, nausea, vomiting, bloating, abdominal distension. Denies vaginal bleeding or discharge. Normal CA125 in 05/2024. 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 Encephalopathy Hypertension Hypothyroid Meniere's disease Meningioma (HCC) Osteoporosis Pneumonia Seizure (HCC) Past Surgical History: Procedure Laterality Date COLONOSCOPY 2014 CRANIOTOMY 2019 IR INTERVENTION FILTER PLACEMENT IVC FILTER REMOVAL (HISTORICAL) Social History Tobacco Use Smoking status: Never Smokeless tobacco: Never Vaping Use Vaping status: Never Used Substance Use Topics Alcohol use: Never Drug use: Never Family History Problem Relation Name Age of Onset Hypertension Mother Coronary artery disease Father Current Outpatient Medications on File Prior to Visit Medication Sig Dispense Refill amLODIPine (Norvasc) 10 MG tablet Take by mouth daily. calcium carbonate (Os-King) 1250 (500 Ca) MG tablet Take by mouth daily. Denosumab (PROLIA SC) Inject 1 Dose under the skin every 6 (six) months. Due in April doxycycline (Adoxa) 100 MG tablet Take 100 mg by mouth daily. Take with a full glass of water and do not lie down for at least 30 minutes after gabapentin (Neurontin) 100 MG capsule Take by mouth as needed. levETIRAcetam (Keppra) 500 MG tablet Take by mouth. levothyroxine (Synthroid, Levoxyl) 50 MCG tablet Take by mouth every morning (before breakfast). losartan-hydroCHLOROthiazid e (Hyzaar) 100-25 MG tablet Take 1 tablet by mouth daily. multivitamin (Theragran) tablet Take 1 tablet by mouth daily. [DISCONTINUED] apixaban (Eliquis) 2.5 MG tablet Take 1 tablet (2.5 mg) by mouth 2 times daily for 14 days. 28 tablet 0 [DISCONTINUED] senna-docusate sodium (Senokot-S) 8.6-50 MG tablet Take 1 tablet by mouth daily. 30 tablet 11 No current facility-administered medications on file prior to visit. Allergies Allergen Reactions Lisinopril Other Developed cough Ceftriaxone Rash Cephalexin Rash Review of Systems: A 12 point review of systems was performed and is as per the history of the present illness, all other systems were reviewed and are negative. Vitals: 07/06/24 1230 BP: 109/71 Pulse: 73 Body mass index is 25.13 kg/m?. Physical Exam Vitals reviewed. Constitutional: General: She is not in acute distress. Appearance: Normal appearance. She is not ill-appearing, toxic-appearing or diaphoretic. HENT: Head: Normocephalic and atraumatic. Eyes: General: No scleral icterus. Extraocular Movements: Extraocular movements intact. Cardiovascular: Rate and Rhythm: Normal rate. Pulmonary: Effort: Pulmonary effort is normal. No respiratory distress. Abdominal: General: There is no distension. Palpations: Abdomen is soft. There is no mass. Tenderness: There is no abdominal tenderness. There is no guarding or rebound. Comments: Incision well healed without hernia or recurrence. Genitourinary: Comments: Uterus, cervix, bilateral adnexa surgically absent. No lesions or nodularity of the vaginal cuff, posterior cul-de-sac or rectovaginal vault. Musculoskeletal: General: Normal range of motion. Right lower leg: No edema. Left lower leg: No edema. Skin: General: Skin is warm and dry. Coloration: Skin is not jaundiced or pale. Neurological: General: No focal deficit present. Mental Status: She is alert. Motor: No weakness. Coordination: Coordination normal. Psychiatric: Mood and Affect: Mood normal. Behavior: Behavior normal. Assessment/Plan: Diagnosis Plan 1. Papillary serous endometrial adenocarcinoma (HCC) Xi Au is a 74 y.o. 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 We discussed NCCN guidelines which would (more content not included)... [facility] 05-30-2024 36 Patient has been con tacted. Informed her that we are waiting for a new human projectile and she will be added on a waitlist for now. Pt will be r/s once new human projectile alex open [facility] 05-29-2024 36 Name of Caller: Mattie chen Contact Reason for Appointment: Xi called in advising that her appointment scheduled for 06/12/24 was canceled and wished to reschedule. Please advise. Office Name: [facility] [employer] ONC [facility] 36on 05-17-2024 36 Pt called and left v m with Ca 125 of 12.5. Pt to call back with any questions or concerns. [facility] Cancer Antigen 125on 024 CA 125 12.5 U/mL Normal 0.0-38.1 [facility] Comment on above: Result Comment: [employer] Electrochemiluminescence Immunoassay (ECLIA) Values obtained with different assay methods or kits cannot be used interchangeably. Results cannot be interpreted as absolute evidence of the presence or absence of malignant disease. Performed at: [facility] [id number] Hospice Plan Administrator: Jorge Babcock PhD, Phone: [phone] Performed By: #### L 3100.5000 ####[id number] [place], [place], [address] 36on 03-15-2024 36 Called pt informing her to get CA125 done with each surveillance visit.Pt verbalized understanding and had no other concerns. [facility] Office Visiton 03-10-2024 Follow-up visit [id number] Mattie Au 1950 F Date Provider Department Center 03/10/2024 SERENA OSMAN [facility] [employer] None Family History Problem Relation Age of Onset Hypertension Mother Coronary artery disease Father Family Status - Relation Status Age at Mother Father Level of Service:79971 ID POSTOP FOLLOW UP VISIT RELATED TO ORIGINAL PX Reason for Visit and Comments: Post-op Visit [699] - Pt has no concerns. [facility] Progress Noteon 03-10-2024 Progress Note Chief Complaint Patient presents with Post-op Visit Pt has no concerns. History of the Present Illness: Xi Au is a 73 y.o. who presents to the office for post-operative evaluation. She underwent robotic endometrial cancer staging on 01/16/2021 and final pathology showed: Final Diagnosis A. SENTINEL LYMPH NODE, LEFT PELVIC, EXCISION: - ONE LYMPH NODE NEGATIVE FOR METASTATIC CARCINOMA (0/1). B. SENTINEL LYMPH NODE, RIGHT PELVIC, EXCISION: - THREE LYMPH NODES NEGATIVE FOR METASTATIC CARCINOMA (0/3). C. 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 - BACKGROUND UTERUS WITH INACTIVE ENDOMETRIUM, LEIOMYOMA, AND ATROPHIC CERVIX. - BILATERAL FALLOPIAN TUBES WITH NO SIGNIFICANT HISTOPATHOLOGIC CHANGES. - BILATERAL OVARIES WITH NO SIGNIFICANT HISTOPATHOLOGIC CHANGES. D. OMENTUM, OMENTECTOMY: - MATURE ADIPOSE TISSUE, NEGATIVE FOR METASTATIC CARCINOMA. at 1555 Comment Per outside pathology report, MMR is intact ([facility] case [id number]). HER2 testing is pending with results to follow. Synoptic Checklist ENDOMETRIUM 8th Edition - Protocol posted: 09/16/2022ENDOMETRIUM - All Specimens SPECIMEN Procedure Total hysterectomy and bilateral salpingo-oophorectomy Omentectomy Peritoneal washing TUMOR Tumor Site Endometrial polyp Histologic Type Serous carcinoma Myometrial Invasion Present Depth of Myometrial Invasion 1 mm Myometrial Thickness 12 mm Percentage of Myometrial Invasion Estimated to be less than 50% Adenomyosis Not identified Uterine Serosa Involvement Not identified Lower Uterine Segment Involvement Not identified Cervical Stromal Involvement Not identified Other Tissue / Organ Involvement Not applicable Peritoneal / Ascitic Fluid Malignant cells not identified Lymphatic and / or Vascular Invasion Not identified REGIONAL LYMPH NODES Regional Lymph Node Status All regional lymph nodes negative for tumor cells Lymph Nodes Examined Total Number of Pelvic Nodes Examined 4 Number of Pelvic [place] Nodes Examined 4 Total Number of Para-aortic Nodes Examined 0 pTNM CLASSIFICATION (AJCC 8th Edition) Reporting of pT, pN, and (when applicable) pM categories is based on information available to the pathologist at the time the report is issued. As per the AJCC (Chapter 1, 8th Ed.) it is the managing physician?s responsibility to establish the final pathologic stage based upon all pertinent information, including but potentially not limited to this pathology report. 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 Proficient mismatch repair protein, HER2 negative. CA125 was normal. A CT of the chest, abdomen and pelvis showed a 1.6 x 1.2 cm well-defined hypodensity in the anterior aspect of the left lobe of the liver that was not a typical cyst. It was essentially unchanged from prior examination. Additionally, there was a 1.3 x 0.7 cm focal area of enhancement in the inferior lateral aspect of the right lobe of the liver. Ultrasound was recommended for further evaluation. Interval History Since her surgery she has been doing well and is without complaints. She denies fevers, chills, nausea, vomiting,bowel or bladder dysfunction. Pain is well controlled. No drainage from incisions. No abnormal vaginal bleeding or discharge. 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 Encephalopathy Hypertension Hypothyroid Meniere's disease Meningioma (HCC) Osteoporosis Pneumonia Seizure (HCC) Past Surgical History: Procedure Laterality Date COLONOSCOPY 2015 CRANIOTOMY 2019 IR INTERVENTION FILTER PLACEMENT IVC FILTER REMOVAL (HISTORICAL) Social History Tobacco Use Smoking status: Never Smokeless tobacco: Never Vaping Use Vaping Use: Never used Substance Use Topics Alcohol use: Never Drug use: Never Family History Problem Relation Name Age of Onset Hypertension Mother Coronary artery disease Father Current Outpatient Medications on File Prior to Visit Medication Sig Dispense Refill amLODIPine (Norvasc) 10 MG tablet Take by mouth daily. calcium carbonate (Os-King) 1250 (500 Ca) MG tablet Take by mouth daily. Denosumab (PROLIA SC) Inject 1 Dose under the skin every 6 (six) months. Due in April doxycycline (Adoxa) 100 MG tablet Take 100 mg by mouth daily. Take with a full glass of water and do not lie down for at least 30 minutes after gabapentin (Neurontin) 100 MG capsule Take by mouth as needed. levETIRAcetam (Keppra) 500 MG tablet Take by mouth. levothyroxine (Synthroid, Levoxyl) 50 MCG tablet Take by mouth every morning (befo (more content not included)... [facility] [id number] 36 Called patient with ultrasound results. I did inform patient that we will repeat a liver ultrasound in 6 months time. Also I will send to Dr. Prakash to review. Patient verbalizes understanding. [facility] Liver 02-14-2024 [facility] [address] [place] [address] Liver MR#: [id number] Acct: [id number] Name: XI AU Rep #: [id number] : 1950 F 73 From: Daryn Thorne PCP: Dr. Krista Delgado MD Status: [facility] Study: Liver Date of Exam: 02/14/24 Exam# [id number] Ordering Dr: YARITZA LY DIGITAL STRATEGY DIRECTOR-C [id number] INDICATION: LIVER CYST EXAMINATION: Ultrasound US Abdomen Limited (quadrant) TECHNIQUE: Gray scale and color doppler imaging was performed of the right upper quadrant. COMPARISON: CT scan of the chest, abdomen and pelvis of 01/27/2024. FINDINGS: LIVER: There is moderate increased echogenicity. There is a hypoechoic lesion in the left lobe of the liver measuring about 1.5 x 1.8 x 1.5 cm corresponding to the CT abnormality most consistent with hemangioma. There is a small hyperechoic lesion in the posterior segment of the right lobe of the liver corresponding to the CT abnormality measuring about 9 x 9 x 8 mm again likely due to hemangioma. There is no free fluid. GALLBLADDER AND BILIARY TREE: Multiple gallstones are seen, the largest measures about 2 cm. The gallbladder wall measures about 3 mm. The proximal common bile duct measures 10 mm, which is dilated. Sonographic Blevins''s sign: Negative. PANCREAS: No focal abnormality is demonstrated in the pancreas. No pancreatic ductal dilatation. Right kidney: The right kidney measures about 10 cm in length. The renal cortex measures 1.2 cm. No evidence of hydronephrosis. US/Liver IMPRESSION: 1. Liver lesions as described above likely due to hemangiomas. Repeat liver ultrasound in 6 months is recommended. 2. Hepatic steatosis. 3. Multiple gallstones with dilated common bile duct. MRCP might be further value. Electronically Signed: Daryn Parra MD at 11:37 EDT , CC: Dr. 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 who presents to the office for post-operative evaluation. She underwent robotic endometrial cancer staging on 01/16/2021 and final pathology showed: Final Diagnosis A. SENTINEL LYMPH NODE, LEFT PELVIC, EXCISION: - ONE LYMPH NODE NEGATIVE FOR METASTATIC CARCINOMA (0/1). B. SENTINEL LYMPH NODE, RIGHT PELVIC, EXCISION: - THREE LYMPH NODES NEGATIVE FOR METASTATIC CARCINOMA (0/3). C. 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 - BACKGROUND UTERUS WITH INACTIVE ENDOMETRIUM, LEIOMYOMA, AND ATROPHIC CERVIX. - BILATERAL FALLOPIAN TUBES WITH NO SIGNIFICANT HISTOPATHOLOGIC CHANGES. - BILATERAL OVARIES WITH NO SIGNIFICANT HISTOPATHOLOGIC CHANGES. D. OMENTUM, OMENTECTOMY: - MATURE ADIPOSE TISSUE, NEGATIVE FOR METASTATIC CARCINOMA. at 1555 Comment Per outside pathology report, MMR is intact ([facility] case [id number]). HER2 testing is pending with results to follow. Synoptic Checklist ENDOMETRIUM 8th Edition - Protocol posted: 09/16/2022ENDOMETRIUM - All Specimens SPECIMEN Procedure Total hysterectomy and bilateral salpingo-oophorectomy Omentectomy Peritoneal washing TUMOR Tumor Site Endometrial polyp Histologic Type Serous carcinoma Myometrial Invasion Present Depth of Myometrial Invasion 1 mm Myometrial Thickness 12 mm Percentage of Myometrial Invasion Estimated to be less than 50% Adenomyosis Not identified Uterine Serosa Involvement Not identified Lower Uterine Segment Involvement Not identified Cervical Stromal Involvement Not identified Other Tissue / Organ Involvement Not applicable Peritoneal / Ascitic Fluid Malignant cells not identified Lymphatic and / or Vascular Invasion Not identified REGIONAL LYMPH NODES Regional Lymph Node Status All regional lymph nodes negative for tumor cells Lymph Nodes Examined Total Number of Pelvic Nodes Examined 4 Number of Pelvic [place] Nodes Examined 4 Total Number of Para-aortic Nodes Examined 0 pTNM CLASSIFICATION (AJCC 8th Edition) Reporting of pT, pN, and (when applicable) pM categories is based on information available to the pathologist at the time the report is issued. As per the AJCC (Chapter 1, 8th Ed.) it is the managing physician?s responsibility to establish the final pathologic stage based upon all pertinent information, including but potentially not limited to this pathology report. 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 Proficient mismatch repair protein, HER2 negative. CA125 was normal. A CT of the chest, abdomen and pelvis showed a 1.6 x 1.2 cm well-defined hypodensity in the anterior aspect of the left lobe of the liver that was not a typical cyst. It was essentially unchanged from prior examination. Additionally, there was a 1.3 x 0.7 cm focal area of enhancement in the inferior lateral aspect of the right lobe of the liver. Ultrasound was recommended for further evaluation. Since her surgery she has been doing well and is without complaints. She denies fevers, chills, nausea, vomiting,bowel or bladder dysfunction. Pain is well controlled. No drainage from incisions. No abnormal vaginal bleeding or discharge. 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 Encephalopathy Hypertension Hypothyroid Meniere's disease Meningioma (HCC) Osteoporosis Pneumonia Seizure (HCC) Past Surgical History: Procedure Laterality Date COLONOSCOPY 2015 CRANIOTOMY 2019 IR INTERVENTION FILTER PLACEMENT IVC FILTER REMOVAL (HISTORICAL) Social History Tobacco Use Smoking status: Never Smokeless tobacco: Never Vaping Use Vaping Use: Never used Substance Use Topics Alcohol use: Never Drug use: Never Family History Problem Relation Name Age of Onset Hypertension Mother Coronary artery disease Father Current Outpatient Medications on File Prior to Visit Medication Sig Dispense Refill [] acetaminophen (Tylenol Extra Strength) 500 MG tablet Take 2 tablets (1,000 mg) by mouth every 6 hours as needed for mild pain (1-3) for up to 10 days. 60 tablet 0 amLODIPine (Norvasc) 10 MG tablet Take by mouth daily. apixaban (Eliquis) 2.5 MG tablet Take 1 tablet (2.5 mg) by mouth 2 times daily for 14 days. 28 tablet 0 calcium carbonate (Os-King) 1250 (500 Ca) MG tablet Take by mouth daily. Denosumab (PROLIA SC) Inject 1 Dose under the skin every 6 (six) months. Due in April doxycycline (Adoxa) 100 MG tablet Take 100 mg by mouth daily. Take with a full glass of water a (more content not included)... [facility] 36on 01-28-2024 [address] scan results informed patient that we will do a follow-up ultrasound on her liver to further evaluate liver cyst. Patient verbalizes understanding Normal [facility] 36 Requested imaging to PACS and report to be faxed [facility] 36on 01-27-[address] done today at [facility]. We will need to get a copy of the report and images. Discussed possible adjuvant treatment - will go through in detail at post op visit. Normal [facility] CREATININE FINGERSTICKon CREATININE WB < 1.0 Normal 0.55-1.02 [facility] Comment on above: Performed By: #### L 9100.0200 ####[facility] [address] [place], [place], [id number] GFR/1.73 sq M.predicted among non-blacks MDRD (S/P/Bld) [Vol rate/Area] 58.0000 mL/min/{1.73_m2} Low >60 [facility] Comment on above: Performed By: #### L 9100.0200 ####[facility] [address] [place], [place], [id number] CT Chest, Abd, Pel w/Contras ton 01-27-2024 CT Chest, Abd, Pel w/Contrast [facility] Imaging Services [address] [place] [address] CT Chest, Abd, Pel w/Contrast MR#: [id number] Acct: [id number] Name: XI AU Rep #: [id number] : 1950 F 73 From: Mingo osborne MD PCP: Dr. Krista Delgado MD Status: REG CLI Study: CT Chest, Abd, Pel w/Contrast Date of Exam: Exam# [id number] Ordering Dr: KATYA SKELTON [id number] STUDY: CT CHEST, ABDOMEN T PELVIS WITH CONTRAST REASON FOR EXAM: Female, 73 years old. UTERINE/CERVICAL CA STAGING. The patient is status post total abdominal hysterectomy and bilateral salpingooophorectomy. RADIATION DOSAGE (If Supplied By Facility): CTDIvol = ( 10.31 ) mGy, DLP = ( 804.60 ) mGycm TECHNIQUE: Transaxial imaging was performed following intravenous administration of Oral and amp;amp;amp; IV Readi-CAT and amp;amp;amp; 100mL Isovue-300. Multiplanar coronal and sagittal images were reformatted. Individualized dose optimization techniques were used for this CT. COMPARISON: Comparison is made with prior CT of the thorax dated October 03, 2019. FINDINGS: CHEST The lungs are normal. There is no demonstrated pleural abnormality. Normal heart and pericardium. No coronary calcification is seen. Normal mediastinum. Normal hilar regions. Normal unenhanced pulmonary arteries. Normal aorta arch and descending thoracic aorta. There are multi-level degenerative changes of the thoracic spine. ABDOMEN There is decreased attenuation of the liver consistent with steatosis. There is a 1.6 x 1.2 cm well-defined hypodensity in the anterior aspect of the left lobe of the liver. This is not a typical cyst. This is essentially unchanged from prior examination. There is a 1.3 cm x 0.7 cm focal area of enhancement in the inferior lateral aspect of the right lobe of the liver. Correlation with ultrasound is recommended for further evaluation. There are multiple gallstones. Normal spleen. Normal pancreas. Normal bilateral adrenal glands. Normal right kidney. Left renal cyst. This measures 6.8 cm x 5.9 cm. There is a small hiatal hernia. Normal small intestine. Moderate amount of fecal material is seen in the colon. There is non-visualization of the appendix. Normal abdominal aorta. Normal inferior vena cava. Normal retroperitoneum. Normal abdominal wall. 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 PELVIS Normal urinary bladder. Patient is status post hysterectomy. A small amount of free fluid is seen in the pelvis most likely secondary to the recent surgical procedure. There is no pelvic lymphadenopathy or mass lesion. Normal visualized pelvic arteries. CT/CT Chest, Abd, Pel w/Contrast IMPRESSION: 1.6 cm x 1.2 cm well-defined hypodensity in the anterior aspect of the left lobe of liver. There is also evidence of a 1.3 cm x 0.7 cm focal area of enhancement in the inferior lateral aspect of the right lobe of the liver. Correlation with ultrasound is recommended. Left renal cyst. Electronically Signed: Mingo Bay MD at 15:47 EDT Reading Location ID and State: [address] [place] [address] , Service support , CC: KATYA SKELTON; Dr. Krista Delgado MD Wood Sash And Frame Carpenter: Signed Normal [facility] PATH SENDOUT (SENDOUT)o n 01-26-20[facility] Comment on above: Result Comment: BRET Booth COMMENTS: Results are attached to the pathology report, case # [id number]. See scan in Pie Cutter. Performed By: #### L [id number] #### [employer] Forces Communications Sergeant: SEDA MCNULTY ([id number]) [facility] ([address] ECG 12-LEADon 01-19-2024 ECG 12-LEAD IMPRESSION: Sinus rhythm Normal EKG Electronically Signed On 01-19-2024 16:24:08 EDT by Stu Cortez [facility] CARECOORDon 01-18-2024 [facility] Care Managment Initi al Assessment Date: 01/18/2024 Patient Name: Xi Au : 1950 Patient Information Source of Information: Patient Cognition/Language: WFL - Within Functional Limits Permission given to speak with patient residential sales representative/caregiver as indicated: Confirmation of Payer with patient/family: Yes Payer Name: Medicare A&B : No Confirmation of Primary Care Physician: Confirmed PCP Name: Santana Delarosa Seen in last 2 years?: Yes Primary Caregiver: Self If assistance needed, confirmed caregiver ready, willing and able to care for patient at discharge: Yes Confirmed with: pt's spouseBrian Living Arrangements Current Residence: House Number of Floors 2 Number of Entry Steps: 2 Bed/Bath Levels: Both first floor Facility: Facility Name: Plan to Return: Lives with: Spouse/significant other Support Systems: Spouse/significant other, Family members, Friends/neighbors Activities of Daily Living Ambulation: Independent Bathing/Dressing: Independent Elimination/Continence/Toil eting: Independent Feeding: Independent Who Assists with Activities of Daily Living: Instrumental Activities of Daily Living Prescription Coverage: Yes Pharmacy Used: [facility] Medication Management: Independent Transportation/Shopping: Independent Transportation Mode: Car Needs Assistance with Transportation at Discharge: No (spouse will transport) Meal Preparation: Independent Laundry/Cleaning: Independent Finances/Bill Paying: Independent Communication: Independent Types of Care Services/Equipment Utilized Care Services: Dialysis Type: Durable Medical Equipment: DME Provider: None Patient's Goal/Discharge Plan Patient expects to be discharged to: home with spouse Discharge Planning Actions: Patient's Choice Rights and [employer] and Collaborative Relationships Disclosed as Indicated for Post-Acute Care: Interdisciplinary Team Engagement: Social Work Referral for: Additional Information: 73 yo female assigned to post procedure recovery status for surgery 01/17/24: Total lap hysterectomy, bilateral salpingectomy and bilateral pelvic sentinal lymph node biopsy. Pt has been advanced to regular diet. Met with pt and her , Brian, at bedside. Explained role of tcc. Pt and spouse live in two story home. Pt is independent adls and uses no dme. She denies any dc needs from tcc. Anticipate dc to home later this afternoon if she remains medically stable. Marva Alonzo RN Normal [facility] CBC (HEMOGRAM)on 01-18-2024 Erythrocyte distribution width (RBC) [Ratio] 13.2 % Normal 11.5-15.0 [facility] Comment on above: Performed By: #### L [id number] #### [employer] Forces Communications Sergeant: SEDA MCNULTY ([id number]) [facility]) [address] [place] [address] Hematocrit (Bld) [Volume fraction] 35.1 % Normal 35.0-47.0 [facility] Comment on above: Performed By: #### L [id number] #### [employer] Communications Sergeant: SEDA MCNULTY ([id number]) [facility]) [address] [place] [address] Hemoglobin (Bld) [Mass/Vol] 12.2 g/dL Normal 11.7-16.0 [facility] Comment on above: Performed By: #### L [id number] #### [employer] Communications Sergeant: SEDA MCNULTY ([id number]) [facility]) [address] [place] [address] MCH (RBC) [Entitic mass] 30.3 pg Normal 26.0-34.0 [facility] Comment on above: Performed By: #### L [id number] #### [employer] Communications Sergeant: SEDA MCNULTY ([id number]) [address] MCHC 34.8 % Normal 30.5-36.0 [facility] Comment on above: Performed By: #### L [id number] #### [employer] Communications Sergeant: SEDA MCNULTY ([id number]) [facility]) [address] [place] [address] MCV (RBC) [Entitic vol] 87.3 fL Normal 77.0-99.0 [facility] Comment on above: Performed By: #### L [id number] #### [employer] Communications Sergeant: SEDA MCNULTY ([id number]) [facility]) [address] [place] [address] Platelet mean volume (Bld) [Entitic vol] 10.2 fL Normal 9.0-12.7 [facility] Comment on above: Performed By: #### L [id number] #### [employer] Communications Sergeant: SEDA MCNULTY ([id number]) [facility] ([facility]) [address] [place] [address] Platelets (Bld) [#/Vol] 216 10*3/uL Normal 140-440 [facility] Comment on above: Performed By: #### L [id number] #### [employer] Communications Sergeant: SEDA MCNULTY ([id number]) [facility] ([facility]) [address] [place] [address] RBC (Bld) [#/Vol] 4.02 10*6/uL Normal 3.80-5.20 [facility] Comment on above: Performed By: #### L [id number] #### [employer] Communications Sergeant: SEDA MCNULTY ([id number]) [facility] ([facility]) [address] [place] [address] WBC (Bld) [#/Vol] 6.7 10*3/uL Normal 3.6-10.7 [facility] Comment on above: Performed By: #### L [id number] #### [employer] Communications Sergeant: SEDA MCNULTY ([id number]) [facility] ([facility]) [address] [place] [address] CBC panel Auto (Bld)on 01-17 Erythrocyte distribution width (RBC) [Ratio] 13.2 % 11.5 - 15.0 % [facility] Hematocrit (Bld) [Volume fraction] 35.1 % 35.0 - 47.0 % [facility] Hemoglobin (Bld) [Mass/Vol] 12.2 g/dL 11.7 - 16.0 g/dL [facility] Interpretation and review of laboratory results Normal [facility] MCH (RBC) [Entitic mass] 30.3 pg 26.0 - 34.0 pg [facility] MCHC (RBC) [Mass/Vol] 34.8 % 30.5 - 36.0 % [facility] MCV (RBC) [Entitic vol] 87.3 fL 77.0 - 99.0 fL [facility] Platelet mean volume (Bld) [Entitic vol] 10.2 fL 9.0 - 12.7 fL [facility] Platelets (Bld) [#/Vol] 216 10*3/uL 140 - 440 10*3/uL [facility] RBC (Bld) [#/Vol] 4.02 10*6/uL 3.80 - 5.2 0 10*6/uL [facility] WBC (Bld) [#/Vol] 6.7 10*3/uL 3.6 - 10.7 10*3/uL [facility] Nursing Noteon 01-18-2024 Nursing Note Patient discharged h ome at this time. IV access discontinued no active lines or drains present. AVS discussed with patient at the bedside. Medications, activity, restrictions and follow up appointments reviewed. Educated on site care and s/s of infection. Patient received medication per med's to beds in house pharmacy. Pt transported via w/c to main lobby accompanied by . Normal [facility] Progress Noteon 01-18-2024 Progress Note ------- Attestation signed by Katya Skelton MD at 01/18/2024 5:32 PM Attending Supervising Physician's Attestation Statement I performed a history and physical examination on the patient and discussed the management with the resident physician. I reviewed and agree with the findings and plan as documented in her note. Meeting all postoperative goals. Stable for discharge to home. Postoperative instructions reviewed. Patient will go home on 2 weeks of venous thromboembolism prophylaxis with prophylactic Eliquis given her history of previous postoperative DVT. 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 female , POD #1 s/p RTLH-BSO, SLND, omentectomy, pelvic washings Patient seen and examined. She has no acute complaints. Pain is controlled. Patient is tolerating oral intake. She is urinating. She denies any vaginal bleeding. She is ambulating without difficulty. She is not passing flatus. She denies Fever/Chills, Chest Pain, SOB, N/V. Vitals: Vitals: 01/17/24 1730 01/17/24 1823 01/17/24 2102 01/18/24 0116 BP: 102/61 114/61 116/66 110/52 BP Location: Right arm Right arm Right arm Patient Position: Sitting Lying Sitting Pulse: 75 66 70 74 Resp: 15 20 20 Temp: 36.9 ?C (98.4 ?F) 36.5 ?C (97.7 ?F) 36.8 ?C (98.2 ?F) TempSrc: Temporal Temporal Temporal SpO2: 100% 96% 95% 93% Weight: Height: Intake/Output: Current Shift: I/O this shift: In: 400 [P.O.:400] Out: 650 [Urine:650] Physical Exam: Gen: NAD, alert and cooperative HEENT: Normocephalic, atraumatic Resp: Non-labored Abd: soft, NT/ND, no rebound, no guarding. Incisions: C/D/I Ext: No LE edema, no calf tenderness or swelling Medications: Current Facility-Administered Medications: acetaminophen (Tylenol) tablet 1,000 mg, 1,000 mg, Oral, q8h, Emmanuel DO Jose, 1,000 mg at 01/18/24 0159 amLODIPine (Norvasc) tablet 10 mg, 10 mg, Oral, Daily, Emmanuel Garcia DO apixaban (Eliquis) tablet 2.5 mg, 2.5 mg, Oral, BID, Daniela Samaniego DO gabapentin (Neurontin) capsule 100 mg, 100 mg, Oral, Daily PRN, Emmanuel Garcia DO ketorolac (Toradol) injection 30 mg, 30 mg, IntraVENous, q6h, Emmanuel Garcia DO, 30 mg at 01/18/24 0000 levETIRAcetam (Keppra) tablet 500 mg, 500 mg, Oral, Daily, Emmanuel Garcia DO levothyroxine (Synthroid, Levoxyl) tablet 50 mcg, 50 mcg, Oral, qAM AC, Emmanuel Garcia DO ondansetron ODT (Zofran-ODT) disintegrating tablet 4 mg, 4 mg, Oral, q8h PRN OR ondansetron (Zofran) injection 4 mg, 4 mg, IntraVENous, q6h PRN, Emmanuel Garcia DO oxyCODONE (Roxicodone) immediate release tablet 5 mg, 5 mg, Oral, q4h PRN OR oxyCODONE (Roxicodone) immediate release tablet 10 mg, 10 mg, Oral, q4h PRN, Emmanuel Garcia DO polyethylene glycol (PEG) 3350 (Miralax) packet 17 g, 17 g, Oral, Daily PRN, Emmanuel Garcia DO prochlorperazine (Compazine) tablet 10 mg, 10 mg, Oral, q6h PRN OR prochlorperazine (Compazine) injection 10 mg, 10 mg, IntraVENous, q6h PRN, 10 mg at 01/17/24 1943 OR prochlorperazine (Compazine) suppository 25 mg, 25 mg, Rectal, q12h PRN, Daniela Samaniego DO sodium chloride 0.9 % infusion, 5-250 mL/hr, IntraVENous, PRN, Emmanuel Garcia DO sodium chloride 0.9% (NS) flush 10 mL, 10 mL, IntraVENous, 2 times per day, Emmanuel Garcia DO, 10 mL at 04/15/24 2006 sodium chloride 0.9% (NS) flush 10 mL, 10 mL, IntraVENous, PRN, Emmanuel DO Jose Diagnostics: ECG 12 lead Result Date: 01/17/2024 Sinus rhythm Labs: Admission on 01/17/2024 Component Date Value Ref Range Status SODIUM 01/17/2024 141 135 - 145 mmol/L Final POTASSIUM 01/17/2024 3.7 3.5 - 5.1 mmol/L Final CHLORIDE 01/17/2024 109 (H) 98 - 107 mmol/L Final CARBON DIOXIDE 01/17/2024 25 22 - 30 mmol/L Final UREA NITROGEN 01/17/2024 12 7 - 17 mg/dL Final CREATININE 01/17/2024 0.70 0.52 - 1.04 mg/dL Final GLUCOSE 01/17/2024 87 70 - 100 mg/dL Final CALCIUM 01/17/2024 9.2 8.4 - 10.4 mg/dL Final ANION GAP 01/17/2024 8 3 - 13 mmol/L Final eGFR 01/17/2024 >90.0 >60.0 mL/min/1.73m*2 Final Calculation based on the Chronic Kidney Disease Epidemiology Collaboration (CKD-EPI) equation refit without adjustment for race Hemoglobin 01/17/2024 12.9 11.7 - 16.0 g/dL Final Hematocrit 01/17/2024 37.2 35.0 - 47.0 % Final Heart Rate 01/17/2024 79 bpm Final QRSD Interval 01/17/2024 83 ms Final QT Interval 01/17/2024 378 ms Final QTC Interval 01/17/2024 434 ms Final P [place] 01/17/2024 47 degrees Final QRS [place] 01/17/2024 12 degrees Final T Wave [place] 01/17/2024 57 degrees Final ID Interval 01/17/2024 130 ms Final ABO Grouping 01/17/2024 O Final Antibody Screen 01/17/2024 NEG Final Rh Type 01/17/2024 POS Final ABO Grouping (more content not included)... Normal [facility] ABO and Rh group Confirm Nom (Bld)on 01-17-2024 ABO group Nom (Bld) O [facility] D Ag Ql (RBC) Positive [facility] BASIC METABOLIC PANELon 01-02 Anion gap [Moles/Vol] 8 mmol/L Normal 3-13 [facility] Comment on above: Performed By: #### L AB15 ####[employer] Sergeant: SEDA MCNULTY ([phone])[facility] [place] [address] Calcium [Mass/Vol] 9.2 mg/dL Normal 8.4-10.4 [facility] Comment on above: Performed By: #### L AB15 ####[employer] Sergeant: SEDA MCNULTY ([phone])[facility] [place] [address] Chloride [Moles/Vol] 109 mmol/L High 98-107 [facility] Comment on above: Performed By: #### L AB15 ####[employer] Sergeant: SEDA MCNULTY ([phone])[facility] [place] [address] CO2 [Moles/Vol] 25 mmol/L Normal 22-30 [facility] Comment on above: Performed By: #### L AB15 ####[employer] Sergeant: SEDA MCNULTY ([id number])[facility] ([facility])[address] [place] [address] Creatinine [Mass/Vol] 0.70 mg/dL Normal 0.52-1.04 [facility] Comment on above: Performed By: #### L AB15 ####[employer] Sergeant: SEDA MCNULTY ([phone])[facility] ([facility])[address] [place] [address] GLOMERULAR FILTRATION RATE ML/MIN/1.73 SQ M.PREDICTED >90.0 Normal >60.0 [facility] Comment on above: Result Comment: Calc ulation based on the Chronic Kidney Disease Epidemiology Collaboration (CKD-EPI) equation refit without adjustment for race Performed By: #### L AB15 ####[employer] Sergeant: SEDA MCNULTY ([id number])[facility] ([facility])[address] [place] [address] Glucose [Mass/Vol] 87 mg/dL Normal 70-100 [facility] Comment on above: Performed By: #### L AB15 ####[employer] Sergeant: SEDA CMNULTY ([phone])[facility] ([facility])[address] [place] [address] Potassium [Moles/Vol] 3.7 mmol/L Normal 3.5-5.1 [facility] Comment on above: Performed By: #### L AB15 ####[employer] Sergeant: SEDA MCNULTY ([phone])[facility] ([facility])[address] [place] [address] Sodium [Moles/Vol] 141 mmol/L Normal 135-145 [facility] Comment on above: Performed By: #### L AB15 ####[employer] Sergeant: SEDA MCNULTY ([id number])[facility])[address] [place] [address] Urea nitrogen [Mass/Vol] 12 mg/dL Normal 7-17 [facility] Comment on above: Performed By: #### L AB15 ####[employer] Sergeant: SEDA MCNULTY ([phone])[facility] ([facility])[address] [place] [address] BLOOD TYPE AND SCREEN GELon 01-17-2024 ABO GROUPING O Normal [facility] Comment on above: Order Comment: HOLD. Specimen is valid for 3 days - nurse to verify valid specimen Performed By: #### L [id number] ####[employer] Sergeant: SEDA MCNULTY ([phone])[facility] ([facility])[address] [place] [address] RH TYPE IN BLOOD Positive Normal [facility] Comment on above: Order Comment: HOLD. Specimen is valid for 3 days - nurse to verify valid specimen Performed By: #### L [id number] ####[employer] Sergeant: SEDA MCNULTY ([phone])[facility] ([facility])[address] [place] [address] Basic metabolic 1998 panelon 01-17-2024 Anion gap [Moles/Vol] 8 mmol/L 3 - 13 mmol/L [facility] Calcium [Mass/Vol] 9.2 mg/dL 8.4 - 10. 4 mg/dL [facility] Chloride [Moles/Vol] 109 mmol/L High 98 - 10 7 mmol/L [facility] CO2 [Moles/Vol] 25 mmol/L 22 - 30 mmol/L [facility] Creatinine [Mass/Vol] 0.70 mg/dL 0.52 - 1.04 mg/dL [facility] GFR/1.73 sq M.predicted MDRD (S/P/Bld) [Vol rate/Area] - PINF [facility] Comment on above: Calculation based on the Chronic Kidney Disease Epidemiology Collaboration (CKD-EPI) equation refit without adjustment for race Glucose [Mass/Vol] 87 mg/dL 70 - 100 mg/dL [facility] Interpretation and review of laboratory results Abnormal [facility] Potassium [Moles/Vol] 3.7 mmol/L 3.5 - 5.1 mmol/L [facility] Sodium [Moles/Vol] 141 mmol/L 135 - 145 mmol/L [facility] Urea nitrogen [Mass/Vol] 12 mg/dL 7 - 17 mg/dL [facility] Blood type and Crossmatch pa olya (Bld)on 01-17-2024 ABO group Nom (Bld) O [facility] Blood group antibody screen GEL Ql Negative [facility] D Ag Ql (RBC) Positive [facility] HEMOGLOBIN AND HEMATOCRIT, B LOODon 01-17-2024 Hematocrit (Bld) [Volume fraction] 37.2 % Normal 35.0-47.0 [facility] Comment on above: Performed By: #### L [id number] ####[employer] Sergeant: SDEA MCNULTY ([id number])[address] Hemoglobin (Bld) [Mass/Vol] 12.9 g/dL Normal 11.7-16.0 [facility] Comment on above: Performed By: #### L [id number] ####[employer] Sergeant: SEDA MCNULTY ([phone])[facility])[address] [place] [address] Hemoglobin (Bld) [Mass/Vol]o n 01-17-2024 Hematocrit (Bld) [Volume fraction] 37.2 % 35.0 - 47.0 % [facility] Interpretation and review of laboratory results Normal [facility] IDNon 01-17-2024 IDN Problem: Pain - Adul t Goal: Verbalizes/displays adequate comfort level or baseline comfort level Outcome: Progressing Problem: Safety - Adult Goal: Free from fall injury Outcome: Progressing Problem: Discharge Planning Goal: Discharge to home or other facility with appropriate resources Outcome: Progressing Normal [facility] Laboratory - Hematology and Cell countson 01-17-2024 Hemoglobin (Bld) [Mass/Vol] 12.9 g/dL 11.7 - 16.0 g/dL [facility] Nursing Noteon 01-17-2024 Nursing Note Patient arrived on u nit. Name and date verified. Attached to monitors. Vital signs stable. 5 - called report to Esme on H5. Called family and updated with pt's status and room number Normal [facility] Op Noteon 01-17-2024 Op Note Date: 01/17/2024 Loca tion: [facility] OR Name: Xi Au, : 1950, Diagnosis Pre-op Diagnosis * Uterine cancer (CMS/HCC) (HCC) [C55] Post-op Diagnosis * Uterine cancer (CMS/HCC) (HCC) [C55] Procedures ROBOTIC ASSISTED TOTAL LAPAROSCOPIC HYSTERECTOMY, BILATERAL SALPINGO OOPHORECTOMY 64212 - ID LAPS TOTAL HYSTERECT 250 GM/< W/RMVL TUBE/OVARY BILATERAL PELVIC SENTINEL LYMPH NODE BIOPSY WITH INDOCYANINE GREEN DYE PROTOCOL 66371 - ID INJ RADIOACTIVE TRACER FOR ID OF SENTINEL NODE Bilateral sentinel lymphadenectomy Omental biopsy [place] transverse colon Surgeons * Katya Skelton - Primary Procedure Summary Anesthesia: General ASA: III Estimated Blood Loss: Minimal Drains: * None in log * Staff: Field Technical Specialist: Maurice Fletcher RN Relief Scrub: Ciera Gonzalez Scrub Person: Serena Hughes RN [place] to Circ: Lauri Cordoba RN Findings: Examination under anesthesia revealed normal external genitalia, vagina and cervix. The uterus was normal size. The upper abdomen was grossly normal in appearance. The tube and ovaries were normal in appearance as was the uterine serosa. The sentinel lymph nodes were identified along the external iliac vessels. These were grossly normal in appearance. There was no obvious extra-uterine spread of disease. Complications: None apparent; patient tolerated the procedure well. Specimens Collected: Order Name Source Comment Collection Info Order Time BASIC METABOLIC PANEL Blood, Venous Collected By: Madhavi Salguero RN 01/17/2024 12:13 PM HEMOGLOBIN AND HEMATOCRIT, BLOOD Blood, Venous Collected By: Madhavi Salguero RN 01/17/2024 12:13 PM BLOOD TYPE AND SCREEN GEL Blood, Venous HOLD. Specimen is valid for 3 days - nurse to verify valid specimen Collected By: Madhavi Salguero RN 01/17/2024 12:13 PM CBC (HEMOGRAM) Blood, Venous Collected By: Jyothi Aceves RN 01/17/2024 7:00 PM NON-GYNECOLOGIC CYTOLOGY Peritoneal Washings Collected By: Katya Skelton MD 01/17/2024 2:12 PM TISSUE EXAM Lymph Node Collected By: Katya Skelton MD 01/17/2024 2:27 PM Wound Class: Class II: Clean-Contaminated Blood Products: None Prophylactic Antibiotics: Procedure appropriate prophylactic antibiotic(s) given within 1 hour of surgical incision (two hours if receiving Vancomycin or flouroquinolone) Description of procedure: After informed, written consent was obtained, the patient was identified in the preoperative holding area and taken to the operating room where anesthesia was found be adequate. She was then prepped and draped in the usual sterile fashion in the dorsal lithotomy position with Rian stirrups. Care was taken to neither hyperextend or hyperflex the patient's hips or knees and her arms were tucked at the sides in a neutral position. A bivalve speculum was placed in patient's vagina and the anterior lip of the cervix was grasped with a single-tooth tenaculum. Indocyanine green was injected into the cervix at the 9 and 3 o'clock locations both 1 cm deep into the submucosal tissue. A total of 4 mL was injected. A VCare uterine manipulator was placed without difficulty and all other instruments were removed from the patient's vagina. The Dove catheter was placed using sterile technique. Attention was then turned to the patient's abdomen. Entry into the abdominal cavity was performed via the left upper quadrant approach with a 5 mm blunt Optiview trocar under direct visualization. Intra-abdominal placement confirmed prior to insufflating the abdomen with CO2 gas to a pressure of 15 mmHg. A survey of the patient's abdomen revealed the above-noted findings. The camera port, right lower quadrant and left lower quadrant robotic ports were then all placed under direct visualization with blunt trocars. The patient was then placed in steep Trendelenburg position and the bowel was displaced out of the pelvis. The robot was docked and all instruments were inserted under direct visualization. The pelvic washings were obtained. The left round ligament was identified, serially cauterized and transected and the left retroperitoneal space was opened and all anatomic landmarks were identified including the ureter. The near infrared technology was then used to identified the fluorescence from the indocyanine green. There was evidence of a lymphatic channel arising from the cervix, coursing through the parametrium and terminating in a sentinel pelvic lymph node. All anatomic landmarks were identified including the external and internal iliac vessels, superior vesical artery, obturator nerve, ureter. Thesestructures were carefully identified and preserved. The perilymphatic tissue was grasped with the bipolar fenestrated grasper and carefully dissected from the surrounding structures. The sentinel lymph nodes were then placed the retroperitoneal space for later specimen removal through the vagina. The above procedure was r (more content not included)... Normal [facility] Op Note Date: 01/17/2024 Loca tion: [facility] OR Name: Xi Au, : 1950, Diagnosis Pre-op Diagnosis * Uterine cancer (CMS/HCC) (HCC) [C55] Post-op Diagnosis * Uterine cancer (CMS/HCC) (HCC) [C55] Procedures ROBOTIC ASSISTED TOTAL LAPAROSCOPIC HYSTERECTOMY, BILATERAL SALPINGO OOPHORECTOMY 91246 - ID LAPS TOTAL HYSTERECT 250 GM/< W/RMVL TUBE/OVARY BILATERAL PELVIC SENTINEL LYMPH NODE BIOPSY WITH INDOCYANINE GREEN DYE PROTOCOL 02348 - ID INJ RADIOACTIVE TRACER FOR ID OF SENTINEL NODE Bilateral sentinel lymphadenectomy Omental biopsy [place] transverse colon Surgeons * Katya Skelton - Primary Procedure Summary Anesthesia: General ASA: III Estimated Blood Loss: Minimal Drains: * None in log * Staff: Field Technical Specialist: Maurice Fletcher RN Relief Scrub: Ciera Gonzalez Scrub Person: Serena Hughes RN [place] to Circ: Lauri Cordoba RN Findings: See dictated report Complications: None apparent; patient tolerated the procedure well. Specimens Collected: Order Name Source Comment Collection Info Order Time BASIC METABOLIC PANEL Blood, Venous Collected By: Madhavi Salguero RN 01/17/2024 12:13 PM HEMOGLOBIN AND HEMATOCRIT, BLOOD Blood, Venous Collected By: Madhavi Salguero RN 01/17/2024 12:13 PM BLOOD TYPE AND SCREEN GEL Blood, Venous HOLD. Specimen is valid for 3 days - nurse to verify valid specimen Collected By: Madhavi Salguero RN 01/17/2024 12:13 PM CBC (HEMOGRAM) Blood, Venous Collected By: Jyothi Aceves RN 01/17/2024 7:00 PM NON-GYNECOLOGIC CYTOLOGY Peritoneal Washings Collected By: Katya Skelton MD 01/17/2024 2:12 PM TISSUE EXAM Lymph Node Collected By: Katya Skelton MD 01/17/2024 2:27 PM Wound Class: Class II: Clean-Contaminated Blood Products: None Prophylactic Antibiotics: Procedure appropriate prophylactic antibiotic(s) given within 1 hour of surgical incision (two hours if receiving Vancomycin or flouroquinolone) [facility] Progress Noteon 01-16-2024 Progress Note Chart review complet ed in order to place pre operative orders for anesthesia. EKG: No results found for this or any previous visit. ECHO and EF: No results found for this or any previous visit. Labs: No results found for: WBC, HGB, HCT, MCV, PLT No results found for: NA, K, CL, CO2, BUN, CREATININE, GLUCOSE, CALCIUM, PROT, BILITOT, ALKPHOS, AST, ALT, LABGLOM, AGRATIO, GLOB Past Medical History: 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 Encephalopathy Hypertension Hypothyroid Meniere's disease Meningioma (HCC) Osteoporosis Pneumonia Seizure (HCC) Past Surgical History: Past Surgical History: Procedure Laterality Date COLONOSCOPY 2015 CRANIOTOMY 2019 IR INTERVENTION FILTER PLACEMENT IVC FILTER REMOVAL (HISTORICAL) Medications Prior to Admission: Prior to Admission medications Medication Sig Start Date End Date Taking? Authorizing Provider amLODIPine (Norvasc) 10 MG tablet Take by mouth daily. Historical Provider, Denosumab (PROLIA SC) Inject 1 Dose under the skin every 6 (six) months. Due in April Historical ProviderMD doxycycline (Adoxa) 100 MG tablet Take 100 mg by mouth daily. Take with a full glass of water and do not lie down for at least 30 minutes after Historical ProviderMD gabapentin (Neurontin) 100 MG capsule Take by mouth as needed. Historical Provider, levETIRAcetam (Keppra) 500 MG tablet Take by mouth. Historical Provider, levothyroxine (Synthroid, Levoxyl) 50 MCG tablet Take by mouth every morning (before breakfast). Historical Provider, losartan-hydroCHLOROthiazid e (Hyzaar) 100-25 MG tablet Take 1 tablet by mouth daily. Historical Provider, multivitamin (Theragran) tablet Take 1 tablet by mouth daily. Historical Provider, acetaminophen (Tylenol) 325 MG capsule Take by mouth every 6 hours as needed for mild pain (1-3). 01/14/24 Historical Provider, alendronate (Fosamax) 70 MG tablet Take 70 mg by mouth every 7 days. Take in the morning with a full glass of water, on an empty stomach, and do not take anything else by mouth or lie down for the next 30 min. 01/13/24 Historical ProviderMD LACTOBACILLUS PO Take by mouth. 01/14/24 Historical ProviderMD phenytoin ER (Dilantin) 100 MG capsule Take 100 mg by mouth 3 times daily. 01/14/24 Historical ProviderMD Allergies: Lisinopril, Ceftriaxone, and Cephalexin Social History: TOBACCO: reports that she has never smoked. She has never used smokeless tobacco. ETOH: reports no history of alcohol use. Social History Substance and Sexual Activity Drug Use Never Family History: Family History Problem Relation Name Age of Onset Hypertension Mother Coronary artery disease Father [facility] 36on 01-14-2024 36 PAT 01.14.2024 at 9 am phone call SX: 01.17.2024 at 1:30 pm arrival at 11:30 am Post op 02.04.2024 at 3:20 pm Folder and instructions given. [facility] PREPROCINSon 01-14-2024 PREPROCINS Medication List Accurate as of January 14, 2024 9:17 AM. Always use your most recent med list. amLODIPine 10 MG tablet Commonly known as: Norvasc Medication Adjustments for Surgery: Take morning of surgery doxycycline 100 MG tablet Commonly known as: Adoxa Medication Adjustments for Surgery: Take morning of surgery gabapentin 100 MG capsule Commonly known as: Neurontin Medication Adjustments for Surgery: Other (Comment) Notes to patient: Ok to take if needed levETIRAcetam 500 MG tablet Commonly known as: Keppra Medication Adjustments for Surgery: Take morning of surgery levothyroxine 50 MCG tablet Commonly known as: Synthroid, Levoxyl Medication Adjustments for Surgery: Take morning of surgery losartan-hydroCHLOROthiazid e 100-25 MG tablet Commonly known as: Hyzaar Medication Adjustments for Surgery: Hold morning of surgery multivitamin tablet Medication Adjustments for Surgery: Hold morning of surgery PROLIA SC Medication Adjustments for Surgery: Other (Comment) Additional Instructions: You may take your prescription pain medication. You may take Tylenol for pain. NO Motrin, ibuprofen or Advil for 24 hours prior to surgery or longer if instructed by your surgeon. NO Aleve or Naprosyn for 5 days prior to surgery or longer if instructed by your surgeon. IF YOU TAKE BLOOD THINNERS OR ASPIRIN:DO NOT take aspirin or aspirin containing products for 5 days before surgery, or longer if instructed by your surgeon. Follow any instructions given to you by Dr. VITA GAITAN AT YOUR LOCAL PHARMACY AND SHOWER WITH IT THE NIGHT BEFORE AND THE MORNING OF SURGERY No makeup, lotion, powder, deodorant or body spays. No hair products. Remove all jewelry and leave it at home. Wear loose comfortable clothing to go home in. You may brush your teeth morning of surgery. Do not wear contacts day of surgery. No marijuana (THC), smoking or alcohol for 24 hours prior to surgery. Please arrange for a responsible adult to drive you home after your surgery and that there is a responsible adult with you for 24 hours post discharge. If you have specific questions, please call your surgeon. You will receive a call the day before your surgery to verify your arrival time and date. You will be asked to arrive at least two hours prior to your scheduled surgery time. Please bring your [facility] Surgical folder and medication list with you day of surgery. We encourage you to write down any questions you may have for the surgeon, anesthesiologist, or other members of the surgical team and bring it with you the day of surgery. Please bring photo ID and insurance information. MARKETING RESEARCH INTERN/PARKING ENTER BUILDING AT THE MAIN ENTRANCE. TAKE THE H ELEVATOR TO THE FIRST FLOOR, TURN LEFT OFF THE ELEVATOR AND GO TO THE SAME DAY SURGERY REGISTRATION DESK TO CHECK IN You may park in the main garage for free day of surgery, and take the bridge on level one to enter the hospital. Sign into same day surgery on the right hand side. Normal [facility] Office Visiton 01-13-2024 Follow-up visit [id number] Mattie Au 1950 F Date Provider Department Center 01/13/2024 [id number] SKELTON*[facility] [place] [facility] [employer] None Family History Problem Relation Age of Onset Hypertension Mother Coronary artery disease Father Family Status - Relation Status Age at Mother Father Level of Service:89943 ID OFFICE/OUTPATIENT [facility] 60 MINUTES Reason for Visit and Comments: Endometrial Cancer [562] - Having brown discharge Normal [facility] Progress Noteon 01-13-2024 Progress Note Chief Complaint Patient presents with Endometrial Cancer Having brown discharge HISTORY OF THE PRESENT ILLNESS: Xi Au is a pleasant 73 y.o. female who presents in consultation at the request of Joe Childs CNP for evaluation and management of the above. She initially presented with complaints of postmenopausal bleeding off and on since 05/2023. Only a day of discharge/bleeding. Not heavy. U/S showed thickened endometrium measuring 2.5 cm. 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 Here today with her , Ronal. Still having brown discharge. 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 Developed a pneumonia post op as well. Seizures - no grand mal seizures. 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 No lasting effects from the brain surgery. Past Surgical History: Procedure Laterality Date COLONOSCOPY 2014 CRANIOTOMY 2019 IR INTERVENTION FILTER PLACEMENT IVC FILTER REMOVAL (HISTORICAL) Craniotomy and resection of meningioma IVC filter was removed. Does well with anesthesia. Gynecologic History: No LMP recorded. HRT use: No Duration: N/A Last mammogram: UTD Last colonoscopy: UTD Obstetrical History: Family History Problem Relation Name Age of Onset Hypertension Mother Coronary artery disease Father MGM - leukemia. In her 70-80's. Social History Socioeconomic History Marital status: Unknown Spouse name: Not on file Number of children: Not on file Years of education: Not on file Highest education level: Not on file Occupational History Not on file Tobacco Use Smoking status: Never Smokeless tobacco: Never Vaping Use Vaping Use: Never used Substance and Sexual Activity Alcohol use: Never Drug use: Never Sexual activity: Not on file Other Topics Concern Not on file Social History Narrative Not on file Social Determinants of Health Financial Resource Strain: Not on file Food Insecurity: Not on file Transportation Needs: Not on file Physical Activity: Not on file Stress: Not on file Social Connections: Not on file Intimate Partner Violence: Not on file Housing Stability: Not on file Current Outpatient Medications on File Prior to Visit Medication Sig Dispense Refill amLODIPine (Norvasc) 10 MG tablet Take by mouth daily. doxycycline (Adoxa) 100 MG tablet Take 100 mg by mouth daily. Take with a full glass of water and do not lie down for at least 30 minutes after levETIRAcetam (Keppra) 500 MG tablet Take by mouth. levothyroxine (Synthroid, Levoxyl) 50 MCG tablet Take by mouth every morning (before breakfast). losartan-hydroCHLOROthiazid e (Hyzaar) 100-25 MG tablet Take 1 tablet by mouth daily. multivitamin (Theragran) tablet Take 1 tablet by mouth daily. [DISCONTINUED] acetaminophen (Tylenol) 325 MG capsule Take by mouth every 6 hours as needed for mild pain (1-3). Denosumab (PROLIA SC) Inject 1 Dose under the skin every 6 (six) months. Due in April [DISCONTINUED] alendronate (Fosamax) 70 MG tablet Take 70 mg by mouth every 7 days. Take in the morning with a full glass of water, on an empty stomach, and do not take anything else by mouth or lie down for the next 30 min. [DISCONTINUED] LACTOBACILLUS PO Take by mouth. [DISCONTINUED] phenytoin ER (Dilantin) 100 MG capsule Take 100 mg by mouth 3 times daily. No current facility-administered medications on file prior to visit. Allergies as of 01/13/2024 - Reviewed 01/13/2024 Allergen Reaction Noted Lisinopril Other 01/11/2024 Ceftriaxone Rash 01/11/2024 Cephalexin Rash 01/11/2024 Extreme itching. Review of Systems A 12 point review of systems was performed and is as per the history of the present illness, all other systems were reviewed and are negative. Vitals: 01/13/24 1442 BP: 114/63 Pulse: 92 There is no height or weight on file to calculate BMI. Physical Exam Vitals reviewed. Constitutional: General: She is not in acute distress. Appearance: Normal appearance. She is not ill-appearing, toxic-appearing or diaphoretic. HENT: Head: Normocephalic and atraumatic. Eyes: General: No scleral icterus. Extraocular Movements: Extraocular movements intact. Cardiovascular: Rate and Rhythm: Normal rate. Pulmonary: Effort: Pulmonary effort is normal. No respiratory distress. Abdominal: General: There is no distension. Palpations: Abdomen is soft. There is no mass. Tenderness: There is no abdominal tenderness. There is no guarding or rebound. Hernia: No hernia is present. Musculoskeletal: Right lower leg: No edema. Left lower leg: No edema. Skin: General: Skin is warm and dry. Coloration: Skin is not jaundiced or (more content not included)... Normal [facility] PAP I-G w/rfx hrHPV-Aptimaon 01-09-2024 ADEQ Comment Normal . [facility] Comment on above: Order Comment: Speci men Comment: [id number] Comment: Source.............CervixSpecimen Comment: Other..............Post MenopausalSpecimen Comment: No. of containers..01 ThinPrep Vial Result Comment: Sati sfactory for evaluation. Endocervical and/or squamous metaplastic cells (endocervical component) are present. Performed By: #### L 7400.0353 ####[facility] [address] [place], [address] COMM . Normal . [facility] Comment on above: Order Comment: Speci men Comment: [id number] Comment: Source.............CervixSpecimen Comment: Other..............Post MenopausalSpecimen Comment: No. of containers..01 ThinPrep Vial Performed By: #### L 7400.0353 ####[facility] [address] [place], [place], [id number] COMMENT Comment Normal . [facility] Comment on above: Order Comment: Speci men Comment: [id number] Comment: Source.............CervixSpecimen Comment: Other..............Post MenopausalSpecimen Comment: No. of containers..01 ThinPrep Vial Result Comment: This liquid based ThinPrep(R) pap test was screened with the use of an image guided system. Performed By: #### L 7400.0353 ####[facility] [address] [place], [place], [id number] DIAG Comment Normal . [facility] Comment on above: Order Comment: Speci men Comment: [id number] Comment: Source.............CervixSpecimen Comment: Other..............Post MenopausalSpecimen Comment: No. of containers..01 ThinPrep Vial Result Comment: NEGA TIVE FOR INTRAEPITHELIAL LESION OR MALIGNANCY. Performed By: #### L 7400.0353 ####[facility] [address] [place], [place], [id number] HPV RFLX Comment Normal . [facility] Comment on above: Order Comment: Speci men Comment: [id number] Comment: Source.............CervixSpecimen Comment: Other..............Post MenopausalSpecimen Comment: No. of containers..01 ThinPrep Vial Result Comment: The HPV DNA reflex criteria were not met with this specimen result therefore, no HPV testing was performed. Performed at: [address] [id number] [facility]osp[facility] Plan Administrator: Zahra Perez MD, Phone: [phone] Performed By: #### L 7400.0353 ####[facility] [address] [place], [address] PAPSMR Comment Normal . [facility] Comment on above: Order Comment: Speci men Comment: [id number] Comment: Source.............CervixSpecimen Comment: Other..............Post MenopausalSpecimen Comment: No. of containers..01 ThinPrep Vial Result Comment: The Pap smear is a screening test designed to aid in the detection of premalignant and malignant conditions of the uterine cervix. It is not a diagnostic procedure and should not be used as the sole means of detecting cervical cancer. Both false-positive and false-negative reports do occur. Performed By: #### L 7400.0353 ####[facility] [address] [place], [address] PERFORM Comment Normal . [facility] Comment on above: Order Comment: Speci men Comment: [id number] Comment: Source.............CervixSpecimen Comment: Other..............Post MenopausalSpecimen Comment: No. of containers..01 ThinPrep Vial Result Comment: Debbie Anderson Power Generation Plant Operator (ASCP) Performed By: #### L 7400.0353 ####[facility] [address] [place], [place], [id number] Cervical or vagninal specime n microscopic examination by cytology stain (reported asOrdered By: Joe Childs on 01-05-2024 Cytology report Cyto stain Doc (Cvx/Vag) Comment . [facility] Comment on above: The Pap smear is a s creening test designed to aid in thedetection of premalignant and malignant conditions of theuterine cervix. It is not a diagnostic procedure andshould not be used as the sole means of detecting cervicalcancer. Both false-positive and false-negative reports dooccur. HER-2-BRIT (initial)on 2023 HER-2-BRIT (initial) Patient Age/Sex Loca tion Account Attending Physician XI AU 73/F LABSPEC [id number] KADEEM Ross Specimen: [id number] Received: 01/06/24 Status: CARY Roman Num: [id number] Spec Type: IMMUNO Subm Dr: KADEEM Ross PHYSICIAN INSTITUTION [place] [address] SPECIMEN INFORMATION: Tissue Source: Endometrial lining Clinical Info: Abnormal uterine bleeding Specimen Number: [id number] CPT code: 00113,43664h0 METHODOLOGY: Deparaffinized sections of prefer/formalin-fixed tissue or PAP/DQ stained slides are incubated with monoclonal/polyclonal antibodies/oligonucleotide probes. Localization is made via biotin free immunoperoxidase method. Appropriate controls are performed and reacted as expected. Results on target cell population are indicated in the following table: RESULTS: ANTIBODY / CLONE RESULT Her-2neu (CB11) negative, (0) MLH-1 (M1) positive MSH2 (25D12) positive MSH6 (44) positive PMS2 (JVG3763) positive Ki-67 (30-9) positive, high P53 (DO-7) positive, ( Missense mutation pattern) These tests were developed and their performance characteristics determined by [facility]. They may not have been cleared or approved by the U.S. Food and Drug Administration. The FDA has determined that such clearance or approval is not necessary. The above immunohistochemical/dualISH markers are ordered and reviewed by the Pathologist. INTERPRETATION: Endometrial biopsy: Papillary serous carcinoma Result of Microsatellite Instability Study: Negative (no loss of mismatch protein; no microsatellite instability detected). BRAYAN/ 01/07/24 Signed (signature on file) Dr. Jeff Parekh MD 01/07/24 1151 Normal [facility] Comment on above: Performed By: #### P HER2 ####[facility] [address] [place], [address] Laboratory - CytologyOrdered By: Joe Childs on 01-05-2024 Lift Builder Whole Cyto stain Nom (Cvx/Vag) [ID] Comment . [facility] Comment on above: Michael Anderson, Power Generation Plant Operator (ASCP) Laboratory - Miscellaneous t estsOrdered By: Joe Childs on 01-05-2024 Service comment (Unsp spec) [Interp] . . [facility] No Panel InformationOrdered By: Joe Childs on 01-05-2024 Human Papillomavirus Screen Comment . [facility] Comment on above: The HPV DNA reflex nicolás walton were not met with this specimenresult therefore, no HPV testing was performed.Performed at: [facility] [id number] Director: Zahra Perez MD, Phone: [phone] Development Geologist Office Visit Reporton 01-05-2024 Development Geologist Office Visit Report [facility] [address] [place] [address] OFFICE VISIT Date of Service: 01/05/24 MR#: [id number] Acct: [id number] Name: XI AU Chilango Rep #: [id number] : 1950 Provider: KADEEM lawrence Age/Sex: 73/F Location: [facility] Status: Signed Intake Vital Signs 08/31/23 09:13 12/15/23 09:18 01/05/24 10:57 01/05/24 11:05 Height 5 ft 1 in 5 ft 1 in 5 ft 1 in 5 ft 1 in Weight: 131 lb 2 oz BMI 24.7 BP 130/82 H Intake Visit Reasons: EMB REF BY DR. DELGADO Chief Complaint: EMB Boring Machine Feeder Required: No Is patient in pain?: No Allergies ceftriaxone Adverse Reaction (Verified 01/05/24 10:56) Rash cephalexin [From Keflex] Adverse Reaction (Verified 01/05/24 10:56) Rash lisinopril Adverse Reaction (Verified 01/05/24 10:56) Other Medications levothyroxine 50 mcg tablet 50 mcg PO DAILY thyroid 09/16/19 [History Confirmed 01/05/24] acetaminophen 325 mg tablet 650 mg PO Q4H PRN Pain Or Fever 09/26/19 [History Confirmed 01/05/24] losartan 100 mg tablet 100 mg PO DAILY blood pressure 09/26/19 [History Confirmed 01/05/24] multivitamin with minerals 1 tab PO DAILY supplement 09/26/19 [History Confirmed 01/05/24] Lactobacillus rhamnosus GG 10 billion cell capsule 1 ea PO BID probiotic 12/01/19 [History Confirmed 01/05/24] saliva substitute combo no.9 15 ml MM TID mouth rinse 12/01/19 [History Confirmed 01/05/24] alendronate 70 mg tablet 1 tab PO WE osteoporosis #4 tabs 12/18/19 [Rx Confirmed 01/05/24] amlodipine 10 mg tablet 10 mg PO DAILY Blood pressure #30 tabs 12/18/19 [Rx Confirmed 01/05/24] levetiracetam 500 mg tablet 500 mg PO BID #60 tabs 12/18/19 [Rx Confirmed 01/05/24] phenytoin sodium extended 100 mg capsule 100 mg PO BIDCM #60 caps 12/18/19 [Rx Confirmed 01/05/24] doxycycline hyclate 100 mg capsule 100 mg PO DAILY 01/05/24 [History Confirmed 01/05/24] Is last menstrual period known: No Post menopausal: Yes Patient : No : No PFSH PFSH Medical History Debility DVT (deep venous thrombosis) Encephalopathy History of hypothyroidism Hypertension Hypothyroid Meningioma 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 Osteoporosis Presence of vena cava filter Seizure disorder Subtherapeutic serum dilantin level Surgical History History of colonoscopy ( 2014) History of inferior vena caval filter placement S/P craniotomy S/P resection of meningioma Family History Father CAD (coronary artery disease) Mother Hypertension Thyroid disorder Social History (Updated 01/05/24 @ 11:04 by Shi Antoine) household members: spouse current occupational status: retired Smoking Status: Never smoker alcohol intake: never substance use type: does not use seatbelt use: always do you feel safe at home: Yes additional social history: - Brian- Retired History 2 Elective abortions Hx Para 2 Spontaneous abortions Hx # Term Pregnancies Ectopic pregnancies Hx # Pregnancies Multiple births # of living children Past Pregnancies Del. Date Name GA/Weeks Outcome Route Bth Weight Infant Gen Labor Lgth Anesthesia Del Locatn Provider FOB Unknown Mariposa Unknown Valorie HPI EMB REF BY DR. DELGADO Details: XI AU is a 73 year old who presents for new patient referral from Dr Delgado for postmenopausal bleeding. She states has been occuring off and on since May 2024, always light in amount. Ultrasound indicates abnormally thickened lining of 25mm and complex cystic and solid components noted in endometrial cavity. She denies any abnormal pap history but states it has been many years since she has had one. She is up to date for mammogram. Female Reproductive History Questions: metorrhagia: No and sexually active: No ROS Const Constitutional: Reports system reviewed and no additional complaints, except as documented Eyes Eyes: Reports system reviewed and no additional complaints, except as documented GI GI: Denies abdominal pain or change in bowel habits : Reports as per HPI Exam Const General: cooperative and no acute distress Nutritional Appearance: well nourished General: bladder normal to palpation External Female Exam: normal external appearance and normal appearance of the urethra Urethra: normal appearance of the urethra Speculum Exam - Vagina: normal vaginal discharge, vagina atrophic, no lesions and nontender Speculum Exam - Cervix: normal appearance of the cervix Bimanual Exam- Vagina Uterus: normal bimanual exam, uterine size normal, bladder normal to palpation, uterine shape normal, uterine mobility normal and no (more content not included)... Normal [facility] Specimen Level Ashley 01-05-2024 Surgery Specimen Level IV Patient Age/Sex Location Account Attending Physician ANGELYXI Kee 73/F LABSPEC [id number] KADEEM Ross Specimen: [id number] Received: 01/05/24 Status: CARY Roman Num: [id number] Spec Type: ENDOM BX/C Abbey Dr: Joe Childs, KADEEM HEADER OPERATION: Endometrial biopsy PRE-OP DIAGNOSIS: Abnormal uterine bleeding TISSUE SUBMITTED: Endometrial lining MICROSCOPIC DIAGNOSIS Endometrial biopsy: Papillary serous adenocarcinoma, FIGO grade III. See comment. [facility] 01/06/24 COMMENT Immunohistochemistry ([id number]) for microsatellite instability (mismatch repair of protein) will be performed and the results will be reported separately. Case has been reviewed in consultation with Dr. Bhatia who concurs with the above diagnosis. IDC:AM MICROSCOPIC DESCRIPTION Slides are reviewed. GROSS DESCRIPTION Received is one container labeled with the patient's name and not further designated. The specimen consists of multiple irregular fragments of polanco-pink soft tissue mixed with blood clot that in aggregate measure 5.0 x 3.0 x 0.6 cm. The entire specimen is submitted in four cassettes. [facility] 01/05/24 TC:0 CPT: 90741 Patient Age/Sex Location Account Attending Physician AU,XI A 73/F LABSPEC [id number] KADEEM Ross Signed (signature on file) Dr. Jeff Parekh MD 01/06/24 1200 Normal [facility] Comment on above: Performed By: #### P SUIV ####[facility] [address] [place], [place], [id number] Thin prep Papanicolaou smear with manual screeningOrdered By: Joe Childs on 01-05-2024 Thin prep Papanicolaou smear with manual screening Comment . [facility] Comment on above: NEGATIVE FOR INTRAEP ITHELIAL LESION OR MALIGNANCY. This liquid based Th inPrep(R) pap test was screened withthe use of an image guided system. Basophil percentageOrdered B y: Johnathon Delgado on 09-21-2023 Basophil percentage 3.4 mg/dL 2.5-4.9 [facility] Chloride [Moles/Vol] 109 mmol/L 98-107 [facility] Glucose [Mass/Vol] 79 mg/dL 74-106 [facility] Potassium [Moles/Vol] 4.0 mmol/L 3.5-5.1 [facility] Sodium [Moles/Vol] 143 mmol/L 136-145 [facility] Laboratory - Chemistry and C hemistry - challengeOrdered By: Johnathon Delgado on 09-21-2023 CO2 [Moles/Vol] 27.0 mmol/L 21.0-32.0 [facility] Magnesium [Mass/Vol] 2.5 mg/dL 1.6-2.6 [facility] Urea nitrogen/Creatinine [Mass ratio] 18.0 mg/mg 10-20 [facility] No Panel InformationOrdered By: Johnathon Delgado on 09-21-2023 Ionized Calcium 5.13 mg/dL 4.36-5.20 [facility] Estimated GFR (MDRD) Amer 87 mL/min >60 [facility] Comment on above: GFR Calc Estimated GFR (MDRD) Non-Af Amer 72 mL/min >60 [facility] Comment on above: Non- GFR Calc Parathyroid Hormone (Intact) 22.8 pg/mL 18.4-80.1 [facility] Thyroid Stimulating Hormone (TSH) 1.69 uIU/mL 0.358-3.74 [facility] Vitamin D 25-Hydroxy 60.5 ng/mL [facility] Comment on above: Vitamin D 25(OH) Sta tus Range Deficiency <20 ng/mL (50nmol/L) Insufficiency 20 - 30 ng/mL (50 - 75 nmol/L) Sufficiency 30 - 100 ng/mL (75 - 250 nmol/L) Toxicity >100 ng/mL (>250 nmol/L) Serum or plasma calcium kavitha urement (mass/volume)Ordered By: Johnathon Delgado on 09-21-2023 Calcium [Mass/Vol] 9.6 mg/dL 8.5-10.1 [facility] Serum or plasma creatinine m easurement (mass/volume)Ordered By: Johnathon Delgado on 09-21-2023 Creatinine [Mass/Vol] 0.83 mg/dL 0.55-1.02 [facility] Comment on above: The validity of the calculated GFR & GFRAA in patients over 70 years has not been determined. Clinical correlation is essential. Serum or plasma urea nitroge n measurement (mass/volume)Ordered By: Johnathon Delgado on 09-21-2023 Urea nitrogen [Mass/Vol] 15 mg/dL 04-20 [facility] Thin prep Papanicolaou smear with manual screeningOrdered By: Johnathon Delgado on 09-21-2023 Thin prep Papanicolaou smear with manual screening 7 5-15 [facility] CNOVon 08-02-2023 CNOV Office Visit (NEAGCL M) XI AU ([id number]) 1950 F Date Time Provider Department 08/02/23 1:00 PM ALIVIA NATARAJAN NEAGCLM During your visit today, we recorded the following information about you: Pulse Respiration Blood pressure Weight 73/minute 16/minute 118/70 59.8 kg Alivia Natarajan MD 08/06/2023 8:24 AM Signed NEUROSURGERY FOLLOW UP OFFICE NOTE Alivia Natarajan MD Date of visit: August 02, 2023 Patient Name: Ms.Phyllis Chilango Au Date of : 1950 Current Age: [age] year old Sex: female MRN/E# [id number] Last Office Visit: September 08, 2021 CLINICAL SUMMARY: * 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 Sara Martínez after presenting with a 2-month history of [...] was last seen on 09/08/[address] Sara Martínez. At that time she was overall doing [...] olfactory groove tumor on 09/19/[address] Sara Martínez and Dr. Richardson. FINAL DIAGNOSIS: A AND [...] Scapula fracture 03/2012 left - Dr. Antoine, [facility] Unspecified essential hypertension 2008 PAST SURGICAL HISTORY Procedure Laterality Date COLONOSCOPY [...] 500 mg tablet Take 1 tablet by mout (more content not included)... Normal [facility] MRI BRAIN WO/W IVCONon 08-02 MRI BRAIN WO/W IVCON * * *Final Report* * * DATE OF EXAM: Aug 02 2023 11:58AM A1M 0295 - MRI BRAIN WO/W IVCON / PROCEDURE REASON: Benign neoplasm of meninges (HCC) * * * * Physician Interpretation * * * * EXAMINATION: MRI BRAIN WO/W IVCON CLINICAL HISTORY: Benign neoplasm of the meninges. TECHNIQUE: Routine brain MRI protocol without and with contrast including diffusion images. MQ: [id number] Contrast: 11ml mL Dotarem IV COMPARISON: 09/08/2021. RESULT: Acute Change: There is no evidence of restricted diffusion to suggest an acute infarct. Hemorrhage: No evidence of prior parenchymal hemorrhage on gradient echo images. Mass Lesion/ Mass Effect: Postsurgical changes from anterior craniotomies. Unchanged at T2 hyperintense signal within bilateral frontal lobes. Minimally increased thickness of small enhancing planum sphenoidale mass (series 10 image 50). This now measures 10 x 3 mm (AP x CC). Mild dural enhancement along bilateral frontal convexity appears unchanged, and most likely postsurgical. No evidence of abnormal parenchymal or leptomeningeal contrast enhancement. No significant midline shift. Chronic Change: Scattered patchy areas of increased T2 and FLAIR signal are present in the supratentorial white matter which is a nonspecific finding but likely represents mild chronic microvascular ischemia. Parenchyma: There is mild generalized parenchymal volume loss. Ventricles: Ventriculomegaly corresponds to the degree of parenchymal volume loss. Skull Base: Hypothalamic and pituitary region are grossly normal. Craniocervical junction is normal. No significant marrow replacement process. Other: Nonspecific bilateral mastoid fluid. No significant paranasal sinus disease. The optic globes are symmetric and unremarkable. IMPRESSION: Postsurgical changes from anterior craniotomies. Unchanged at T2 hyperintense signal within bilateral frontal lobes. Minimally increased thickness of small enhancing planum sphenoidale mass, currently measuring 10 x 3. Mild dural enhancement along bilateral frontal convexities appears unchanged, and most likely postsurgical. No evidence of acute infarct, acute intracranial hemorrhage, or significant mass effect. No evidence of abnormal parenchymal or leptomeningeal contrast enhancement. Chronic findings, as detailed above. Wood Sash And Frame Carpenter: [facility] Transcribe Date/Time: Aug 04 2023 8:48A Dictated by : CARLEE MARIA MD This examination was interpreted and the report reviewed and electronically signed by: CARLEE MARIA MD on Aug 04 2023 9:14AM EST [id number] [facility] 07-12-[address] [facility] Telephone (NSCAMN) XI AU ([id number]) 1950 F Date Time Provider Department 07/12/23 [facility] During your visit today, we recorded the following information about you: Paul Sanchez 07/12/2023 10:36 AM Signed Patient is calling, ended up with the [facility] phone line. Requesting a repeat MRI and a follow up visit with Dr. Sara Martínez. The f/u appt can be in person if done on the same day as the MRI test, if the mri is on a separate day a virtual visit would be fine per the patient. Please call the patient back per her request with an update. Tumor removal in 2019 was mentioned. P: [phone] Karen Reyes MA 07/12/2023 12:02 PM Signed Spoke with patient informed her that Dr. Sara Martínez is only seeing patient in [place], she is no longer at the [place] location. So I scheduled the patient for an MRI Brain w/wo in office and than she will follow up with Dr. Natarajan. Scheduled on 08/02/2023 @ 11:15 MRI and appt. At 1:00pm. She was ok with this date and time. Allergies As of Date: 07/12/2023 Noted Allergy Reaction CEFTRIAXONE 11/27/2019 2 - Rash KEFLEX (CEPHALEXIN) 11/10/2019 2 - Rash LISINOPRIL 08/08/2013 3 - Cough SEASONAL ALLERGIES 03/22/2009 Date Reviewed: 09/08/2021 Reviewed by: Lorna Huff Ma - Fully Assessed Reason for Visit: Orders [681] Prescriptions as of 07/12/2023 - iv contrast (will be provided with radiology [...] in the MR contrast administration guidelines link - levETIRAcetam (KEPPRA) 500 mg tablet Take 1 tablet by mouth two times a day. - iv contrast (will be provided with radiology [...] in the MR contrast administration guidelines link - calcium carbonate/vitamin D3 (CALTRATE-600 PLUS VITAMIN D3 ORAL) - amLODIPine (NORVASC) 10 mg tablet Take 1 tablet by mouth once daily. - levothyroxine (LEVOXYL) 50 mcg tablet Take 1 tablet by mouth once daily. Take on empty stomach. For Thyroid - losartan (COZAAR) 100 mg tablet Take 1 tablet by mouth once daily. - multivitamin ORAL tablet Take 1 tablet by mouth once daily. 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, *09/08/2017 Retina disorder [H35.9] 03/09/2018 Encounter for monitoring chronic NSAID therapy *03/09/2018 Brain mass [G93.89] 09/16/2019 Meningioma (HCC) [D32.9] 09/20/2019 Vasogenic edema (HCC) [G93.6] 09/20/2019 Status epilepticus (HCC) [G40.901] 09/22/2019 Generalized weakness [R53.1] 10/21/2019 Weakness [R53.1] 10/21/2019 10/27/2019 Seizure (HCC) [R56.9] 11/26/2019 Pneumonia [J18.9] 11/26/2019 Hyponatremia [E87.1] 11/26/2019 11/29/2019 Hypothyroidism [E03.9] 11/26/2019 History of DVT (deep vein thrombosis) [Z86.718] 11/26/2019 Hypokalemia [E87.6] 11/27/2019 11/29/2019 Atypical pneumonia [J18.9] 11/27/2019 Dehydration [E86.0] 11/27/2019 11/29/2019 Physical deconditioning [R53.81] 11/27/2019 Drug rash [L27.0] 11/27/2019 11/29/2019 Anorexia [R63.0] 11/27/2019 Apathy [R45.3] 11/27/2019 Decreased mobility [R26.89] 11/27/2019 Personality change [F68.8] 11/27/2019 Malnutrition of moderate degree (HCC) [E44.0] 12/01/2019 Deep vein thrombosis (DVT) of femoral vein of r*10/28/2019 01/19/2020 Acute deep vein thrombosis (DVT) of femoral vei* Acute deep vein thrombosis (DVT) of right lower* Encounter Status:Closed by KAREN REYES on 07/12/23 Normal [facility] Absolute lymphocyte counton 05-26-2022 Lymphocytes Auto (Unsp spec) [#/Vol] 1.11 10*3/uL 0.83-4.51 [facility] Work Phone: Basophil percentageon 2021 Basophils/100 WBC (Bld) 0.7 % 0-1 [facility] Work Phone: Bilirubin [Mass/Vol] 0.60 mg/dL 0.20-1.00 [facility] Work Phone: Comment on above: For patients on eltr ombopag therapy, use of Dimension [place] TBIL is not recommended. Chloride [Moles/Vol] 110 mmol/L 98-107 [facility] Work Phone: Cholesterol [Mass/Vol] 177 mg/dL <200 [facility] Work Phone: [phone] Comment on above: <200 mg/dL Desirable 200-240 mg/dL Borderline >240 mg/dL High Risk Eosinophils/100 WBC (Bld) 2.4 % 0-5 [facility] Work Phone: Glucose [Mass/Vol] 83 mg/dL 74-106 [facility] Work Phone: Neutrophils (Bld) [#/Vol] 2.6 10*3/uL 2.0-7.7 [facility] Work Phone: Neutrophils/100 WBC (Bld) 61.9 % 47-70 [facility] Work Phone: Potassium [Moles/Vol] 4.0 mmol/L 3.5-5.1 [facility] Work Phone: Protein [Mass/Vol] 7.7 g/dL 6.4-8.2 [facility] Work Phone: Sodium [Moles/Vol] 142 mmol/L 136-145 [facility] Work Phone: Triglyceride [Mass/Vol] 95 mg/dL <199 [facility] Work Phone: Comment on above: The drugs N-Acetylcy steine and Metamizole may falsely depress this assay.Serum Triglycerides Reference Interval Normal <150 mg/dL Borderline high 150 - 199 mg/dL High 200 - 499 mg/dL Very High > or = 500 mg/dL WBC (Bld) [#/Vol] 4.2 10*3/uL 4.4-11.0 [facility] Work Phone: Blood erythrocytes count (nu mber/volume)on 05-26-2022 RBC (Bld) [#/Vol] 4.32 10*6/uL 4.2-5.4 [facility] Work Phone: Blood hemoglobin measurement (mass/volume)on 05-26-2022 Hemoglobin (Bld) [Mass/Vol] 13.6 g/dL 12.0-15.0 [facility] Work Phone: Blood lymphocytes/100 leukoc yteson 05-26-2022 Lymphocytes/100 WBC (Bld) 26.3 % 19-41 [facility] Work Phone: Blood monocytes/100 leukocyt eson 05-26-2022 Monocytes/100 WBC (Bld) 8.5 % 0-10 [facility] Work Phone: Blood platelet mean volumeon 05-26-2022 Platelet mean volume (Bld) [Entitic vol] 10.4 fL 6.2-12.0 [facility] Work Phone: Determination of erythrocyte mean corpuscular volume (MCV)on 05-26-2022 MCV (RBC) [Entitic vol] 90.5 fL 81-99 [facility] Work Phone: Hematocrit Auto (Bld) [Volum e fraction]on 05-26-2022 Hematocrit (Bld) [Volume fraction] 39.1 % 37-47 [facility] Work Phone: Laboratory - Chemistry and C hemistry - challengeon 05-26-2022 ALP [Catalytic activity/Vol] 62 U/L 45-117 [facility] Work Phone: ALT [Catalytic activity/Vol] 25 U/L 13-56 [facility] Work Phone: CO2 [Moles/Vol] 26.0 mmol/L 21.0-32.0 [facility] Work Phone: Globulin (S) [Mass/Vol] 4.0 g/dL 2.2-4.2 [facility] Work Phone: Urea nitrogen/Creatinine [Mass ratio] 19.3 mg/mg 10-20 [facility] Work Phone: Laboratory - Hematology and Cell countson 05-26-2022 Erythrocyte distribution width (RBC) [Entitic vol] 41.9 fL 35.1-43.9 [facility] Work Phone: Erythrocyte distribution width (RBC) [Ratio] 12.8 % 11.6-14.6 [facility] Work Phone: Immature granulocytes/100 WBC (Bld) 0.200 % 0.0-0.9 [facility] Work Phone: Comment on above: IG% - Immature Granu locytes (promyelocytes, myelocytes and metamyelocytes) > 1% indicates that a LEFT SHIFT is Present. MCH (RBC) [Entitic mass] 31.5 pg 27.0-32.0 [facility] Work Phone: Nucleated RBC/100 WBC (Bld) [Ratio] 0 % 0-5 [facility] Work Phone: MCHC Auto (RBC) [Mass/Vol]on 05-26-2022 MCHC (RBC) [Mass/Vol] 34.8 g/dL 32-36 [facility] Work Phone: No Panel Informationon 05-26 Estimated GFR (MDRD) Amer 82 mL/min >60 [facility] Work Phone: Comment on above: GFR Calc Estimated GFR (MDRD) Non-Af Amer 68 mL/min >60 [facility] Work Phone: Comment on above: Non- GFR Calc Ionized Calcium 5.2 mg/dL 4.5-5.6 [facility] Work Phone: Comment on above: Performed at: [facility] [place] [id number] Director: Jorge Babcock PhD, Phone: [phone] Parathyroid Hormone (Intact) 33.6 pg/mL 18.4-80.1 [facility] Work Phone: Thyroid Stimulating Hormone (TSH) 1.98 uIU/mL 0.358-3.74 [facility] Work Phone: Vitamin D 25-Hydroxy 55.1 ng/mL [facility] Work Phone: Comment on above: Vitamin D 25(OH) Sta tus Range Deficiency <20 ng/mL (50nmol/L) Insufficiency 20 - 30 ng/mL (50 - 75 nmol/L) Sufficiency 30 - 100 ng/mL (75 - 250 nmol/L) Toxicity >100 ng/mL (>250 nmol/L) Platelets bldon 05-26-2022 Platelets (Bld) [#/Vol] 245 10*3/uL 150-450 [facility] Work Phone: Serum or plasma albumin kavitha urement (mass/volume)on 05-26-2022 Albumin [Mass/Vol] 3.7 g/dL 3.2-5.0 [facility] Work Phone: Serum or plasma albumin/glob ulin mass ratioon 05-26-2022 Albumin/Globulin [Mass ratio] 0.9 {ratio} 0.9-2.4 [facility] Work Phone: Serum or plasma calcium kavitha urement (mass/volume)on 05-26-2022 Calcium [Mass/Vol] 8.8 mg/dL 8.5-10.1 [facility] Work Phone: Serum or plasma cholesterol in HDL measurement (mass/volume)on 05-26-2022 Cholesterol in HDL [Mass/Vol] 68 mg/dL >40 [facility] Work Phone: Comment on above: The drugs N-Acetylcy steine and Metamizole may falsely depress this assay. Reference Range HDL <40 mg/dL Low HDL Cholesterol HDL >or= 60 mg/dL High HDL Cholesterol Serum or plasma cholesterol in VLDL measurement (mass/volume)on 05-26-2022 Cholesterol in VLDL [Mass/Vol] 19 mg/dL 5-40 [facility] Work Phone: Serum or plasma creatinine m easurement (mass/volume)on 05-26-2022 Creatinine [Mass/Vol] 0.88 mg/dL 0.55-1.02 [facility] Work Phone: Comment on above: The validity of the calculated GFR & GFRAA in patients over 70 years has not been determined. Clinical correlation is essential. Serum or plasma low density lipoprotein (LDL) cholesterol measurement (mass/volume)on 05-26-2022 Cholesterol in LDL [Mass/Vol] 90 mg/dL 0-130 [facility] Work Phone: Serum or plasma urea nitroge n measurement (mass/volume)on 05-26-2022 Urea nitrogen [Mass/Vol] 17 mg/dL 7-18 [facility] Work Phone: Thin prep Papanicolaou smear with manual screeningon 05-26-2022 Thin prep Papanicolaou smear with manual screening 22 U/L 15-37 [facility] Work Phone: Thin prep Papanicolaou smear with manual screening 6 5-15 [facility] Work Phone: MRI BRAIN WO/W IVCONon 09-09 MRI BRAIN WO/W IVCON Final Report DATE OF EXAM: Sep 09 2020 3:38PM A1M 0295 - MRI BRAIN WO/W IVCON / PROCEDURE REASON: multiple diagnoses Physician Interpretation EXAMINATION: MRI BRAIN WO/W IVCON CLINICAL HISTORY: 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 MQ: [id number] Contrast: 11cc mL Dotarem IV COMPARISON: CT brain 12/14/2019. MR brain 11/08/2019. RESULT: Acute Change: There is no evidence of an acute intracranial process. Hemorrhage: No acute intracranial hemorrhage. 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 Susceptibility artifact at the surgical bed suggests old blood products. Small extra-axial collection deep to the bone flap has resolved. There is increased T2 hyperintensity in bilateral anterior frontal lobes, likely representing evolving postsurgical changes. There is decreased mass effect. On postcontrast images, dural thickening and enhancement deep to the frontal bone flap, along the anterior falx, in the olfactory grooves, and on the planum sphenoidale has decreased from the prior study. No new abnormal enhancement. No significant mass effect. Chronic Change: Scattered punctate foci of increased T2 and FLAIR signal are noted in the supratentorial white matter which is a nonspecific finding, but likely represents minimal chronic microvascular ischemia. Parenchyma: No significant volume loss for age. The brain parenchyma is otherwise within normal limits of signal intensity and morphology. Ventricles: Normal caliber and morphology. Skull Base: Hypothalamic and pituitary region are grossly normal. Craniocervical junction is normal. No significant marrow replacement process. Vasculature: Major intracranial arterial structures, and dural venous sinuses show typical flow void, suggesting patency by spin echo criteria. Other: Air-fluid level and frothy secretion in the sphenoid sinuses can be seen in acute sinusitis. There is mild right mastoid effusion. The orbits and extracranial soft tissues are unremarkable. 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 Dural thickening and enhancement at the surgical site have decreased from 11/08/2019, likely representing evolving postsurgical changes and possible residual tumor. [employer] Carpenter: OUSMANE Transcribe Date/Time: Sep 10 2020 8:44A Dictated by : RODRIGUEZ CAMARGO MD This examination was interpreted and the report reviewed and electronically signed by: RODRIGUEZ CAMARGO MD on Sep 10 2020 9:13AM EST Normal [facility] CT BRAIN WO IVCONon 12-14-[address] BRAIN WO IVCON * * *Final Report* * * DATE OF EXAM: Dec 14 2019 10:08AM A1C 0504 - CT BRAIN WO IVCON / PROCEDURE REASON: Other specified postprocedural states * * * * Physician Interpretation * * * * EXAMINATION: CT BRAIN WO IVCON CLINICAL HISTORY: Other specified postprocedural states Bicoronal crani for meningioma; worsening neuro status. s/p op 09/2019, follow up, c/o decrease in energy levels TECHNIQUE: Serial axial images without IV contrast were obtained from the vertex to the foramen magnum. MQ: [id number]_3 CT Dose-Length Product (DLP): 794.52 mGy*cm CT Dose Reduction Employed: No dose reduction techniques were required COMPARISON: 11/08/2019 MRI. 11/26/2019 CT RESULT: Post-operative change: Bifrontal craniotomy for meningioma resection. Acute change: No evidence of an acute infarct or other acute parenchymal process. Hemorrhage: No evidence of acute intracranial hemorrhage. Mass Lesion / Mass Effect: There is no evidence of an intracranial mass or extraaxial fluid collection. No significant positive mass effect. Chronic change: None apparent. Parenchyma: Decreased attenuation of each anterior inferior frontal lobe consistent with encephalomalacia. Ventricles: Mild ex vacuo enlargement of the frontal horns related to bifrontal encephalomalacia Paranasal sinuses and skull base: The visualized paranasal sinuses are grossly clear. The skull base and imaged soft tissues are unremarkable. IMPRESSION: 1. No acute intracranial abnormality. 2.Bifrontal craniotomy for meningioma resection with encephalomalacia each frontal lobe. 3. Mild ex vacuo enlargement of the frontal horns related to bifrontal encephalomalacia [employer] Carpenter: PSCB Transcribe Date/Time: Dec 14 2019 10:39A Dictated by : PRINCE HERNANDEZ MD This examination was interpreted and the report reviewed and electronically signed by: PRINCE HERNANDEZ MD on Dec 14 2019 10:50AM EST Normal [facility] Vital Signs Date Time Vital Sign Value Performing Clinician Avril valiente 01-05-2025 13:06-0400 Body height 154.9 cm Katya Skelton MD Work Phone: [facility] 01-05-2025 13:06-0400 Body mass index (BMI) [Ratio] 25.7 kg/m2 Katya Skelton MD Work Phone: [facility] 01-05-2025 13:06-0400 Body weight 61.69 kg Katya Skelton MD Work Phone: [facility] 01-05-2025 13:06-0400 Diastolic blood pressure 85 mm[Hg] Katya Skelton MD Work Phone: [facility] 01-05-2025 13:06-0400 Heart rate 71 /min Katya Skelton MD Work Phone: [facility] 01-05-2025 13:06-0400 Systolic blood pressure 134 mm[Hg] Katya Skelton MD Work Phone: [facility] 10-06-2024 12:17-0500 Diastolic blood pressure 65 mm[Hg] Katya Skelton MD Work Phone: [facility] 10-06-2024 12:17-0500 Heart rate 70 /min Katya Skelton MD Work Phone: [facility] 10-06-2024 12:17-0500 Systolic blood pressure 131 mm[Hg] Katya Skelton MD Work Phone: [facility] 10-06-2024 11:34-0500 Body mass index (BMI) [Ratio] 24.79 kg/m2 Katya Skelton MD Work Phone: [facility] 10-06-2024 11:34-0500 Body weight 59.51 kg Katya Skelton MD Work Phone: [facility] 07-06-2024 12:30-0400 Body height 154.9 cm Katya Skelton MD Work Phone: [facility] 07-06-2024 12:30-0400 Body mass index (BMI) [Ratio] 25.13 kg/m2 Katya Skelton MD Work Phone: [facility] 07-06-2024 12:30-0400 Body weight 60.33 kg Katya Skelton MD Work Phone: [facility] 07-06-2024 12:30-0400 Diastolic blood pressure 71 mm[Hg] Katya Skelton MD Work Phone: [facility] 07-06-2024 12:30-0400 Heart rate 73 /min Katya Skelton MD Work Phone: [facility] 07-06-2024 12:30-0400 Systolic blood pressure 109 mm[Hg] Katya Skelton MD Work Phone: [facility] 03-10-2024 15:19-0400 Body height 154.9 cm Serena Lolly FINANCIAL AID OFFICER - CREATIVE DIRECTOR Work Phone: [facility] 03-10-2024 15:19-0400 Body mass index (BMI) [Ratio] 23.24 kg/m2 Serena Lolly FINANCIAL AID OFFICER - CREATIVE DIRECTOR Work Phone: [facility] 03-10-2024 15:19-0400 Body weight 55.79 kg Serena Lolly FINANCIAL AID OFFICER - CREATIVE DIRECTOR Work Phone: [facility] 03-10-2024 15:19-0400 Diastolic blood pressure 79 mm[Hg] Serena Lolly FINANCIAL AID OFFICER - CREATIVE DIRECTOR Work Phone: [facility] 03-10-2024 15:19-0400 Heart rate 75 /min Serena Lolly FINANCIAL AID OFFICER - CREATIVE DIRECTOR Work Phone: [facility] 03-10-2024 15:19-0400 Systolic blood pressure 144 mm[Hg] Serena Lolly FINANCIAL AID OFFICER - CREATIVE DIRECTOR Work Phone: [facility] 02-04-2024 15:16-0400 Body mass index (BMI) [Ratio] 24.94 kg/m2 Katya Skelton MD Work Phone: [facility] 02-04-2024 15:16-0400 Body weight 59.88 kg Katya Skelton MD Work Phone: [facility] 02-04-2024 15:16-0400 Diastolic blood pressure 79 mm[Hg] Katya Skelton MD Work Phone: [facility] 02-04-2024 15:16-0400 Heart rate 75 /min Katya Skelton MD Work Phone: [facility] 02-04-2024 15:16-0400 Systolic blood pressure 118 mm[Hg] Katya Skelton MD Work Phone: [facility] 01-18-2024 09:32-0400 Body temperature 97.5 [degF] Katya Skelton MD Work Phone: [facility] 01-18-2024 09:32-0400 Diastolic blood pressure 62 mm[Hg] Katya Skelton MD Work Phone: [facility] 01-18-2024 09:32-0400 Heart rate 79 /min Katya Skelton MD Work Phone: [facility] 01-18-2024 09:32-0400 Respiratory rate 19 /min Katya Skelton MD Work Phone: [facility] 01-18-2024 09:32-0400 SaO2% (BldA) [Mass fraction] 95 % Katya Skelton MD Work Phone: [facility] 01-18-2024 09:32-0400 Systolic blood pressure 126 mm[Hg] Katya Skelton MD Work Phone: [facility] 01-17-2024 12:13-0400 Body height 154.9 cm Katya Skelton MD Work Phone: [facility] 01-17-2024 12:13-0400 Body mass index (BMI) [Ratio] 24.19 kg/m2 Katya Skelton MD Work Phone: [facility] 01-17-2024 12:13-0400 Body weight 58.06 kg Katya Skelton MD Work Phone: [facility] 01-13-2024 14:42-0400 Body weight 57.61 kg Katya Skelton MD Work Phone: [facility] 01-13-2024 14:42-0400 Diastolic blood pressure 63 mm[Hg] Katya Skelton MD Work Phone: [facility] 01-13-2024 14:42-0400 Heart rate 92 /min Katya Skelton MD Work Phone: [facility] 01-13-2024 14:42-0400 Systolic blood pressure 114 mm[Hg] Katya Skelton MD Work Phone: [facility] 01-05-2024 11:05-0400 Body height 154.[address] Krista Delgado Work Phone: [facility] 01-05-2024 10:57-0400 Body mass index (BMI) [Ratio] 24.7 kg/m2 Dr. Krista Delgado Work Phone: [facility] 01-05-2024 10:57-0400 Body weight 59.[address] Krista Delgado Work Phone: [facility] 01-05-2024 10:57-0400 Diastolic blood pressure 82 mm[Hg] Dr. Krista Delgado Work Phone: [facility] 01-05-2024 10:57-0400 Systolic blood pressure 130 mm[Hg] Dr. Krista Delgado Work Phone: [facility] 08-31-2023 09:13-0500 Body height 154.94 cm [facility] 08-02-2023 12:08-0400 Body weight 59.8 kg Alivia Natarajan MD Work Phone: [facility] 08-02-2023 12:08-0400 Diastolic blood pressure 70 mm[Hg] Alivia Natarajan MD Work Phone: [facility] 08-02-2023 12:08-0400 Heart rate 73 /min Alivia Natarajan MD Work Phone: [facility] 08-02-2023 12:08-0400 Respiratory rate 16 /min Alivia Natarajan MD Work Phone: [facility] 08-02-2023 12:08-0400 SaO2% (BldA) [Mass fraction] 99 % Alivia Natarajan MD Work Phone: [facility] 08-02-2023 12:08-0400 Systolic blood pressure 118 mm[Hg] Alivia Natarajan MD Work Phone: [facility] Encounters Encounter Date Encounter Type Care Provider Facility Start: 01-05-2025 End: 01-05-2025 Office outpatient visit 10 minutes Katya Skelotn MD Work Phone: [facility] - [place] Comment on above: 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 Krista Delgado MD Work Phone: [facility] Work Phone: Start: 12-19-2024 End: 12-19-[address] Katya Gorman MD -Laboratory Work Phone: Start: 12-19-2024 End: 12-19-2024 ambulatory Krista Delgado Facility:[facility] Start: 12-11-2024 End: 12-11-[address] Krista Delgado MD Work Phone: [facility] Work Phone: Start: 12-11-2024 End: 12-11-[address] 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 Katya Gorman MD -Laboratory Work Phone: Start: 09-11-2024 End: 09-11-2024 ambulatory [facility] Facility:[facility] Start: 09-01-2024 End: 09-01-[address] 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) Start: 07-06-2024 End: 07-06-2024 ambulatory KATYA SKELTON [facility] Start: 05-29-2024 End: 05-30-2024 Telephone encounter Yaritza Ly FINANCIAL AID OFFICER - CREATIVE DIRECTOR Work Phone: [facility] Comment on above: Appointment Start: 05-15-2024 End: 05-15-2024 ambulatory [facility] Facility:[facility] Start: 03-10-2024 End: 03-10-2024 Postop follow up visit related to original px Serena Harris FINANCIAL AID OFFICER - CREATIVE DIRECTOR Work Phone: [facility] Comment on above: Post-operative state (Primary Dx); Papillary serous endometrial adenocarcinoma (HCC) Start: 03-10-2024 End: 03-10-2024 ambulatory SERENA HARRIS [facility] Start: 02-15-2024 Telephone encounter Yaritza thorne FINANCIAL AID OFFICER - CREATIVE DIRECTOR Work Phone: [facility] Start: 02-14-2024 End: 02-14-2024 ambulatory YARITZA LY Facility:[facility] Start: 02-04-2024 End: 02-04-2024 Patient encounter procedure Katya Skelton MD Work Phone: [facility] Comment on above: Postoperative state (Primary Dx); Papillary serous endometrial adenocarcinoma (HCC) Start: 02-04-2024 End: 02-04-2024 ambulatory KATYA SKELTON [facility] Start: 01-28-2024 Telephone encounter Yaritza thorne FINANCIAL AID OFFICER - CREATIVE DIRECTOR Work Phone: [facility] Start: 01-27-2024 End: 01-27-2024 ambulatory Katyasamuel Gorman Facility:[facility] Start: 01-17-2024 End: 01-18-2024 Subsequent hospital visit by physician Katya Skelton MD Work Phone: [facility] Medical Surgical Unit [facility] H[facility] Comment on above: Postoperative pain ( Primary Dx); Uterine cancer (CMS/HCC) (HCC) Start: 01-17-2024 End: 01-18-2024 Unknown KATYA SKELTON [facility] Start: 01-14-2024 Telephone encounter Katya Samuel MD Work Phone: [facility] Comment on above: surgery scheduling ( Scheduled at [facility]) Start: 01-14-2024 End: 01-14-2024 ambulatory KRISTA DELGADO [facility] Start: 01-13-2024 End: 01-13-2024 Office outpatient new 60 minutes Katya Skelton MD Work Phone: [facility] Gynecologic [facility] Comment on above: 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 Krista Delgado Work Phone: [facility] Work Phone: Start: 01-05-2024 End: 01-05-[address] Krista Delgado Work Phone: [facility] Spec[facility] Work Phone: Start: 01-05-2024 End: 01-05-[address] Krista Delgado Work Phone: [facility] Work Phone: Start: 01-05-2024 End: 01-05-2024 ambulatory Krista Delgado Facility:[facility] Start: 01-05-2024 End: 01-05-2024 ambulatory Krista Delgado Facility:[facility] Start: 12-09-2023 End: 12-09-2023 ambulatory [facility] Work Phone: Start: 12-09-2023 End: 12-09-2023 Patient encounter procedure [facility] Work Phone: Start: 09-21-2023 End: 09-21-2023 ambulatory [facility] Work Phone: Start: 09-21-2023 End: 09-21-2023 Patient encounter procedure [facility] Start: 08-31-2023 End: 08-31-2023 Patient encounter procedure [facility] Work Phone: Start: 08-05-2023 End: 08-05-2023 ambulatory WALKER HERNANDEZ Facility: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 Comment on above: Benign neoplasm of m eninges (HCC) [D32.9] Start: 07-12-2023 Orders Only Alivia rock MD Work Phone: [facility] Comment on above: Benign neoplasm of m eninges (HCC) (Primary Dx) Orders Start: 12-10-2022 Refill Paola Guillermo DO Work Phone: Neurology Comment on above: Refill Request Start: 08-24-2022 End: 08-24-2022 ambulatory [facility] Work Phone: Start: 08-24-2022 End: 08-24-2022 Patient encounter procedure [facility] Start: 05-26-2022 End: 05-26-2022 ambulatory [facility] Work Phone: Start: 05-26-2022 End: 05-26-2022 Patient encounter procedure [facility] Start: 07-21-2018 ambulatory Leticia Thorne Work Phone: [facility] [place] Comment on above: TSH results Procedures Date Procedure Procedure Detail Performing Clinician Start: 09-01-2024 Screening mammography Fadumo Delgado MD Work Phone: Start: 07-06-2024 Follow-up visit Follow-up KATYA ZAMARRIPA Start: 01-18-2024 Blood count complete automated Emmanuel Jose DO Work Phone: Start: 01-17-2024 End: 01-17-2024 Endometrial bx w/wo endocervix bx w/o dilat spx Katya Skelton MD Work Phone: Start: 01-17-2024 End: 01-17-2024 Inj radioactive tracer for id of sentinel node Katya Skelton MD Work Phone: Start: 01-17-2024 End: 01-17-2024 Laps total hysterect 250 gm/< w/rmvl tube/ovary Katya Skelton MD Work Phone: Start: 01-17-2024 Antibody screen KATYA ZAMARRIPA Comment on above: Order Comment: HOLD. Specimen is valid for 3 days - nurse to verify valid specimen Performed By: #### L [id number] ####Special Forces Communications Sergeant: SEDA MCNULTY ([id number])[facility] ([facility])[address] [place] [address] Start: 01-17-2024 ABO and Rh group [Ty pe] in Blood by Confirmatory method Katya Skelton MD Work Phone: Start: 01-17-2024 Basic metabolic pane l calcium total Laila Gonzalez FINANCIAL AID OFFICER - CREATIVE DIRECTOR Work Phone: Start: 01-17-2024 Blood typing serolog ic rh (d) Katya Skelton MD Work Phone: Start: 01-17-2024 Ecg routine ecg w/le ast 12 lds trcg only w/o i&r Laila Gonzalez FINANCIAL AID OFFICER - CREATIVE DIRECTOR Work Phone: Start: 12-09-2023 Pelvic echography Start: 08-31-2023 Dual energy X-ray absorptiometry Start: 08-31-2023 End: 08-31-2023 Screening mammography Start: 08-24-2022 Screening mammography Start: 08-09-2018 Mammography Paola Fold vary Mima DO Work Phone: Start: 07-17-2016 Lipid 1996 panel - S alexandria or Plasma Alivia Natarajan MD Work Phone: Start: 09-28-2015 Colonoscopy Paola Fold vary Guillermo DO Work Phone: H/O: surgery S/P resection of meningioma Plan of Treatment Date Care Activity Detail Author Start: 06-04-2032 DTaP/Tdap/Td Vaccine s (2 - Td or Tdap) DTaP/Tdap/Td Vaccines (2 - Td or Tdap) [facility] Start: 06-04-2032 DTaP/Tdap/Td Vaccine s (3 - Td or Tdap) DTaP/Tdap/Td Vaccines (3 - Td or Tdap) [facility] Start: 06-04-2032 Urine microalbumin profile DTaP,Tdap,Td Vaccine (3 - Td or Tdap) [facility] Start: 06-04-2025 Influenza vaccination Influenz a Vaccine (Season Ended) [facility] Start: 04-10-2025 End: 04-10-2025 Patient encounter procedure 04/10/2025 1:40 PM EDT Office Visit [facility] [place] [address] [place] [address] Katya Skleton MD [address] [place], [place] [id number] [facility] [place] Start: 01-05-2025 End: 01-05-2025 Patient encounter procedure 01/05/2025 1:40 PM EDT Office Visit [facility] [place] [address] [place] [address] Katya Skelton MD [address] [place], [place] [id number] [facility] [place] Start: 10-06-2024 End: 10-06-2024 Patient encounter procedure 10/06/2024 11:40 AM EST Office Visit [facility] [place] [address] [place] [address] Kayta Skelton MD [address] [place], [place] [id number] [facility] [place] Start: 08-31-2024 Screening for malign ant neoplasm of breast Mammogram [facility] Start: 08-02-2024 BP Controlled (<130/80) BP Controlle d (<130/80) [facility] Start: 06-12-2024 End: 06-12-2024 Patient encounter procedure 06/12/2024 1:30 PM EDT Office Visit [facility] [address] [place] [phone] Yaritza Ly, FINANCIAL AID OFFICER - CREATIVE DIRECTOR [address] [place], [place] [id number] [facility] Start: 06-10-2024 End: 03-10-2025 CA 125 CA 125 Lab Routine Papillary serous endometrial adenocarcinoma (HCC) Expected: 06/10/2024 (Approximate), Expires: 03/10/2025 [facility] Work Phone: Comment on above: Expected: 06/10/2024 (Approximate), Expires: 03/10/2025 Start: 06-04-2024 COVID-19 Vaccine ( season) COVID-19 Vaccine ( season) [facility] Start: 06-04-2024 COVID-19 Vaccine ( season) COVID-19 Vaccine ( season) [facility] Start: 06-04-2024 Influenza vaccination Influenza Vacc ine (#1) [facility] Start: 03-10-2024 End: 03-10-2024 Patient encounter procedure [facility] Start: 02-15-2024 End: 08-17-2024 US liver doppler limited US liver doppler limited Imaging Routine Liver cyst Expected: 02/15/2024 (Approximate), Expires: 08/17/2024 [facility] Work Phone: Comment on above: Expected: 02/15/2024 (Approximate), Expires: 08/17/2024 Start: 02-04-2024 End: 02-04-2024 Patient encounter procedure 02/04/2024 3:20 PM EDT Office Visit [facility] [address] [place] [phone] Katya Skelton MD [address] [place] [address] [facility] Start: 01-28-2024 End: 01-27-2025 US liver doppler limited US liver doppler limited Imaging Routine Liver cyst Expected: 01/28/2024, Expires: 01/27/2025 [facility] Work Phone: Comment on above: Expected: 01/28/2024 , Expires: 01/27/2025 Start: 01-17-2024 End: 01-17-2024 Admission to same day surgery center 01/17/2024 1:30 PM EDT - 01/17/2024 3:00 PM EDT Surgery [facility] MAIN OR [address] [place] [phone] Katya Skelton MD [address] [place] [address] ROBOTIC ASSISTED TOTAL LAPAROSCOPIC HYSTERECTOMY, BILATERAL SALPINGO OOPHORECTOMY [12732 (CPT )] [facility] Comment on above: ROBOTIC ASSISTED TOT AL LAPAROSCOPIC HYSTERECTOMY, BILATERAL SALPINGO OOPHORECTOMY [11316 (CPT )] Start: 01-17-2024 End: 01-17-2024 Anesthesia consultation 01/17/2024 1:30 PM EDT Anesthesia Event [facility] [address] [facility] [place] [address] Regla Zamudio RN [facility] OR Start: 01-17-2024 End: 01-17-2024 Endometrial bx w/wo endocervix bx w/o dilat spx ENDOMETRIAL SAMPLING (BIOPSY) WITHOUT CERVICAL DILATION Uterine cancer (CMS/HCC) (HCC) 01/17/2024 1:30 PM EDT [facility] Operating Room Start: 01-17-2024 End: 01-17-2024 Inj radioactive tracer for id of sentinel node LYMPHANGIOGRAPHY RADIOACTIVE TRACER FOR IDENTIFICATION SENTINEL NODE Uterine cancer (CMS/HCC) (HCC) 01/17/2024 1:30 PM EDT [facility] Operating Room Start: 01-17-2024 End: 01-17-2024 Laps total hysterect 250 gm/< w/rmvl tube/ovary ROBOTIC (XI) LAPAROSCOPY TOTAL HYSTERECTOMY FOR UTERUS 250 G OR LESS REMOVAL OF TUBE(S) AND OR OVARY(S) Uterine cancer (CMS/HCC) (HCC) 01/17/2024 1:30 PM EDT [facility] Operating Room Start: 01-17-2024 Subsequent hospital visit by physician 01/17/2024 1:30 PM EDT Hospital Encounter [facility] MAIN OR [address] [place] [address] Katya Skelton MD [address] [place], [place] [phone] [facility] MAIN OR Start: 01-13-2024 End: 01-12-2025 CA 125 CA 125 Lab Routine Papillary serous endometrial adenocarcinoma (HCC) Expected: 01/13/2024 (Approximate), Expires: 01/12/2025 [facility] Comment on above: Expected: 01/13/2024 (Approximate), Expires: 01/12/2025 Start: 01-13-2024 End: 01-12-2025 Comprehensive metabolic 1998 panel - Serum or Plasma Comprehensive metabolic panel Lab Routine Papillary serous endometrial adenocarcinoma (HCC) Expected: 01/13/2024 (Approximate), Expires: 01/12/2025 [facility] Comment on above: Expected: 01/13/2024 (Approximate), Expires: 01/12/2025 Start: 01-13-2024 End: 01-12-2025 CT Abdomen and Pelvis WO and W contrast IV CT chest abdomen pelvis with contrast Imaging Routine Papillary serous endometrial adenocarcinoma (HCC) Expected: 01/13/2024, Expires: 01/12/2025 [facility] Work Phone: Comment on above: Expected: 01/13/2024 , Expires: 01/12/2025 Start: 01-05-2024 Liquid based cervica l cytology screening [facility] Start: 10-04-2023 Advance Directive Discussion Advance Directive Discussion [facility] Start: 10-04-2023 Depression Assessment Depression Ass essment [facility] Start: 06-04-2023 Covid-19 Vaccine () Covid-19 Vaccine () [facility] Start: 06-04-2023 Influenza vaccination Influenza Vacc ine (#1) [facility] Start: 11-30-2022 DIABETES SCREEN DIABETES SCREEN [facility] Start: 11-30-2022 Diabetes Screening Diabetes Screenin g [facility] Start: 10-04-2022 ADVANCE DIRECTIVE DISCUSSION ADVANCE DIRECTIVE DISCUSSION [facility] Start: 10-04-2022 DEPRESSION ASSESSMENT DEPRESSION ASS ESSMENT [facility] Start: 06-04-2022 Influenza vaccination INFLUENZA (#1) [facility] Start: 12-12-2021 COVID-19 VACCINE (4 - Booster for Pfizer series) COVID-19 VACCINE (4 - Booster for Pfizer series) [facility] Start: 12-12-2021 Covid-19 Vaccine (4 - Pfizer series) Covid-19 Vaccine (4 - Pfizer series) [facility] Start: 07-17-2021 Lipid 1996 panel - Serum or Plasma Lipid Screening [facility] Start: 07-17-2021 Lipid panel Lipid Screening [facility] Start: 07-17-2021 LIPID SCREEN LIPID SCREEN [facility] Start: 03-10-2021 Urine microalbumin profile [facility] Start: 07-01-2020 Colonoscopy COLONOSCOPY [facility] Start: 07-01-2020 COLORECTAL CANCER SCREENING COLORECTAL CANCER SCREENING [facility] Start: 07-01-2020 Screening for malign ant neoplasm of colon [facility] Start: 05-28-2020 PAP TESTING PAP TESTING [facility] Start: 05-28-2020 Screening for malign ant neoplasm of cervix Pap Testing [facility] Start: 11-15-2019 ANNUAL PCP TEAM [facility] SADI DISEASE VISIT ANNUAL PCP TEAM CHRONIC DISEASE VISIT [facility] Start: 08-09-2019 Mammography [facility] Start: 08-09-2019 Screening for malign ant neoplasm of breast Mammogram Screening [facility] Start: 03-09-2019 Pneumococcal Vaccine : 65+ (2 - PPSV23 or PCV20) Pneumococcal Vaccine: 65+ (2 - PPSV23 or PCV20) [facility] Start: 03-09-2019 PNEUMOCOCCAL: 65+ (2 - PPSV23 if available, else PCV20) PNEUMOCOCCAL: 65+ (2 - PPSV23 if available, else PCV20) [facility] Start: 2012 Hepatitis B Vaccines (1 of 3 - Risk 3-dose series) Hepatitis B Vaccines (1 of 3 - Risk 3-dose series) [facility] Start: 2012 RSV Immunization age d 60 or older (1 - 1-dose 60+ series) RSV Immunization aged 60 or older (1 - 1-dose 60+ series) [facility] Start: 2012 RSV Immunization for Adults (1 - Risk 60-74 years 1-dose series) RSV Immunization for Adults (1 - Risk 60-74 years 1-dose series) [facility] Start: 2012 RSV Vaccine (1 - 1-d ose 60+ series) RSV Vaccine (1 - 1-dose 60+ series) [facility] Start: 2002 SHINGRIX VACCINE (1 of 2) SHINGRIX VACCINE (1 of 2) [facility] Start: 2002 Zoster Vaccines (1 o f 2) Zoster Vaccines (1 of 2) [facility] Start: 1997 COLOGUARD (FIT-DNA) COLOGUARD (FIT-D NA) [facility] Start: [address] COLONOGRAPHY [facility] Start: 1997 FECAL OCCULT BLOOD FECAL OCCULT BLOO D [facility] Start: 1997 Screening for malign ant neoplasm of colon [facility] Start: 1997 SIGMOIDOSCOPY SIGMOIDOSCOPY [facility] Start: 1971 Hepatitis A Vaccines (1 of 2 - Risk 2-dose series) Hepatitis A Vaccines (1 of 2 - Risk 2-dose series) [facility] Start: 1970 Annual PCP Team Medical Doctor Nuclear Medicine sadi Disease Visit Annual PCP Team Chronic Disease Visit [facility] Start: 1970 BP CONTROLLED (<130/80) BP CONTROLLE D (<130/80) [facility] Start: 1970 Diabetes mellitus screening Diabetes Screening [facility] Start: 1970 Hepatitis C screening Hepatitis C Sc reening [facility] Start: 1964 Depression Screening Depression Scre ening [facility] Start: 1952 Lipid panel Lipid Panel [facility] Start: 1952 Screening for malign ant neoplasm of colon [facility] Start: 1952 Screening for osteoporosis Bone Density Scan [facility] Start: 1952 Thyroid stimulating hormone measurement TSH Level [facility] End: 07-06-2025 CA 125 CA 125 Lab Routine Papillary serous endometrial adenocarcinoma (HCC) Every 12 weeks for 4 Occurrences starting 07/06/2024 until 07/06/2025 [facility] Work Phone: Comment on above: Every 12 weeks for 4 Occurrences starting 07/06/2024 until 07/06/2025 End: 10-06-2025 CA 125 CA 125 Lab Routine Papillary serous endometrial adenocarcinoma (HCC) Every 12 weeks for 10 Occurrences starting 10/06/2024 until 10/06/2025 [facility] Work Phone: Comment on above: Every 12 weeks for 1 0 Occurrences starting 10/06/2024 until 10/06/2025 ECG 12 lead ECG 12 lead CV E CG STAT 01/17/2024 12:18 PM EDT [facility] Work Phone: End: 08-10-2024 Mri brain brain stem w/o w/contrast material MRI BRAIN WO/W IVCON Radiology Routine Benign neoplasm of meninges (HCC) 1 Occurrences starting 07/12/2023 until 08/10/2024 [facility] Work Phone: Comment on above: 1 Occurrences starti ng 07/12/2023 until 08/10/2024 Mri brain brain stem w/o w/contrast material MRI BRAIN WO/W IVCON Radiology Routine Benign neoplasm of meninges (HCC) 08/02/2023 11:58 AM EDT [facility] Work Phone: Non-Gynecologic Cytology [facility] Work Phone: Comment on above: Release Upon Orderin g for 1 Occurrences starting 01/17/2024, 1 completed Tissue exam [facility] Comment on above: Release Upon Orderin g for 1 Occurrences starting 01/17/2024, 1 completed [facility] Immunizations Immunization Date Immunization Notes Care Provider Fa cili 07-23-2023 influenza virus vacc ine, unspecified formulation Yaritza Ly FINANCIAL AID OFFICER - CREATIVE DIRECTOR Work Phone: [facility] 08-01-2021 influenza virus vacc ine, unspecified formulation Alivia Natarajan MD Work Phone: [facility] 07-17-2019 Influenza virus vaccine [facility] 03-09-2018 [facility]: 10-05-2017 pneumococcal polysaccharide vaccine, 23 valent [facility] 07-19-2013 influenza virus vacc ine, unspecified formulation Paola Foldvary Guillermo DO Work Phone: [facility] Work Phone: 08-02-2012 influenza virus vacc ine, unspecified formulation Paola Foldvary Guillermo DO Work Phone: [facility] Work Phone: 03-10-2011 tetanus toxoid, redu frantz diphtheria toxoid, and acellular pertussis vaccine, adsorbed Paola Foldvary Guillermo DO Work Phone: [facility] 07-29-2007 influenza virus vacc ine, unspecified formulation Paola Foldvary Guillermo DO Work Phone: [facility] 07-30-2006 influenza virus vacc ine, unspecified formulation Paola Foldvary Guillermo DO Work Phone: [facility] Work Phone: Payers Date Payer Category Payer Self-pay [id number] 2022 Medicare supplementa l policy (as second payer) [facility] MEDICARE SUPPLEMENT [id number] 2020 Unknown [id number] 2018 Medicare [id number] 2018 Unknown [id number] 2018 Medicare [id number] 2016 Unknown [facility] [id number] Unknown ANTHKEERTHI [id number] Unknown [id number] Unknown [id number] Unknown [id number] Unknown [id number] Unknown [id number] Unknown [id number] Unknown [id number] Unknown [id number] Unknown [id number] Social History Date Type Detail Facility Start: 02-29-2020 End: 01-05-2024 Tobacco smoking status NHIS Unknown if ever smoked [facility] Start: 12-01-2019 None [facility] Start: 12-01-2019 Spouse/ Signif icant Other [facility] Start: 12-01-2019 Non-smoker [facility] Start: 1950 Sex Assigned At Female C [facility] Start: 03-10-2011 End: 01-11-2024 Tobacco smoking status NHIS Never smoked tobacco [facility] Start: 03-10-2011 End: 01-11-2024 Tobacco use and exposure Smokeless tobacco non-user [facility] Start: 03-09-2018 End: 09-08-2021 Alcohol intake Current non-drinker of alcohol (finding) [facility] Start: 11-27-2019 History SDOH Financial 5 [facility] Start: 11-27-2019 History SDOH Food Worry 1 [facility] Start: 11-27-2019 History SDOH Transpo rt Med 2 [facility] Start: 09-08-2021 End: 01-17-2024 History of Social function [facility] Work Phone: Start: 09-08-2021 End: 01-17-2024 Tobacco use panel [facility] Work Phone: How hard is it for y ou to pay for the very basics like food, housing, medical care, and heating Not hard at all [facility] Work Phone: (I/We) worried wheth er (my/our) food would run out before (I/we) got money to buy more. Never true [facility] Work Phone: Start: 09-03-2020 Gender identity Identifies as female gender (finding) [facility] Start: 06-13-2020 Sexual orientation Heterosexual (fin domi) [facility] Start: 08-09-2021 End: 09-08-2021 Exposure to SARS-CoV-2 (event) Not sure [facility] Start: 01-14-2024 End: 01-07-2025 Alcohol intake Lifetime non-drinker (finding) [facility] Start: 1950 Sex Assigned At Not on file [place] Has the electric, [employer], [employer], or water company threatened to shut off services in your home in past 12Mo No [facility] Are you now , , , , never or living with a partner? [facility] How often to you hav e a drink containing alcohol? Never [facility] Do you feel stress - tense, restless, nervous, or anxious, or unable to sleep at night because your mind is troubled all the time - these days [OSQ] Not at all [facility] Start: 01-11-2024 End: 12-27-2024 Sex Female (finding) [facility] Medical Equipment Procedure Code Equipment Code Equipment Origin al Text Equipment Identifier Dates Cover [place] Craniofacial 14mmx.6mm Dome Nonsterile - [id number] Start: 09-19-2019 Screw Bone Unive rsal Neuro 3 4mm 1.5mm Self Drill Axial Stability Latex - [id number] Start: 09-19-2019 Clinical Notes 07-25-2018 to 01-05-2025 Katya Skelton MD - 01/05/2025 1:40 PM EDTRpablo Skelton MD - 10/06/2024 11:40 AM ESTAddendum Note - Dior Espinoza RN - 07/06/2024 1:31 PM EDTDischarge InstructionsAttachments Note Date & Type Note Facility 01-05-2025 History of Presen t illness Narrative Chief Complaint Patient presents with Endometrial Cancer Uterine serous carcinoma-surveillance of disease History of the Present Illness: Xi Au is a 74 y.o. 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 Pelvic washings were negative. Proficient mismatch repair protein, HER2 negative. She underwent robotic endometrial cancer staging on 01/17/2024. We discussed NCCN guidelines which would include vaginal brachytherapy plus or minus systemic therapy versus observation. The risks and benefits of each option were discussed. The patient declined adjuvant treatment. CA125 was normal. A CT of the chest, abdomen and pelvis showed a 1.6 x 1.2 cm well-defined hypodensity in the anterior aspect of the left lobe of the liver that was not a typical cyst. It was essentially unchanged from prior examination. Additionally, there was a 1.3 x 0.7 cm focal area of enhancement in the inferior lateral aspect of the right lobe of the liver. Interval History: Since her last visit, the patient has been doing well and is without complaints. She denies headache, vision changes, chest pain, shortness of breath, nausea, vomiting, bloating, abdominal distension. Denies vaginal bleeding or discharge. Signed up for Oxyntix [employer]. 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 Encephalopathy Hypertension Hypothyroid Meniere's disease Meningioma (HCC) Osteoporosis Pneumonia Seizure (HCC) Past Surgical History: Procedure Laterality Date COLONOSCOPY 2015 CRANIOTOMY 2019 IR INTERVENTION FILTER PLACEMENT IVC FILTER REMOVAL (HISTORICAL) Social History Tobacco Use Smoking status: Never Smokeless tobacco: Never Vaping Use Vaping status: Never Used Substance Use Topics Alcohol use: Never Drug use: Never Family History Problem Relation Name Age of Onset Hypertension Mother Coronary artery disease Father Current Outpatient Medications on File Prior to Visit Medication Sig Dispense Refill amLODIPine (Norvasc) 10 MG tablet Take by mouth daily. calcium carbonate (Os-King) 1250 (500 Ca) MG tablet Take by mouth daily. Denosumab (PROLIA SC) Inject 1 Dose under the skin every 6 (six) months. Due in April doxycycline (Adoxa) 100 MG tablet Take 100 mg by mouth daily. Take with a full glass of water and do not lie down for at least 30 minutes after gabapentin (Neurontin) 100 MG capsule Take by mouth as needed. levETIRAcetam (Keppra) 500 MG tablet Take by mouth. levothyroxine (Synthroid, Levoxyl) 50 MCG tablet Take by mouth every morning (before breakfast). losartan-hydroCHLOROthiazide (Hyzaar) 100-25 MG tablet Take 1 tablet by mouth daily. meloxicam (Mobic) 7.5 MG tablet Take 7.5 mg by mouth daily. Take with food multivitamin (Theragran) tablet Take 1 tablet by mouth daily. No current facility-administered medications on file prior to visit. Allergies Allergen Reactions Lisinopril Other Developed cough Ceftriaxone Rash Cephalexin Rash Review of Systems: A 12 point review of systems was performed and is as per the history of the present illness, all other systems were reviewed and are negative. Vitals: 01/05/25 1306 BP: 134/85 Pulse: 71 Body mass index is 25.7 kg/m . Physical Exam Vitals reviewed. Constitutional: General: She is not in acute distress. Appearance: Normal appearance. She is not ill-appearing, toxic-appearing or diaphoretic. HENT: Head: Normocephalic and atraumatic. Eyes: General: No scleral icterus. Extraocular Movements: Extraocular movements intact. Cardiovascular: Rate and Rhythm: Normal rate. Pulmonary: Effort: Pulmonary effort is normal. No respiratory distress. Abdominal: General: There is no distension. Palpations: Abdomen is soft. There is no mass. Tenderness: There is no abdominal tenderness. There is no guarding or rebound. Comments: Incision well healed without hernia or recurrence. Genitourinary: Comments: Uterus, cervix, bilateral adnexa surgically absent. No lesions or nodularity of the vaginal cuff or rectovaginal septum. Musculoskeletal: General: Normal range of motion. Right lower leg: No edema. Left lower leg: No edema. Skin: General: Skin is warm and dry. Coloration: Skin is not jaundiced or pale. Neurological: General: No focal deficit present. Mental Status: She is alert. Motor: No weakness. Coordination: Coordination normal. Psychiatric: Mood and Affect: Mood normal. Behavior: Behavior normal. Assessment/Plan: Diagnosis Plan 1. Papillary serous endometrial adenocarcinoma (HCC) Xi Au is a 74 y.o. 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 We discussed NCCN guidelines which would include vaginal brachytherapy plus or minus systemic therapy versus observation. The risks and benefits of each option were discussed. The patient declined adjuvant treatment. Doing well. No evidence of recurrent disease based on history or physical examination. CA 125 every 3 months. We discussed routine surveillance of disease per the NCCN guidelines with history and physical examination every 3-6 months for the first 2 years followed by every 6-12 months for years 3 through 5. We discussed the imaging will be obtained on an as-needed basis, based upon history and physical exam findings. The signs and symptoms of recurrence were reviewed and the patient will contact our office in the interim should any of these arise. Follow up in 3 months for surveillance visit. The patient had an opportunity to ask questions, all of which were answered to the best of my ability. She is in agreement with the above noted plan. I spent a total time of 15 minutes reviewing previous notes, test results, obtaining history, communicating results to the patient as well as counseling the patient, documenting clinical information in the patient's electronic medical record and coordinating care for the patient. Disclaimer: This note was dictated by speech recognition. 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 documented in this encounter [facility] 10-06-2024 History of Presen t illness Narrative Chief Complaint Patient presents with Endometrial Cancer Uterine serous carcinoma History of the Present Illness: Xi Au is a 74 y.o. 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 Pelvic washings were negative. Proficient mismatch repair protein, HER2 negative. She underwent robotic endometrial cancer staging on 01/17/2024. We discussed NCCN guidelines which would include vaginal brachytherapy plus or minus systemic therapy versus observation. The risks and benefits of each option were discussed. The patient declined adjuvant treatment. CA125 was normal. A CT of the chest, abdomen and pelvis showed a 1.6 x 1.2 cm well-defined hypodensity in the anterior aspect of the left lobe of the liver that was not a typical cyst. It was essentially unchanged from prior examination. Additionally, there was a 1.3 x 0.7 cm focal area of enhancement in the inferior lateral aspect of the right lobe of the liver. Interval History: Since her last visit, the patient has been doing well and is without complaints. She denies headache, vision changes, chest pain, shortness of breath, nausea, vomiting, bloating, abdominal distension. Denies vaginal bleeding or discharge. Normal CA125 in 09/2024 - (scanned into media). 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 Encephalopathy Hypertension Hypothyroid Meniere's disease Meningioma (HCC) Osteoporosis Pneumonia Seizure (HCC) Past Surgical History: Procedure Laterality Date COLONOSCOPY 2015 CRANIOTOMY 2019 IR INTERVENTION FILTER PLACEMENT IVC FILTER REMOVAL (HISTORICAL) Social History Tobacco Use Smoking status: Never Smokeless tobacco: Never Vaping Use Vaping status: Never Used Substance Use Topics Alcohol use: Never Drug use: Never Family History Problem Relation Name Age of Onset Hypertension Mother Coronary artery disease Father Current Outpatient Medications on File Prior to Visit Medication Sig Dispense Refill amLODIPine (Norvasc) 10 MG tablet Take by mouth daily. calcium carbonate (Os-King) 1250 (500 Ca) MG tablet Take by mouth daily. Denosumab (PROLIA SC) Inject 1 Dose under the skin every 6 (six) months. Due in April doxycycline (Adoxa) 100 MG tablet Take 100 mg by mouth daily. Take with a full glass of water and do not lie down for at least 30 minutes after gabapentin (Neurontin) 100 MG capsule Take by mouth as needed. levETIRAcetam (Keppra) 500 MG tablet Take by mouth. levothyroxine (Synthroid, Levoxyl) 50 MCG tablet Take by mouth every morning (before breakfast). losartan-hydroCHLOROthiazide (Hyzaar) 100-25 MG tablet Take 1 tablet by mouth daily. meloxicam (Mobic) 7.5 MG tablet Take 7.5 mg by mouth daily. Take with food multivitamin (Theragran) tablet Take 1 tablet by mouth daily. No current facility-administered medications on file prior to visit. Allergies Allergen Reactions Lisinopril Other Developed cough Ceftriaxone Rash Cephalexin Rash Review of Systems: A 12 point review of systems was performed and is as per the history of the present illness, all other systems were reviewed and are negative. Vitals: 10/06/24 1217 BP: 131/65 Pulse: 70 Body mass index is 24.79 kg/m . Physical Exam Vitals reviewed. Constitutional: General: She is not in acute distress. Appearance: Normal appearance. She is not ill-appearing, toxic-appearing or diaphoretic. HENT: Head: Normocephalic and atraumatic. Eyes: General: No scleral icterus. Extraocular Movements: Extraocular movements intact. Cardiovascular: Rate and Rhythm: Normal rate. Pulmonary: Effort: Pulmonary effort is normal. No respiratory distress. Abdominal: General: There is no distension. Palpations: Abdomen is soft. There is no mass. Tenderness: There is no abdominal tenderness. There is no guarding or rebound. Comments: Incision well healed without hernia or recurrence. Genitourinary: Comments: Uterus, cervix, bilateral adnexa surgically absent. No lesions or nodularity of the vaginal cuff or rectovaginal septum. Musculoskeletal: General: Normal range of motion. Right lower leg: No edema. Left lower leg: No edema. Skin: General: Skin is warm and dry. Coloration: Skin is not jaundiced or pale. Neurological: General: No focal deficit present. Mental Status: She is alert. Motor: No weakness. Coordination: Coordination normal. Psychiatric: Mood and Affect: Mood normal. Behavior: Behavior normal. Assessment/Plan: Diagnosis Plan 1. Papillary serous endometrial adenocarcinoma (HCC) CA 125 CA 125 Xi Au is a 74 y.o. 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 We discussed NCCN guidelines which would include vaginal brachytherapy plus or minus systemic therapy versus observation. The risks and benefits of each option were discussed. The patient declined adjuvant treatment. Doing well. No evidence of recurrent disease based on history or physical examination. CA 125 every 3 months. We discussed routine surveillance of disease per the NCCN guidelines with history and physical examination every 3-6 months for the first 2 years followed by every 6-12 months for years 3 through 5. We discussed the imaging will be obtained on an as-needed basis, based upon history and physical exam findings. The signs and symptoms of recurrence were reviewed and the patient will contact our office in the interim should any of these arise. Follow up in 3 months for surveillance visit. The patient had an opportunity to ask questions, all of which were answered to the best of my ability. She is in agreement with the above noted plan. I spent a total time of 15 minutes reviewing previous notes, test results, obtaining history, communicating results to the patient as well as counseling the patient, documenting clinical information in the patient's electronic medical record and coordinating care for the patient. Disclaimer: This note was dictated by speech recognition. 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 documented in this encounter [facility] 07-06-2024 Note Addended by: DIOR ROSA on: 07/06/2024 01:31 PM Modules accepted: Orders [facility] 07-06-2024 Note Addended by: DIOR ROSA on: 07/06/2024 01:31 PM Modules accepted: Orders [facility] 07-06-2024 Note Addended by: DIOR ROSA on: 07/06/2024 01:31 PM Modules accepted: Orders [facility] 07-06-2024 Miscellaneous Notes Addended by: DIOR ESPINOZA on: 07/06/2024 01:31 PM Modules accepted: Orders Patient would like to know if she would need a CA125 completed before every appointment, please contact when able, thank you documented in this encounter [facility] 07-06-2024 Telephone encounter Note Patient would like to know if she would need a CA125 completed before every appointment, please contact when able, thank you [facility] 07-06-2024 History of Presen t illness Narrative Chief Complaint Patient presents with Follow-up Pt has no concerns. Endometrial Cancer History of the Present Illness: Xi Au is a 74 y.o. 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 Pelvic washings were negative. Proficient mismatch repair protein, HER2 negative. We discussed NCCN guidelines which would include vaginal brachytherapy plus or minus systemic therapy versus observation. The risks and benefits of each option were discussed. The patient declined adjuvant treatment. She underwent robotic endometrial cancer staging on 01/17/2024. CA125 was normal. A CT of the chest, abdomen and pelvis showed a 1.6 x 1.2 cm well-defined hypodensity in the anterior aspect of the left lobe of the liver that was not a typical cyst. It was essentially unchanged from prior examination. Additionally, there was a 1.3 x 0.7 cm focal area of enhancement in the inferior lateral aspect of the right lobe of the liver. Interval History: Since her last visit, the patient has been doing well and is without complaints. She denies head ache, vision changes, chest pain, shortness of breath, nausea, vomiting, bloating, abdominal distension. Denies vaginal bleeding or discharge. Normal CA125 in 05/2024. 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 Encephalopathy Hypertension Hypothyroid Meniere's disease Meningioma (HCC) Osteoporosis Pneumonia Seizure (HCC) Past Surgical History: Procedure Laterality Date COLONOSCOPY 2015 CRANIOTOMY 2019 IR INTERVENTION FILTER PLACEMENT IVC FILTER REMOVAL (HISTORICAL) Social History Tobacco Use Smoking status: Never Smokeless tobacco: Never Vaping Use Vaping status: Never Used Substance Use Topics Alcohol use: Never Drug use: Never Family History Problem Relation Name Age of Onset Hypertension Mother Coronary artery disease Father Current Outpatient Medications on File Prior to Visit Medication Sig Dispense Refill amLODIPine (Norvasc) 10 MG tablet Take by mouth daily. calcium carbonate (Os-King) 1250 (500 Ca) MG tablet Take by mouth daily. Denosumab (PROLIA SC) Inject 1 Dose under the skin every 6 (six) months. Due in April doxycycline (Adoxa) 100 MG tablet Take 100 mg by mouth daily. Take with a full glass of water and do not lie down for at least 30 minutes after gabapentin (Neurontin) 100 MG capsule Take by mouth as needed. levETIRAcetam (Keppra) 500 MG tablet Take by mouth. levothyroxine (Synthroid, Levoxyl) 50 MCG tablet Take by mouth every morning (before breakfast). losartan-hydroCHLOROthiazide (Hyzaar) 100-25 MG tablet Take 1 tablet by mouth daily. multivitamin (Theragran) tablet Take 1 tablet by mouth daily. [DISCONTINUED] apixaban (Eliquis) 2.5 MG tablet Take 1 tablet (2.5 mg) by mouth 2 times daily for 14 days. 28 tablet 0 [DISCONTINUED] senna-docusate sodium (Senokot-S) 8.6-50 MG tablet Take 1 tablet by mouth daily. 30 tablet 11 No current facility-administered medications on file prior to visit. Allergies Allergen Reactions Lisinopril Other Developed cough Ceftriaxone Rash Cephalexin Rash Review of Systems: A 12 point review of systems was performed and is as per the history of the present illness, all other systems were reviewed and are negative. Vitals: 07/06/24 1230 BP: 109/71 Pulse: 73 Body mass index is 25.13 kg/m . Physical Exam Vitals reviewed. Constitutional: General: She is not in acute distress. Appearance: Normal appearance. She is not ill-appearing, toxic-appearing or diaphoretic. HENT: Head: Normocephalic and atraumatic. Eyes: General: No scleral icterus. Extraocular Movements: Extraocular movements intact. Cardiovascular: Rate and Rhythm: Normal rate. Pulmonary: Effort: Pulmonary effort is normal. No respiratory distress. Abdominal: General: There is no distension. Palpations: Abdomen is soft. There is no mass. Tenderness: There is no abdominal tenderness. There is no guarding or rebound. Comments: Incision well healed without hernia or recurrence. Genitourinary: Comments: Uterus, cervix, bilateral adnexa surgically absent. No lesions or nodularity of the vaginal cuff, posterior cul-de-sac or rectovaginal vault. Musculoskeletal: General: Normal range of motion. Right lower leg: No edema. Left lower leg: No edema. Skin: General: Skin is warm and dry. Coloration: Skin is not jaundiced or pale. Neurological: General: No focal deficit present. Mental Status: She is alert. Motor: No weakness. Coordination: Coordination normal. Psychiatric: Mood and Affect: Mood normal. Behavior: Behavior normal. Assessment/Plan: Diagnosis Plan 1. Papillary serous endometrial adenocarcinoma (HCC) Xi Au is a 74 y.o. 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 We discussed NCCN guidelines which would include vaginal brachytherapy plus or minus systemic therapy versus observation. The risks and benefits of each option were discussed. The patient is not interested in adjuvant treatment. CA 125 every 3 months. We discussed routine surveillance of disease per the NCCN guidelines with history and physical examination every 3-6 months for the first 2 years followed by every 6-12 months for years 3 through 5. We discussed the imaging will be obtained on an as-needed basis, based upon history and physical exam findings. The signs and symptoms of recurrence were reviewed and the patient will contact our office in the interim should any of these arise. Follow up in 3 months for surveillance visit. The patient had an opportunity to ask questions, all of which were answered to the best of my ability. She is in agreement with the above noted plan. Disclaimer: This note was dictated by speech recognition. 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 documented in this encounter [facility] 05-30-2024 Telephone encounter Note Patient has been contacted. Informed her that we are waiting for a new human projectile and she will be added on a waitlist for now. Pt will be r/s once new human projectile alex open [facility] 05-30-2024 Miscellaneous Notes Patient has been contacted. Informed her that we are waiting for a new human projectile and she will be added on a waitlist for now. Pt will be r/s once new human projectile alex open Name of Caller: Xi Contact Reason for Appointment: Xi called in advising that her appointment scheduled for 06/12/24 was canceled and wished to reschedule. Please advise. Office Name: [facility] documented in this encounter [facility] 05-29-2024 Telephone encounter Note Name of Caller: Xi Contact Reason for Appointment: Xi called in advising that her appointment scheduled for 06/12/24 was canceled and wished to reschedule. Please advise. Office Name: [facility] 03-10-2024 History of Presen t illness Narrative Chief Complaint Patient presents with Post-op Visit Pt has no concerns. History of the Present Illness: Xi Au is a 73 y.o. who presents to the office for post-operative evaluation. She underwent robotic endometrial cancer staging on 01/16/2021 and final pathology showed: Final Diagnosis A. SENTINEL LYMPH NODE, LEFT PELVIC, EXCISION: - ONE LYMPH NODE NEGATIVE FOR METASTATIC CARCINOMA (0/1). B. SENTINEL LYMPH NODE, RIGHT PELVIC, EXCISION: - THREE LYMPH NODES NEGATIVE FOR METASTATIC CARCINOMA (0/3). C. 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 - BACKGROUND UTERUS WITH INACTIVE ENDOMETRIUM, LEIOMYOMA, AND ATROPHIC CERVIX. - BILATERAL FALLOPIAN TUBES WITH NO SIGNIFICANT HISTOPATHOLOGIC CHANGES. - BILATERAL OVARIES WITH NO SIGNIFICANT HISTOPATHOLOGIC CHANGES. D. OMENTUM, OMENTECTOMY: - MATURE ADIPOSE TISSUE, NEGATIVE FOR METASTATIC CARCINOMA. at 1555 Comment Per outside pathology report, MMR is intact ([facility] case [id number]). HER2 testing is pending with results to follow. Synoptic Checklist ENDOMETRIUM 8th Edition - Protocol posted: 09/16/2022ENDOMETRIUM - All Specimens SPECIMEN Procedure Total hysterectomy and bilateral salpingo-oophorectomy Omentectomy Peritoneal washing TUMOR Tumor Site Endometrial polyp Histologic Type Serous carcinoma Myometrial Invasion Present Depth of Myometrial Invasion 1 mm Myometrial Thickness 12 mm Percentage of Myometrial Invasion Estimated to be less than 50% Adenomyosis Not identified Uterine Serosa Involvement Not identified Lower Uterine Segment Involvement Not identified Cervical Stromal Involvement Not identified Other Tissue / Organ Involvement Not applicable Peritoneal / Ascitic Fluid Malignant cells not identified Lymphatic and / or Vascular Invasion Not identified REGIONAL LYMPH NODES Regional Lymph Node Status All regional lymph nodes negative for tumor cells Lymph Nodes Examined Total Number of Pelvic Nodes Examined 4 Number of Pelvic [place] Nodes Examined 4 Total Number of Para-aortic Nodes Examined 0 pTNM CLASSIFICATION (AJCC 8th Edition) Reporting of pT, pN, and (when applicable) pM categories is based on information available to the pathologist at the time the report is issued. As per the AJCC (Chapter 1, 8th Ed.) it is the managing physician s responsibility to establish the final pathologic stage based upon all pertinent information, including but potentially not limited to this pathology report. 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 Proficient mismatch repair protein, HER2 negative. CA125 was normal. A CT of the chest, abdomen and pelvis showed a 1.6 x 1.2 cm well-defined hypodensity in the anterior aspect of the left lobe of the liver that was not a typical cyst. It was essentially unchanged from prior examination. Additionally, there was a 1.3 x 0.7 cm focal area of enhancement in the inferior lateral aspect of the right lobe of the liver. Ultrasound was recommended for further evaluation. Interval History Since her surgery she has been doing well and is without complaints. She denies fevers, chills, nausea, vomiting,bowel or bladder dysfunction. Pain is well controlled. No drainage from incisions. No abnormal vaginal bleeding or discharge. 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 Encephalopathy Hypertension Hypothyroid Meniere's disease Meningioma (HCC) Osteoporosis Pneumonia Seizure (HCC) Past Surgical History: Procedure Laterality Date COLONOSCOPY 2014 CRANIOTOMY 2019 IR INTERVENTION FILTER PLACEMENT IVC FILTER REMOVAL (HISTORICAL) Social History Tobacco Use Smoking status: Never Smokeless tobacco: Never Vaping Use Vaping Use: Never used Substance Use Topics Alcohol use: Never Drug use: Never Family History Problem Relation Name Age of Onset Hypertension Mother Coronary artery disease Father Current Outpatient Medications on File Prior to Visit Medication Sig Dispense Refill amLODIPine (Norvasc) 10 MG tablet Take by mouth daily. calcium carbonate (Os-King) 1250 (500 Ca) MG tablet Take by mouth daily. Denosumab (PROLIA SC) Inject 1 Dose under the skin every 6 (six) months. Due in April doxycycline (Adoxa) 100 MG tablet Take 100 mg by mouth daily. Take with a full glass of water and do not lie down for at least 30 minutes after gabapentin (Neurontin) 100 MG capsule Take by mouth as needed. levETIRAcetam (Keppra) 500 MG tablet Take by mouth. levothyroxine (Synthroid, Levoxyl) 50 MCG tablet Take by mouth every morning (before breakfast). losartan-hydroCHLOROthiazide (Hyzaar) 100-25 MG tablet Take 1 tablet by mouth daily. multivitamin (Theragran) tablet Take 1 tablet by mouth daily. senna-docusate sodium (Senokot-S) 8.6-50 MG tablet Take 1 tablet by mouth daily. 30 tablet 11 apixaban (Eliquis) 2.5 MG tablet Take 1 tablet (2.5 mg) by mouth 2 times daily for 14 days. 28 tablet 0 No current facility-administered medications on file prior to visit. Allergies Allergen Reactions Lisinopril Other Developed cough Ceftriaxone Rash Cephalexin Rash Review of Systems: A 12 point review of systems was performed and is as per the history of the present illness, all other systems were reviewed and are negative. Vitals: 03/10/24 1519 BP: (!) 144/79 Pulse: 75 Body mass index is 23.24 kg/m . Physical Exam Vitals reviewed. Constitutional: General: She is not in acute distress. Appearance: Normal appearance. She is not ill-appearing, toxic-appearing or diaphoretic. HENT: Head: Normocephalic and atraumatic. Eyes: General: No scleral icterus. Extraocular Movements: Extraocular movements intact. Cardiovascular: Rate and Rhythm: Normal rate. Pulmonary: Effort: Pulmonary effort is normal. No respiratory distress. Abdominal: General: There is no distension. Palpations: Abdomen is soft. There is no mass. Tenderness: There is no abdominal tenderness. There is no guarding or rebound. Comments: Incisions healing well without erythema, warmth, induration, drainage. Genitourinary: Comments: .Uterus, cervix, bilateral adnexa surgically absent. No lesions or nodularity of the vaginal cuff, posterior cul-de-sac or rectovaginal vault. Vaginal cuff well intact. No discharge or bleeding noted. Musculoskeletal: General: Normal range of motion. Right lower leg: No edema. Left lower leg: No edema. Skin: General: Skin is warm and dry. Coloration: Skin is not jaundiced or pale. Neurological: General: No focal deficit present. Mental Status: She is alert. Motor: No weakness. Coordination: Coordination normal. Psychiatric: Mood and Affect: Mood normal. Behavior: Behavior normal. Assessment/Plan: Diagnosis Plan 1. Post-operative state 2. Papillary serous endometrial adenocarcinoma (HCC) CA 125 CA 125 Xi Au is a 73 y.o. 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 We discussed NCCN guidelines which would include vaginal brachytherapy plus or minus systemic therapy versus observation. The risks and benefits of each option were discussed. The patient is not interested in adjuvant treatment. We discussed routine surveillance of disease per the NCCN guidelines with history and physical examination every 3-6 months for the first 2 years followed by every 6-12 months for years 3 through 5. We discussed the imaging will be obtained on an as-needed basis, based upon history and physical exam findings. The signs and symptoms of recurrence were reviewed and the patient will contact our office in the interim should any of these arise. Doing well from a post-operative standpoint. Post-operative instructions reviewed. Patient was given a copy of the pathology report for her records. Follow up in 3 months for surveillance visit. The patient had an opportunity to ask questions, all of which were answered to the best of my ability. She is in agreement with the above noted plan. Disclaimer: This note was dictated by speech recognition. 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 documented in this encounter [facility] 03-10-2024 History of Presen t illness Narrative Chief Complaint Patient presents with Post-op Visit Pt has no concerns. History of the Present Illness: Xi Au is a 73 y.o. who presents to the office for post-operative evaluation. She underwent robotic endometrial cancer staging on 01/16/2021 and final pathology showed: Final Diagnosis A. SENTINEL LYMPH NODE, LEFT PELVIC, EXCISION: - ONE LYMPH NODE NEGATIVE FOR METASTATIC CARCINOMA (0/1). B. SENTINEL LYMPH NODE, RIGHT PELVIC, EXCISION: - THREE LYMPH NODES NEGATIVE FOR METASTATIC CARCINOMA (0/3). C. 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 - BACKGROUND UTERUS WITH INACTIVE ENDOMETRIUM, LEIOMYOMA, AND ATROPHIC CERVIX. - BILATERAL FALLOPIAN TUBES WITH NO SIGNIFICANT HISTOPATHOLOGIC CHANGES. - BILATERAL OVARIES WITH NO SIGNIFICANT HISTOPATHOLOGIC CHANGES. D. OMENTUM, OMENTECTOMY: - MATURE ADIPOSE TISSUE, NEGATIVE FOR METASTATIC CARCINOMA. at 1555 Comment Per outside pathology report, MMR is intact ([facility] ). HER2 testing is pending with results to follow. Synoptic Checklist ENDOMETRIUM 8th Edition - Protocol posted: 09/16/2022ENDOMETRIUM - All Specimens SPECIMEN Procedure Total hysterectomy and bilateral salpingo-oophorectomy Omentectomy Peritoneal washing TUMOR Tumor Site Endometrial polyp Histologic Type Serous carcinoma Myometrial Invasion Present Depth of Myometrial Invasion 1 mm Myometrial Thickness 12 mm Percentage of Myometrial Invasion Estimated to be less than 50% Adenomyosis Not identified Uterine Serosa Involvement Not identified Lower Uterine Segment Involvement Not identified Cervical Stromal Involvement Not identified Other Tissue / Organ Involvement Not applicable Peritoneal / Ascitic Fluid Malignant cells not identified Lymphatic and / or Vascular Invasion Not identified REGIONAL LYMPH NODES Regional Lymph Node Status All regional lymph nodes negative for tumor cells Lymph Nodes Examined Total Number of Pelvic Nodes Examined 4 Number of Pelvic [place] Nodes Examined 4 Total Number of Para-aortic Nodes Examined 0 pTNM CLASSIFICATION (AJCC 8th Edition) Reporting of pT, pN, and (when applicable) pM categories is based on information available to the pathologist at the time the report is issued. As per the AJCC (Chapter 1, 8th Ed.) it is the managing physician s responsibility to establish the final pathologic stage based upon all pertinent information, including but potentially not limited to this pathology report. 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 Proficient mismatch repair protein, HER2 negative. CA125 was normal. A CT of the chest, abdomen and pelvis showed a 1.6 x 1.2 cm well-defined hypodensity in the anterior aspect of the left lobe of the liver that was not a typical cyst. It was essentially unchanged from prior examination. Additionally, there was a 1.3 x 0.7 cm focal area of enhancement in the inferior lateral aspect of the right lobe of the liver. Ultrasound was recommended for further evaluation. Interval History Since her surgery she has been doing well and is without complaints. She denies fevers, chills, nausea, vomiting,bowel or bladder dysfunction. Pain is well controlled. No drainage from incisions. No abnormal vaginal bleeding or discharge. 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 Encephalopathy Hypertension Hypothyroid Meniere's disease Meningioma (HCC) Osteoporosis Pneumonia Seizure (HCC) Past Surgical History: Procedure Laterality Date COLONOSCOPY 2015 CRANIOTOMY 2019 IR INTERVENTION FILTER PLACEMENT IVC FILTER REMOVAL (HISTORICAL) Social History Tobacco Use Smoking status: Never Smokeless tobacco: Never Vaping Use Vaping Use: Never used Substance Use Topics Alcohol use: Never Drug use: Never Family History Problem Relation Name Age of Onset Hypertension Mother Coronary artery disease Father Current Outpatient Medications on File Prior to Visit Medication Sig Dispense Refill amLODIPine (Norvasc) 10 MG tablet Take by mouth daily. calcium carbonate (Os-King) 1250 (500 Ca) MG tablet Take by mouth daily. Denosumab (PROLIA SC) Inject 1 Dose under the skin every 6 (six) months. Due in April doxycycline (Adoxa) 100 MG tablet Take 100 mg by mouth daily. Take with a full glass of water and do not lie down for at least 30 minutes after gabapentin (Neurontin) 100 MG capsule Take by mouth as needed. levETIRAcetam (Keppra) 500 MG tablet Take by mouth. levothyroxine (Synthroid, Levoxyl) 50 MCG tablet Take by mouth every morning (before breakfast). losartan-hydroCHLOROthiazide (Hyzaar) 100-25 MG tablet Take 1 tablet by mouth daily. multivitamin (Theragran) tablet Take 1 tablet by mouth daily. senna-docusate sodium (Senokot-S) 8.6-50 MG tablet Take 1 tablet by mouth daily. 30 tablet 11 apixaban (Eliquis) 2.5 MG tablet Take 1 tablet (2.5 mg) by mouth 2 times daily for 14 days. 28 tablet 0 No current facility-administered medications on file prior to visit. Allergies Allergen Reactions Lisinopril Other Developed cough Ceftriaxone Rash Cephalexin Rash Review of Systems: A 12 point review of systems was performed and is as per the history of the present illness, all other systems were reviewed and are negative. Vitals: 03/10/24 1519 BP: (!) 144/79 Pulse: 75 Body mass index is 23.24 kg/m . Physical Exam Vitals reviewed. Constitutional: General: She is not in acute distress. Appearance: Normal appearance. She is not ill-appearing, toxic-appearing or diaphoretic. HENT: Head: Normocephalic and atraumatic. Eyes: General: No scleral icterus. Extraocular Movements: Extraocular movements intact. Cardiovascular: Rate and Rhythm: Normal rate. Pulmonary: Effort: Pulmonary effort is normal. No respiratory distress. Abdominal: General: There is no distension. Palpations: Abdomen is soft. There is no mass. Tenderness: There is no abdominal tenderness. There is no guarding or rebound. Comments: Incisions healing well without erythema, warmth, induration, drainage. Genitourinary: Comments: .Uterus, cervix, bilateral adnexa surgically absent. No lesions or nodularity of the vaginal cuff, posterior cul-de-sac or rectovaginal vault. Vaginal cuff well intact. No discharge or bleeding noted. Musculoskeletal: General: Normal range of motion. Right lower leg: No edema. Left lower leg: No edema. Skin: General: Skin is warm and dry. Coloration: Skin is not jaundiced or pale. Neurological: General: No focal deficit present. Mental Status: She is alert. Motor: No weakness. Coordination: Coordination normal. Psychiatric: Mood and Affect: Mood normal. Behavior: Behavior normal. Assessment/Plan: Diagnosis Plan 1. Post-operative state 2. Papillary serous endometrial adenocarcinoma (HCC) CA 125 CA 125 Xi Au is a 73 y.o. 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 We discussed NCCN guidelines which would include vaginal brachytherapy plus or minus systemic therapy versus observation. The risks and benefits of each option were discussed. The patient is not interested in adjuvant treatment. CA 125 every 3 months. We discussed routine surveillance of disease per the NCCN guidelines with history and physical examination every 3-6 months for the first 2 years followed by every 6-12 months for years 3 through 5. We discussed the imaging will be obtained on an as-needed basis, based upon history and physical exam findings. The signs and symptoms of recurrence were reviewed and the patient will contact our office in the interim should any of these arise. Doing well from a post-operative standpoint. Post-operative instructions reviewed. Patient was given a copy of the pathology report for her records. Follow up in 3 months for surveillance visit. The patient had an opportunity to ask questions, all of which were answered to the best of my ability. She is in agreement with the above noted plan. Disclaimer: This note was dictated by speech recognition. 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 documented in this encounter [facility] 02-15-2024 Telephone encounter Note Called patient with ultrasound results. I did inform patient that we will repeat a liver ultrasound in 6 months time. Also I will send to Dr. Prakash to review. Patient verbalizes understanding. [facility] 02-15-2024 Miscellaneous Notes Called patient with ultrasound results. I did inform patient that we will repeat a liver ultrasound in 6 months time. Also I will send to Dr. Prakash to review. Patient verbalizes understanding. documented in this encounter [facility] 02-04-2024 History of Presen t illness Narrative Chief Complaint Patient presents with Post-op No concerns History of the Present Illness: Xi Au is a 73 y.o. who presents to the office for post-operative evaluation. She underwent robotic endometrial cancer staging on 01/16/2021 and final pathology showed: Final Diagnosis A. SENTINEL LYMPH NODE, LEFT PELVIC, EXCISION: - ONE LYMPH NODE NEGATIVE FOR METASTATIC CARCINOMA (0/1). B. SENTINEL LYMPH NODE, RIGHT PELVIC, EXCISION: - THREE LYMPH NODES NEGATIVE FOR METASTATIC CARCINOMA (0/3). C. 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 - BACKGROUND UTERUS WITH INACTIVE ENDOMETRIUM, LEIOMYOMA, AND ATROPHIC CERVIX. - BILATERAL FALLOPIAN TUBES WITH NO SIGNIFICANT HISTOPATHOLOGIC CHANGES. - BILATERAL OVARIES WITH NO SIGNIFICANT HISTOPATHOLOGIC CHANGES. D. OMENTUM, OMENTECTOMY: - MATURE ADIPOSE TISSUE, NEGATIVE FOR METASTATIC CARCINOMA. at 1555 Comment Per outside pathology report, MMR is intact ([facility] case [id number]). HER2 testing is pending with results to follow. Synoptic Checklist ENDOMETRIUM 8th Edition - Protocol posted: 09/16/2022ENDOMETRIUM - All Specimens SPECIMEN Procedure Total hysterectomy and bilateral salpingo-oophorectomy Omentectomy Peritoneal washing TUMOR Tumor Site Endometrial polyp Histologic Type Serous carcinoma Myometrial Invasion Present Depth of Myometrial Invasion 1 mm Myometrial Thickness 12 mm Percentage of Myometrial Invasion Estimated to be less than 50% Adenomyosis Not identified Uterine Serosa Involvement Not identified Lower Uterine Segment Involvement Not identified Cervical Stromal Involvement Not identified Other Tissue / Organ Involvement Not applicable Peritoneal / Ascitic Fluid Malignant cells not identified Lymphatic and / or Vascular Invasion Not identified REGIONAL LYMPH NODES Regional Lymph Node Status All regional lymph nodes negative for tumor cells Lymph Nodes Examined Total Number of Pelvic Nodes Examined 4 Number of Pelvic [place] Nodes Examined 4 Total Number of Para-aortic Nodes Examined 0 pTNM CLASSIFICATION (AJCC 8th Edition) Reporting of pT, pN, and (when applicable) pM categories is based on information available to the pathologist at the time the report is issued. As per the AJCC (Chapter 1, 8th Ed.) it is the managing physician s responsibility to establish the final pathologic stage based upon all pertinent information, including but potentially not limited to this pathology report. 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 Proficient mismatch repair protein, HER2 negative. CA125 was normal. A CT of the chest, abdomen and pelvis showed a 1.6 x 1.2 cm well-defined hypodensity in the anterior aspect of the left lobe of the liver that was not a typical cyst. It was essentially unchanged from prior examination. Additionally, there was a 1.3 x 0.7 cm focal area of enhancement in the inferior lateral aspect of the right lobe of the liver. Ultrasound was recommended for further evaluation. Since her surgery she has been doing well and is without complaints. She denies fevers, chills, nausea, vomiting,bowel or bladder dysfunction. Pain is well controlled. No drainage from incisions. No abnormal vaginal bleeding or discharge. 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 Encephalopathy Hypertension Hypothyroid Meniere's disease Meningioma (HCC) Osteoporosis Pneumonia Seizure (HCC) Past Surgical History: Procedure Laterality Date COLONOSCOPY 2015 CRANIOTOMY 2019 IR INTERVENTION FILTER PLACEMENT IVC FILTER REMOVAL (HISTORICAL) Social History Tobacco Use Smoking status: Never Smokeless tobacco: Never Vaping Use Vaping Use: Never used Substance Use Topics Alcohol use: Never Drug use: Never Family History Problem Relation Name Age of Onset Hypertension Mother Coronary artery disease Father Current Outpatient Medications on File Prior to Visit Medication Sig Dispense Refill [] acetaminophen (Tylenol Extra Strength) 500 MG tablet Take 2 tablets (1,000 mg) by mouth every 6 hours as needed for mild pain (1-3) for up to 10 days. 60 tablet 0 amLODIPine (Norvasc) 10 MG tablet Take by mouth daily. apixaban (Eliquis) 2.5 MG tablet Take 1 tablet (2.5 mg) by mouth 2 times daily for 14 days. 28 tablet 0 calcium carbonate (Os-King) 1250 (500 Ca) MG tablet Take by mouth daily. Denosumab (PROLIA SC) Inject 1 Dose under the skin every 6 (six) months. Due in April doxycycline (Adoxa) 100 MG tablet Take 100 mg by mouth daily. Take with a full glass of water and do not lie down for at least 30 minutes after gabapentin (Neurontin) 100 MG capsule Take by mouth as needed. levETIRAcetam (Keppra) 500 MG tablet Take by mouth. levothyroxine (Synthroid, Levoxyl) 50 MCG tablet Take by mouth every morning (before breakfast). losartan-hydroCHLOROthiazide (Hyzaar) 100-25 MG tablet Take 1 tablet by mouth daily. multivitamin (Theragran) tablet Take 1 tablet by mouth daily. senna-docusate sodium (Senokot-S) 8.6-50 MG tablet Take 1 tablet by mouth daily. 30 tablet 11 No current facility-administered medications on file prior to visit. Allergies Allergen Reactions Lisinopril Other Developed cough Ceftriaxone Rash Cephalexin Rash Review of Systems: A 12 point review of systems was performed and is as per the history of the present illness, all other systems were reviewed and are negative. Vitals: 02/04/24 1516 BP: 118/79 Pulse: 75 Body mass index is 24.94 kg/m . Physical Exam Vitals reviewed. Constitutional: General: She is not in acute distress. Appearance: Normal appearance. She is not ill-appearing, toxic-appearing or diaphoretic. HENT: Head: Normocephalic and atraumatic. Eyes: General: No scleral icterus. Extraocular Movements: Extraocular movements intact. Cardiovascular: Rate and Rhythm: Normal rate. Pulmonary: Effort: Pulmonary effort is normal. No respiratory distress. Abdominal: General: There is no distension. Palpations: Abdomen is soft. There is no mass. Tenderness: There is no abdominal tenderness. There is no guarding or rebound. Comments: Incisions healing well without erythema, warmth, induration, drainage. Genitourinary: Comments: Deferred Musculoskeletal: General: Normal range of motion. Right lower leg: No edema. Left lower leg: No edema. Skin: General: Skin is warm and dry. Coloration: Skin is not jaundiced or pale. Neurological: General: No focal deficit present. Mental Status: She is alert. Motor: No weakness. Coordination: Coordination normal. Psychiatric: Mood and Affect: Mood normal. Behavior: Behavior normal. Assessment/Plan: Diagnosis Plan 1. Postoperative state 2. Papillary serous endometrial adenocarcinoma (HCC) Xi Au is a 73 y.o. 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 We discussed NCCN guidelines which would include vaginal brachytherapy plus or minus systemic therapy versus observation. The risks and benefits of each option were discussed. The patient is not interested in adjuvant treatment. We discussed routine surveillance of disease per the NCCN guidelines with history and physical examination every 3-6 months for the first 2 years followed by every 6-12 months for years 3 through 5. We discussed the imaging will be obtained on an as-needed basis, based upon history and physical exam findings. The signs and symptoms of recurrence were reviewed and the patient will contact our office in the interim should any of these arise. Doing well from a post-operative standpoint. Post-operative instructions reviewed. Patient was given a copy of the pathology report for her records. Follow up in 4 weeks for vaginal cuff check. The patient had an opportunity to ask questions, all of which were answered to the best of my ability. She is in agreement with the above noted plan. Disclaimer: This note was dictated by speech recognition. 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 documented in this encounter [facility] 01-28-2024 Telephone encounter Note Called patient with CT scan results informed patient that we will do a follow-up ultrasound on her liver to further evaluate liver cyst. Patient verbalizes understanding [facility] 01-28-2024 Miscellaneous Notes Called patient with CT scan results informed patient that we will do a follow-up ultrasound on her liver to further evaluate liver cyst. Patient verbalizes understanding documented in this encounter [facility] 01-18-2024 Nurse Note Patient discharged home at this time. IV access discontinued no active lines or drains present. AVS discussed with patient at the bedside. Medications, activity, restrictions and follow up appointments reviewed. Educated on site care and s/s of infection. Patient received medication per med's to beds in house pharmacy. Pt transported via w/c to [facility] accompanied by . [facility] 01-18-2024 Nurse Note Patient discharged home at this time. IV access discontinued no active lines or drains present. AVS discussed with patient at the bedside. Medications, activity, restrictions and follow up appointments reviewed. Educated on site care and s/s of infection. Patient received medication per med's to beds in house pharmacy. Pt transported via w/c to [facility] accompanied by . documented in this encounter [facility] 01-18-2024 Hospital course Narrative Images from the original note were not included. Dispute Specialist Onc Discharge Summary Patient Name: Xi Au Patient : 1950 Primary Care Physician: Krista Delgado Admit Date: 01/17/2024 Attending Provider: Katya Skelton MD Principal Diagnosis: Endometrial papillary serous carcinoma Other Diagnosis: Uterine cancer (CMS/HCC) (HCC) [C55] Postoperative state [Z98.890] Patient Active Problem List Diagnosis Postoperative state Surgical Operations & Procedures: Robotic assisted total laparoscopic hysterectomy with bilateral salpingo-oophorectomy, sentinel lymph node biopsy, omentectomy, pelvic washings Consultations: NA Pertinent Findings & Procedures: Xi Au is a 73 y.o. female , admitted for postoperative care. She underwent the above procedure on 01/17/24. She met all postoperative milestones and deemed stable for discharge. Hospital course normal, discharged home. Due to history of DVT after a procedure, 2.5mg BID Eliquis ordered for 2 weeks postop. Follow up on 02/04/[address] Gorman. Discharge instructions reviewed and questions answered. Course of patient: normal Discharge to: Home Wound Care: keep wound clean and dry Recommendations on Discharge: Medications: Medication List START taking these medications acetaminophen 500 MG tablet Commonly known as: Tylenol Extra Strength Take 2 tablets (1,000 mg) by mouth every 6 hours as needed for mild pain (1-3) for up to 10 days. apixaban 2.5 MG tablet Commonly known as: Eliquis Take 1 tablet (2.5 mg) by mouth 2 times daily for 14 days. oxyCODONE 5 MG immediate release tablet Commonly known as: Roxicodone Take 1 tablet (5 mg) by mouth every 6 hours as needed for severe pain (7-10) for up to 5 days. senna-docusate sodium 8.6-50 MG tablet Commonly known as: Senokot-S Take 1 tablet by mouth daily. CONTINUE taking these medications amLODIPine 10 MG tablet Commonly known as: Norvasc calcium carbonate 1250 (500 Ca) MG tablet Commonly known as: Os-King doxycycline 100 MG tablet Commonly known as: Adoxa gabapentin 100 MG capsule Commonly known as: Neurontin levETIRAcetam 500 MG tablet Commonly known as: Keppra levothyroxine 50 MCG tablet Commonly known as: Synthroid, Levoxyl losartan-hydroCHLOROthiazide 100-25 MG tablet Commonly known as: Hyzaar multivitamin tablet PROLIA GA Where to Get Your Medications These medications were sent to [facility] [address] [place] [address] Hours: Wednesday to Wednesday 10 am to 6 pm acetaminophen 500 MG tablet apixaban 2.5 MG tablet oxyCODONE 5 MG immediate release tablet senna-docusate sodium 8.6-50 MG tablet Activity: activity as tolerated Diet: regular diet Follow up: 02/04/[address] Gorman Condition on discharge: good and stable Discharge Date: 01/18/24 Comments: Home care, Follow-up care, restrictions reviewed. EMMANUEL GARCIA 01/18/2024, 3:17 PM documented in this encounter [facility] 01-18-2024 Note Dispute Specialist Onc Discharge [place] mmary Patient Name: Xi Au Patient : 1950 Primary Care Physician: Krista Delgado Admit Date: 01/17/2024 Attending Provider: Katya Skelton MD Principal Diagnosis: Endometrial papillary serous carcinoma Other Diagnosis: Uterine cancer (CMS/HCC) (HCC) [C55] Postoperative state [Z98.890] Patient Active Problem List Diagnosis Postoperative state Surgical Operations & Procedures: Robotic assisted total laparoscopic hysterectomy with bilateral salpingo-oophorectomy, sentinel lymph node biopsy, omentectomy, pelvic washings Consultations: NA Pertinent Findings & Procedures: Xi Au is a 73 y.o. female , admitted for postoperative care. She underwent the above procedure on 01/17/24. She met all postoperative milestones and deemed stable for discharge. Hospital course normal, discharged home. Due to history of DVT after a procedure, 2.5mg BID Eliquis ordered for 2 weeks postop. Follow up on 02/04/[address] Gorman. Discharge instructions reviewed and questions answered. Course of patient: normal Discharge to: Home Wound Care: keep wound clean and dry Recommendations on Discharge: Medications: Medication List START taking these medications acetaminophen 500 MG tablet Commonly known as: Tylenol Extra Strength Take 2 tablets (1,000 mg) by mouth every 6 hours as needed for mild pain (1-3) for up to 10 days. apixaban 2.5 MG tablet Commonly known as: Eliquis Take 1 tablet (2.5 mg) by mouth 2 times daily for 14 days. oxyCODONE 5 MG immediate release tablet Commonly known as: Roxicodone Take 1 tablet (5 mg) by mouth every 6 hours as needed for severe pain (7-10) for up to 5 days. senna-docusate sodium 8.6-50 MG tablet Commonly known as: Senokot-S Take 1 tablet by mouth daily. CONTINUE taking these medications amLODIPine 10 MG tablet Commonly known as: Norvasc calcium carbonate 1250 (500 Ca) MG tablet Commonly known as: Os-King doxycycline 100 MG tablet Commonly known as: Adoxa gabapentin 100 MG capsule Commonly known as: Neurontin levETIRAcetam 500 MG tablet Commonly known as: Keppra levothyroxine 50 MCG tablet Commonly known as: Synthroid, Levoxyl losartan-hydroCHLOROthiazide 100-25 MG tablet Commonly known as: Hyzaar multivitamin tablet PROLIA SC Where to Get Your Medications These medications were sent to [facility] [address] [place] [address] Hours: Wednesday to Wednesday 10 am to 6 pm acetaminophen 500 MG tablet apixaban 2.5 MG tablet oxyCODONE 5 MG immediate release tablet senna-docusate sodium 8.6-50 MG tablet Activity: activity as tolerated Diet: regular diet Follow up: 02/04/[address] Gorman Condition on discharge: good and stable Discharge Date: 01/18/24 Comments: Home care, Follow-up care, restrictions reviewed. EMMANUEL GARCIA DO 01/18/2024, 3:17 PM [facility] 01-18-2024 Hospital Discharg e instructions Emmanuel Garcia DO - 01/18/2024 1:04 PM EDT Please follow your post operative care instructions given to you by your Financial Solutions Advisor Oncologist's office at your pre operative visit. Please call the office with questions or concerns and be sure to follow up at your scheduled post operative visit. The following attachments cannot be sent through Care Everywhere.Hysterectomy Discharge Instructions (Kazakh)documented in this encounter [facility] 01-18-2024 Note Formatting of this n ote might be different from the original. Care Managment Initial Assessment Date: 01/18/2024 Patient Name: Xi Au : 1950 Patient Information Source of Information: Patient Cognition/Language: WFL - Within Functional Limits Permission given to speak with patient residential sales representative/caregiver as indicated: Confirmation of Payer with patient/family: Yes Payer Name: Medicare A&B [place]: No Confirmation of Primary Care Physician: Confirmed PCP Name: Santana Delarosa Seen in last 2 years?: Yes Primary Caregiver: Self If assistance needed, confirmed caregiver ready, willing and able to care for patient at discharge: Yes Confirmed with: pt's spouseBrian Living Arrangements Current Residence: House Number of Floors 2 Number of Entry Steps: 2 Bed/Bath Levels: Both first floor Facility: Facility Name: Plan to Return: Lives with: Spouse/significant other Support Systems: Spouse/significant other, Family members, Friends/neighbors Activities of Daily Living Ambulation: Independent Bathing/Dressing: Independent Elimination/Continence/Toileting : Independent Feeding: Independent Who Assists with Activities of Daily Living: Instrumental Activities of Daily Living Prescription Coverage: Yes [facility]acy Used: [facility] Medication Management: Independent Transportation/Shopping: Independent Transportation Mode: Car Needs Assistance with Transportation at Discharge: No (spouse will transport) Meal Preparation: Independent Laundry/Cleaning: Independent Finances/Bill Paying: Independent Communication: Independent Types of Care Services/Equipment Utilized Care Services: Dialysis Type: Durable Medical Equipment: DME Provider: None Patient's Goal/Discharge Plan Patient expects to be discharged to: home with spouse Discharge Planning Actions: Patient's Choice Rights and [employer] and Collaborative Relationships Disclosed as Indicated for Post-Acute Care: Interdisciplinary Team Engagement: Social Work Referral for: Additional Information: 73 yo female assigned to post procedure recovery status for surgery 01/17/24: Total lap hysterectomy, bilateral salpingectomy and bilateral pelvic sentinal lymph node biopsy. Pt has been advanced to regular diet. Met with pt and her , Brian, at bedside. Explained role of tcc. Pt and spouse live in two story home. Pt is independent adls and uses no dme. She denies any dc needs from tcc. Anticipate dc to home later this afternoon if she remains medically stable. Marva Alonzo RN [facility] 01-18-2024 Note Formatting of this n ote might be different from the original. Care Managment Initial Assessment Date: 01/18/2024 Patient Name: Xi Au : 1950 Patient Information Source of Information: Patient Cognition/Language: WFL - Within Functional Limits Permission given to speak with patient residential sales representative/caregiver as indicated: Confirmation of Payer with patient/family: Yes Payer Name: Medicare A&B [place]: No Confirmation of Primary Care Physician: Confirmed PCP Name: Santana Delarosa Seen in last 2 years?: Yes Primary Caregiver: Self If assistance needed, confirmed caregiver ready, willing and able to care for patient at discharge: Yes Confirmed with: pt's spouseBrian Living Arrangements Current Residence: House Number of Floors 2 Number of Entry Steps: 2 Bed/Bath Levels: Both first floor Facility: Facility Name: Plan to Return: Lives with: Spouse/significant other Support Systems: Spouse/significant other, Family members, Friends/neighbors Activities of Daily Living Ambulation: Independent Bathing/Dressing: Independent Elimination/Continence/Toileting : Independent Feeding: Independent Who Assists with Activities of Daily Living: Instrumental Activities of Daily Living Prescription Coverage: Yes Pharmacy Used: [facility] Medication Management: Independent Transportation/Shopping: Independent Transportation Mode: Car Needs Assistance with Transportation at Discharge: No (spouse will transport) Meal Preparation: Independent Laundry/Cleaning: Independent Finances/Bill Paying: Independent Communication: Independent Types of Care Services/Equipment Utilized Care Services: Dialysis Type: Durable Medical Equipment: DME Provider: Abhilash Patient's Goal/Discharge Plan Patient expects to be discharged to: home with spouse Discharge Planning Actions: Patient's Choice Rights and [employer] and Collaborative Relationships Disclosed as Indicated for Post-Acute Care: Interdisciplinary Team Engagement: Social Work Referral for: Additional Information: 73 yo female assigned to post procedure recovery status for surgery 01/17/24: Total lap hysterectomy, bilateral salpingectomy and bilateral pelvic sentinal lymph node biopsy. Pt has been advanced to regular diet. Met with pt and her , Brian, at bedside. Explained role of tcc. Pt and spouse live in two story home. Pt is independent adls and uses no dme. She denies any dc needs from tcc. Anticipate dc to home later this afternoon if she remains medically stable. Marva Cheri, RN [facility] 01-18-2024 Miscellaneous Notes Care Managment Initial Assessment Date: 01/18/2024 Patient Name: Xi Au : 1950 Patient Information Source of Information: Patient Cognition/Language: WFL - Within Functional Limits Permission given to speak with patient residential sales representative/caregiver as indicated: Confirmation of Payer with patient/family: Yes Payer Name: Medicare A&B [place]: No Confirmation of Primary Care Physician: Confirmed PCP Name: Santana Delarosa Seen in last 2 years?: Yes Primary Caregiver: Self If assistance needed, confirmed caregiver ready, willing and able to care for patient at discharge: Yes Confirmed with: pt's spouseBrian Living Arrangements Current Residence: House Number of Floors 2 Number of Entry Steps: 2 Bed/Bath Levels: Both first floor Facility: Facility Name: Plan to Return: Lives with: Spouse/significant other Support Systems: Spouse/significant other, Family members, Friends/neighbors Activities of Daily Living Ambulation: Independent Bathing/Dressing: Independent Elimination/Continence/Toileting : Independent Feeding: Independent Who Assists with Activities of Daily Living: Instrumental Activities of Daily Living Prescription Coverage: Yes Pharmacy Used: [facility] Medication Management: Independent Transportation/Shopping: Independent Transportation Mode: Car Needs Assistance with Transportation at Discharge: No (spouse will transport) Meal Preparation: Independent Laundry/Cleaning: Independent Finances/Bill Paying: Independent Communication: Independent Types of Care Services/Equipment Utilized Care Services: Dialysis Type: Durable Medical Equipment: DME Provider: None Patient's Goal/Discharge Plan Patient expects to be discharged to: home with spouse Discharge Planning Actions: Patient's Choice Rights and [employer] and Collaborative Relationships Disclosed as Indicated for Post-Acute Care: Interdisciplinary Team Engagement: Social Work Referral for: Additional Information: 73 yo female assigned to post procedure recovery status for surgery 01/17/24: Total lap hysterectomy, bilateral salpingectomy and bilateral pelvic sentinal lymph node biopsy. Pt has been advanced to regular diet. Met with pt and her , Brian, at bedside. Explained role of tcc. Pt and spouse live in two story home. Pt is independent adls and uses no dme. She denies any dc needs from tcc. Anticipate dc to home later this afternoon if she remains medically stable. Marva Alonzo RN Problem: Pain - Adult Goal: Verbalizes/displays adequate comfort level or baseline comfort level Outcome: Progressing Problem: Safety - Adult Goal: Free from fall injury Outcome: Progressing Problem: Discharge Planning Goal: Discharge to home or other facility with appropriate resources Outcome: Progressing Patient arrived on unit. Name and date verified. Attached to monitors. Vital signs stable. 1725 - called report to [facility] on H5. Called family and updated with pt's status and room number Date: 01/17/2024 Location: [facility] OR Name: Xi Au, : 1950, Diagnosis Pre-op Diagnosis * Uterine cancer (CMS/HCC) (HCC) [C55] Post-op Diagnosis * Uterine cancer (CMS/HCC) (HCC) [C55] Procedures ROBOTIC ASSISTED TOTAL LAPAROSCOPIC HYSTERECTOMY, BILATERAL SALPINGO OOPHORECTOMY 04905 - ID LAPS TOTAL HYSTERECT 250 GM/< W/RMVL TUBE/OVARY BILATERAL PELVIC SENTINEL LYMPH NODE BIOPSY WITH INDOCYANINE GREEN DYE PROTOCOL 46342 - ID INJ RADIOACTIVE TRACER FOR ID OF SENTINEL NODE Bilateral sentinel lymphadenectomy Omental biopsy [place]w transverse colon Surgeons * Katya Skelton - Primary Procedure Summary Anesthesia: General ASA: III Estimated Blood Loss: Minimal Drains: Urethral Catheter Straight-tip 16 Fr. (Active) Staff: Field Technical Specialist: Maurice Fletcher RN Relief Scrub: Ciera Gonzalez Scrub Person: Serena Hughes RN [place] to Circ: Lauri Cordoba RN Findings: See dictated report Complications: None apparent; patient tolerated the procedure well. Specimens Collected: Order Name Source Comment Collection Info Order Time BASIC METABOLIC PANEL Blood, Venous Collected By: Madhavi Salguero RN 01/17/2024 12:13 PM HEMOGLOBIN AND HEMATOCRIT, BLOOD Blood, Venous Collected By: Madhavi Salguero RN 01/17/2024 12:13 PM PROTHROMBIN TIME If patient on coumadin within 4 days prior. 01/17/2024 12:13 PM BLOOD TYPE AND SCREEN GEL Blood, Venous HOLD. Specimen is valid for 3 days - nurse to verify valid specimen Collected By: Madhvai Salguero RN 01/17/2024 12:13 PM NON-GYNECOLOGIC CYTOLOGY Peritoneal Washings Collected By: Katya Skelton MD 01/17/2024 2:12 PM TISSUE EXAM Lymph Node Collected By: Katya Skelton MD 01/17/2024 2:27 PM Wound Class: Class II: Clean-Contaminated Blood Products: None Prophylactic Antibiotics: Procedure appropriate prophylactic antibiotic(s) given within 1 hour of surgical incision (two hours if receiving Vancomycin or flouroquinolone) documented in this encounter [facility] 01-18-2024 History of Presen t illness Narrative Images from the original note were not included. 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 female , POD #1 s/p RTLH-BSO, SLND, omentectomy, pelvic washings Patient seen and examined. She has no acute complaints. Pain is controlled. Patient is tolerating oral intake. She is urinating. She denies any vaginal bleeding. She is ambulating without difficulty. She is not passing flatus. She denies Fever/Chills, Chest Pain, SOB, N/V. Vitals: Vitals: 01/17/24 1730 01/17/24 1823 01/17/24 2102 01/18/24 0116 BP: 102/61 114/61 116/66 110/52 BP Location: Right arm Right arm Right arm Patient Position: Sitting Lying Sitting Pulse: 75 66 70 74 Resp: 15 20 20 Temp: 36.9 C (98.4 F) 36.5 C (97.7 F) 36.8 C (98.2 F) TempSrc: Temporal Temporal Temporal SpO2: 100% 96% 95% 93% Weight: Height: Intake/Output: Current Shift: I/O this shift: In: 400 [P.O.:400] Out: 650 [Urine:650] Physical Exam: Gen: NAD, alert and cooperative HEENT: Normocephalic, atraumatic Resp: Non-labored Abd: soft, NT/ND, no rebound, no guarding. Incisions: C/D/I Ext: No LE edema, no calf tenderness or swelling Medications: Current Facility-Administered Medications: acetaminophen (Tylenol) tablet 1,000 mg, 1,000 mg, Oral, q8h, Emmanuel Garcia DO, 1,000 mg at 01/18/24 0159 amLODIPine (Norvasc) tablet 10 mg, 10 mg, Oral, Daily, Emmanuel Garcia DO apixaban (Eliquis) tablet 2.5 mg, 2.5 mg, Oral, BID, Daniela Moschella, gabapentin (Neurontin) capsule 100 mg, 100 mg, Oral, Daily PRN, Emmanuel Garcia DO ketorolac (Toradol) injection 30 mg, 30 mg, IntraVENous, q6h, Emmanuel Garcia DO, 30 mg at 01/18/24 0000 levETIRAcetam (Keppra) tablet 500 mg, 500 mg, Oral, Daily, Emmanuel Garcia DO levothyroxine (Synthroid, Levoxyl) tablet 50 mcg, 50 mcg, Oral, qAM AC, Emmanuel Garcia DO ondansetron ODT (Zofran-ODT) disintegrating tablet 4 mg, 4 mg, Oral, q8h PRN OR ondansetron (Zofran) injection 4 mg, 4 mg, IntraVENous, q6h PRN, Emmanuel Garcia DO oxyCODONE (Roxicodone) immediate release tablet 5 mg, 5 mg, Oral, q4h PRN OR oxyCODONE (Roxicodone) immediate release tablet 10 mg, 10 mg, Oral, q4h PRN, Emmnauel Garcia, polyethylene glycol (PEG) 3350 (Miralax) packet 17 g, 17 g, Oral, Daily PRN, Emmanuel Garcia DO prochlorperazine (Compazine) tablet 10 mg, 10 mg, Oral, q6h PRN OR prochlorperazine (Compazine) injection 10 mg, 10 mg, IntraVENous, q6h PRN, 10 mg at 01/17/241942 OR prochlorperazine (Compazine) suppository 25 mg, 25 mg, Rectal, q12h PRN, Daniela Samaniego, sodium chloride 0.9 % infusion, 5-250 mL/hr, IntraVENous, PRN, Emmanuel Garcia, sodium chloride 0.9% (NS) flush 10 mL, 10 mL, IntraVENous, 2 times per day, Emmanuel Garcia DO, 10 mL at 01/17/242005 sodium chloride 0.9% (NS) flush 10 mL, 10 mL, IntraVENous, PRN, Emmanuel Garcia DO Diagnostics: ECG 12 lead Result Date: 01/17/2024 Sinus rhythm Labs: Admission on 01/17/2024 Component Date Value Ref Range Status SODIUM 01/17/2024 141 135 - 145 mmol/L Final POTASSIUM 01/17/2024 3.7 3.5 - 5.1 mmol/L Final CHLORIDE 01/17/2024 109 (H) 98 - 107 mmol/L Final CARBON DIOXIDE 01/17/2024 25 22 - 30 mmol/L Final UREA NITROGEN 01/17/2024 12 7 - 17 mg/dL Final CREATININE 01/17/2024 0.70 0.52 - 1.04 mg/dL Final GLUCOSE 01/17/2024 87 70 - 100 mg/dL Final CALCIUM 01/17/2024 9.2 8.4 - 10.4 mg/dL Final ANION GAP 01/17/2024 8 3 - 13 mmol/L Final eGFR 01/17/2024 >90.0 >60.0 mL/min/1.73m*2 Final Calculation based on the Chronic Kidney Disease Epidemiology Collaboration (CKD-EPI) equation refit without adjustment for race Hemoglobin 01/17/2024 12.9 11.7 - 16.0 g/dL Final Hematocrit 01/17/2024 37.2 35.0 - 47.0 % Final Heart Rate 01/17/2024 79 bpm Final QRSD Interval 01/17/2024 83 ms Final QT Interval 01/17/2024 378 ms Final QTC Interval 01/17/2024 434 ms Final P [place] 01/17/2024 47 degrees Final QRS [place] 01/17/2024 12 degrees Final T Wave [place] 01/17/2024 57 degrees Final ID Interval 01/17/2024 130 ms Final ABO Grouping 01/17/2024 O Final Antibody Screen 01/17/2024 NEG Final Rh Type 01/17/2024 POS Final ABO Grouping 01/17/2024 O Final Rh Type 01/17/2024 POS Final Auto WBC 01/18/2024 6.7 3.6 - 10.7 10*3/uL Final RBC 01/18/2024 4.02 3.80 - 5.20 10*6/uL Final Hemoglobin 01/18/2024 12.2 11.7 - 16.0 g/dL Final Hematocrit 01/18/2024 35.1 35.0 - 47.0 % Final MCV 01/18/2024 87.3 77.0 - 99.0 fL Final MCH 01/18/2024 30.3 26.0 - 34.0 pg Final MCHC 01/18/2024 34.8 30.5 - 36.0 % Final RDW 01/18/2024 13.2 11.5 - 15.0 % Final Platelets 01/18/2024 216 140 - 440 10*3/uL Final MPV 01/18/2024 10.2 9.0 - 12.7 fL Final Assessment/Plan: Xi Au 73 y.o. 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 EMMANUEL JOSE, 01/18/2024, 5:02 AM Associated attestation - Katya Skelton MD - 01/18/2024 5:32 PM EDT Attending Supervising Physician's Attestation Statement I performed a history and physical examination on the patient and discussed the management with the resident physician. I reviewed and agree with the findings and plan as documented in her note. Meeting all postoperative goals. Stable for discharge to home. Postoperative instructions reviewed. Patient will go home on 2 weeks of venous thromboembolism prophylaxis with prophylactic Eliquis given her history of previous postoperative DVT. Chart review completed in order to place pre operative orders for anesthesia. EKG: No results found for this or any previous visit. ECHO and EF: No results found for this or any previous visit. Labs: No results found for: WBC, HGB, HCT, MCV, PLT No results found for: NA, K, CL, CO2, BUN, CREATININE, GLUCOSE, CALCIUM, PROT, BILITOT, ALKPHOS, AST, ALT, LABGLOM, AGRATIO, GLOB Past Medical History: 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 Encephalopathy Hypertension Hypothyroid Meniere's disease Meningioma (HCC) Osteoporosis Pneumonia Seizure (HCC) Past Surgical History: Past Surgical History: Procedure Laterality Date COLONOSCOPY 2015 CRANIOTOMY 2019 IR INTERVENTION FILTER PLACEMENT IVC FILTER REMOVAL (HISTORICAL) Medications Prior to Admission: Prior to Admission medications Medication Sig Start Date End Date Taking? Authorizing Provider amLODIPine (Norvasc) 10 MG tablet Take by mouth daily. Historical Provider, Denosumab (PROLIA SC) Inject 1 Dose under the skin every 6 (six) months. Due in April Historical Provider, doxycycline (Adoxa) 100 MG tablet Take 100 mg by mouth daily. Take with a full glass of water and do not lie down for at least 30 minutes after Historical Provider, gabapentin (Neurontin) 100 MG capsule Take by mouth as needed. Historical Provider, levETIRAcetam (Keppra) 500 MG tablet Take by mouth. Historical Provider, levothyroxine (Synthroid, Levoxyl) 50 MCG tablet Take by mouth every morning (before breakfast). Historical Provider, losartan-hydroCHLOROthiazide (Hyzaar) 100-25 MG tablet Take 1 tablet by mouth daily. Historical Provider, multivitamin (Theragran) tablet Take 1 tablet by mouth daily. Historical Provider, acetaminophen (Tylenol) 325 MG capsule Take by mouth every 6 hours as needed for mild pain (1-3). 01/14/24 Historical Provider, alendronate (Fosamax) 70 MG tablet Take 70 mg by mouth every 7 days. Take in the morning with a full glass of water, on an empty stomach, and do not take anything else by mouth or lie down for the next 30 min. 01/13/24 Historical Provider, LACTOBACILLUS PO Take by mouth. 01/14/24 Historical Provider, phenytoin ER (Dilantin) 100 MG capsule Take 100 mg by mouth 3 times daily. 01/14/24 Historical Provider, Allergies: Lisinopril, Ceftriaxone, and Cephalexin Social History: TOBACCO: reports that she has never smoked. She has never used smokeless tobacco. ETOH: reports no history of alcohol use. Social History Substance and Sexual Activity Drug Use Never Family History: Family History Problem Relation Name Age of Onset Hypertension Mother Coronary artery disease Father documented in this encounter [facility] 01-17-2024 Plan of care note Problem: Pain - Adult Goal: Verbalizes/displays adequate comfort level or baseline comfort level Outcome: Progressing Problem: Safety - Adult Goal: Free from fall injury Outcome: Progressing Problem: Discharge Planning Goal: Discharge to home or other facility with appropriate resources Outcome: Progressing [facility] 01-17-2024 Note Patient: Xi deutsch Procedure Summary Date: 01/17/24 Room / Location: [address] Operating Room Anesthesia Start: 1344 Anesthesia Stop: 1605 Procedures: ROBOTIC ASSISTED TOTAL LAPAROSCOPIC HYSTERECTOMY, BILATERAL SALPINGO OOPHORECTOMY (Bilateral: Abdomen) BILATERAL PELVIC SENTINEL LYMPH NODE BIOPSY WITH INDOCYANINE GREEN DYE PROTOCOL (Bilateral) ENDOMETRIAL BIOPSY Diagnosis: Uterine cancer (CMS/HCC) (HCC) Surgeons: Katya Skelton MD Responsible Provider: Scott Renee MD Anesthesia Type: general, regional ASA Status: 3 Anesthesia Type: general, regional Vitals Value Taken Time BP 92/75 01/17/24 1630 Temp 36.2 ?C (97.1 ?F) 01/17/24 1603 Pulse 73 01/17/24 1644 Resp 16 01/17/24 1603 SpO2 91 % 01/17/24 1644 Vitals shown include unfiled device data. Anesthesia Post Evaluation Patient location during evaluation: PACU Patient participation: complete - patient participated Level of consciousness: awake and alert Pain management: satisfactory to patient Airway patency: patent Dental Injury: no Cardiovascular status: acceptable, blood pressure returned to baseline and hemodynamically stable Respiratory status: acceptable and spontaneous ventilation Hydration status: euvolemic Nausea/Vomiting: controlled No notable events documented. Patient can be discharged once all PACU criteria has been met. [facility] 01-17-2024 Note Patient: Xi deutsch Procedure Summary Date: 01/17/24 Room / Location: [address] Operating Room Anesthesia Start: 1344 Anesthesia Stop: 1605 Procedures: ROBOTIC ASSISTED TOTAL LAPAROSCOPIC HYSTERECTOMY, BILATERAL SALPINGO OOPHORECTOMY (Bilateral: Abdomen) BILATERAL PELVIC SENTINEL LYMPH NODE BIOPSY WITH INDOCYANINE GREEN DYE PROTOCOL (Bilateral) ENDOMETRIAL BIOPSY Diagnosis: Uterine cancer (CMS/HCC) (HCC) Surgeons: Katya Skelton MD Responsible Provider: Scott Renee MD Anesthesia Type: general, regional ASA Status: 3 Anesthesia Type: general, regional Vitals Value Taken Time BP 92/75 01/17/24 1630 Temp 36.2 ?C (97.1 ?F) 01/17/24 1603 Pulse 73 01/17/24 1643 Resp 16 01/17/24 1603 SpO2 92 % 01/17/24 1643 Vitals shown include unfiled device data. Anesthesia Post Evaluation Patient location during evaluation: PACU Patient participation: complete - patient participated Level of consciousness: awake and alert Pain management: satisfactory to patient Multimodal analgesia pain management approach Airway patency: patent Two or more strategies used to mitigate risk of obstructive sleep apnea Cardiovascular status: acceptable and hemodynamically stable Respiratory status: acceptable Hydration status: acceptable No notable events documented. MIPS #430 PONV Patient received an inhalational anesthetic (4554F) Patient exhibits three or more risk factors for PONV (4556F) Patient received at leaset 2 prophylactic Rx PONV anti-emtic agents of different classes preop and/or intraop (G9775) MIPS # 424 Perioperative Temperature Management Anesthesia time was 60 minutes or longer (4255F) Anesthesai administered was General (inhalational or TIVA) or Neuraxial block (X0424) At least one body temperature greater than 95.8F/35.5C achieved within the 30 mins immediately prior to or the 15 minutes immediately following anesthesia end time (G9771) MIPS #477 Multimodal Pain Management Not emergent case Patient was administered multimodal pain management (two or more drugs and/or interventions excluding systemic opioids) in the periopeartive period occurring at some time between 6 hours prior to anesthesia start time until discharged from PACU (G2148) MIPS #404 Anesthesiology Smoking Abstinence The patient is not a current smoker (e.g. cigarette, cigar, pipe, e-cigarette/vaping/marijuana) If no stop here (XX404) I completed my handoff to the receiving clinician during which we: 1. Identified the patient 2. Identified the responsible provider 3. Reviewed the pertinent medical history 4. Discussed the surgical course 5. Reviewed intra-op anesthesia management and issues during anesthesia 6. Set expectations for post-procedure period 7. Allowed opportunity for questions and acknowledgement of understanding. [facility] 01-17-2024 Note Formatting of this n ote might be different from the original. Patient arrived on unit. Name and date verified. Attached to monitors. Vital signs stable. 1725 - called report to Esme on H5. Called family and updated with pt's status and room number [facility] 01-17-2024 Note Formatting of this n ote might be different from the original. Patient arrived on unit. Name and date verified. Attached to monitors. Vital signs stable. 1725 - called report to Esme on H5. Called family and updated with pt's status and room number [facility] 01-17-2024 Note Airway Date/Time: 01/17/2024 1:52 PM Urgency: scheduled Airway not difficult General Information and Staff Patient location during procedure: Procedural Resident/MAKING MACHINE OPERATOR: Joey Cancino CRNA Performed: MAKING MACHINE OPERATOR Indications and Patient Condition Indications for airway management: anesthesia and airway protection Sedation level: Asleep Preoxygenated: yes Patient position: sniffing Mask difficulty assessment: 1 - vent by mask Final Airway Details Final airway type: endotracheal airway Successful airway: ETT Cuffed: yes Successful intubation technique: direct laryngoscopy Facilitating devices/methods: intubating stylet Endotracheal tube insertion site: oral Blade: Maria Luz Blade size: #3 ETT size (mm): 7.0 Cormack-Lehane Classification: grade I - full view of glottis Placement verified by: chest auscultation and capnometry Measured from: lips ETT to lips (cm): 21 Number of attempts at approach: 1 [facility] 01-17-2024 Note Peripheral Block Time Out: 01/17/2024 1:48 PM Patient location during procedure: Procedural Start time: 01/17/2024 1:48 PM End time: 01/17/2024 1:53 PM Reason for block: at surgeon's request and post-op pain management Staffing Performed: MAKING MACHINE OPERATOR Resident/MAKING MACHINE OPERATOR: KEKE Younger CRNA Preanesthetic Checklist Completed: patient identified, IV checked, site marked, risks and benefits discussed, surgical consent, monitors and equipment checked, pre-op evaluation and timeout performed Region: [place] Primary: TAP (Bupivacaine 0.375%/ Epi 1:200,000/ Dex 0.1mg/mL 40ml divided evenly bilateral) Secondary: Upper rectus (Bupivacaine 0.375%/ Epi 1:200,000/ Dex 0.1mg/mL 20ml divided evenly bilateral) Peripheral Block Patient position: supine Prep: ChloraPrep Patient monitoring: heart rate, monitor car operator, continuous pulse ox and continuous capnometry O2: ETT/LMA Laterality: bilateral Injection technique: single-shot Guidance: ultrasound guided -image retained in chart, tip of the needle identified by ultraound during injection. Needle Needle: 21G X 110 mm Additional Notes 01/17/2024 1:48 PM Assessment Injection assessment: negative aspiration for heme, no paresthesia on injection and incremental injection Heart rate change: no Slow fractionated injection: yes Required Documentation: Relevant anatomy identified (Nerves, Vessels, Muscles), Negative for blood on aspiration, Local anesthetic injected incrementally with intermittent aspiration every 5 mL, Normal resistance with injection, No EKG changes noted, No symptoms of toxicity, Local anesthetic spread visualized around nerves or plane. and Local anesthetic injected without difficultyMedications swuIYZAHewskk-kwnjwpkmyfo-gwdkch hrine (TAP) syringe - Injection 50 mL - 01/17/2024 1:48:00 PM [facility] 01-17-2024 Note Formatting of this n ote is different from the original. Date: 01/17/2024 Location: LOCATED WITHIN [facility] OR Name: Xi Au, : 1950, Diagnosis Pre-op Diagnosis * Uterine cancer (CMS/HCC) (HCC) [C55] Post-op Diagnosis * Uterine cancer (CMS/HCC) (HCC) [C55] Procedures ROBOTIC ASSISTED TOTAL LAPAROSCOPIC HYSTERECTOMY, BILATERAL SALPINGO OOPHORECTOMY 42913 - ID LAPS TOTAL HYSTERECT 250 GM/< W/RMVL TUBE/OVARY BILATERAL PELVIC SENTINEL LYMPH NODE BIOPSY WITH INDOCYANINE GREEN DYE PROTOCOL 23131 - ID INJ RADIOACTIVE TRACER FOR ID OF SENTINEL NODE Bilateral sentinel lymphadenectomy Omental biopsy Oversew transverse colon Surgeons * Katya Skelton - Primary Procedure Summary Anesthesia: General ASA: III Estimated Blood Loss: Minimal Drains: Urethral Catheter Straight-tip 16 Fr. (Active) Staff: Field Technical Specialist: Maurice Fletcher RN Relief Scrub: Ciera Gonzalez Scrub Person: Serena Hughes RN [place] to Circ: Lauri Cordoba RN Findings: See dictated report Complications: None apparent; patient tolerated the procedure well. Specimens Collected: Order Name Source Comment Collection Info Order Time BASIC METABOLIC PANEL Blood, Venous Collected By: Madhavi Salguero RN 01/17/2024 12:13 PM HEMOGLOBIN AND HEMATOCRIT, BLOOD Blood, Venous Collected By: Madhavi Salguero RN 01/17/2024 12:13 PM PROTHROMBIN TIME If patient on coumadin within 4 days prior. 01/17/2024 12:13 PM BLOOD TYPE AND SCREEN GEL Blood, Venous HOLD. Specimen is valid for 3 days - nurse to verify valid specimen Collected By: Madhavi Salguero RN 01/17/2024 12:13 PM NON-GYNECOLOGIC CYTOLOGY Peritoneal Washings Collected By: Katya Skelton MD 01/17/2024 2:12 PM TISSUE EXAM Lymph Node Collected By: Katya Skelton MD 01/17/2024 2:27 PM Wound Class: Class II: Clean-Contaminated Blood Products: None Prophylactic Antibiotics: Procedure appropriate prophylactic antibiotic(s) given within 1 hour of surgical incision (two hours if receiving Vancomycin or flouroquinolone) [facility] 01-17-2024 Note Formatting of this n ote is different from the original. Date: 01/17/2024 Location: LOCATED WITHIN [facility] OR Name: Xi Au, : 1950, Diagnosis Pre-op Diagnosis * Uterine cancer (CMS/HCC) (HCC) [C55] Post-op Diagnosis * Uterine cancer (CMS/HCC) (HCC) [C55] Procedures ROBOTIC ASSISTED TOTAL LAPAROSCOPIC HYSTERECTOMY, BILATERAL SALPINGO OOPHORECTOMY 42527 - ID LAPS TOTAL HYSTERECT 250 GM/< W/RMVL TUBE/OVARY BILATERAL PELVIC SENTINEL LYMPH NODE BIOPSY WITH INDOCYANINE GREEN DYE PROTOCOL 55682 - ID INJ RADIOACTIVE TRACER FOR ID OF SENTINEL NODE Bilateral sentinel lymphadenectomy Omental biopsy Oversew transverse colon Surgeons * Katya Skelton - Primary Procedure Summary Anesthesia: General ASA: III Estimated Blood Loss: Minimal Drains: Urethral Catheter Straight-tip 16 Fr. (Active) Staff: Field Technical Specialist: Maurice Fletcher RN Relief Scrub: Ciera Gonzalez Scrub Person: Serena Hughes RN [place] to Circ: Lauri Cordoba RN Findings: See dictated report Complications: None apparent; patient tolerated the procedure well. Specimens Collected: Order Name Source Comment Collection Info Order Time BASIC METABOLIC PANEL Blood, Venous Collected By: Madhavi Salguero RN 01/17/2024 12:13 PM HEMOGLOBIN AND HEMATOCRIT, BLOOD Blood, Venous Collected By: Madhavi Salguero RN 01/17/2024 12:13 PM PROTHROMBIN TIME If patient on coumadin within 4 days prior. 01/17/2024 12:13 PM BLOOD TYPE AND SCREEN GEL Blood, Venous HOLD. Specimen is valid for 3 days - nurse to verify valid specimen Collected By: Madhavi Salguero RN 01/17/2024 12:13 PM NON-GYNECOLOGIC CYTOLOGY Peritoneal Washings Collected By: Katya Skelton MD 01/17/2024 2:12 PM TISSUE EXAM Lymph Node Collected By: Katya Skelton MD 01/17/2024 2:27 PM Wound Class: Class II: Clean-Contaminated Blood Products: None Prophylactic Antibiotics: Procedure appropriate prophylactic antibiotic(s) given within 1 hour of surgical incision (two hours if receiving Vancomycin or flouroquinolone) [facility] 01-17-2024 History and physical note Images from the original note were not included. PATROL MOTHER Pre-Op Note Patient Name: Xi Au Patient : 1950 Room/Bed: OR/NONE Admission Date/Time: 01/17/2024 11:35 AM Primary Care Physician: Krista Delgado Date: 01/17/2024 Time: 1:22 PM The patient was seen in pre-op holding. She is here for robotic hysterectomy, bilateral salpingo-oophorectomy, bilateral sentinel lymphadenectomy, omental biopsy. The procedure risks and complications were reviewed. The labs, consent, and H&P were reviewed and updated as appropriate. The patient had all of her questions answered. 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 PAST SURGICAL HISTORY: has a past surgical history that includes Colonoscopy (2014); IR filter placement; Craniotomy (2018); and IVC filter removal. ALLERGIES: Allergies as of 01/13/2024 - Reviewed 01/13/2024 Allergen Reaction Noted Lisinopril Other 01/11/2024 Ceftriaxone Rash 01/11/2024 Cephalexin Rash 01/11/2024 MEDICATIONS: @MEDCMED@ FAMILY HISTORY: family history includes Coronary artery disease in her father; Hypertension in her mother. SOCIAL HISTORY: reports that she has never smoked. She has never used smokeless tobacco. She reports that she does not drink alcohol and does not use drugs. VITALS: Vitals: 01/17/24 1213 BP: (!) 149/69 Pulse: 87 Resp: 16 Temp: 36.3 C (97.3 F) TempSrc: Temporal SpO2: 99% Weight: 58.1 kg (128 lb) Height: 1.549 m (5' 1) PHYSICAL EXAM and ROS: Unchanged from Prior H&P LAB RESULTS: Admission on 01/17/2024 Component Date Value Ref Range Status SODIUM 01/17/2024 141 135 - 145 mmol/L Final POTASSIUM 01/17/2024 3.7 3.5 - 5.1 mmol/L Final CHLORIDE 01/17/2024 109 (H) 98 - 107 mmol/L Final CARBON DIOXIDE 01/17/2024 25 22 - 30 mmol/L Final UREA NITROGEN 01/17/2024 12 7 - 17 mg/dL Final CREATININE 01/17/2024 0.70 0.52 - 1.04 mg/dL Final GLUCOSE 01/17/2024 87 70 - 100 mg/dL Final CALCIUM 01/17/2024 9.2 8.4 - 10.4 mg/dL Final ANION GAP 01/17/2024 8 3 - 13 mmol/L Final eGFR 01/17/2024 >90.0 >60.0 mL/min/1.73m*2 Final Calculation based on the Chronic Kidney Disease Epidemiology Collaboration (CKD-EPI) equation refit without adjustment for race Hemoglobin 01/17/2024 12.9 11.7 - 16.0 g/dL Final Hematocrit 01/17/2024 37.2 35.0 - 47.0 % Final Heart Rate 01/17/2024 79 bpm Final QRSD Interval 01/17/2024 83 ms Final QT Interval 01/17/2024 378 ms Final QTC Interval 01/17/2024 434 ms Final P [place] 01/17/2024 47 degrees Final QRS [place] 01/17/2024 12 degrees Final T Wave [place] 01/17/2024 57 degrees Final ID Interval 01/17/2024 130 ms Final DIAGNOSTICS: @RISRSLT@ DIAGNOSIS & PLAN: - Proceed with planned procedure: robotic hysterectomy, bilateral salpingo-oophorectomy, bilateral sentinel lymphadenectomy, omental biopsy - Consent signed, on chart. - The patient is ready for transport to the operative suite. Katya Gorman MD 01/17/2024, 1:22 PM T [facility] 01-17-2024 Note PATROL MOTHER Pre-Op Note Patient Name: Xi Au Patient : 1950 Room/Bed: OR/NONE Admission Date/Time: 01/17/2024 11:35 AM Primary Care Physician: Krista Delgado Date: 01/17/2024 Time: 1:22 PM The patient was seen in pre-op holding. She is here for robotic hysterectomy, bilateral salpingo-oophorectomy, bilateral sentinel lymphadenectomy, omental biopsy. The procedure risks and complications were reviewed. The labs, consent, and H&P were reviewed and updated as appropriate. The patient had all of her questions answered. 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 PAST SURGICAL HISTORY: has a past surgical history that includes Colonoscopy (2015); IR filter placement; Craniotomy (2019); and IVC filter removal. ALLERGIES: Allergies as of 01/13/2024 - Reviewed 01/13/2024 Allergen Reaction Noted Lisinopril Other 01/11/2024 Ceftriaxone Rash 01/11/2024 Cephalexin Rash 01/11/2024 MEDICATIONS: @MEDCMED@ FAMILY HISTORY: family history includes Coronary artery disease in her father; Hypertension in her mother. SOCIAL HISTORY: reports that she has never smoked. She has never used smokeless tobacco. She reports that she does not drink alcohol and does not use drugs. VITALS: Vitals: 01/17/24 1213 BP: (!) 149/69 Pulse: 87 Resp: 16 Temp: 36.3 ?C (97.3 ?F) TempSrc: Temporal SpO2: 99% Weight: 58.1 kg (128 lb) Height: 1.549 m (5' 1) PHYSICAL EXAM and ROS: Unchanged from Prior H&P LAB RESULTS: Admission on 01/17/2024 Component Date Value Ref Range Status SODIUM 01/17/2024 141 135 - 145 mmol/L Final POTASSIUM 01/17/2024 3.7 3.5 - 5.1 mmol/L Final CHLORIDE 01/17/2024 109 (H) 98 - 107 mmol/L Final CARBON DIOXIDE 01/17/2024 25 22 - 30 mmol/L Final UREA NITROGEN 01/17/2024 12 7 - 17 mg/dL Final CREATININE 01/17/2024 0.70 0.52 - 1.04 mg/dL Final GLUCOSE 01/17/2024 87 70 - 100 mg/dL Final CALCIUM 01/17/2024 9.2 8.4 - 10.4 mg/dL Final ANION GAP 01/17/2024 8 3 - 13 mmol/L Final eGFR 01/17/2024 >90.0 >60.0 mL/min/1.73m*2 Final Calculation based on the Chronic Kidney Disease Epidemiology Collaboration (CKD-EPI) equation refit without adjustment for race Hemoglobin 01/17/2024 12.9 11.7 - 16.0 g/dL Final Hematocrit 01/17/2024 37.2 35.0 - 47.0 % Final Heart Rate 01/17/2024 79 bpm Final QRSD Interval 01/17/2024 83 ms Final QT Interval 01/17/2024 378 ms Final QTC Interval 01/17/2024 434 ms Final P [place] 01/17/2024 47 degrees Final QRS [place] 01/17/2024 12 degrees Final T Wave [place] 01/17/2024 57 degrees Final ID Interval 01/17/2024 130 ms Final DIAGNOSTICS: @RISRSLT@ DIAGNOSIS & PLAN: - Proceed with planned procedure: robotic hysterectomy, bilateral salpingo-oophorectomy, bilateral sentinel lymphadenectomy, omental biopsy - Consent signed, on chart. - The patient is ready for transport to the operative suite. Katya Gorman MD 01/17/2024, 1:22 PM [facility] 01-17-2024 History and physical note Images from the original note were not included. PATROL MOTHER Pre-Op Note Patient Name: Xi Au Patient : 1950 Room/Bed: OR/NONE Admission Date/Time: 01/17/2024 11:35 AM Primary Care Physician: Krista Delgado Date: 01/17/2024 Time: 1:22 PM The patient was seen in pre-op holding. She is here for robotic hysterectomy, bilateral salpingo-oophorectomy, bilateral sentinel lymphadenectomy, omental biopsy. The procedure risks and complications were reviewed. The labs, consent, and H&P were reviewed and updated as appropriate. The patient had all of her questions answered. 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 PAST SURGICAL HISTORY: has a past surgical history that includes Colonoscopy (2014); IR filter placement; Craniotomy (2018); and IVC filter removal. ALLERGIES: Allergies as of 01/13/2024 - Reviewed 01/13/2024 Allergen Reaction Noted Lisinopril Other 01/11/2024 Ceftriaxone Rash 01/11/2024 Cephalexin Rash 01/11/2024 MEDICATIONS: @MEDCMED@ FAMILY HISTORY: family history includes Coronary artery disease in her father; Hypertension in her mother. SOCIAL HISTORY: reports that she has never smoked. She has never used smokeless tobacco. She reports that she does not drink alcohol and does not use drugs. VITALS: Vitals: 01/17/24 1213 BP: (!) 149/69 Pulse: 87 Resp: 16 Temp: 36.3 C (97.3 F) TempSrc: Temporal SpO2: 99% Weight: 58.1 kg (128 lb) Height: 1.549 m (5' 1) PHYSICAL EXAM and ROS: Unchanged from Prior H&P LAB RESULTS: Admission on 01/17/2024 Component Date Value Ref Range Status SODIUM 01/17/2024 141 135 - 145 mmol/L Final POTASSIUM 01/17/2024 3.7 3.5 - 5.1 mmol/L Final CHLORIDE 01/17/2024 109 (H) 98 - 107 mmol/L Final CARBON DIOXIDE 01/17/2024 25 22 - 30 mmol/L Final UREA NITROGEN 01/17/2024 12 7 - 17 mg/dL Final CREATININE 01/17/2024 0.70 0.52 - 1.04 mg/dL Final GLUCOSE 01/17/2024 87 70 - 100 mg/dL Final CALCIUM 01/17/2024 9.2 8.4 - 10.4 mg/dL Final ANION GAP 01/17/2024 8 3 - 13 mmol/L Final eGFR 01/17/2024 >90.0 >60.0 mL/min/1.73m*2 Final Calculation based on the Chronic Kidney Disease Epidemiology Collaboration (CKD-EPI) equation refit without adjustment for race Hemoglobin 01/17/2024 12.9 11.7 - 16.0 g/dL Final Hematocrit 01/17/2024 37.2 35.0 - 47.0 % Final Heart Rate 01/17/2024 79 bpm Final QRSD Interval 01/17/2024 83 ms Final QT Interval 01/17/2024 378 ms Final QTC Interval 01/17/2024 434 ms Final P [place] 01/17/2024 47 degrees Final QRS [place] 01/17/2024 12 degrees Final T Wave [place] 01/17/2024 57 degrees Final ID Interval 01/17/2024 130 ms Final DIAGNOSTICS: @RISRSLT@ DIAGNOSIS & PLAN: - Proceed with planned procedure: robotic hysterectomy, bilateral salpingo-oophorectomy, bilateral sentinel lymphadenectomy, omental biopsy - Consent signed, on chart. - The patient is ready for transport to the operative suite. Katya Gorman MD 01/17/2024, 1:22 PM documented in this encounter [facility] 01-14-2024 Note Patient: Xi deutsch Procedure Information Date/Time: 01/17/24 1330 Procedures: ROBOTIC ASSISTED TOTAL LAPAROSCOPIC HYSTERECTOMY, BILATERAL SALPINGO OOPHORECTOMY (Bilateral: Abdomen) - 1.5 HOURS AND TAP BLOCK BILATERAL PELVIC SENTINEL LYMPH NODE BIOPSY WITH INDOCYANINE GREEN DYE PROTOCOL (Bilateral) ENDOMETRIAL BIOPSY Location: [address] Operating Room Surgeons: Katya Skelton MD Relevant Problems No relevant active problems Past Medical History: Past Medical History: No date: Debility No date: 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 She has never used smokeless tobacco. ETOH: reports no history of alcohol use. Social History Substance and Sexual Activity Drug Use Never Family History: Family History Problem Relation Name Age of Onset Hypertension Mother Coronary artery disease Father Screening: Postmenopausal Clinical information reviewed: Tobacco Allergies Meds Med Hx Surg Hx OB Status Fam Hx Soc Hx Physical Exam Airway Mallampati: III TM distance: >3 FB Neck ROM: full endotracheal tube not in place Cardiovascular Dental dentition normal Pulmonary Abdominal Anesthesia Plan patient is NPO appropriate Any family history or previous problems with anesthesia no ASA 3 general and regional Any family history or previous problems with anesthesia no(TAP) The patient is not a current smoker. Anesthetic plan and risks discussed with patient and spouse. Use of blood products discussed with who consented to blood products. Anesthesia Rene Considerations HX seizures - on keppra ERAS Type Short ERAS DAMIAN Screening Labs: No results found for: WBC, HGB, HCT, MCV, PLT No results found for: NA, K, CL, CO2, BUN, CREATININE, GLUCOSE, CALCIUM, PROT, BILIRUBINFL, ALKPHOS, AST, ALT, EGFR, GLOB No echocardiogram results found for the past 14 days No results found for this or any previous visit. Interpretation Summary IMPRESSION: Sinus rhythm [facility] 01-14-2024 Telephone encounter Note PAT 01.14.2024 at 9 am phone call SX: 01.17.2024 at 1:30 pm arrival at 11:30 am Post op 02.04.2024 at 3:20 pm Folder and instructions given. [facility] 01-14-2024 Miscellaneous Notes PAT 01.14.2024 at 9 am phone call SX: 01.17.2024 at 1:30 pm arrival at 11:30 am Post op 02.04.2024 at 3:20 pm Folder and instructions given. documented in this encounter [facility] 01-13-2024 History of Presen t illness Narrative Chief Complaint Patient presents with Endometrial Cancer Having brown discharge HISTORY OF THE PRESENT ILLNESS: Xi Au is a pleasant 73 y.o. female who presents in consultation at the request of Joe Childs CNP for evaluation and management of the above. She initially presented with complaints of postmenopausal bleeding off and on since 05/2023. Only a day of discharge/bleeding. Not heavy. U/S showed thickened endometrium measuring 2.5 cm. 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 Here today with her , Ronal. Still having brown discharge. 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 Developed a pneumonia post op as well. Seizures - no grand mal seizures. 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 No lasting effects from the brain surgery. Past Surgical History: Procedure Laterality Date COLONOSCOPY 2014 CRANIOTOMY 2019 IR INTERVENTION FILTER PLACEMENT IVC FILTER REMOVAL (HISTORICAL) Craniotomy and resection of meningioma IVC filter was removed. Does well with anesthesia. Gynecologic History: No LMP recorded. HRT use: No Duration: N/A Last mammogram: UTD Last colonoscopy: UTD Obstetrical History: Family History Problem Relation Name Age of Onset Hypertension Mother Coronary artery disease Father MGM - leukemia. In her 70-80's. Social History Socioeconomic History Marital status: Unknown Spouse name: Not on file Number of children: Not on file Years of education: Not on file Highest education level: Not on file Occupational History Not on file Tobacco Use Smoking status: Never Smokeless tobacco: Never Vaping Use Vaping Use: Never used Substance and Sexual Activity Alcohol use: Never Drug use: Never Sexual activity: Not on file Other Topics Concern Not on file Social History Narrative Not on file Social Determinants of Health Financial Resource Strain: Not on file Food Insecurity: Not on file Transportation Needs: Not on file Physical Activity: Not on file Stress: Not on file Social Connections: Not on file Intimate Partner Violence: Not on file Housing Stability: Not on file Current Outpatient Medications on File Prior to Visit Medication Sig Dispense Refill amLODIPine (Norvasc) 10 MG tablet Take by mouth daily. doxycycline (Adoxa) 100 MG tablet Take 100 mg by mouth daily. Take with a full glass of water and do not lie down for at least 30 minutes after levETIRAcetam (Keppra) 500 MG tablet Take by mouth. levothyroxine (Synthroid, Levoxyl) 50 MCG tablet Take by mouth every morning (before breakfast). losartan-hydroCHLOROthiazide (Hyzaar) 100-25 MG tablet Take 1 tablet by mouth daily. multivitamin (Theragran) tablet Take 1 tablet by mouth daily. [DISCONTINUED] acetaminophen (Tylenol) 325 MG capsule Take by mouth every 6 hours as needed for mild pain (1-3). Denosumab (PROLIA SC) Inject 1 Dose under the skin every 6 (six) months. Due in April [DISCONTINUED] alendronate (Fosamax) 70 MG tablet Take 70 mg by mouth every 7 days. Take in the morning with a full glass of water, on an empty stomach, and do not take anything else by mouth or lie down for the next 30 min. [DISCONTINUED] LACTOBACILLUS PO Take by mouth. [DISCONTINUED] phenytoin ER (Dilantin) 100 MG capsule Take 100 mg by mouth 3 times daily. No current facility-administered medications on file prior to visit. Allergies as of 01/13/2024 - Reviewed 01/13/2024 Allergen Reaction Noted Lisinopril Other 01/11/2024 Ceftriaxone Rash 01/11/2024 Cephalexin Rash 01/11/2024 Extreme itching. Review of Systems A 12 point review of systems was performed and is as per the history of the present illness, all other systems were reviewed and are negative. Vitals: 01/13/24 1442 BP: 114/63 Pulse: 92 There is no height or weight on file to calculate BMI. Physical Exam Vitals reviewed. Constitutional: General: She is not in acute distress. Appearance: Normal appearance. She is not ill-appearing, toxic-appearing or diaphoretic. HENT: Head: Normocephalic and atraumatic. Eyes: General: No scleral icterus. Extraocular Movements: Extraocular movements intact. Cardiovascular: Rate and Rhythm: Normal rate. Pulmonary: Effort: Pulmonary effort is normal. No respiratory distress. Abdominal: General: There is no distension. Palpations: Abdomen is soft. There is no mass. Tenderness: There is no abdominal tenderness. There is no guarding or rebound. Hernia: No hernia is present. Musculoskeletal: Right lower leg: No edema. Left lower leg: No edema. Skin: General: Skin is warm and dry. Coloration: Skin is not jaundiced or pale. Findings: No erythema. Neurological: General: No focal deficit present. Mental Status: She is alert. Motor: No weakness. Coordination: Coordination normal. Gait: Gait normal. Psychiatric: Mood and Affect: Mood normal. Behavior: Behavior normal. ASSESSMENT/PLAN: Diagnosis Plan 1. Papillary serous endometrial adenocarcinoma (HCC) CT chest abdomen pelvis with contrast CA 125 Comprehensive metabolic panel CA 125 Comprehensive metabolic panel We discussed that endometrial cancer is surgically staged. We will not know the stage or whether or not additional treatment is needed until after surgery. The patient is a good candidate for a minimally invasive endometrial cancer staging. Plan for a robotic hysterectomy with bilateral salpingo-oophorectomy and bilateral sentinel lymphadenectomy. Given the serous histology, will also need omental biopsy. The risks of surgery were discussed, including but not limited to: bleeding, infection, injury to surrounding structures including, but not limited to bowel, bladder, ureters, blood vessels and nerves; medical complications including pneumonia, blood clots, heart attack, stroke, ; and anesthesia complications. Finally, we discussed the risk of conversion from minimally invasive to open approach. The patient is aware that if this occurs it will double her recovery time. The basic steps of the procedure were discussed in detail including pre- and post-operative expectations including restrictions to physical activity, driving, lifting, and sexual activity. We also discussed the use of pain medications. Routine preoperative testing ordered. Will need CA125 and imaging to assess for metastatic disease - CT chest, abdomen and pelvis. Imaging in [place]. Plan to stay overnight. Post op VTE ppx given her previous history of post op DVT. Eliquis ppx 2 weeks. The patient had an opportunity to ask questions, all of which were answered to the best of my ability. She is in agreement with the above noted plan. I spent a total time of 60 minutes reviewing previous notes, test results, obtaining history, communicating results to the patient as well as counseling the patient, documenting clinical information in the patient's electronic medical record and coordinating care for the patient. Disclaimer: This note was dictated by speech recognition. 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 documented in this encounter [facility] 01-05-2024 Note [facility] Pap Smear Specimen Adequacy January 05, 2024 12:59pm Comment . Satisfactory for evaluation. Endocervical and/or squamous metaplasticcells (endocervical component) are present. Comment on above: Satisfactory for oliver luation. Endocervical and/or squamous metaplasticcells (endocervical component) are present. 08-05-2023 Note HNO ID: [id number] Author: Walker Hernandez APRN.CREATIVE DIRECTOR Service: ? Author Type: Nurse Practitioner Type: Progress Notes Filed: 08/05/2023 5:42 PM Note Text: [facility] VIRTUAL VISIT I have communicated my name and active licensure. The patient's identity and physical location were verified at the time of this visit. Either the patient or their legal residential sales representative has been informed of the risks and benefits of -- and alternatives to -- treatment through a remote evaluation and consents to proceed with the evaluation remotely. Patient on video by herself. Lives in [place], [place]. HISTORY OF PRESENT ILLNESS: Xi Au is a 73 year old RHF who [...] 60s Thyroid Mother Hypertension Mother ASSESSMENT: Xi Au is a 73 year old RHF with [...] recurrent events, medications, safety, lifestyle change, documentaion.. Walker Hernandez, FINANCIAL AID OFFICER.CREATIVE DIRECTOR August 05, 2023 [facility] 08-02-2023 Note HNO ID: [id number] Author: Alivia Natarajan MD Service: ? 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 Sara Martínez after presenting with a 2-month history of [...] right lower extremity DVT for which a Bronson IVC filter was placed. (Removed February 2020) and was placed on Eliquis. She was seen in the office routinely for evaluation with imaging and overall did well. She was last seen on 09/08/[address] Sara Martínez. At that time she was overall doing [...] olfactory groove tumor on 09/19/[address] Sara Martínez and Dr. Khayyat. FINAL DIAGNOSIS: A AND B) EXCISIONAL BIOPSY [...] saline lock post (more content not included)... 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 Sara Martínez after presenting with a 2-month history of [...] was last seen on 09/08/[address] Sara Martínez. At that time she was overall doing [...] olfactory groove tumor on 09/19/[address] Sara Martínez and Dr. Richardson. FINAL DIAGNOSIS: A & [...] change 11/27/2019 Scapula fracture 03/2012 left - [facility] Unspecified essential hypertension 2007 PAST SURGICAL [...] strength in upper and lower extremities Coordination: [id number] normal. Rapid alternating movement normal. Gait: Normal [...] which included preparing to see the patient, [id number] patient care, completing clinical documentation, obtaining and/or reviewing separately obtained history, performing a medically appropriate examination, counseling and educating the patient/family/caregiver, ordering medications, tests, or procedures, independently interpreting results (not separately reported), and communicating results to the patient/family/caregiver. documented in this encounter [facility] 08-02-2023 History of Presen t illness Narrative [...] Brain SIGNATURE: RT Bennett(R) PATIENT NAME: Xi Au DATE: August 02, 2023 TIME: 11:47 AM documented in this encounter [facility] 07-12-2023 Miscellaneous Notes Spoke with patient informed her that Dr. Sara Martínez is only seeing patient in [place], she is no longer at the [place] location. So I scheduled the patient for an MRI Brain w/wo in office and than she will follow up with Dr. Natarajan. Scheduled on 08/02/2023 @ 11:15 MRI and appt. At 1:00pm. She was ok with this date and time. Patient is calling, ended up with the [facility] [employer] phone line. Requesting a repeat MRI and a follow up visit with Dr. Sara Martínez. The f/u appt can be in person if done on the same day as the MRI test, if the mri is on a separate day a virtual visit would be fine per the patient. Please call the patient back per her request with an update. Tumor removal in 2019 was mentioned. P: [phone] documented in this encounter [facility] 12-10-2022 Miscellaneous Notes The following approved medication requests have been transmitted electronically. Requested Prescriptions Signed Prescriptions Disp Refills levETIRAcetam (KEPPRA) 500 mg tablet 180 tablet 0 Sig: Take 1 tablet by mouth twice daily. Authorizing Provider: JT REAL PA-C Prescription Refill: Requested by: pharmacy Please E-Scribe Caller Contact Number: Pharmacy Name: [facility] Pharmacy Number: [phone] Generic/ brand: 30 or 90 day supply requested: 90 Last appointment: 12/10/21 Next Appointment: none Patient of Dr. Worley documented in this encounter [facility] 11-27-2019 History of Past i llness Narrative Problem Noted Date Resolved Date Hypokalemia 11/27/2019 11/29/2019 Dehydration 11/27/2019 11/29/2019 Drug rash 11/27/2019 11/29/2019 Hyponatremia 11/26/2019 11/29/2019 Deep vein thrombosis (DVT) o f femoral vein of right lower extremity 10/28/2019 01/19/2020 Overview: Eliquis x 3 months No thrombophilia workup indicated Weakness 10/21/2019 10/27/2019 Allergic rhinitis 08/08/2013 11/29/2019 Overview: Allergy injections per Benign neoplasm of colon 02/22/2012 013 Cholelithiasis 09/17/2009 08/08/2013 documented as of this encounter (statuses as of 12/10/2022) [facility] of Past illness Narrative* Problem Noted [...] of this encounter (statuses as of 07/12/2023) [facility] of [facility] illness Narrative* Problem Noted [...] of this encounter (statuses as of 07/13/2023) [facility] of [facility] illness Narrative* Problem Noted [...] of this encounter (statuses as of 08/03/2023) [facility] of [facility] illness Narrative* Problem Noted [...] of this encounter (statuses as of 08/06/2023) [facility] of Past illness Narrative* Problem Noted [...] of this encounter (statuses as of 11/19/2023) [facility] Miscellaneous Notes* Telephone Encounter - Emily Sandoval [...] Symptoms fatigue, weight gain, hair loss. [facility] [place] if pcp wants to prescribe medication. Advised if prescribed med, will need to recheck labs 6 to 8 weeks after starting. * Telephone Encounter - Elizabeth Medel (Den) - 07/21/2018 10:51 AM EDT Images from the original note were not included. Results TSH BLD (Order [id number]) Patient Info Patient Name Sex Xi Peng ([id number]) Female 1950 07/19/2018 5:07 PM - , Lab [facility] In Component Results Component Value Range & Units Status Performing Lab TSH 6.660 (H) 0.400 - 5.500 uU/mL Final CCM Lab and Collection TSH BLD (Order #[id number]) on 07/19/2018 - Lab and Collection Information Result History TSH BLD (Order #[id number]) on 07/19/2018 - Order Result History Report Collection Information BLOOD Collected: 07/19/2018 7:41 AM Resulting Agency: [facility] Result Information Flag: Abnormal [...] speak to a nurse. [facility] noteNo assessment information availableWSt. Anthony's Hospital Work Phone: Evaluation note* Diagnosis Seizure (HCC)- Primary Other convulsions documented in this encounter [facility] note* Diagnosis Benign neoplasm of meninges (HCC)- Primary Benign neoplasm of cerebral meninges documented in this encounter [facility] note* Diagnosis Benign neoplasm of meninges (HCC) Benign neoplasm of cerebral meninges documented in this encounter [facility] note* Diagnosis Benign neoplasm of meninges (HCC)- Primary Benign neoplasm of cerebral meninges documented in this encounter [facility] note* Diagnosis Acquired hypothyroidism- Primary Unspecified hypothyroidism documented in this encounter [facility] note* Diagnosis Onset Date Resolution Status Endometrial thickening on ultrasound acute Postmenopausal bleeding [facility] Work Phone: Evaluation note* Diagnosis Papillary serous endometrial adenocarcinoma (HCC)- Primary Uterine cancer (CMS/HCC) (HCC) Malignant neoplasm of uterus, part unspecified documented in this encounter [facility] note* Diagnosis Postoperative state- Primary Other postprocedural status Uterine cancer (CMS/HCC) (HCC) Malignant neoplasm of uterus, part unspecified Postoperative pain Other acute postoperative pain [facility]* Diagnosis Liver cyst- Primary Other specified disorders of liver [facility]* Diagnosis Postoperative state- Primary Other postprocedural status Papillary serous endometrial adenocarcinoma (HCC) [facility]* Diagnosis Post-operative state- Primary Other postprocedural status Papillary serous endometrial adenocarcinoma (HCC) [facility]* Diagnosis Papillary serous endometrial adenocarcinoma (HCC) [facility]* Diagnosis Papillary serous endometrial adenocarcinoma (HCC)- Primary [facility]* Diagnosis Papillary serous endometrial adenocarcinoma (HCC)- Primary [facility]* Diagnosis Papillary serous endometrial adenocarcinoma (HCC)- Primary documented in this encounter [facility] for referral (narrative)No reason for referral information availableWSt. Anthony's Hospital Work Phone: Summary Purpose Family History Relationship Condition Age at Onset Recorded Date/T ricardo father Coronary artery disease Unknown mother Hypertension Unknown Disorder of thyroid Unknown Advance Directives Advance Directive Response Recorded Date/ Time Advance Directives Yes February 28 0 9:51am Living Will Yes February 29, 2020 9 :51am Power of Financial Aid Manager Yes February 29, 2020 9:51am Advance Directive Response Recorded Date/ Time Advance Directives Yes February 28 0 8:51am Living Will Yes February 29, 2020 8 :51am Power of Financial Aid Manager Yes February 29, 2020 8:51am Advance Directive Response Recorded Date/ Time Advance Directives Yes December 14 024 9:18am Living Will Yes December 15, 2023 9:18am Power of Financial Aid Manager Yes December 14 24 9:18am Latest Code Status on File Code Status Date Activated Date Inactivated Comments Full Code 01/17/2024 12:13 PM 01/18/2024 6:53 PM Latest Code Status on File Code Status Date Activated Date Inactivated Comments Full Code 01/17/2024 12:13 PM 01/18/2024 6:53 PM Date Activated Date Inactivated Comments 01/17/2024 12:13 PM 01/18/2024 6:53 PM Advance Directive Response Recorded Date/ Time Living Will Yes December 15, 2023 9:18am Power of Financial Aid Manager Yes December 14 9:18am Advance Directives Yes December 14 9:18am Advance Directive Response Recorded Date/ Time Living Will Yes December 15, 2023 9:18am Do you have a Healthcare Power of Financial Aid Manager? Yes December 15, 2023 9:18am Advance Directives Yes December 14 9:18am Chief Complaint and Reason for Visit Chief Complaint SCREENING Chief Complaint SCREENING AUB Chief Complaint AUB EMB REF BY DR. DELGADO AUB Reason for Visit Endometrial thickeni ng on ultrasound Postmenopausal bleeding Chief Complaint Admit Date SCREENING September 01, 2024 8:35am Reason for Referral Specialty Diagnoses / Procedures Referred By Erin gaspar Referred To Contact MR IMAGING Diagnoses Benign neoplasm of meninges (HCC) Procedures MRI BRAIN WO/W IVCON MRI BRAIN BRAIN STEM W/O W/CONTRAST MATERIAL Alivia Natarajan MD [address] [place] [address] [place] [id number] Referral ID Status Reason Start Date Expiration Date Visits Requested Visits Authorized [id number] Authorized Auto-Generat ed Referral 07/12/2023 08/10/2024 1 1 Specialty Diagnoses / Procedures Referred By Erin gaspar Referred To Contact Radiology Diagnoses Papillary serous endometrial adenocarcinoma (HCC) Procedures CT chest abdomen pelvis with contrast Katya Skelton MD [address] [facility] [address] [place] [address] Referral ID Status Reason Start Date Expiration Date V isits Requested Visits Authorized [id number] Pending Review 01/13/2024 01/12/2025 1 1 Additional Source Comments INFORMATION SOURCE (unrecogn ized section and content) DATE CREATED AUTHOR 12/06/2020 [facility] DATE CREATED AUTHOR AUTHOR'S ORGANIZ ATION 08/07/2023 [facility] DATE CREATED AUTHOR AUTHOR'S ORGANIZ ATION 08/07/2023 [facility] DATE CREATED AUTHOR AUTHOR'S ORGANIZ ATION 12/28/2024 [facility] DATE CREATED AUTHOR AUTHOR'S ORGANIZ ATION 01/08/2025 [facility] Goals (unrecognized section and content) Goals may be documented in a n alternate sectionGoals may be documented in an alternate sectionGoals may be documented in an alternate sectionGoals may be documented in an alternate sectionGoals may be documented in an alternate sectionGoals may be documented in an alternate sectionGoals may be documented in an alternate section Source Comments (unrecognize d section and content) In the event this informatio n is protected by the Federal Confidentiality of Alcohol and Drug Abuse Patient Records regulations: The Federal rules restrict any use of the information to criminally investigate or prosecute any alcohol or drug abuse patient.[facility] the event this information is protected by the Federal Confidentiality of Alcohol and Drug Abuse Patient Records regulations: The Federal rules restrict any use of the information to criminally investigate or prosecute any alcohol or drug abuse patient.[facility] System[facility] the event this information is protected by the Federal Confidentiality of Alcohol and Drug Abuse Patient Records regulations: The Federal rules restrict any use of the information to criminally investigate or prosecute any alcohol or drug abuse patient.[facility] SystemIn the event this information is protected by the Federal Confidentiality of Alcohol and Drug Abuse Patient Records regulations: The Federal rules restrict any use of the information to criminally investigate or prosecute any alcohol or drug abuse patient.[facility] SystemIn the event this information is protected by the Federal Confidentiality of Alcohol and Drug Abuse Patient Records regulations: The Federal rules restrict any use of the information to criminally investigate or prosecute any alcohol or drug abuse patient.[facility] SystemIn the event this information is protected by the Federal Confidentiality of Alcohol and Drug Abuse Patient Records regulations: The Federal rules restrict any use of the information to criminally investigate or prosecute any alcohol or drug abuse patient.[facility] Reason for Visit (unrecogniz ed section and content) Reason Onset Date Comments Refill Request 12/10/2022 Reason Comments Orders Specialty Diagnoses / Procedures Referred By Contac t Referred To Contact MR IMAGING Diagnoses Benign neoplasm of meninges (HCC) Procedures MRI BRAIN WO/W IVCON MRI BRAIN BRAIN STEM W/O W/CONTRAST MATERIAL Alivia Natarajan MD [address] [place] [address] [place] [address] Referral ID Status Reason Start Date Expiration Date V isits Requested Visits Authorized [id number] Closed Auto-Generate d Referral 07/12/2023 08/10/2024 1 1 Reason Comments Established Patient Reason Onset Date Comments surgery scheduling 01/14/2024 Scheduled at [facility] Reason Comments Endometrial Cancer Having brown dischar ge Specialty Diagnoses / Procedures Referred By Contac t Referred To Contact Gynecologic Oncology Diagnoses Endometrial cancer Procedures ID OFFICE/OUTPATIENT NEW HIGH MDM 60 MINUTES Joe Childs [address] [place] [address] [facility] Dispute Specialist Onc [address] [facility] [address] [place] [address] Referral ID Status Reason Start Date Expiration Date Visits Re quested Visits Authorized [id number] Closed 01/11/2024 01/10/2025 1 1 Specialty Diagnoses / Procedures Referred By Contac t Referred To Contact Diagnoses Uterine cancer (CMS/HCC) (HCC) Procedures ID LAPS TOTAL HYSTERECT 250 GM/< W/RMVL TUBE/OVARY ID INJ RADIOACTIVE TRACER FOR ID OF SENTINEL NODE ID ENDOMETRIAL BX W/WO ENDOCERVIX BX W/O DILAT SPX ROBOTIC ASSISTED TOTAL LAPAROSCOPIC HYSTERECTOMY, BILATERAL SALPINGO OOPHORECTOMY BILATERAL PELVIC SENTINEL LYMPH NODE BIOPSY WITH INDOCYANINE GREEN DYE PROTOCOL ENDOMETRIAL BIOPSY Katya Skelton MD [address] [facility] [address] [place] [address] [facility] [address] [place] [address] Referral ID Status Reason Start Date Expiration Date Visits Re quested Visits Authorized [id number] 1 1 Reason Comments Post-op No concerns Reason Comments Post-op Visit Pt has no concerns. Reason Onset Date Comments Appointment 05/29/2024 Reason Comments Follow-up Pt has no concerns. Endometrial Cancer Reason Comments Endometrial Cancer Uterine serous carci noma Reason Comments Endometrial Cancer Uterine serous carci noma-surveillance of disease Care Teams (unrecognized sec tion and content) Bobcat Operator Relationship Specialty Start Date End Date Krista Delgado MD [address] [place], [place] [phone] PCP - General Family Medicine 10/30/19 Bobcat Operator Relationship Specialty Start Date End Date Krista Delgado MD [address] [place], [place] [address] PCP - General Family Medicine 10/30/19 Bobcat Operator Relationship Specialty Start Date End Date Krista Delgado MD [address] [place], [place] [id number] PCP - General Family Medicine 10/30/19 Team Status: Active Member Role Status Dates Dr. Johnathon Delgado MD Family Provider Active Dr. Johnathon Delgado MD Primary Care Provider Activ e Team Status: Inactive Member Role Status Dates Dr. Johnathon Delgado MD Primary Care Provider, Attending Provider, Referring Provider Active Team Status: Inactive Member Role Status Dates Dr. Johnathon Delgado MD Primary Care Provider, Atte nding Provider Active Bobcat Operator Relationship Specialty Start Date End Date Leticia Almanza MD [address] [place], [place] [address] PCP - General Internal Medicine 07/07/16 10/29/19 Krista Delgado MD [address] [place], [place] [address] PCP - General Family Medicine 10/30/19 Loree Ramos, ESTELLE [address] [place] [address] Primary Care Reclamation Worker Internal Medicine 10/30/19 10/30/19 Team Status: Active Member Role Status Dates Dr. Krista Delgado MD Family Provider Active Dr. Krista Delgado MD Primary Care Provider Acti ve Team Status: Inactive Member Role Status Dates Dr. Krista Delgado MD Primary Care Provider, Ref erring Provider Active Joe Childs DIGITAL STRATEGY DIRECTOR, DIGITAL STRATEGY DIRECTOR-C Attending Provider Active Team Status: Inactive Member Role Status Dates Dr. Krista Delgado MD Primary Care Provider, Att ending Provider Active Team Status: Inactive Member Role Status Dates Dr. Krista Delgado MD Primary Care Provider, Attending Provider, Referring Provider Active Team Status: Inactive Member Role Status Dates Dr. Krista Delgado MD Primary Care Provider Carlos Childs DIGITAL STRATEGY DIRECTOR, DIGITAL STRATEGY DIRECTOR-C Attending Provider, Referring Provider Active Bobcat Operator Relationship Specialty Start Date End Date Krista Delgado [address] [place] [address] PCP - General Family Medicine 01/13/24 Katya Skelton MD [address] [place] [address] Consulting Physician Gynecologic Oncology 01/11/24 Bobcat Operator Relationship Specialty Start Date End Date Krista Delgado [address] [place] [address] PCP - General Family Medicine 01/13/24 Katya Skelton MD [address] [place] [address] Consulting Physician Gynecologic Oncology 01/11/24 Bobcat Operator Relationship Specialty Start Date End Date Krista Delgado [address] [place] [address] PCP - General Family Medicine 01/13/24 Katya Skelton MD [address] [place] [address] Consulting Physician Gynecologic Oncology 01/11/24 Bobcat Operator Relationship Specialty Start Date End Date Krista Delgado [address] [place] [phone] PCP - General Family Medicine 01/13/24 Katya Skelton MD [address] [place] [address] Consulting Physician Gynecologic Oncology 01/11/24 Yaritza Ly APRN - CREATIVE DIRECTOR [address] [place] [address] Nurse Practitioner Nurse Practitioner 01/28/24 Bobcat Operator Relationship Specialty Start Date End Date Krista Delgado [address] [facility] [address] [place] [phone] PCP - General Family Medicine 01/13/24 Katya Skelton MD [address] [place] [address] Consulting Physician Gynecologic Oncology 01/11/24 Yaritza Ly APRN - CREATIVE DIRECTOR [address] [place] [address] Nurse Practitioner Nurse Practitioner 01/28/24 Bobcat Operator Relationship Specialty Start Date End Date Krista Delgado [address] [facility] [address] [place] [phone] PCP - General Family Medicine 01/13/24 Katya Skelton MD [address] [place] [address] Consulting Physician Gynecologic Oncology 01/11/24 Yaritza Ly APRN - CREATIVE DIRECTOR [address] [place] [address] Nurse Practitioner Nurse Practitioner 01/28/24 Serena Harris APRN - CNP [address] [place] [address] Nurse Practitioner Certified Nurse Practitioner 03/10/24 Bobcat Operator Relationship Specialty Start Date End Date Krista Delgado [address] [place] [phone] PCP - General Family Medicine 01/13/24 Katya Skelton MD [address] [facility] [address] [place] [address] Consulting Physician Gynecologic Oncology 01/11/24 Yaritza Ly APRN - CREATIVE DIRECTOR [address] [facility] [address] [place] [address] Nurse Practitioner Nurse Practitioner 01/28/24 Serena Harris APRN - CNP [address] [place] [address] Nurse Practitioner Certified Nurse Practitioner 03/10/24 Bobcat Operator Relationship Specialty Start Date End Date Krista Delgado [address] [facility] [address] [place] [phone] PCP - General Family Medicine 01/13/24 Katya Skelton MD [address] [place] [address] Consulting Physician Gynecologic Oncology 01/11/24 Yaritza Ly APRN - CREATIVE DIRECTOR [address] [place] [address] Nurse Practitioner Nurse Practitioner 01/28/24 Serena Harris APRN - CREATIVE DIRECTOR [address] [facility] [address] [place], [place] [phone] Nurse Practitioner Certified Nurse Practitioner 03/10/24 Bobcat Operator Relationship Specialty Start Date End Date Krista Delgado [address] [place] [address] PCP - General Family Medicine 01/13/24 Katya Skelton MD [address] [facility] [address] [place] [address] Consulting Physician Gynecologic Oncology 01/11/24 Yaritza Ly APRN - CREATIVE DIRECTOR [address] [facility] [address] [place] [address] Nurse Practitioner Nurse Practitioner 01/28/24 Serena Harris APRN - CREATIVE DIRECTOR [address] [facility] [address] [place] [address] Nurse Practitioner Certified Nurse Practitioner 03/10/24 Team Status: Inactive Member Role Status Dates Dr. Krista Delgado MD Primary Care Provider Acti ve Start: September 01, 2024 End: September 01, 2024 Dr. Krista Delgado MD Attending Provider Active Start: September 01, 2024 End: September 01, 2024 Dr. Krista Delgado MD Referring Provider Active Start: September 01, 2024 End: September 01, 2024 Team Status: Inactive Member Role Status Dates Dr. Krista Delgado MD Primary Care Provider Acti ve Start: September 11, 2024 End: September 11, 2024 Dr. Katya Gorman MD Attending Provider Active Start: September 11, 2024 End: September 11, 2024 Dr. Katya Gorman MD Referring Provider Active Start: September 11, 2024 End: September 11, 2024 Team Status: Inactive Member Role Status Dates Dr. Krista Delgado MD Primary Care Provider Acti ve Start: December 11, 2024 End: December 11, 2024 Dr. Krista Delgado MD Attending Provider Active Start: December 11, 2024 End: December 11, 2024 Team Status: Active Member Role Status Dates Dr. Krista Delgado MD Primary Care Provider Acti ve Start: December 19, 2024 Dr. Katya Gorman MD Attending Provider Active Start: December 19, 2024 Dr. Katya Gorman MD Referring Provider Active Start: December 19, 2024 Team Status: Inactive Member Role Status Dates Dr. Krista Delgado MD Primary Care Provider Acti ve Start: December 19, 2024 End: December 19, 2024 Dr. Katya Gorman MD Attending Provider Active Start: December 19, 2024 End: December 19, 2024 Dr. Katya Gorman MD Referring Provider Active Start: December 19, 2024 End: December 19, 2024 Scheduled Active and Recently Administ ered Medications (unrecognized section and content) Medication Order 01/16/2024 01/17/2024 01/18/2024 acetaminophen (Tylenol) tablet 1,000 mg (COMPLETED) 1,000 mg, Oral, Once, On Wed01/17/24 at 1215, For 1 dose, Preprocedure, Maximum dose of acetaminophen is 4000 mg from all sources in 24 hours. Do not administer if patient has taken tylenol <6 hours earlier. Do not give if contraindicated ie. patient has active liver disease or cirrhosis. 1226 (Given - Provider: Madhavi Salguero RN) acetaminophen (Tylenol) tablet 1,000 mg 1,000 mg, Oral, Every 8 hours, First dose on Wed01/17/24 at 1800, Phase II/On Unit, Maximum dose of acetaminophen is 4000 mg from all sources in 24 hours. Alternate ibuprofen and acetaminophen every 4 hours. 1905 (Not Given - Provider: Jyothi Aceves RN - Reason: Patient/family refused - Comment: nauseated) 0159 (Given - Provider: Jyothi Aceves RN)0912 (Given - Provider: Loco Adams ESTELLE)1800 (Canceled Entry - Provider: Automatic Discharge Provider - Comment: Automatically canceled at discontinue of medication order) amLODIPine (Norvasc) tablet 10 mg 10 mg, Oral, Daily, First dose on Wed01/18/24 at 0900 0941 (Given - Provid er: Loco Adams, ESTELLE) apixaban (Eliquis) tablet 2.5 mg 2.5 mg, Oral, 2 times daily, First dose on Wed01/18/24 at 0900, Anticoagulant 0912 (Given - Provid er: Loco Adams RN) ciprofloxacin (Cipro) IVPB 400 mg (COMPLETED)(Linked Group 1) 400 mg, IntraVENous, at 200 mL/hr, Administer over 60 Minutes, Once, On Wed01/17/24 at 1215, For 1 dose, Preprocedure, Administer within 1 hour prior to incision premix bag, Suspected Indication (Select all that apply): Surgical Prophylaxis 1355 (Given - Provider: Joey Cancino CRNA) famotidine (Pepcid) tablet 20 mg (COMPLETED)(Linked Group 2) 20 mg, Oral, Once, On Wed01/17/24 at 1215, For 1 dose, Preprocedure, IV or ORAL 1226 (Given - Provider: Madhavi Salguero RN) ketorolac (Toradol) injection 30 mg (COMPLETED) 30 mg, IntraVENous, Every 6 hours, First dose on Wed01/17/24 at 1800, For 4 doses, Phase II/On Unit, Discontinue when able to take PO ibuprofen. 2005 (Given - Provider: Jyothi Aceves RN) 0000 (Given - Provider: Jyothi Aceves RN)0513 (Given - Provider: Jyothi Aceves, ESTELLE)1239 (Given - Provider: Loco Adams, RN) levETIRAcetam (Keppra) tablet 500 mg 500 mg, Oral, Daily, First dose on Wed01/18/24 at 0900, Do not crush or chew. 0912 (Given - Provid er: Loco Adams, ESTELLE) levothyroxine (Synthroid, Levoxyl) tablet 50 mcg 50 mcg, Oral, Daily before breakfast, First dose on Wed01/18/24 at 0600, Tube feeding (TF) interaction, obtain physician order to manage, recommend holding TF for 30 minutes before and after dose. 0513 (Given - Provid er: Jyothi Aceves RN) metroNIDAZOLE (Flagyl) IVPB 500 mg (COMPLETED)(Linked Group 1) 500 mg, IntraVENous, at 100 mL/hr, Administer over 60 Minutes, Once, On Wed01/17/24 at 1215, For 1 dose, Preprocedure, Administer within 1 hour prior to incision., Suspected Indication (Select all that apply): Surgical Prophylaxis 1400 (Given - Provider: Joey Cancino CRNA) sodium chloride 0.9% (NS) flush 10 mL 10 mL, IntraVENous, Every 12 hours scheduled (2 times per day), First dose on Wed01/17/24 at 2100, Phase II/On Unit 2005 (Given - Provider: Jyothi Aceves RN) 0914 (Given - Provider: Loco Adams RN) Continuous Medication Order 01/16/2024 01/17/2024 01/18/2024 lactated Ringer's (LR) infusion (CANCELED) 50 mL/hr, IntraVENous, Continuous, Starting on Wed01/17/24 at 1215, Preprocedure, Upon admission to sameday - please start iv if patient does not have iv access. Use 500ml NS for patients on dialysis. 1215 (New Bag - Provider: Sa ra Jose M RN)1344 (Paused - Provider: Joey Cancino CRNA - Comment: Switch to gravity)1345 (Restarted - Provider: Joey Cancino CRNA)1551 (Anesthesia Volume Adjustment - Provider: Perry Bassett APRN - MAKING MACHINE OPERATOR)1905 (Stopped - Provider: Alessandra Anton LPN) PRN Medication Order 01/16/2024 01/17/2024 01/18/2024 gabapentin (Neurontin) capsule 100 mg 100 mg, Oral, Daily PRN, nerve pain, Starting on Wed01/17/24 at 1748 HYDROmorphone (Dilaudid) injection 0.5 mg (CANCELED) 0.5 mg, IntraVENous, Every 5 min PRN, severe pain (7-10), Starting on Wed01/17/24 at 1626, For 4 doses, Recovery (only), Phase I and Phase II- Initial therapy for severe pain (7-10). Restricted to a 90 minute time frame starting when the patient can verbally state their pain score. If after 2 doses the pain score does not decrease by more than one point, then call the provider. If oral meds are utilized, do not return to initial therapy medications. 1630 (Given - Provider: Melany Guerra, RN)1658 (Given - Provider: Fifi Cleary RN) indocyanine green (IC-Green) injection (CANCELED) As needed, Starting on Wed01/17/24 at 1343, Intraprocedure 1343 (Given - Provider: Tommy Skelton MD - Comment: MIXED WITH 20ML OF STERILE WATER) naloxone (Narcan) injection 0.4 mg 0.4 mg, IntraVENous, Every 5 min PRN, opioid reversal, Starting on Wed01/18/24 at 1027, For RR <10, pinpoint pupils, over sedation for opioid reversal - MUST notify monitor worker provider immediately after first dose, may give IM or SQ if no IV access ondansetron (Zofran) injection 4 mg(Linked Group 3) 4 mg, IntraVENous, Every 6 hours PRN, nausea, vomiting, Starting on Wed01/17/24 at 2000, Phase II/On Unit, 1st Line. Give IV if patient is unable to take orally. If inadequate response within 60 minutes, proceed to next-line agent or contact provider if no further options ordered. ondansetron ODT (Zofran-ODT) disintegrating tablet 4 mg(Linked Group 3) 4 mg, Oral, Every 8 hours PRN, nausea, vomiting, Starting on Wed01/17/24 at 2000, Phase II/On Unit, 1st Line. If inadequate response within 60 minutes, proceed to next-line agent or contact provider if no further options ordered. Patient should allow tablet to dissolve on tongue. Do not remove from blister pack until just before administering. oxyCODONE (Roxicodone) immediate release tablet 10 mg(Linked Group 4) 10 mg, Oral, Every 4 hours PRN, severe pain (7-10), Starting on Wed01/17/24 at 1748, Phase II/On Unit oxyCODONE (Roxicodone) immediate release tablet 5 mg(Linked Group 4) 5 mg, Oral, Every 4 hours PRN, moderate pain (4-6), Starting on Wed01/17/24 at 1748, Phase II/On Unit polyethylene glycol (PEG) 3350 (Miralax) packet 17 g 17 g, Oral, Daily PRN, constipation, Starting on Wed01/17/24 at 1748, Phase II/On Unit, 1st line for treatment of constipation - give scheduled if no bowel movement in past 24 hours. prochlorperazine (Compazine) injection 10 mg(Linked Group 5) 10 mg, IntraVENous, Every 6 hours PRN, nausea, vomiting, Starting on Wed01/17/24 at 1849, Give IV if patient is unable to take orally. Give IM if patient is unable to take orally and does not have IV access. 1942 (Given - Provider: Bridgette Aceves, ESTELLE) prochlorperazine (Compazine) suppository 25 mg(Linked Group 5) 25 mg, Rectal, Every 12 hours PRN, nausea, vomiting, Starting on Wed01/17/24 at 1849, Give ID if patient is unable to take orally or receive by injection. 1942 (See Alternative - Provider: Jyothi Aceves, ESTELLE) prochlorperazine (Compazine) tablet 10 mg(Linked Group 5) 10 mg, Oral, Every 6 hours PRN, nausea, vomiting, Starting on Wed01/17/24 at 1849 1942 (See Alternative - Provider: Jyothi Aceves, RN) sodium chloride 0.9 % infusion 5-250 mL/hr, IntraVENous, PRN, if patient receiving piggyback infusions and maintenance fluids are not ordered OR KVO fluids to protect IV site / prevent frequent line interruptions/ long duration, Starting on Wed01/17/24 at 1748, Phase II/On Unit, For piggyback infusion, administer at same rate as piggyback for a total of 25 mL. Enter 25 mL into dose field and piggyback rate into rate field of order. If piggyback is infusing at a rate less than 100 mL/hr, enter 25 mL into dose field and 100 mL/hr into rate field of order. For KVO fluids, enter rate of 20 mL/hr or less into rate field of order. sodium chloride 0.9 % irrigation solution (CANCELED) As needed, Starting on Wed01/17/24 at 1343, Intraprocedure 1343 (Given - Provider: Tommy Skelton MD - Comment: SUCTION TRANSITION ASSISTANT) sodium chloride 0.9% (NS) flush 10 mL 10 mL, IntraVENous, PRN, line care, Starting on Wed01/17/24 at 1748, Phase II/On Unit, After every IV line use sterile water irrigation solution (CANCELED) As needed, Starting on Wed01/17/24 at 1343, Intraprocedure 1343 (Given - Provider: Tommy Skelton MD - Comment: IN BASIN FOR INSTRUMENTS) Linked Groups Order Group 1: metroNIDAZOLE (Flagyl) IVPB 500 mg (COMPLETED)Jump to med 500 mg, IntraVENous, at 100 mL/hr, Administer over 60 Minutes, Once, On Wed01/17/24 at 1215, For 1 dose, Preprocedure, Administer within 1 hour prior to incision., Suspected Indication (Select all that apply): Surgical Prophylaxis And ciprofloxacin (Cipro) IVPB 400 mg (COMPLETED)Jump to med 400 mg, IntraVENous, at 200 mL/hr, Administer over 60 Minutes, Once, On Wed01/17/24 at 1215, For 1 dose, Preprocedure, Administer within 1 hour prior to incision premix bag, Suspected Indication (Select all that apply): Surgical Prophylaxis Group 2: famotidine (Pepcid) tablet 20 mg (COMPLETED)Jump to med 20 mg, Oral, Once, On Wed01/17/24 at 1215, For 1 dose, Preprocedure, IV or ORAL Or famotidine (Pepcid) 20 mg in sodium chloride (PF) 0.9 % 10 mL injection (COMPLETED) 20 mg, IntraVENous, Administer over 2 Minutes, Once, On Wed01/17/24 at 1215, For 1 dose, Preprocedure, IV or ORAL Group 3: ondansetron ODT (Zofran-ODT) disintegrating tablet 4 mgJump to med 4 mg, Oral, Every 8 hours PRN, nausea, vomiting, Starting on Wed01/17/24 at 2000, Phase II/On Unit, 1st Line. If inadequate response within 60 minutes, proceed to next-line agent or contact provider if no further options ordered. Patient should allow tablet to dissolve on tongue. Do not remove from blister pack until just before administering. Or ondansetron (Zofran) injection 4 mgJump to med 4 mg, IntraVENous, Every 6 hours PRN, nausea, vomiting, Starting on Wed01/17/24 at 2000, Phase II/On Unit, 1st Line. Give IV if patient is unable to take orally. If inadequate response within 60 minutes, proceed to next-line agent or contact provider if no further options ordered. Group 4: oxyCODONE (Roxicodone) immediate release tablet 5 mgJump to med 5 mg, Oral, Every 4 hours PRN, moderate pain (4-6), Starting on Wed01/17/24 at 1748, Phase II/On Unit Or oxyCODONE (Roxicodone) immediate release tablet 10 mgJump to med 10 mg, Oral, Every 4 hours PRN, severe pain (7-10), Starting on Wed01/17/24 at 1748, Phase II/On Unit Group 5: prochlorperazine (Compazine) tablet 10 mgJump to med 10 mg, Oral, Every 6 hours PRN, nausea, vomiting, Starting on Wed01/17/24 at 1849 Or prochlorperazine (Compazine) injection 10 mgJump to med 10 mg, IntraVENous, Every 6 hours PRN, nausea, vomiting, Starting on Wed01/17/24 at 1849, Give IV if patient is unable to take orally. Give IM if patient is unable to take orally and does not have IV access. Or prochlorperazine (Compazine) suppository 25 mgJump to med 25 mg, Rectal, Every 12 hours PRN, nausea, vomiting, Starting on Wed01/17/24 at 1849, Give ID if patient is unable to take orally or receive by injection. FOR RECORDS PERTAINING TO PATIENTS WHO ARE [...] BE BASED ON THE PRIMARY CLINICAL RECORDS. [email or web address] provides no warranty or guarantee of the accuracy or completeness of information in this document.
[2025-03-07 04:07] LABS: Cancer Antigen 125 12.7 U/mL (0.0-38.1)
== END | disposition home or self-care (01) ==
LOC: LAB 09:47
PROVIDERS: PCP Family Medicine; Referring Provider Nurse Practitioner Primary Care; Visit Provider Nurse Practitioner Primary Care
DX: C54.1 Malignant neoplasm of endometrium (principal)
CPT/HCPCS: 36415; 86304

== ENCOUNTER → 2025-06-07 | Outpatient (CLI) | payer MEDICARE, OTHER, SELFPAY | END | disposition home or self-care (01) | LOC: LAB 11:30 | PROVIDERS: PCP Family Medicine; Referring Provider Obstetrics & Gynecology; Visit Provider Obstetrics & Gynecology | DX: C54.1 Malignant neoplasm of endometrium (principal) | CPT/HCPCS: 36415; 86304 ==

== ENCOUNTER 2025-06-28 11:06 | Outpatient (CLI) | payer MEDICARE, OTHER, SELFPAY | END 2025-06-28 23:59 | disposition home or self-care (01) | LOC: LABSPEC 11:07 | PROVIDERS: PCP Family Medicine; Visit Provider Family Medicine | DX: K57.92 Diverticulitis of intestine, part unspecified, without perforation or abscess without bleeding (principal); R52 Pain, unspecified | CPT/HCPCS: 87086; 87088 ==

== ENCOUNTER → 2025-06-28 | Outpatient (CLI) | payer MEDICARE, OTHER, SELFPAY ==
--- NOTE | 2025-06-28 09:39 | RAD_ITS ---
PROCEDURE: ABD INC DECUB AND/OR ERECT 06/28/2025 REASON FOR EXAM: LLQ PAIN, ? CONSTIPATION TECHNIQUE: Procedure Code: RADABDMV Modality: DX Procedure: ABD INC DECUB AND/OR ERECT COMPARISON: None FINDINGS: There is a nonobstructive bowel gas pattern. There are no abnormal soft tissue calcifications or radiopaque foreign bodies. There is moderate dextroscoliosis of the lumbar spine. RAD/Abd Inc Decub and/or Erect IMPRESSION: NO ACUTE FINDINGS. Other findings as noted. Reading Location: [id number]
[2025-06-28 12:28] LABS: Hematocrit 40.3 % (37-47); Hemoglobin 14.2 g/dL (12.0-15.0); Immature Granulocytes Count 0.020 X10^3/uL (0.0-0.0); Mean Corp Hgb Conc 35.2 g/dL (32-36); Mean Corpuscular Volume 88.4 fL (81-99); Mean Platelet Vol. 10.1 fl (6.2-12.0); NRBC Flagged by Analyzer 0 % (0-5); Platelet Count 251 K/mm3 (150-450); RBC Distribution Width CV 12.8 % (11.6-14.6); RBC Distribution Width SD 41.5 fl (35.1-43.9); Red Blood Count 4.56 M/mm3 (4.2-5.4); White Blood Count 8.8 K/mm3 (4.4-11.0)
[2025-06-28 12:49] LABS: AST(SGOT) 38 U/L (<=31); Alanine Aminotransfer ALT/SGPT 50 U/L (<=34); Albumin, Serum 4.2 g/dL (3.4-4.8); Alkaline Phosphatase 57 U/L (35-104); Anion Gap 19 (5-15); BUN 15 mg/dL (4-19); BUN/Creat Ratio 17.0 RATIO (10-20); CRP 10.60 mg/L (0.0-3.0); Calcium,Total 9.1 mg/dL (7.6-11.0); Carbon Dioxide 16.9 mmol/L (21.0-32.0); Chloride 106 mmol/L (98-108); Globulin 4.2 g/dL (2.2-4.2); Glucose 101 mg/dL (70-99); Potassium 4.1 mmol/L (3.3-5.1)
== END | disposition home or self-care (01) ==
LOC: MTLAB 09:39
PROVIDERS: PCP Family Medicine; Referring Provider Family Medicine; Visit Provider Family Medicine
DX: K57.92 Diverticulitis of intestine, part unspecified, without perforation or abscess without bleeding (principal)
CPT/HCPCS: 36415; 74019; 80053; 85025; 86140

== ENCOUNTER → 2025-09-04 | Outpatient (CLI) | payer MEDICARE, OTHER, SELFPAY ==
--- NOTE | 2025-09-04 09:59 | BD_ITS ---
PROCEDURE: DEXA BONE DENSITY STUDY 09/04/2025 REASON FOR EXAM: F, age 75 y/o . Postmenopausal. TECHNIQUE: Procedure Code: BDDBD Modality: DX Procedure: DEXA BONE DENSITY STUDY COMPARISON: August 31, 2023. FINDINGS: BMD and T-SCORES Lumbar spine: 0.622 g/cm2, T-score -4.4 Levels: L1 through L4 Change from prior: Improvement of 11.8%. Left femoral neck: 0.579 g/cm2, T-score -2.4 Femoral neck comparison data not recommended for monitoring change. Left total hip: 0.706 g/cm2, T-score -1.9 Change from prior: Improvement of 0.8%. Right femoral neck: 0.576 g/cm2, T-score -2.5 Femoral neck comparison data not recommended for monitoring change. Right total hip: 0.707 g/cm2, T-score -1.9 Change from prior: Loss of 2%. The World Health Organization has defined the following categories based on bone density: Normal bone density: T-score equal to or greater than -1.0 Osteopenia: T-score between -1.0 and -2.5 Osteoporosis: T-score equal to or less than -2.5 FRAX (or Comparable) Fracture Risk Assessment: 10 Year Probability of Fracture: Major Osteoporotic Fracture: 23% Hip Fracture: 6.2% (Note: FRAX is not to be reported in setting of normal range bone density, osteoporosis on DEXA, known history of osteoporosis, prior osteoporotic hip or vertebral fracture, or for any patient undergoing pharmacological treatment for bone loss.) The National Osteoporosis Foundation (NOF) recommends pharmacological treatment for patients with a FRAX 10-year risk of 3% or higher for a hip fracture, or 20% or higher for a major osteoporotic fracture, to prevent osteoporosis and reduce fracture risk. The patient does meet the pharmacological treatment recommendations for prevention of osteoporosis. BD/Dexa Bone Density Study IMPRESSION: OSTEOPOROSIS. Recommend follow-up as clinically warranted. Reading Location: [id number]
--- NOTE | 2025-09-04 11:00 | BI_ITS ---
EXAM: SCRN MAMM (CAD)W/RAUDEL BILAT DATE: 09/04/2025 CLINICAL HISTORY: F, Age 75 y/o , SCREEN Sister with breast cancer. Grandmother with breast cancer. TECHNIQUE: Procedure Code: [id number] Modality: MG Procedure: SCRN MAMM (CAD)W/RAUDEL BILAT COMPARISON: Prior exam(s) dated September 01, 2024.. FINDINGS: TISSUE DENSITY: The breasts are heterogeneously dense, which may obscure small masses. Bilateral Breast Mammographic Findings: No significant masses, calcifications or other abnormalities are identified. Stable bilateral benign-appearing axillary lymph nodes. No suspicious masses, areas of developing architectural distortion, or suspicious calcifications. There has been no significant interval change. BI/SCRN MAMM (CAD)W/RAUDEL BILAT IMPRESSION: Stable bilateral screening mammogram. OVERALL FINAL ASSESSMENT BI-RADS 2: BENIGN RECOMMENDATION: Routine annual follow-up in 1 Year Additional Recommendation none A letter with findings and recommendations will be mailed to the patient. Reading Location: [place] [address]
== END | disposition home or self-care (01) ==
PROVIDERS: PCP Family Medicine; Referring Provider Nurse Practitioner Family; Visit Provider Nurse Practitioner Family
DX: Z12.31 Encounter for screening mammogram for malignant neoplasm of breast (principal); Z78.0 Asymptomatic menopausal state
CPT/HCPCS: 77063; 77067; 77080